=== PATIENT | female | born 1950 | race Caucasian/White ===

== ENCOUNTER 2022-01-02 13:44 | Outpatient (CLI) | payer MEDICARE, MEDICAID, SELFPAY ==
--- NOTE | 2022-01-02 14:30 | XR_ITS ---
WS: [id number] DEXA (DUAL ENERGY X-RAY ABSORPTIOMETRY) Bone mineral density was performed using a [employer] machine. HISTORY: screening COMPARISON: None available. Lumbar spine BMD (L1-L4): 1.206 g/cm2 T score: 0.2 Z score: 1.2 Total hip BMD: Left: 0.898 g/cm2. T score: -0.9 Z score: 0.2 Right: 0.841 g/cm2. T score: -1.3 Z score: -0.3 10 year probability of a major osteoporotic fracture is 20.9%. XR/XR DEXA axial skeleton* 48516 IMPRESSION: OSTEOPENIA based upon the WHO classification for females.
== END 2022-01-02 13:45 | disposition home or self-care (01) ==
PROVIDERS: PCP Internal Medicine; Visit Provider Nurse Practitioner Family
DX: Z78.0 Asymptomatic menopausal state (principal); M85.80 Other specified disorders of bone density and structure, unspecified site
CPT/HCPCS: 77080

== ENCOUNTER 2023-10-03 13:26 | Emergency (ER) | payer MEDICARE, MEDICAID, SELFPAY ==
[2023-10-03 13:30] VITALS: BP 113/79; PULSE 72; RESP 18; TEMP 36.7; O2SAT 95; BMI 23.4
--- NOTE | 2023-10-03 13:40 | XRR_ITS ---
PROCEDURE INFORMATION: Exam: XR Chest Exam date and time: 10/03/2023 1:56 PM Age: 73 years old Clinical indication: Patient HX: Weakness and hypotension. AMS. TECHNIQUE: Imaging protocol: Radiologic exam of the chest. Views: 1 view. COMPARISON: No relevant prior studies available. FINDINGS: Tubes, catheters and devices: Median sternotomy suture wires. Lungs: Bibasilar atelectasis with a left pleural effusion probably present as well. Pleural spaces: See Lungs finding. Heart/Mediastinum: See Vasculature finding. Vasculature: Moderate cardiomegaly and uncoiling of the thoracic aorta. Bones/joints: Unremarkable. Other findings: Mild cephalization of blood flow appear no XR/XR chest 1V portable [id number] IMPRESSION: 1. Cardiomegaly mild cardiac decompensation peer 2. Opacity at the right lung base.
--- NOTE | 2023-10-03 13:40 | CT_ITS ---
WS: [id number] CT HEAD TECHNIQUE: Noncontrast CT of the head obtained from the skullbase to the vertex. CLINICAL INFORMATION: Encephalopathy, altered mental status COMPARISON: None. DLP: 1075.[address] scans at [facility] use at least one of these dose optimization techniques: automated e xposure control; mA and/or kV adjustment per patient size (includes targeted exams where dose is matc hed to clinical indication); or iterative reconstruction. FINDINGS: No evidence of intracranial hemorrhage or mass effect. Ventricular system and basal cisterns are pal nt. Moderate small vessel changes with moderate parenchymal volume loss. No extra-axial fluid collect ions. No evidence of mass or mass effect. Chronic lacunar infarcts in the cerebellum. Chronic appeari ng LEFT parietal infarct near the vertex. Chronic LEFT parietal and occipital infarct with encephalom alacia. Chronic lacunar infarct in the RIGHT [place] radiata. Vascular calcification. Paranasal sinuses and mastoid air cells are well aerated. .Normal visualized soft tissues. CT/CT head wo con* [id number] IMPRESSION: 1. No evidence of intracranial hemorrhage or mass effect. 2. Moderate small vessel changes. Moderate parenchymal volume loss. 3. Small chronic lacunar infarcts in the cerebellum. 4. Intracranial vascular calcification. 5. Tiny lacunar infarct in the RIGHT cop[place] radiata. 6. Chronic appearing infarcts LEFT parietal lobe near the vertex. Chronic infa rcts LEFT parietal and parasagittal occipital lobes with encephalomalacia. 7. No acute intracranial findings.
--- NOTE | 2023-10-03 13:41 | ECG_ITS ---
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 Measurements Intervals [place] Rate: 72 P: 2 IL: 204 QRS: -34 QRSD: 177 T: 86 QT: 482 QTc: 529 Interpretive Statements SINUS RHYTHM WITH OCCASIONAL SUPRAVENTRICULAR PREMATURE COMPLEXES LEFT AXIS DEVIATION [QRS AXIS < -30] INTRAVENTRICULAR CONDUCTION DELAY [130+ ms QRS DURATION] No previous ECG available for comparison Electronically Signed On 10-03-2023 17:04:02 CDT by Dawson Garcia M.D. [email or web address]/[id number] f
--- NOTE | 2023-10-03 14:20 | W.ED.AMS ---
HPI - Altered Mental Status General: Chief Complaint: Altered Mental Status Stated Complaint: Ams, Hypoten Time Seen by Provider: 10/03/23 13:30 History of Present Illness: 73-year-old female with history of coronary artery disease status post CABG, hyperlipidemia, peripheral vascular disease, CVA, depression, type 2 diabetes, COPD and dementia who presents to the emergency room by ambulance with concerns for some altered mental status this morning. Also she has had some cough. She is requiring some oxygen that she does not normally require. She is insulin-dependent. She takes Bumex for congestive heart failure. I do not see any anticoagulants in her records. I did review her long term records. On presentation here she does not remember any altered mental status. She has no complaints. She is awake and alert. No focal motor deficits. She has no chest pain. No shortness of breath. No abdominal pain. Review of Systems Narrative: Constitutional symptoms: Negative except as documented in HPI. Skin symptoms: Negative except as documented in HPI. Eye symptoms: Negative except as documented in HPI. ENMT symptoms: Negative except as documented in HPI. Respiratory symptoms: Negative except as documented in HPI. Cardiovascular symptoms: Negative except as documented in HPI. Gastrointestinal symptoms: Negative except as documented in HPI. Genitourinary symptoms: Negative except as documented in HPI. Musculoskeletal symptoms: Negative except as documented in HPI. Neurologic symptoms: Negative except as documented in HPI. Psychiatric symptoms: Negative except as documented in HPI. Endocrine symptoms: Negative except as documented in HPI. [facility] ED Female Reproductive History: Spontaneous abortions: No Physical Exam Narrative: General: Alert, no acute distress. Skin: Warm, dry. Head: Normocephalic, atraumatic. Neck: Supple, trachea midline. Eye: Extraocular movements are intact. Ears, nose, mouth and throat: mucosa moist. Cardiovascular: Regular, Normal peripheral perfusion. Respiratory: Lungs are clear to auscultation, respirations are non-labored, breath sounds are equal, Symmetrical chest wall expansion. Gastrointestinal: Soft, Nontender, Non distended, Normal bowel sounds. Musculoskeletal: Normal ROM, no deformity. Neurological: Alert and oriented, No focal neurological deficit observed. Psychiatric: Cooperative, appropriate mood & affect. Course Vital Signs: Vital signs: Vital Signs Temperature 98.1 F 10/03/23 13:30 Pulse Rate 86 10/03/23 17:18 Respiratory Rate 18 10/03/23 13:30 Blood Pressure 119/74 10/03/23 15:09 Pulse Oximetry 96 10/03/23 17:18 Oxygen Delivery Me thod Room Air 10/03/23 17:18 Oxygen Flow Rate 2 10/03/23 13:30 MDM - Altered Mental Status Medical Decision Making Medical decision making: Differential diagnosis including but not limited to and based on the above HPI, review of systems and physical exam: In this patient with altered mental status: Stroke. Hypoglycemia. Metabolic encephalopathy. Infections such as pneumonia, urinary tract infection, Covid-19, Influenza. Electrolyte abnormalities such as hypernatremia. Renal failure / uremia. Hepatic encephalopathy. Hypoxemia. Hypercapnic respiratory failure. Psychosis. Drug or alcohol intoxication. Medication overdose. Orders placed to evaluate differential diagnosis based on the above differential, HPI and physical exam EKG: Time 1333. Rate 72. Wide-complex. Normal sinus rhythm, No ST-T changes, no ectopy, normal AL & QRS intervals, This was reviewed and interpreted by myself the ER physician at 1337 CT head: Volume loss. White matter changes. No acute intracranial process. no intracranial hemorrhage, no evidence of infarct. no evidence of acute fracture.This was reviewed and interpreted by myself the ER physician. Chest x-ray: Sternotomy wires are present. Right lower lobe infiltrate. No pneumothorax. No cardiomegaly. This was reviewed and interpreted by myself the ER physician. Repeat EKG: Time 1551. Rate 74. Wide-complex. Normal sinus rhythm, No ST-T changes, no ectopy, normal AL & QRS intervals, This was reviewed and interpreted by myself the ER physician at 1558 Lab Review: Laboratory results were reviewed and interpreted by myself the emergency room physician. Mild leukocytosis with a white count of 11. Hemoglobin stable at 10.7. BUN and creatinine are 22 and 1.3. Initial troponin is 31. Urinalysis basically negative. Repeat troponin has no significant delta. Prolonged emergency room stay: Stay is prolonged secondary to waiting for a second set of cardiac markers. Second set of markers was not reported back until 4 hours. I reviewed the patient's medical record. Reexamination: Patient remains alert and oriented. She has had no altered mental status while she is been here. She is stable on 2 L nasal cannula which has been provided for her by the long term. I have given her IV doxycycline. She has no focal motor deficits. No increased work of breathing at this time. She says she is ready to go back. Assessment and plan: Pneumonia Hypoxemia ?IV doxycycline and IV Solu-Medrol in the emergency room - Discharged home - Discussed findings and plan with patient. Answered any questions. - All laboratory values were reviewed and interpreted personally by myself, the ER physician - All imaging was reviewed and interpreted personally by myself, the ER physician. - Evaluation and treatment of this problem were appropriate in the emergency setting Lab Data 10/03/23 14:11 10/03/23 14:11 Radiology Impressions Chest X-Ray 10/03/23 13:40 IMPRESSION: 1. Cardiomegaly mild cardiac decompensation peer 2. Opacity at the right lung base. Head CT 10/03/23 13:40 IMPRESSION: 1. No evidence of intracranial hemorrhage or mass effect. 2. Moderate small vessel changes. Moderate parenchymal volume loss. 3. Small chronic lacunar infarcts in the cerebellum. 4. Intracranial vascular calcification. 5. Tiny lacunar infarct in the RIGHT [place] radiata. 6. Chronic appearing infarcts LEFT parietal lobe near the vertex. Chronic infarcts LEFT parietal and parasagittal occipital lobes with encephalomalacia. 7. No acute intracranial findings. Laboratory Results WBC 11.09 10^3/uL (3.29-11.43) 10/03/23 14:11 RBC 3.51 10^6/uL (3.85-5.65) L 10/03/23 14:11 Hgb 10.70 g/dL (11.27-16.99) L 10/03/23 14:11 Hct 33.1 % (36-47) L 10/03/23 14:11 MCV 94.3 fl (85-98) 10/03/23 14:11 MCH 30.5 pg (27-33) 10/03/23 14:11 MCHC 32.3 g/dL (30-55) 10/03/23 14:11 RDW 13.8 % (12.1-15.1) 10/03/23 14:11 Plt Count 129 10^3/cmm (157-399) L 10/03/23 14:11 MPV 11.6 fL (7.4-10.4) H 10/03/23 14:11 Neut % (Auto) 76.8 % 10/03/23 14:11 Lymph % (Auto) 13.6 % 10/03/23 14:11 Crisp % (Auto) 8.1 % 10/03/23 14:11 Eos % (Auto) 1.0 % 10/03/23 14:11 Baso % (Auto) 0.2 % 10/03/23 14:11 Neut # (Auto) 8.52 10^3/uL (1.8-7.7) H 10/03/23 14:11 Lymph # (Auto) 1.5 10^3/uL (0.8-4.8) 10/03/23 14:11 Crisp # (Auto) 0.9 10^3/uL (0.2-0.9) 10/03/23 14:11 Eos # (Auto) 0.1 10^3/uL (0.0-0.8) 10/03/23 14:11 Baso # (Auto) 0.0 10^3/uL (0.0-0.1) 10/03/23 14:11 Nucleated RBC % (auto) 0 % 10/03/23 14:11 Nucleated RBCs # 0.0 /100WBC 10/03/23 14:11 Sodium 133 mmol/L (136-145) L 10/03/23 14:11 Potassium 3.3 mmol/L (3.5-5.1) L 10/03/23 14:11 Chloride 93 mmol/L (98-107) L 10/03/23 14:11 Carbon Dioxide 28 mmol/L (22-29) 10/03/23 14:11 Anion Gap 15.3 (5-19) 10/03/23 14:11 BUN 22 mg/dL (8-23) 10/03/23 14:11 Creatinine 1.3 mg/dL (0.5-0.9) H 10/03/23 14:11 GFR Calculation Not Reportable 10/03/23 14:11 Glucose 120 mg/dL (65-115) H 10/03/23 14:11 Calculated Osmolality 281 mOsm/kg (285-295) L 10/03/23 14:11 Lactic Acid 1.2 mmol/L (0.5-2.2) 10/03/23 14:11 Calcium 9.3 mg/dL (8.5-10.5) 10/03/23 14:11 Total Bilirubin 0.9 mg/dL (0.15-1.2) 10/03/23 14:11 AST 15 U/L (0-32) 10/03/23 14:11 ALT 7 U/L (0-33) 10/03/23 14:11 Alkaline Phosphatase 86 U/L (35-105) 10/03/23 14:11 Troponin T Baseline 31 ng/L (0-10) H 10/03/23 14:11 Troponin T 120 Minute 26.61 ng/L (0-10) H 10/03/23 16:41 Delta Troponin T -4.39 ABS# (0-10) L 10/03/23 16:41 C-Reactive Protein 101.1 mg/L (0.0-4.9) H 10/03/23 14:11 Total Protein 8.0 g/dL (6.6-8.7) 10/03/23 14:11 Albumin 4.0 g/dL (3.5-5.2) 10/03/23 14:11 Globulin 4.0 g/dL (1.3-4.6) 10/03/23 14:11 Urine Color Yellow (Yellow) 10/03/23 15:06 Urine Appearance Clear (CLEAR) 10/03/23 15:06 Urine pH 5 (5-7) 10/03/23 15:06 Ur Specific [place] 1.005 (1.005-1.030) 10/03/23 15:06 Urine Protein Neg (Negative) 10/03/23 15:06 Urine Glucose (UA) Norm (Normal) 10/03/23 15:06 Urine Ketones Negative (Negative) 10/03/23 15:06 Urine Blood 2+ (Negative) H 10/03/23 15:06 Urine Nitrate Negative (Negative) 10/03/23 15:06 Urine Bilirubin Neg (Negative) 10/03/23 15:06 Urine Urobilinogen Norm mg/dL (Negative) 10/03/23 15:06 Ur Leukocyte Esterase Trace (Negative) H 10/03/23 15:06 Urine RBC 0-4 /hpf (0-2) H 10/03/23 15:06 Urine WBC 0-4 /hpf (0-5) H 10/03/23 15:06 Ur Squamous Epith Cells 0-4 /hpf (0-5) H 10/03/23 15:06 Amorphous Sediment Not Reportable 10/03/23 15:06 Urine Bacteria 1+ /hpf (NONE) H 10/03/23 15:06 All radiology interpretation(s) finalized by discharge Discharge Plan Discharge Patient Disposition: Home Clinical Impression: Pneumonia Qualifiers: Pneumonia type: due to unspecified organism Laterality: right Lung location: lower lobe of lung Qualified Code(s): J18.9 - Pneumonia, unspecified organism Condition: Stable Prescriptions: New doxycycline hyclate 100 mg capsule 100 mg PO BID 7 Days Qty: 14 0RF dexamethasone 6 mg tablet 6 mg PO DAILY 5 Days Qty: 5 0RF No Action potassium chloride 10 mEq capsule, extended release 10 meq PO DAILY polyethylene glycol 3350 [Miralax] 17 gram/dose powder 17 gm PO DAILY aspirin [Adult Aspirin Regimen] 81 mg tablet,delayed release (DR/EC) 81 mg PO DAILY carvedilol 6.25 mg tablet 6.25 mg PO Q12H famotidine 20 mg tablet 20 mg PO BID quetiapine [Seroquel] 100 mg tablet 100 mg PO BID Combivent Respimat 20-100 mcg/actuation mist 1 puff INHALATION QID tamsulosin 0.4 mg capsule 0.4 mg PO DAILY mirtazapine 15 mg tablet 15 mg PO DAILY trazodone 50 mg tablet 25 mg PO .AT HS Lumigan 0.01 % drops 1 drop ophthalmic (eye) DAILY atorvastatin [Lipitor] 20 mg tablet 20 mg PO DAILY acetaminophen [Tylenol] 325 mg tablet 325 mg PO QID PRN bisacodyl 10 mg suppository 10 mg AL DAILY PRN glimepiride [Amaryl] 2 mg tablet 2 mg PO BID Qty: 60 0RF losartan 50 mg tablet 100 mg PO DAILY fluticasone propion-salmeterol [Advair Diskus] 250-50 mcg/dose blister with device 1 inh inhalation BID Qty: 60 0RF Discharge Orders: Discharge ED (Routine); Ordered 10/03/23 Ordered By: Bessy Howard Referrals: Rigoberto Gibson MD [Primary Care Provider] - Discharge Diet: Usual diet Discharge Activity: Increase activity as tolerated Patient Instructions: Pneumonia (ED) Activity Restrictions/Additional Instructions: Thank you for choosing [facility] for your healthcare needs today. Please realize this is an emergency room and that we are providing you with a medical screening exam and this may not be complete and all inclusive of all the testing and or work up that you may need to determine your ailment or severity of your illness. You have been screened and evaluated and felt safe for discharge. Health conditions do change or evolve sometimes and as such it is important that you follow up with your Primary Doctor to be re checked, 3-5 days is a general good time frame for follow up. You are always welcome to return to the ED for re assessment if your symptoms are worsening or you have new concerns Coding Level of Care Code ED Fusing Machine Operator for Giorgi Lopez
[2023-10-03 14:24] LABS: Basophils % 0.2 %; Eosinophils # 0.1 10^3/uL (0.0-0.8); Hematocrit 33.1 % (36-47); Lymphocytes # 1.5 10^3/uL (0.8-4.8); Lymphocytes % 13.6 %; Mean Corpuscular HGB Conc 32.3 g/dL (30-55); Mean Corpuscular Hemoglobin 30.5 pg (27-33); Mean Corpuscular Volume 94.3 fl (85-98); Mean Platelet Volume 11.6 fL (7.4-10.4); Monocytes # 0.9 10^3/uL (0.2-0.9); Monocytes % 8.1 %; Neutrophils # 8.52 10^3/uL (1.8-7.7); Neutrophils % 76.8 %; Nucleated Red Blood Cells % 0 %; Platelet Count 129 10^3/cmm (157-399); Red Blood Count 3.51 10^6/uL (3.85-5.65); Red Cell Distribution Width 13.8 % (12.1-15.1); White Blood Count 11.09 10^3/uL (3.29-11.43)
[2023-10-03 14:41] LABS: Lactic Sepsis W/Reflex 1.2 mmol/L (0.5-2.2)
[2023-10-03 14:42] LABS: Alanine Aminotransferase 7 U/L (0-33); Alkaline Phosphatase 86 U/L (35-105); Anion Gap 15.3 (5-19); Aspartate Amino Transferase 15 U/L (0-32); Blood Urea Nitrogen 22 mg/dL (8-23); C Reactive Protein 101.1 mg/L (0.0-4.9); Calcium 9.3 mg/dL (8.5-10.5); Carbon Dioxide 28 mmol/L (22-29); Chloride 93 mmol/L (98-107); Creatinine Clr Calc Pharmacy 40.3281; Glucose 120 mg/dL (65-115); Osmolality Calculated 281 mOsm/kg (285-295); Potassium 3.3 mmol/L (3.5-5.1); Sodium 133 mmol/L (136-145); Total Bilirubin 0.9 mg/dL (0.15-1.2)
[2023-10-03 14:54] LABS: Troponin(5th) Baseline 31 ng/L (0-10)
[2023-10-03] MEDS: methylPREDNISolone sod succ 125 mg/2 mL INJ IVP (15:01)
[2023-10-03] MEDS: doxycycline 100 MG in sodium chloride 0.9% (plus) 100 ML IV (15:02)
[2023-10-03 15:09] VITALS: BP 119/74; PULSE 67; O2SAT 97
[2023-10-03 15:28] LABS: Bacteria Urine 1+ /hpf; Bilirubin Urine Neg (Negative); Blood Urine 2+ (Negative); Glucose Urine UA Norm (Normal); Ketones Urine Negative (Negative); Leukocyte Esterase Urine Trace (Negative); Nitrate Urine Negative (Negative); Protein Urine Neg (Negative); RBC Urine 0-4 /hpf (0-2); Specific Gravity, Urine 1.005 (1.005-1.030); Squamous Epithelial Cell Urine 0-4 /hpf (0-5); Urine Appearance Clear (CLEAR); Urine Color Yellow (Yellow); Urobilinogen Urine Norm (Negative); WBC Urine 0-4 /hpf (0-5); pH Urine 5 (5-7)
--- NOTE | 2023-10-03 15:51 | ECG_ITS ---
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 Measurements Intervals [place] Rate: 74 P: 3 MA: 203 QRS: -41 QRSD: 181 T: 87 QT: 470 QTc: 522 Interpretive Statements SINUS RHYTHM WITH SINUS ARRHYTHMIA LEFT AXIS DEVIATION [QRS AXIS < -30] INTRAVENTRICULAR CONDUCTION DELAY [130+ ms QRS DURATION] Compared to ECG 10/03/2023 13:33:05 No significant changes Electronically Signed On 10-03-2023 17:07:36 CDT by Dawson Garcia M.D. [email or web address] [email or web address] regional medical centerMass [facility]mer[facility].[employer]/store/OM/[id number]
[2023-10-03 17:18] VITALS: PULSE 86; O2SAT 96
[2023-10-03 17:34] LABS: Troponin 5 2HR 26.61 ng/L (0-10)
[2023-10-03 17:35] LABS: Troponin 5 2HR Delta -4.39 ABS# (0-10)
[2023-10-04 00:23] VITALS: BP 153/89; PULSE 98; RESP 17; O2SAT 95
== END 2023-10-04 00:27 | disposition home or self-care (01) ==
PROVIDERS: Emergency Provider Emergency Medicine; PCP Internal Medicine
DX: J44.0 Chronic obstructive pulmonary disease with (acute) lower respiratory infection (principal); J18.9 Pneumonia, unspecified organism; Z79.82 Long term (current) use of aspirin; Z79.84 Long term (current) use of oral hypoglycemic drugs; I25.10 Atherosclerotic heart disease of native coronary artery without angina pectoris; Z95.1 Presence of aortocoronary bypass graft; E78.5 Hyperlipidemia, unspecified; Z86.73 Personal history of transient ischemic attack (TIA), and cerebral infarction without residual deficits; E11.9 Type 2 diabetes mellitus without complications; F03.90 Unspecified dementia, unspecified severity, without behavioral disturbance, psychotic disturbance, mood disturbance, and anxiety; Z79.4 Long term (current) use of insulin; I50.9 Heart failure, unspecified
CPT/HCPCS: 36415; 70450; 71045; 80053; 81001; 83605; 84484; 85025; 86140; 87040; 93005; 96365; 96366; 99285; J2919; J3490

== ENCOUNTER 2024-07-25 09:23 | Inpatient (IN) | payer MEDICARE, MEDICAID, SELFPAY ==
[2024-07-25] VITALS (8 sets, daily range): BP systolic 118–147; BP diastolic 65–95; PULSE 69–76; RESP 17–19; TEMP 36.4–36.8; O2SAT 90–95; BMI 26.9
--- NOTE | 2024-07-25 09:28 | PC.PHAR ---
PATIENT IS FROM [facility]
--- NOTE | 2024-07-25 09:31 | CT_ITS ---
WS: [id number] CT HEAD NONCONTRAST HISTORY: RT SIDED WEAKNESS TECHNIQUE: Contiguous axial imaging performed through the brain. Bone and soft tissue windows. Sagittal and coronal reformats reviewed. All CT scans at [facility] use at least one of these dose optimization techniques: automated exposure control; mA and/or kV adjustment per patient size (includes targeted exams where dose is matched to clinical indication); or iterative reconstruction. DLP: 1107.20 mGy COMPARISON: 10/03/2023 No acute intracranial hemorrhage, midline shift or mass effect. Moderate cerebral atrophy and volume loss and small vessel disease. Similar to the prior study from 10/03/2023. Chronic lacunar infarcts in the cerebellum. Chronic LEFT parietal infarct and LEFT occipital lobe infarct. No acute infarcts or sulcal effacement. Ventricles: Mildly dilated ventricles and extra-axial spaces on the basis of atrophy. No inferior displacement of the cerebellar tonsils. Paranasal sinuses: As visualized are clear. Mastoid air cells: Well pneumatized. Calvarium and scalp: Hyperostosis frontalis interna. CT/CT head thrombolytic [id number] IMPRESSION: 1. No acute intracranial hemorrhage or edema. 2. Moderate volume loss and small vessel disease. 3. Numerous prior infarcts. Infarcts within the LEFT parietal and occipital lo bes and cerebellum. Notified Jim Boone DO at 07/25/2024 9:40 AM.
--- NOTE | 2024-07-25 09:37 | W.ED.NEUROSD ---
HPI - Neuro Symptoms/Deficit General: Chief Complaint: Neuro Symptoms/Deficit Stated Complaint: stroke like symptoms Time Seen by Provider: 07/25/24 09:28 History of Present Illness: 74-year-old female presents emergency room via EMS from a local care home. She is complaining of right-sided pain typically she ambulates she is unable to move her right lower extremity and has significant weakness in her right upper extremity. Her last known well was before bedtime last night which they estimate to be around 9 or 10:00. She is well outside the window of treatment for any thrombolytics when she arrives this morning at 923. Patient is awake can answer questions initial NIH score on my exam was 4, possibly 5 patient states she was not having any difficulty speaking she did have a little slurring of words and unsure if that she is actually at her baseline or not did not have any family members available to clarify. Associated symptoms: Deny chest pain Related Data Home Medications ?Medication ?Instructions ?Recorded ?Confirmed acetaminophen 325 mg tablet 325 mg PO QID PRN Pain 08/19/19 07/25/24 (Tylenol) aspirin 81 mg tablet,delayed 81 mg PO DAILY 08/19/19 07/25/24 release (Adult Aspirin Regimen) atorvastatin 20 mg tablet (Lipitor) 20 mg PO BEDTIME 08/19/19 07/25/24 bimatoprost 0.01 % eye drops 1 drop ophthalmic (eye) BEDTIME 08/19/19 07/25/24 (Lumigan) bisacodyl 10 mg rectal suppository [address] DAILY PRN Constipation 08/19/19 07/25/24 carvedilol 6.25 mg tablet 6.25 mg PO Q12H 08/19/19 07/25/24 mirtazapine 15 mg tablet 15 mg PO BEDTIME 08/19/19 07/25/24 potassium chloride 10 mEq 10 meq PO DAILY 08/19/19 07/25/24 capsule,extended release tamsulosin 0.4 mg capsule 0.4 mg PO BEDTIME 08/19/19 07/25/24 B1 0.5 mg-B2 0.6 mg-B3 7 mg-B6 0.7 See Rx Instructions .Route .COMPLEX 04/14/24 07/25/24 [id number] oral elixir bumetanide 2 mg tablet 2 mg PO DAILY 04/14/24 07/25/24 menthol 4 % topical gel (Biofreeze 1 applic topical TID PRN Pain 04/14/24 07/25/24 (menthol)) polyethylene glycol 3350 17 17 g PO DAILY PRN Constipation 04/14/24 07/25/24 gram/dose oral powder (Miralax) quetiapine 200 mg tablet (Seroquel) 200 mg PO BEDTIME 04/14/24 07/25/24 albuterol sulfate 90 mcg/actuation 1 - 2 puff inhalation Q4H PRN 07/25/24 07/25/24 aerosol inhaler Shortness Of Breath escitalopram oxalate 10 mg tablet 10 mg PO DAILY 07/25/24 07/25/24 fluticasone furoate 200 1 inh inhalation DAILY 07/25/24 07/25/24 mcg-vilanterol 25 mcg/dose inhalation powder (Breo Ellipta) guaifenesin 100 mg/5 mL oral liquid 300 mg PO Q4H PRN Cough 07/25/24 07/25/24 guaifenesin 600 mg tablet, 600 mg PO Q12H PRN Congestion 07/25/24 07/25/24 extended release 12 hr (Mucinex) ipratropium 0.5 mg-albuterol 3 mg 3 ml inhalation Q4H PRN Shortness 07/25/24 07/25/24 (2.5 mg base)/3 mL nebulization Of Breath Or Wheezing soln losartan 100 mg tablet 100 mg PO DAILY 07/25/24 07/25/24 omeprazole 20 mg capsule,delayed 20 mg PO DAILY 07/25/24 07/25/24 release Allergies Allergy/AdvReac Type Severity Reaction Status Date / Time No Known Allergies Allergy Verified 07/25/24 09:38 Review of Systems Const: Denies: fever(s) or chills Card: Denies: chest pain Resp: Denies: dyspnea GI: Denies: abdominal pain : Denies: dysuria, urinary frequency or urinary urgency Musc: Denies: neck pain or back pain Skin/Breast: Denies: rash PFSH ED PFSH: Medical History Unspecified open wound of right upper arm, subsequent encounter Unspecified dementia, unspecified severity, without behavioral disturbance, psychotic disturbance, mood disturbance, and anxiety Chronic obstructive pulmonary disease, unspecified Type 2 diabetes mellitus without complications Chronic kidney disease, stage 4 (severe) Major depressive disorder, recurrent, unspecified Atherosclerotic heart disease of [place] coronary artery without angina pectoris Hyperlipidemia, unspecified Essential (primary) hypertension Peripheral vascular disease, unspecified Retention of urine, unspecified Surgical History Presence of aortocoronary bypass graft Social History Smoking and tobacco/nicotine status: current every day tobacco/nicotine user Female Reproductive History: Spontaneous abortions: No NIH stroke score NIHSS: Level Of Consciousness - 1a: 0 Level Of Consciousness Questions - 1b: Both Correct Level Of Consciousness Commands - 1c: Both Correct Best Gaze - 2: Normal Visual [place] - 3: No Visual Loss Facial Palsy - 4: Normal Motor Arm Right - 5: Drift Motor Arm Left - 5: No Drift Motor Leg Right - 6: Drift Motor Leg Left - 6: No Drift Limb Ataxia - 7: Present In Two Limbs Sensory - 8: Normal Best Language - 9: No Aphasia Dysarthia - 10: Normal Extinction And Inattention - 11: 0 Score: Total Score: 4 Physical Exam Const: GENERAL APPEARANCE: cooperative ORIENTATION/CONSCIOUSNESS: Yes awake, Yes oriented to person, Yes oriented to place and Yes oriented to time HENMT: COMMON NORMALS: normocephalic, atraumatic and hearing grossly normal bilaterally HEAD & SCALP: normocephalic and atraumatic Resp: COMMON NORMALS: normal respiratory effort, No retractions, No use of accessory muscles and clear to auscultation bilaterally AUSCULTATION: clear to auscultation bilaterally Cardio: COMMON NORMALS: regular rate, regular rhythm and No murmurs present (Cardio) RATE: regular rate RHYTHM: regular rhythm GI: COMMON NORMALS: Soft to palpation and No hepatosplenomegaly present AUSCULTATION: Yes normoactive bowel sounds PALPATION: Yes Soft to palpation, No Tenderness to palpation present (GI), No Guarding due to palpation present (GI) and Yes No hepatosplenomegaly present Extremity: COMMON NORMALS: normal to inspection, capillary refill normal, no clubbing, cyanosis or edema, no calf tenderness and no pedal edema Neuro: SENSORIUM/ORIENTATION: Yes oriented to person, Yes oriented to place and Yes oriented to time Skin: COMMON NORMALS: no rashes or lesions noted GENERAL SKIN EXAM: no rashes or lesions noted Course Vital Signs: Vital signs: Vital Signs Temperature 98.3 F 07/25/24 09:25 Pulse Rate 73 07/25/24 11:15 Respiratory Rate 19 H 07/25/24 11:00 Blood Pressure 118/92 07/25/24 11:15 Pulse Oximetry 95 07/25/24 11:15 Oxygen Delivery Me thod Room Air 07/25/24 09:25 MDM - Neuro Symptoms/Deficit Medical Decision Making Stroke score of 4-[address] Rhodes had her at 6 he felt there is a little bit of right-sided facial droop. He did not feel the patient had a large vessel occlusion. He recommends admission. Discussed with hospitalist orders written admit for acute CVA. He agrees he is outside the window for thrombolytics. Medical Records I reviewed the patient's medical records. Lab Data I reviewed the patient's lab results. 07/25/24 09:30 07/25/24 09:[address] 07/25/24 09:31 IMPRESSION: 1. No acute intracranial hemorrhage or edema. 2. Moderate volume loss and small vessel disease. 3. Numerous prior infarcts. Infarcts within the LEFT parietal and occipital lobes and cerebellum. Notified Jim Boone DO at 07/25/2024 9:40 AM. Laboratory Results WBC 7.10 10^3/uL (3.29-11.43) 07/25/24 09:30 RBC 3.95 10^6/uL (3.85-5.65) 07/25/24 09:30 Hgb 11.70 g/dL (11.27-16.99) 07/25/24 09:30 Hct 36.5 % (36-47) 07/25/24 09:30 MCV 92.4 fl (85-98) 07/25/24 09:30 MCH 29.6 pg (27-33) 07/25/24 09:30 MCHC 32.1 g/dL (30-55) 07/25/24 09:30 RDW 13.8 % (12.1-15.1) 07/25/24 09:30 Plt Count 102 10^3/cmm (157-399) L 07/25/24 09:30 MPV 11.7 fL (7.4-10.4) H 07/25/24 09:30 Neut % (Auto) 65.0 % 07/25/24 09:30 Lymph % (Auto) 19.4 % 07/25/24 09:30 [place] % (Auto) 6.2 % 07/25/24 09:30 Eos % (Auto) 8.7 % 07/25/24 09:30 Baso % (Auto) 0.3 % 07/25/24 09:30 Neut # (Auto) 4.61 10^3/uL (1.8-7.7) 07/25/24 09:30 Lymph # (Auto) 1.4 10^3/uL (0.8-4.8) 07/25/24 09:30 [place] # (Auto) 0.4 10^3/uL (0.2-0.9) 07/25/24 09:30 Eos # (Auto) 0.6 10^3/uL (0.0-0.8) 07/25/24 09:30 Baso # (Auto) 0.0 10^3/uL (0.0-0.1) 07/25/24 09:30 Nucleated RBC % (auto) 0 % 07/25/24 09:30 Nucleated RBCs # 0.0 /100WBC 07/25/24 09:30 PT 13.50 SECONDS (12.1-14.9) 07/25/24 09:30 INR 0.96 (0.8-1.2) 07/25/24 09:30 APTT 26.0 SECONDS (23.9-36.7) 07/25/24 09:30 Sodium 141 mmol/L (136-145) 07/25/24 09:30 Potassium 3.6 mmol/L (3.5-5.1) 07/25/24 09:30 Chloride 101 mmol/L (98-107) 07/25/24 09:30 Carbon Dioxide 29 mmol/L (22-29) 07/25/24 09:30 Anion Gap 14.6 (5-19) 07/25/24 09:30 BUN 20 mg/dL (8-23) 07/25/24 09:30 Creatinine 1.3 mg/dL (0.5-0.9) H 07/25/24 09:30 GFR Calculation Not Reportable 07/25/24 09:30 Glucose 155 mg/dL (65-115) H 07/25/24 09:30 Calculated Osmolality 298 mOsm/kg (285-295) H 07/25/24 09:30 Calcium 9.0 mg/dL (8.5-10.5) 07/25/24 09:30 Total Bilirubin 0.5 mg/dL (0.15-1.2) 07/25/24 09:30 AST 22 U/L (0-32) 07/25/24 09:30 ALT 15 U/L (0-33) 07/25/24 09:30 Alkaline Phosphatase 96 U/L (35-105) 07/25/24 09:30 Troponin T Baseline 20 ng/L (0-10) H 07/25/24 09:30 Total Protein 6.8 g/dL (6.6-8.7) 07/25/24 09:30 Albumin 4.1 g/dL (3.5-5.2) 07/25/24 09:30 Globulin 2.7 g/dL (1.3-4.6) 07/25/24 09:30 Urine Color Yellow (Yellow) 07/25/24 09:43 Urine Appearance Clear (CLEAR) 07/25/24 09:43 Urine pH 6 (5-7) 07/25/24 09:43 Ur Specific [place] 1.015 (1.005-1.030) 07/25/24 09:43 Urine Protein Neg (Negative) 07/25/24 09:43 Urine Glucose (UA) Norm (Normal) 07/25/24 09:43 Urine Ketones Negative (Negative) 07/25/24 09:43 Urine Blood Neg (Negative) 07/25/24 09:43 Urine Nitrate Negative (Negative) 07/25/24 09:43 Urine Bilirubin Neg (Negative) 07/25/24 09:43 Urine Urobilinogen Neg mg/dL (Negative) 07/25/24 09:43 Ur Leukocyte Esterase Negative (Negative) 07/25/24 09:43 Urine RBC 0-2 /hpf (0-2) 07/25/24 09:43 Urine WBC 0-5 /hpf (0-5) 07/25/24 09:43 Ur Squamous Epith Cells 0-5 /hpf (0-5) 07/25/24 09:43 Amorphous Sediment Not Reportable 07/25/24 09:43 Urine Bacteria None seen /hpf (NONE) 07/25/24 09:43 Hyaline Casts 0.81 /lpf 07/25/24 09:43 Urine Opiates Screen Negative ng/mL (Negative) 07/25/24 09:43 Ur Barbiturates Screen Negative ng/mL (Negative) 07/25/24 09:43 Ur Phencyclidine Scrn Negative ng/mL (Negative) 07/25/24 09:43 Ur Amphetamines Screen Negative ng/mL (Negative) 07/25/24 09:43 U Benzodiazepines Scrn Negative ng/mL (Negative) 07/25/24 09:43 Urine Cocaine Screen Negative ng/mL (Negative) 07/25/24 09:43 U Marijuana (THC) Screen Negative ng/mL (Negative) 07/25/24 09:43 All radiology interpretation(s) finalized by discharge Discharge Plan Discharge Patient Disposition: Admitted As Inpatient Admit Provider: Young Knowles Clinical Impression: Acute left ICA ischemic stroke, Type 2 diabetes mellitus, Dementia with behavioral disturbance Condition: Stable Coding Level of Care Code ED [employer] for [employer] Lopez
--- NOTE | 2024-07-25 09:40 | ECG_ITS ---
[facility] Test Date: 2024-07-25 Pat Name: Samantha Nunez Department: Room: Gender: Female Administrative Coordinator: : 1950 Requested By: Jim Trevino Order Number: [id number] [place] MD: Dawson Garcia M.D. Measurements Intervals [place] Rate: 74 P: -18 MO: 194 QRS: -28 QRSD: 174 T: 79 QT: 444 QTc: 496 Interpretive Statements SINUS RHYTHM LEFT BUNDLE BRANCH BLOCK [120+ ms QRS DURATION, 80+ ms Q/S IN V1/V2, 85+ ms R IN I/aVL/V5/V6] Compared to ECG 10/03/2023 15:51:06 Left bundle-branch block now present Sinus arrhythmia no longer present Left-axis deviation no longer present Intraventricular conduction delay no longer present Electronically Signed On 07-26-2024 18:16:40 CDT by Dawson Garcia M.D. [email or web address] [id number]
[2024-07-25 09:46] LABS: Basophils % 0.3 %; Eosinophils # 0.6 10^3/uL (0.0-0.8); Eosinophils % 8.7 %; Hematocrit 36.5 % (36-47); Lymphocytes # 1.4 10^3/uL (0.8-4.8); Lymphocytes % 19.4 %; Mean Corpuscular HGB Conc 32.1 g/dL (30-55); Mean Corpuscular Hemoglobin 29.6 pg (27-33); Mean Corpuscular Volume 92.4 fl (85-98); Mean Platelet Volume 11.7 fL (7.4-10.4); Monocytes # 0.4 10^3/uL (0.2-0.9); Monocytes % 6.2 %; Neutrophils # 4.61 10^3/uL (1.8-7.7); Nucleated Red Blood Cells % 0 %; Platelet Count 102 10^3/cmm (157-399); Red Blood Count 3.95 10^6/uL (3.85-5.65); Red Cell Distribution Width 13.8 % (12.1-15.1)
[2024-07-25 09:51] LABS: Add Urine Microscopic? NO
--- NOTE | 2024-07-25 09:57 | PM.CONSULT ---
Providers/Reason For Consult Consulting Physician/Specialty*: Ari Rhodes MD neurology and epilepsy Reason for Consult*: Acute care/code stroke emergency department room #10 Primary Care Provider: Rigoberto Gibson MD History of Present Illness History of Present Illness Samantha Nunez is a 74 year old female with a history of heart disease. The patient resides in a care facility. According to the patient she went to sleep on 07/24/2024 around 9 or 10 PM and woke up this morning around 6 AM on 07/25/2024 with right arm and right leg weakness. Code stroke was initiated at 8:55 AM reporting ETA 20 minutes. Stat noncontrast head CT 07/25/2024 IMPRESSION: 1. No acute intracranial hemorrhage or edema. 2. Moderate volume loss and small vessel disease. 3. Numerous prior infarcts. Infarcts within the LEFT parietal and occipital lobes and cerebellum. EKG 07/25/2024 Interpretive Statements SINUS RHYTHM WITH SINUS ARRHYTHMIA LEFT AXIS DEVIATION [QRS AXIS < -30] INTRAVENTRICULAR CONDUCTION DELAY [130+ ms QRS DURATION] Compared to ECG 10/03/2023 13:33:05 No significant changes Serum glucose: Pending at the time of this dictation NIH stroke score = 6 (secondary to mild right lower facial weakness =1, right upper extremity weakness =2, right lower extremity weakness =3, dysarthria =1) Note: Since the patient's last known well was 9 or 10 PM on 07/24/2024 and patient reports awakening on 07/25/2024 at 6 AM with right-sided weakness, patient was not a candidate for intravenous thrombolytics and no intravenous thrombolytics were administered. Drug allergies: None Current medications: Aspirin 81 mg p.o. daily Lipitor 20 mg p.o. daily Tylenol 3 on 25 mg p.o. every 4 hours as needed Bimatoprost 0.01% eyedrops 1 drop in eyes at bedtime Bumetanide 2 mg p.o. daily Carvedilol 6.25 mg p.o. every 12 hours Lexapro 10 mg p.o. daily Pepcid 20 mg p.o. twice daily Breo Ellipta inhaler once a day Glimepiride 2 mg p.o. twice daily Regular insulin to use as directed Losartan 100 mg p.o. daily Potassium chloride 10 mill equivalents p.o. daily Seroquel 100 mg p.o. twice daily Flomax 0.4 mg p.o. daily Trazodone 25 mg p.o. nightly Past medical history: History of remote strokes Hypertension Heart disease Type 2 diabetes mellitus Pneumonia secondary to COVID-19 virus Dementia with behavioral disturbance Habits: The patient reports smoking 6 cigarettes/day. The patient denied other drug use. The patient was educated on potential health risks associated with smoking. Patient reports she is aware of the potential health risk associated with smoking Review of Systems General: Reports: 10 or more systems reviewed and unremarkable except in HPI and below Medications/Allergies Home Medications ?Medication ?Instructions ?Recorded ?Confirmed ?Last Taken ?Type acetaminophen 325 mg tablet 325 mg PO QID PRN Pain 08/19/19 07/25/24 07/25/24 History (Tylenol) aspirin 81 mg tablet,delayed 81 mg PO DAILY 08/19/19 07/25/24 07/25/24 History release (Adult Aspirin Regimen) atorvastatin 20 mg tablet (Lipitor) 20 mg PO BEDTIME 08/19/19 07/25/24 07/24/24 History bimatoprost 0.01 % eye drops 1 drop ophthalmic (eye) BEDTIME 08/19/19 07/25/24 07/24/24 History (Lumigan) bisacodyl 10 mg rectal suppository 10 mg SC DAILY PRN Constipation 08/19/19 07/25/24 Unknown History carvedilol 6.25 mg tablet 6.25 mg PO Q12H 08/19/19 07/25/24 07/25/24 History mirtazapine 15 mg tablet 15 mg PO BEDTIME 08/19/19 07/25/24 07/24/24 History potassium chloride 10 mEq 10 meq PO DAILY 08/19/19 07/25/24 07/25/24 History capsule,extended release tamsulosin 0.4 mg capsule 0.4 mg PO BEDTIME 08/19/19 07/25/24 07/24/24 History B1 0.5 mg-B2 0.6 mg-B3 7 mg-B6 0.7 See Rx Instructions .Route .COMPLEX 04/14/24 07/25/24 07/25/24 History [id number] oral elixir bumetanide 2 mg tablet 2 mg PO DAILY 04/14/24 07/25/24 07/25/24 History menthol 4 % topical gel (Biofreeze 1 applic topical TID PRN Pain 04/14/24 07/25/24 Unknown History (menthol)) polyethylene glycol 3350 17 17 g PO DAILY PRN Constipation 04/14/24 07/25/24 Unknown History gram/dose oral powder (Miralax) quetiapine 200 mg tablet (Seroquel) 200 mg PO BEDTIME 04/14/24 07/25/24 07/24/24 History albuterol sulfate 90 mcg/actuation 1 - 2 puff inhalation Q4H PRN 07/25/24 07/25/24 Unknown History aerosol inhaler Shortness Of Breath escitalopram oxalate 10 mg tablet 10 mg PO DAILY 07/25/24 07/25/24 07/25/24 History fluticasone furoate 200 1 inh inhalation DAILY 07/25/24 07/25/24 07/25/24 History mcg-vilanterol 25 mcg/dose inhalation powder (Breo Ellipta) guaifenesin 100 mg/5 mL oral liquid 300 mg PO Q4H PRN Cough 07/25/24 07/25/24 Unknown History guaifenesin 600 mg tablet, 600 mg PO Q12H PRN Congestion 07/25/24 07/25/24 Unknown History extended release 12 hr (Mucinex) ipratropium 0.5 mg-albuterol 3 mg 3 ml inhalation Q4H PRN Shortness 07/25/24 07/25/24 Unknown History (2.5 mg base)/3 mL nebulization Of Breath Or Wheezing soln losartan 100 mg tablet 100 mg PO DAILY 07/25/24 07/25/24 07/25/24 History omeprazole 20 mg capsule,delayed 20 mg PO DAILY 07/25/24 07/25/24 07/25/24 History release Allergies Allergy/AdvReac Type Severity Reaction Status Date / Time No Known Allergies Allergy Verified 07/25/24 09:38 PFSH Acute PFSH: Medical History Unspecified open wound of right upper arm, subsequent encounter Unspecified dementia, unspecified severity, without behavioral disturbance, psychotic disturbance, mood disturbance, and anxiety Chronic obstructive pulmonary disease, unspecified Type 2 diabetes mellitus without complications Chronic kidney disease, stage 4 (severe) Major depressive disorder, recurrent, unspecified Atherosclerotic heart disease of [place] coronary artery without angina pectoris Hyperlipidemia, unspecified Essential (primary) hypertension Peripheral vascular disease, unspecified Retention of urine, unspecified Surgical History Presence of aortocoronary bypass graft Social History Smoking and tobacco/nicotine status: current every day tobacco/nicotine user Female Reproductive History: Spontaneous abortions: No Vitals/I&O/Wt Last Vital Signs Temp 98.3 F 07/25/24 09:25 Pulse 76 07/25/24 09:25 Resp 19 H 07/25/24 09:25 BP 136/84 07/25/24 09:25 Pulse Ox 94 07/25/24 09:25 O2 Del Method Room Air 07/25/24 09:25 Weight last 48 hrs Weight 177 lb Physical Exam Narrative: NIH stroke score = 6 (secondary to mild right lower facial weakness =1, right upper extremity weakness =2, right lower extremity weakness =3, dysarthria =1) The patient is alert and oriented to person place and situation. Head atraumatic. Neck supple. Cranial nerves II through XII revealed mild right lower facial weakness. There was mild dysarthria. Other cranial nerves were intact. Pupils 3 mm round reactive to light and accommodation. Extraocular movements intact. Visual pérez appear to be full via confrontation. Motor testing 3/5 strength in the right arm and 2+ to 3/5 strength in the right leg. Motor testing the left arm and left leg 5/5. Deep tendon reflexes revealed extensor plantar response on the right and flexor on the left. There was no clonus. Sensory examination was intact to touch. There was no extinction on double sensory stimulation. Throat clear. Lungs clear. Heart regular rhythm and rate. Extremities were negative for cyanosis. Gait was not tested secondary to right sided weakness. Data 07/25/24 09:30 07/25/24 09:30 A&P Assessment and plan (1) Acute left ICA ischemic stroke: Impression: 1. Clinical examination suggestive of left cerebral infarction with right sided weakness (face arm and leg). NIH stroke score = 6 (secondary to mild right lower facial weakness =1, right upper extremity weakness =2, right lower extremity weakness =3, dysarthria =1). No: Since the patient last known well was 9 or 10 PM on 07/24/2024 and patient awakening on 07/25/2024 at 6 AM with right sided weakness, patient was not a candidate for intravenous thrombolytics and no intravenous thrombolytics were administered. 2. History of multiple remote strokes 3. History of heart disease Plan: 1. Agree with hospital admission for acute stroke 2. Continue aspirin and Lipitor per NIH stroke protocol 3. Neurochecks and vital signs per NIH stroke protocol 4. Fall precautions 5. Stroke education/stroke pamphlet for patient and care facility where patient resides 6. Recommend obtaining speech therapy, physical therapy and Occupational Therapy consults 7. Recommend cardiac telemetry monitoring to assess for cardiac causes for stroke 8. Recommend obtaining carotid duplex study to assess for carotid or vertebral artery stenosis PDMP PDMP Reviewed: Not Reviewed Consult Attestations Medical Necessity Statement: The patient was evaluated for acute care/code stroke emergency department room #10 Coding Level of Care Code 26305 Diagnoses Acute left ICA ischemic stroke I63.232
[2024-07-25 10:01] LABS: Urine Color Yellow (Yellow)
[2024-07-25 10:02] LABS: Bilirubin Urine Neg (Negative); Blood Urine Neg (Negative); Glucose Urine UA Norm (Normal); Ketones Urine Negative (Negative); Leukocyte Esterase Urine Negative (Negative); Nitrate Urine Negative (Negative); Protein Urine Neg (Negative); Specific Gravity, Urine 1.015 (1.005-1.030); Urine Appearance Clear (CLEAR); Urobilinogen Urine Neg (Negative); pH Urine 6 (5-7)
[2024-07-25 10:03] LABS: INR 0.96 (0.8-1.2)
[2024-07-25 10:03] LABS: Charge for UA Resulting for Rev
[2024-07-25 10:06] LABS: Bacteria Urine None Seen /hpf; Hyaline Casts Urine 0.81 /lpf; RBC Urine 0-2 /hpf (0-2); Squamous Epithelial Cell Urine 0-5 /hpf (0-5); WBC Urine 0-5 /hpf (0-5)
[2024-07-25 10:08] LABS: Alanine Aminotransferase 15 U/L (0-33); Albumin Level 4.1 g/dL (3.5-5.2); Alkaline Phosphatase 96 U/L (35-105); Anion Gap 14.6 (5-19); Aspartate Amino Transferase 22 U/L (0-32); Blood Urea Nitrogen 20 mg/dL (8-23); Carbon Dioxide 29 mmol/L (22-29); Chloride 101 mmol/L (98-107); Creatinine Clr Calc Pharmacy 42.2275; Globulin 2.7 g/dL (1.3-4.6); Glucose 155 mg/dL (65-115); Osmolality Calculated 298 mOsm/kg (285-295); Potassium 3.6 mmol/L (3.5-5.1); Sodium 141 mmol/L (136-145); Total Bilirubin 0.5 mg/dL (0.15-1.2); Total Protein 6.8 g/dL (6.6-8.7)
[2024-07-25 10:09] LABS: Troponin(5th) Baseline 20 ng/L (0-10)
[2024-07-25 10:10] LABS: Cocaine Screen Urine Negative (Negative); Opiate Screen Urine Negative (Negative); PCP Screen Urine Negative (Negative); THC Screen Urine Negative (Negative)
--- NOTE | 2024-07-25 10:14 | PC.PHAR ---
brandie Choi at [facility]-pt is no longer taking insulin. 06/24/24
[2024-07-25 10:23] LABS: Amphetamines Screen Urine Negative (Negative); Barbiturates Screen Urine Negative (Negative); Benzodiazepines Screen Urine Negative (Negative)
--- NOTE | 2024-07-25 11:40 | ECG_ITS ---
[facility] Test Date: 2024-07-25 Pat Name: Samantha Nunez Department: Room: 279 Gender: Female Manager Search: : 1950 Requested By: Jim Trevino Order Number: [id number] Reading MD: TATYANA UPTON Measurements Intervals [place] Rate: 72 P: 81 HI: 212 QRS: -50 QRSD: 177 T: 92 QT: 470 QTc: 518 Interpretive Statements SINUS RHYTHM WITH FIRST DEGREE AV BLOCK LEFT AXIS DEVIATION [QRS AXIS < -30] LEFT BUNDLE BRANCH BLOCK [120+ ms QRS DURATION, 80+ ms Q/S IN V1/V2, 85+ ms R IN I/aVL/V5/V6] Compared to ECG 07/25/2024 09:35:23 First degree AV block now present Left-axis deviation now present Electronically Signed On 07-27-2024 22:04:18 CDT by TATYANA UPTON [email or web address] [id number]
[2024-07-25 13:02] LABS: Troponin 5 2HR 16.98 ng/L (0-10)
[2024-07-25 13:05] LABS: Troponin 5 2HR Delta -3.02 ABS# (0-10)
--- NOTE | 2024-07-25 13:16 | USCV_ITS ---
Samantha Nunez Age: 74 Gender: F : 1950 Exam Date: 07/25/2024 16:07 Ordering Phys: Young Knowles MD Technologist: LOUIE Exam Location: [facility] – [place] Indication: Stroke BP: 130 / 80 HR: 72 Rhythm: Sinus Technical Quality: Adequate MEASUREMENTS (Male / Female) Normal Values 2D ECHO LV Diastolic Diameter PLAX 6.1 cm 4.2 - 5.9 / 3.9 - 5.3 cm IVS Diastolic Thickness 1.2 cm 0.6 - 1.0 / 0.6 - 0.9 cm IVS Systolic Thickness 2.0 cm LVPW Diastolic Thickness 1.2 cm 0.6 - 1.0 / 0.6 - 0.9 cm LVPW Systolic Thickness 1.5 cm LVOT Diameter 1.9 cm LV Ejection Fraction 2D Teich 38.4 % LV Ejection Fraction MOD 4C 33.8 % LV Ejection Fraction MOD 2C 33.3 % LV Ejection Fraction 2C AL 30.5 % LA Diameter 4.4 cm RA Systolic Volume 4C AL 22.3 ml RA Systolic Volume 4C MOD 23.2 ml LA Sys Volume AL 58.3 cm cubed LA Sys Volume Index AL 25.8 cm cubed/m squared Aorta at Sinotubular Diameter 2.7 cm M-MODE LA Ao Ratio MM 2.0 AV Cusp Separation MM 0.9 cm DOPPLER AV Peak Velocity 140.0 cm/s LVOT Peak Velocity 74.0 cm/s AV Area Cont Eq vti 2.0 cm squared AV Area Cont Eq pk 1.5 cm squared MV Peak Velocity 116.0 cm/s MV Area PHT 5.2 cm squared Mitral E to A Ratio 1.2 TR Peak Velocity 130.0 cm/s TR Peak Gradient 6.8 mmHg TV Peak E Velocity 85.0 cm/s PV Peak Velocity 82.0 cm/s FINDINGS Left Ventricle Severely increased left ventricular cavity size. Severely decreased left ventricular systolic function. Left ventricular ejection fraction is estimated at 33 %. Global left ventricular hypokinesis with regional wall motion abnormality anterior and apical akinesis.Grade II/IV diastolic dysfunction, moderately elevated filling pressures. Right Ventricle The right ventricle is normal in size and function. Right Atrium The right atrium is normal in size. Left Atrium Severely increased left atrial size. Mitral Valve Mildly thickened mitral valve. No mitral valve stenosis. Severe mitral valve regurgitation. Aortic Valve Structurally normal aortic valve without significant sclerosis or stenosis. There is no aortic regurgitation. Tricuspid Valve Structurally normal tricuspid valve without significant stenosis or regurgitation. Pulmonary artery systolic pressure is normal. Pulmonic Valve Pulmonic valve not well visualized. Pericardium Normal pericardium without effusion. Aorta Normal ascending aorta dimension. IVC The inferior vena cava appears normal. CONCLUSIONS Severely increased left ventricular cavity size. Severely decreased left ventricular systolic function. Left ventricular ejection fraction is estimated at 33 %. Global left ventricular hypokinesis with regional wall motion abnormality anterior and apical akinesis.Grade II/IV diastolic dysfunction, moderately elevated filling pressures. Severely increased left atrial size. Mildly thickened mitral valve. No mitral valve stenosis. Severe mitral valve regurgitation. There is no pericardial effusion. Right atrial pressure is around 5 mm of mercury. Marysol Lyn MD (Electronically Signed) Final Date: 25 July 2024 21:39 S
[2024-07-25 13:39] LABS: Estmated Average Glucose 137; Hemoglobin A1C 6.4 % (4.0-6.0)
[2024-07-25 13:57] LABS: Procalcitonin 0.05 ng/mL (0-0.5); Thyroid Stimulating Hormone 1.65 uIU/mL (0.27-4.20); Vitamin B12 687 pg/mL (232-1245)
--- NOTE | 2024-07-25 13:59 | PM.HP ---
Providers/Chief Complaint Admitting Physician: Young Knowles MD Primary Care Provider: Rigoberto Gibson MD Chief Complaint: stroke like symptoms History of Present Illness Samantha Nunez is a 74 year old female with past medical history of type 2 diabetes mellitus, intermediate resident, COPD, CKD with baseline creatinine of around 1.3, hypertension presents to the ER today because of right-sided weakness which she noticed when she woke up early in the morning. Patient was at baseline health last night when she went to bed. Patient was seen by neurologist on admission and she was deemed not a candidate for thrombolytics. When seen on [facility] floor patient was awake and alert, able to have complete conversation, states her biggest concern is that she is not able to lift her right leg though she is able to move her right now slightly more than before. Review of Systems General: Reports: 10 or more systems reviewed and unremarkable except in HPI and below Const: Denies: fever(s), chills, body aches, change in appetite, change in weight, malaise, night sweats, diaphoresis, change in sleep pattern, daytime sleepiness or snoring Eyes: Denies: change in vision, blurry vision, photophobia, eye discomfort or eye discharge ENMT: Denies: throat pain, enlarged tonsils, hoarseness, mouth pain, oral sores, dry mouth, tinnitus, nasal congestion or post nasal drip Card: Denies: chest pain, palpitations, irregular heart rhythm, edema, swelling of feet/ankles, lightheadedness, syncope, pre-syncope, dyspnea on exertion, orthopnea, leg pain with exertion or acrocyanosis Resp: Denies: dyspnea, productive cough, non-productive cough, wheezing, stridor, pain on inspiration, change in phlegm color, hemoptysis or chest congestion GI: Denies: abdominal pain, nausea, vomiting, hematemesis, coffee ground emesis, dysphagia, heartburn, diarrhea, constipation, bloating, GI cramping, change in bowel habits, pain on defecation, hematochezia or melena : Denies: flank pain, dysuria, urinary frequency, urinary urgency, urinary hesitancy, nocturia or hematuria Musc: Denies: neck pain, back pain, extremity pain, joint pain, joint swelling, joint redness, joint stiffness or limited range of motion Neuro: Denies: headache(s), numbness in extremities, weakness in extremities, sensory changes, lack of coordination, difficulty walking, frequent falls, dizziness, vertigo, confusion, Slurred speech present, difficulty communicating thoughts or seizure-like activity Psych: Denies: anxiety, depression, mood swings, panic attacks, hopelessness or irritability Endo: Denies: polyuria, polydipsia, tired all the time, cold intolerance, excessive sweating, flushing or heat intolerance Jaswant/Lymph: Denies: easy bruising or easy bleeding All/Imm: Denies: tongue swelling, facial swelling or acute wheezing Medications/Allergies Home Medications ?Medication ?Instructions ?Recorded ?Confirmed ?Last Taken ?Type acetaminophen 325 mg tablet 325 mg PO QID PRN Pain 08/19/19 07/25/24 07/25/24 History (Tylenol) aspirin 81 mg tablet,delayed 81 mg PO DAILY 08/19/19 07/25/24 07/25/24 History release (Adult Aspirin Regimen) atorvastatin 20 mg tablet (Lipitor) 20 mg PO BEDTIME 08/19/19 07/25/24 07/24/24 History bimatoprost 0.01 % eye drops 1 drop ophthalmic (eye) BEDTIME 08/19/19 07/25/24 07/24/24 History (Lumigan) bisacodyl 10 mg rectal suppository 10 mg [place] DAILY PRN Constipation 08/19/19 07/25/24 Unknown History carvedilol 6.25 mg tablet 6.25 mg PO Q12H 08/19/19 07/25/24 07/25/24 History mirtazapine 15 mg tablet 15 mg PO BEDTIME 08/19/19 07/25/24 07/24/24 History potassium chloride 10 mEq 10 meq PO DAILY 08/19/19 07/25/24 07/25/24 History capsule,extended release tamsulosin 0.4 mg capsule 0.4 mg PO BEDTIME 08/19/19 07/25/24 07/24/24 History B1 0.5 mg-B2 0.6 mg-B3 7 mg-B6 0.7 See Rx Instructions .Route .COMPLEX 04/14/24 07/25/24 07/25/24 History [id number] oral elixir bumetanide 2 mg tablet 2 mg PO DAILY 04/14/24 07/25/24 07/25/24 History menthol 4 % topical gel (Biofreeze 1 applic topical TID PRN Pain 04/14/24 07/25/24 Unknown History (menthol)) polyethylene glycol 3350 17 17 g PO DAILY PRN Constipation 04/14/24 07/25/24 Unknown History gram/dose oral powder (Miralax) quetiapine 200 mg tablet (Seroquel) 200 mg PO BEDTIME 04/14/24 07/25/24 07/24/24 History albuterol sulfate 90 mcg/actuation 1 - 2 puff inhalation Q4H PRN 07/25/24 07/25/24 Unknown History aerosol inhaler Shortness Of Breath escitalopram oxalate 10 mg tablet 10 mg PO DAILY 07/25/24 07/25/24 07/25/24 History fluticasone furoate 200 1 inh inhalation DAILY 07/25/24 07/25/24 07/25/24 History mcg-vilanterol 25 mcg/dose inhalation powder (Breo Ellipta) guaifenesin 100 mg/5 mL oral liquid 300 mg PO Q4H PRN Cough 07/25/24 07/25/24 Unknown History guaifenesin 600 mg tablet, 600 mg PO Q12H PRN Congestion 07/25/24 07/25/24 Unknown History extended release 12 hr (Mucinex) ipratropium 0.5 mg-albuterol 3 mg 3 ml inhalation Q4H PRN Shortness 07/25/24 07/25/24 Unknown History (2.5 mg base)/3 mL nebulization Of Breath Or Wheezing soln losartan 100 mg tablet 100 mg PO DAILY 07/25/24 07/25/24 07/25/24 History omeprazole 20 mg capsule,delayed 20 mg PO DAILY 07/25/24 07/25/24 07/25/24 History release Allergies Allergy/AdvReac Type Severity Reaction Status Date / Time No Known Allergies Allergy Verified 07/25/24 09:38 PFSH Acute PFSH: Medical History (Updated 07/25/24 @ 14:02 by Young Knowles MD) Unspecified open wound of right upper arm, subsequent encounter Unspecified dementia, unspecified severity, without behavioral disturbance, psychotic disturbance, mood disturbance, and anxiety Chronic obstructive pulmonary disease, unspecified Type 2 diabetes mellitus without complications Chronic kidney disease, stage 4 (severe) Major depressive disorder, recurrent, unspecified Atherosclerotic heart disease of [place] coronary artery without angina pectoris Hyperlipidemia, unspecified Essential (primary) hypertension Peripheral vascular disease, unspecified Retention of urine, unspecified Surgical History Presence of aortocoronary bypass graft Social History Smoking and tobacco/nicotine status: current every day tobacco/nicotine user Female Reproductive History: Spontaneous abortions: No Vitals/I&O/Wt Last Vital Signs Temp 98.2 F 07/25/24 11:30 Pulse 73 07/25/24 13:39 Resp 18 07/25/24 13:39 BP 147/78 07/25/24 11:30 Pulse Ox 95 07/25/24 13:39 O2 Del Method Room Air 07/25/24 13:39 Weight last 48 hrs Weight 80.286 kg Physical Exam Narrative: General: No acute distress, AO x3 HEENT: PERRLA, pupils bilaterally equal and reactive Chest: Normal vesicular breath sounds, no added sounds, equal good air entry bilaterally CVS: S1-S2 regular, no murmurs, no tachycardia, no gallops, no rubs Abdomen: Soft, nontender, no organomegaly, bowel sounds present Neuro: Right lower limb power 2/5, right upper limb power 3/5, AO x 3, no facial deformity, mild dysarthria NIH stroke score = 6 (secondary to mild right lower facial weakness =1, right upper extremity weakness =2, right lower extremity weakness =3, dysarthria =1) The patient is alert and oriented to person place and situation. Head atraumatic. Neck supple. Cranial nerves II through XII revealed mild right lower facial weakness. There was mild dysarthria. Other cranial nerves were intact. Pupils 3 mm round reactive to light and accommodation. Extraocular movements intact. Visual pérez appear to be full via confrontation. Motor testing 3/5 strength in the right arm and 2+ to 3/5 strength in the right leg. Motor testing the left arm and left leg 5/5. Deep tendon reflexes revealed extensor plantar response on the right and flexor on the left. There was no clonus. Sensory examination was intact to touch. There was no extinction on double sensory stimulation. Throat clear. Lungs clear. Heart regular rhythm and rate. Extremities were negative for cyanosis. Gait was not tested secondary to right sided weakness. Data 07/25/24 09:30 07/25/24 09:30 A&P Assessment and plan (1) Acute left ICA ischemic stroke: Seen by neurology in ER. Deemed not a candidate for IV thrombolytics. Appreciate CT head. Check CTA head and neck. Check echocardiogram, A1c and lipid panel. Continue with aspirin, statin. Permissible hypertension. Hold off on antihypertensive. Treat for a systolic of more than 210 mmHg. PT/OT/speech evaluation. Start diet as per dysphagia screen. (2) Type 2 diabetes mellitus without complications: Check A1c. She is on medication list. Depending on A1c will plan for insulin sliding scale. (3) Essential (primary) hypertension: Take multiple antihypertensives at home including Coreg 6.25 mg every 12 hourly, losartan 100 mg oral daily. Hold off for now given permissible hypertension. (4) Chronic kidney disease, stage 4 (severe): Monitor BMP daily. Plan Continue other chronic medical history including DuoNeb as needed, mirtazapine nightly, Seroquel nightly, Flomax daily. CODE STATUS: State appointed guardian will be the DPOA. Patient for now would like to remain full code but wants to think further before making her final decision. NPO. Advance diet as per dysphagia screening. Protonix for daily prophylaxis Heparin 5000 Sq 12 hourly for DVT prophylaxis. PDMP PDMP Reviewed: Not Reviewed Attestations Medical Necessity Statement*: Requires admission under observation for less than 2 midnights for acute left ICA stroke. Diagnoses Acute left ICA ischemic stroke I63.232 Type 2 diabetes mellitus without complications E11.9 Essential (primary) hypertension I10 Chronic kidney disease, stage 4 (severe) N18.4
[2024-07-25 14:09] LABS: Iron 77 ug/dL (37-145); Percent Saturation 23.6 % (20-50); Total Iron Binding Capacity 326 mcg/dl; Unsaturated Iron Binding 249 ug/dL (112-347)
[2024-07-25] MEDS: heparin 5,000 unit/mL INJ 1 mL 5000 UNIT SUBCUT (15:32)
[2024-07-25] MEDS: pantoprazole 40 mg SDV IVP (15:32)
[2024-07-25] MEDS: sodium chloride 0.9% 1,000 ML 75 ML IV (15:33)
[2024-07-25 15:49] LABS: Troponin 5 6HR 18.87 ng/L (0-10)
--- NOTE | 2024-07-25 15:49 | ECG_ITS ---
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
[2024-07-25 15:51] LABS: Troponin 5 6HR Delta -1.13 ng/L (0-12)
[2024-07-25 17:09] LABS: Glucose Point of Care 144 mg/dL (70-110)
[2024-07-25] MEDS: docusate sodium 100 mg Capsule PO (18:24)
[2024-07-25] MEDS: ATORVASTATIN 10 MG TABLET 20 MG PO (20:39)
[2024-07-25] MEDS: tamsulosin 0.4 mg Capsule PO (20:39)
[2024-07-25] MEDS: mirtazapine 15 mg Tablet PO (20:39)
[2024-07-25] MEDS: quetiapine XR (24HR) 50 mg Tablet 200 MG PO (20:39)
[2024-07-26] VITALS (15 sets, daily range): BP systolic 122–148; BP diastolic 59–95; PULSE 59–100; RESP 16–18; TEMP 36.3–36.9; O2SAT 90–95
[2024-07-26] MEDS: heparin 5,000 unit/mL INJ 1 mL 5000 UNIT SUBCUT ×2 (00:50→13:59)
--- NOTE | 2024-07-26 02:16 | PC.NURSE ---
Addendum entered by Maryam Worthy RN 07/26/24 02:38: 775 ml returned with straight cath. Original Note: This RN noticed that patient had not voided in long period of time. Patient stated that she did NOT feel like she needed to go. Bladder scan shows 720 ml. Patient placed on bedpan and educated to try to go. Patient unable to go. Dr. Burciaga notified of this and also notified that patient takes Flomax daily 0.[address] Burciaga ordered to give another one time dose of this now and straight cath patient x1.
[2024-07-26] MEDS: tamsulosin 0.4 mg Capsule PO ×2 (02:43→20:29)
[2024-07-26] MEDS: ipratropium-albuterol 3 mL Neb INHALATION (04:04)
--- NOTE | 2024-07-26 04:28 | PC.NURSE ---
Patient having audible wheezing, which she did NOT have at beginning of my shift. RT notified and came up to give breathing treatment. Dr. Burciaga notified that patient has IV fluids running and has an ejection fraction of 33 percent. Ordered to pause IV fluids.
[2024-07-26 05:03] LABS: Basophils % 0.2 %; Eosinophils # 0.5 10^3/uL (0.0-0.8); Eosinophils % 10.1 %; Lymphocytes % 39.8 %; Mean Corpuscular HGB Conc 32.4 g/dL (30-55); Mean Corpuscular Hemoglobin 30.2 pg (27-33); Mean Corpuscular Volume 93.4 fl (85-98); Mean Platelet Volume 11.4 fL (7.4-10.4); Monocytes # 0.3 10^3/uL (0.2-0.9); Monocytes % 5.7 %; Neutrophils # 2.22 10^3/uL (1.8-7.7); Nucleated Red Blood Cells % 0 %; Platelet Count 92 10^3/cmm (157-399); Red Blood Count 3.64 10^6/uL (3.85-5.65); Red Cell Distribution Width 14.1 % (12.1-15.1); White Blood Count 5.05 10^3/uL (3.29-11.43)
[2024-07-26 05:12] LABS: Estmated Average Glucose 131; Hemoglobin A1C 6.2 % (4.0-6.0)
[2024-07-26 05:22] LABS: Alanine Aminotransferase 11 U/L (0-33); Albumin Level 3.5 g/dL (3.5-5.2); Alkaline Phosphatase 91 U/L (35-105); Anion Gap 10.1 (5-19); Aspartate Amino Transferase 18 U/L (0-32); Blood Urea Nitrogen 16 mg/dL (8-23); Calcium 8.7 mg/dL (8.5-10.5); Carbon Dioxide 28 mmol/L (22-29); Chloride 105 mmol/L (98-107); Creatinine Clr Calc Pharmacy 44.6862; Glucose 101 mg/dL (65-115); Magnesium 1.9 mg/dL (1.7-2.3); Osmolality Calculated 291 mOsm/kg (285-295); Phosphorus 3.3 mg/dL (2.5-4.5); Potassium 3.1 mmol/L (3.5-5.1); Sodium 140 mmol/L (136-145); Total Bilirubin 0.4 mg/dL (0.15-1.2); Total Protein 6.5 g/dL (6.6-8.7)
[2024-07-26 05:26] LABS: Chol HDL Ratio 5.03 mg/dL (0.0-4.40); Cholesterol 151 mg/dL (0-200); HDL Cholesterol 30 mg/dL (60-100); LDL Cholesterol Calculated 60 mg/dL (50-129); Triglycerides 305 mg/dL (0-150)
[2024-07-26 05:41] LABS: Folate Level 9.3 ng/mL (4.8-37.3)
--- NOTE | 2024-07-26 06:00 | CTR_ITS ---
PROCEDURE INFORMATION: Exam: CTA Head With Contrast, Arteriography Exam date and time: 07/26/2024 7:58 AM Age: 74 years old Clinical indication: Weakness; Additional info: Stroke, CT angiogram cervical and intracranial vessels TECHNIQUE: Imaging protocol: Computed tomographic angiography of the head with contrast. Exam focused on the arteries. 3D rendering (Not supervised by radiologist): MIP and/or 3D reconstructed images were created by the technologist. Total images: 4 Radiation optimization: All CT scans at this facility use at least one of these dose optimization techniques: automated exposure control; mA and/or kV adjustment per patient size (includes targeted exams where dose is matched to clinical indication); or iterative reconstruction. Contrast material: OMNI 350; Contrast volume: 100 ml; Contrast route: INTRAVENOUS (IV); COMPARISON: CT head thrombolytic [id number] 07/25/2024 9:22 AM RADIATION DOSE METRICS: Total DLP (mGy-cm): 1262.64 FINDINGS: ANTERIOR CIRCULATION: Right internal carotid artery: Intracranial segment is patent with no significant stenosis. No aneurysm. Right middle cerebral artery: No occlusion or significant stenosis. No aneurysm. Right anterior cerebral artery: No occlusion or significant stenosis. No aneurysm. Left internal carotid artery: Intracranial segment is patent with no significant stenosis. No aneurysm. Left middle cerebral artery: No occlusion or significant stenosis. No aneurysm. Left anterior cerebral artery: No occlusion or significant stenosis. No aneurysm. POSTERIOR CIRCULATION: Right vertebral artery: No occlusion or significant stenosis. No aneurysm. Left vertebral artery: No occlusion or significant stenosis. No aneurysm. Basilar artery: No occlusion or significant stenosis. No aneurysm. Right posterior cerebral artery: No occlusion or significant stenosis. No aneurysm. Left posterior cerebral artery: No occlusion or significant stenosis. No aneurysm. Brain: Global brain atrophy and chronic white matter ischemic changes are present. Small areas of encephalomalacia in the left occipital and parietal lobes. Small area of encephalomalacia in the left cerebellar hemisphere. Cerebral ventricles: Ventricles are appropriate in size for degree of atrophy. Bones/joints: Unremarkable. No acute fracture. Soft tissues: Right frontal scalp mass containing fat unchanged from prior exam. PROCEDURE INFORMATION: Exam: CTA Neck With Contrast Exam date and time: 07/26/2024 7:58 AM Age: 74 years old Clinical indication: Weakness; Additional info: Stroke, CT angiogram cervical and intracranial vessels TECHNIQUE: Imaging protocol: Computed tomographic angiography of the neck with contrast. Exam focused on the cervical segments of the vasculature. 3D rendering (Not supervised by radiologist): MIP and/or 3D reconstructed images were created by the technologist. Radiation optimization: All CT scans at this facility use at least one of these dose optimization techniques: automated exposure control; mA and/or kV adjustment per patient size (includes targeted exams where dose is matched to clinical indication); or iterative reconstruction. Contrast material: OMNI 350; Contrast volume: 100 ml; Contrast route: INTRAVENOUS (IV); COMPARISON: CT head thrombolytic [id number] 07/25/2024 9:22 AM RADIATION DOSE METRICS: Total DLP (mGy-cm): 1262.64 FINDINGS: Atherosclerotic burden: Severe atherosclerotic disease burden is evident. Right common carotid artery: No stenosis. No dissection or occlusion. Right internal carotid artery: No stenosis of the extracranial segment. No dissection or occlusion. Right external carotid artery: No occlusion or stenosis of the origin. Left common carotid artery: Occluded left common carotid artery extending from origin to bifurcation. Reconstitution at bifurcation. Left internal carotid artery: No stenosis of the extracranial segment. No dissection or occlusion. Left external carotid artery: No occlusion or stenosis of the origin. Right vertebral artery: No stenosis. No dissection or occlusion. Left vertebral artery: Mild stenosis at origin of left vertebral artery secondary to calcified atherosclerotic plaque. Soft tissues: Normal. No significant soft tissue swelling. Bones/joints: C5-7 degenerative disc disease with disc space narrowing and osteophyte formation. Uncovertebral joint degeneration is present. Coronary arteries: Prior coronary artery bypass grafting. Other findings: Examination is motion limited. Calcified atherosclerotic plaque is noted at the carotid bifurcations bilaterally. CT/CT angio headneck* [id number] IMPRESSION: 1. No acute intracranial pathology detected. 2. No hemodynamically significant stenosis nor vascular occlusion. 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 Reconstitution at bifurcation. REFERENCES: NASCET CRITERIA. The degree of stenosis in the cervical segment of the internal carotid artery is based on NASCET criteria. Normal is no stenosis. Mild is less than 50% stenosis. Moderate is 50-69% stenosis. Severe is 70% to 99% stenosis. Total occlusion is no detectable patent lumen.
[2024-07-26] MEDS: iohexol 350 mg/mL 500 mL Btl (per mL) IV (08:07)
[2024-07-26] MEDS: aspirin 81 mg EC Tablet PO (09:14)
[2024-07-26] MEDS: acetaminophen 325 mg Tablet 650 MG PO (09:14)
[2024-07-26] MEDS: docusate sodium 100 mg Capsule PO ×2 (09:16→17:54)
[2024-07-26] MEDS: pantoprazole 40 mg SDV IVP (13:58)
--- NOTE | 2024-07-26 14:32 | P.PN_ITS ---
Vitals/I&O/Wt Last Vital Signs Temp 97.4 F L 07/26/24 12:11 Pulse 100 07/26/24 12:11 Resp 18 07/26/24 12:11 BP 135/59 07/26/24 12:11 Pulse Ox 94 07/26/24 12:11 O2 Del Method Room Air 07/26/24 12:11 07/25/24 07/26/24 07/26/24 22:59 06:59 14:59 Intake Total 1000 / 1000 840 / 840 Output Total 775 / 775 Balance 225 / 225 840 / 840 Weight last 48 hrs Weight 76.204 kg Weight 80.286 kg Weight 80.286 kg Physical Exam 2 Narrative: General: No acute distress, AO x3 HEENT: PERRLA, pupils bilaterally equal and reactive Chest: Normal vesicular breath sounds, no added sounds, equal good air entry bilaterally CVS: S1-S2 regular, no murmurs, no tachycardia, no gallops, no rubs Abdomen: Soft, nontender, no organomegaly, bowel sounds present Neuro: Right lower limb power 2/5, right upper limb power 3/5, AO x 3, no facial deformity, mild dysarthria NIH stroke score = 6 (secondary to mild right lower facial weakness =1, right upper extremity weakness =2, right lower extremity weakness =3, dysarthria =1) The patient is alert and oriented to person place and situation. Head atraumatic. Neck supple. Cranial nerves II through XII revealed mild right lower facial weakness. There was mild dysarthria. Other cranial nerves were intact. Pupils 3 mm round reactive to light and accommodation. Extraocular movements intact. Visual pérez appear to be full via confrontation. Motor testing 3/5 strength in the right arm and 2+ to 3/5 strength in the right leg. Motor testing the left arm and left leg 5/5. Deep tendon reflexes revealed extensor plantar response on the right and flexor on the left. There was no clonus. Sensory examination was intact to touch. There was no extinction on double sensory stimulation. Throat clear. Lungs clear. Heart regular rhythm and rate. Extremities were negative for cyanosis. Gait was not tested secondary to right sided weakness. Data 07/26/24 04:49 07/26/24 04:49 A&P Assessment and plan (1) Acute left ICA ischemic stroke: Seen by neurology in ER. Deemed not a candidate for IV thrombolytics. Appreciate CT head. CT concerning for occluded left common carotid artery extending from origin to bifurcation. Reconstitution after bifurcation. Appreciate echocardiogram. Appreciate A1c, lipid panel. Goal blood pressure less than 140/90 mmHg.. PT/OT/speech evaluation. Start diet as per dysphagia screen. (2) Ischemic cardiomyopathy: Gives history of CAD in the past. Denies any active chest pain. Continue with aspirin, statin as above. Beta-joseluis as above. Echocardiogram done shows an EF of 43% with global LV hypokinesia with regional wall motion abnormality of anterior and apical akinesia, grade 2 diastolic dysfunction. Severe MR. Given changes in EF, no known EF from the past, history of CAD for now we will rule out ischemic nature with Lexiscan stress test. Patient is agreeable. Watch for fluid overload. Holding off on home dose of Bumex. (3) Type 2 diabetes mellitus without complications: A1c of 6.2. Start on insulin sliding scale low-dose protocol. Patient will benefit from discharge on SGLT2 inhibitors. (4) Essential (primary) hypertension: Goal blood pressure less than 1/90 mmHg today. Restart home dose of Coreg. Depending on blood pressures will plan to start lower dose on SANDRITA/ARB/Entresto in next 20 hours. (5) Chronic kidney disease, stage 4 (severe): Renal function stable. Monitor BMP daily. (6) CAD (coronary artery disease): (7) Congestive heart failure due to cardiomyopathy: (8) Common carotid artery stenosis: Plan Urinary retention: Did have straight catheter requirement with 800 cc of urine evacuated overnight. Straight cath and bladder scan every shift. If again retains urine will plan for Graff catheterization. Continue with home dose of Flomax. Continue other chronic medical history including DuoNeb as needed, mirtazapine nightly, Seroquel nightly, Flomax daily. CODE STATUS: State appointed guardian will be the DPOA. Patient for now would like to remain full code but wants to think further before making her final decision. NPO. Advance diet as per dysphagia screening. Protonix for daily prophylaxis Heparin 5000 Sq 12 hourly for DVT prophylaxis. PDMP PDMP Reviewed: Not Reviewed Attestations 2 Medical Necessity Statement*: Requires further hospitalization for management of stroke while diet is advanced, PT is evaluated, ischemic cardiomyopathy with EF of 33% as patient requires further workup to rule out ACS Diagnoses Acute left ICA ischemic stroke I63.232 Ischemic cardiomyopathy I25.5 Type 2 diabetes mellitus without complications E11.9 Essential (primary) hypertension I10 Chronic kidney disease, stage 4 (severe) N18.4 CAD (coronary artery disease) I25.10 Congestive heart failure due to cardiomyopathy I50.9; I42.9 Common carotid artery stenosis I65.29
--- NOTE | 2024-07-26 14:34 | ECG_ITS ---
[facility] Date: 2024-07-28 Pat Name: Samantha Nunez Department: Room: 279 Gender: Female Rail Bender: : 1950 Requested By: Young Knowles Order Number: [id number] Zenobia MD: Danish Snider M.D. Interpretive Statements Lung unchanged pre/post procedure; Intraprocedure shortess of breath; Symptoms resoled by discharge PROCEDURE: At the baseline, the EKG revealed normal sinus rhythm with features of left bundle branch block.. The baseline heart was 82 bpm with a blood pressue of 133/80 mm of Hg Lexiscan was infused over a period of 20 seconds. A total of 0.4 milligrams of Lexiscan was infused. The stress phase was continued for a total of 5 minutes. Heart rate at the end of the stress phase was 95 bpm with a blood pressure 121/69 mm of Hg. The EKG at the peak infusion revealed no significant changes. Sestamibi was injected 20 seconds after the Lexiscan infusion. Heart rate at the end of the recovery phase was 89 bpm with a blood pressure of 133/74 mm of Hg. CONCLUSION: 1. No significant EKG changes with the LexiScan infusion 2. No LexiScan induced chest pain or cardiac arrhythmia 3. Normal blood pressure and heart rate response 4. Sestamibi/sestamibi perfusion scan pending; see separate report. Electronically Signed On 07-28-2024 08:38:37 CDT by Danish Snider M.D. [email or web address]
[2024-07-26] MEDS: potassium chloride ER 20 mEq Tablet 40 MEQ PO (15:42)
--- NOTE | 2024-07-26 17:51 | PC.NURSE ---
Notified Dr. Knowles patient was bladder scanned with only 340 and has not voided today. Orders were given to do again at shift change
[2024-07-26] MEDS: carvedilol 6.25 mg Tablet PO (17:54)
[2024-07-26] MEDS: insulin lispro 100 unit/1 mL SUBCUT (19:02)
[2024-07-26] MEDS: ATORVASTATIN 10 MG TABLET 20 MG PO (20:29)
[2024-07-26] MEDS: mirtazapine 15 mg Tablet PO (20:29)
[2024-07-26] MEDS: quetiapine XR (24HR) 50 mg Tablet 200 MG PO (20:29)
[2024-07-26 20:47] LABS: Glucose Point of Care 111 mg/dL (70-110)
[2024-07-26] MEDS: trazodone 50 mg Tablet PO (21:32)
[2024-07-27] VITALS (9 sets, daily range): BP systolic 104–159; BP diastolic 63–80; PULSE 60–90; RESP 15–22; TEMP 36.4–36.9; O2SAT 93–100
--- NOTE | 2024-07-27 04:02 | XRR_ITS ---
PROCEDURE INFORMATION: Exam: XR Chest Exam date and time: 07/27/2024 4:13 AM Age: 74 years old Clinical indication: Cough and shortness of breath; Prior surgery; Surgery date: 6+ months; Surgery type: Cabg; Cough with new onset of hypoxia. History of chf and copd. ; Additional info: New oxygen requirement TECHNIQUE: Imaging protocol: Radiologic exam of the chest. Views: 1 view. COMPARISON: CR XR chest 1V portable [id number] 10/03/2023 1:56 PM FINDINGS: Lungs: Unremarkable. No consolidation. Pleural spaces: Mild thickening of the minor fissure. No pleural effusion. No pneumothorax. Heart/Mediastinum: Mediastinal clips. Mild cardiomegaly. Bones/joints: Sternotomy wires. XR/XR chest 1V portable [id number] IMPRESSION: No acute findings.
--- NOTE | 2024-07-27 04:27 | PC.NURSE ---
Addendum entered by Maryam Worthy RN 07/27/24 04:32: Patient also coughing and stating that she feels congested. Original Note: Patient's oxygen saturation found to be 86 percent. Patient very wheezy via auscultation. Patient placed on [address] Burciaga notified and came to see patient. CXR and IV Bumex x1 ordered. RT currently giving patient breathing treatment.
[2024-07-27] MEDS: ipratropium-albuterol 3 mL Neb INHALATION (04:31)
[2024-07-27] MEDS: potassium chloride oral liq 20 mEq/15 mL UDC 40 MEQ PO (04:45)
[2024-07-27] MEDS: bumetanide 0.25 mg/mL SDV 10 mL 2 MG IVP (04:45)
[2024-07-27 05:16] LABS: Basophils % 0.3 %; Eosinophils # 0.6 10^3/uL (0.0-0.8); Eosinophils % 9.7 %; Hematocrit 34.9 % (36-47); Lymphocytes # 1.6 10^3/uL (0.8-4.8); Lymphocytes % 25.9 %; Mean Corpuscular HGB Conc 32.1 g/dL (30-55); Mean Corpuscular Hemoglobin 30.2 pg (27-33); Mean Corpuscular Volume 94.1 fl (85-98); Mean Platelet Volume 12.1 fL (7.4-10.4); Monocytes # 0.4 10^3/uL (0.2-0.9); Monocytes % 5.8 %; Neutrophils # 3.52 10^3/uL (1.8-7.7); Nucleated Red Blood Cells % 0 %; Platelet Count 89 10^3/cmm (157-399); Red Blood Count 3.71 10^6/uL (3.85-5.65); Red Cell Distribution Width 14.1 % (12.1-15.1); White Blood Count 6.07 10^3/uL (3.29-11.43)
[2024-07-27 05:31] LABS: Alanine Aminotransferase 12 U/L (0-33); Albumin Level 3.7 g/dL (3.5-5.2); Alkaline Phosphatase 89 U/L (35-105); Anion Gap 13.7 (5-19); Aspartate Amino Transferase 21 U/L (0-32); Blood Urea Nitrogen 17 mg/dL (8-23); Calcium 9.1 mg/dL (8.5-10.5); Carbon Dioxide 28 mmol/L (22-29); Chloride 104 mmol/L (98-107); Creatinine Clr Calc Pharmacy 42.3253; Globulin 3.3 g/dL (1.3-4.6); Glucose 113 mg/dL (65-115); Magnesium 2.1 mg/dL (1.7-2.3); Osmolality Calculated 294 mOsm/kg (285-295); Phosphorus 3.4 mg/dL (2.5-4.5); Potassium 4.7 mmol/L (3.5-5.1); Sodium 141 mmol/L (136-145); Total Bilirubin 0.5 mg/dL (0.15-1.2)
[2024-07-27 05:50] LABS: NT Pro B Type Natriuretic Pept 5660 pg/mL (0-125)
[2024-07-27 06:33] LABS: Glucose Point of Care 127 mg/dL (70-110)
[2024-07-27] MEDS: aspirin 81 mg EC Tablet PO (08:15)
[2024-07-27] MEDS: docusate sodium 100 mg Capsule PO ×2 (08:15→17:12)
[2024-07-27] MEDS: carvedilol 6.25 mg Tablet PO ×2 (08:15→17:12)
[2024-07-27] MEDS: heparin 5,000 unit/mL INJ 1 mL 5000 UNIT SUBCUT ×2 (08:15→20:04)
[2024-07-27] MEDS: pantoprazole 40 mg SDV IVP (08:16)
[2024-07-27 11:44] LABS: Glucose Point of Care 144 mg/dL (70-110)
[2024-07-27] MEDS: insulin lispro 100 unit/1 mL SUBCUT (12:17)
--- NOTE | 2024-07-27 13:57 | P.PN_ITS ---
Subjective 2 Subjective: Overnight patient had mild difficulty in breathing with hypoxia down to 86%. She was given 2 of IV Bumex and chest x-ray was obtained which was found to be normal. Currently she states she is feeling a lot better. States she is not feeling hungry and feeling nauseous. Nausea has been ongoing on and off since coming to the hospital. Vitals/I&O/Wt Last Vital Signs Temp 98.3 F 07/27/24 12:18 Pulse 66 07/27/24 12:18 Resp 18 07/27/24 12:18 BP 113/70 07/27/24 12:18 Pulse Ox 96 07/27/24 12:18 O2 Del Method Nasal Cannula 07/27/24 12:18 O2 Flow Rate 2 07/27/24 08:45 07/26/24 07/27/24 07/27/24 22:59 06:59 14:59 Intake Total 360 / 1200 120 / 120 Output Total 500 / 500 300 / 800 Balance -140 / 700 -300 / 400 120 / 120 Weight last 48 hrs Weight 80.694 kg Weight 76.204 kg Physical Exam 2 Narrative: General: No acute distress, AO x3 HEENT: PERRLA, pupils bilaterally equal and reactive Chest: Normal vesicular breath sounds, no added sounds, equal good air entry bilaterally CVS: S1-S2 regular, no murmurs, no tachycardia, no gallops, no rubs Abdomen: Soft, nontender, no organomegaly, bowel sounds present Neuro: Right lower limb power 2/5, right upper limb power 3/5, AO x 3, no facial deformity, mild dysarthria NIH stroke score = 6 (secondary to mild right lower facial weakness =1, right upper extremity weakness =2, right lower extremity weakness =3, dysarthria =1) The patient is alert and oriented to person place and situation. Head atraumatic. Neck supple. Cranial nerves II through XII revealed mild right lower facial weakness. There was mild dysarthria. Other cranial nerves were intact. Pupils 3 mm round reactive to light and accommodation. Extraocular movements intact. Visual pérez appear to be full via confrontation. Motor testing 3/5 strength in the right arm and 2+ to 3/5 strength in the right leg. Motor testing the left arm and left leg 5/5. Deep tendon reflexes revealed extensor plantar response on the right and flexor on the left. There was no clonus. Sensory examination was intact to touch. There was no extinction on double sensory stimulation. Throat clear. Lungs clear. Heart regular rhythm and rate. Extremities were negative for cyanosis. Gait was not tested secondary to right sided weakness. Urinary Catheter Management: Graff: Cath Placed During This Visit: yes Reason for Continuing Indwelling Catheter: Acute Urinary Retention or Obstruction Urinary Catheter Date of Insertion: 07/26/24 Urinary Catheter Time of Insertion: 19:54 Data 07/27/24 05:06 07/27/24 05:06 A&P Assessment and plan (1) Acute left ICA ischemic stroke: Seen by neurology in ER. Deemed not a candidate for IV thrombolytics. Appreciate CT head. CT concerning for occluded left common carotid artery extending from origin to bifurcation. Reconstitution after bifurcation. Appreciate echocardiogram. Appreciate A1c, lipid panel. Goal blood pressure less than 140/90 mmHg.. PT/OT/speech evaluation. Start diet as per dysphagia screen. (2) Ischemic cardiomyopathy: Gives history of CAD in the past. Denies any active chest pain. Continue with aspirin, statin as above. Beta-joseluis as above. Echocardiogram done shows an EF of 43% with global LV hypokinesia with regional wall motion abnormality of anterior and apical akinesia, grade 2 diastolic dysfunction. Severe MR. Given changes in EF, no known EF from the past, history of CAD for now we will rule out ischemic nature with Lexiscan stress test. Patient is agreeable. Watch for fluid overload. Holding off on home dose of Bumex. (3) Type 2 diabetes mellitus without complications: A1c of 6.2. Start on insulin sliding scale low-dose protocol. Patient will benefit from discharge on SGLT2 inhibitors. (4) Essential (primary) hypertension: Goal blood pressure less than 1/90 mmHg today. Restart home dose of Coreg. Depending on blood pressures will plan to start lower dose on SANDRITA/ARB/Entresto in next 20 hours. (5) Chronic kidney disease, stage 4 (severe): Renal function stable. Monitor BMP daily. (6) CAD (coronary artery disease): (7) Congestive heart failure due to cardiomyopathy: (8) Common carotid artery stenosis: Plan Urinary retention: Repeat bladder scan showed a urine of more than 500 cc. Graff catheter placed. Continue other chronic medical history including DuoNeb as needed, mirtazapine nightly, Seroquel nightly, Flomax daily. CODE STATUS: State appointed guardian will be the DPOA. Patient for now would like to remain full code but wants to think further before making her final decision. NPO. Advance diet as per dysphagia screening. Protonix for daily prophylaxis Heparin 5000 Sq 12 hourly for DVT prophylaxis. Plan for the day: Hypoxia most likely in setting of mild aspiration. Modified barium swallow. Continue with current diet. Advance as per speech evaluation. Discussed in detail with the patient regarding need for aspiration precautions. Patient currently euvolemic. Hold off on any further IV fluids or diuretics. Fluid restriction to less than 1500 cc. Monitor BMP daily. Blood pressure is at goal of 140/90 mmHg. Continue with Coreg of 6.25 mg twice daily. Plan for Lexiscan stress test in AM. Patient denies any chest pain we will continue with aspirin, statin. Patient found to retain urine again. Graff catheter placed. Continue with Flomax 0.4 mg daily. Concern for mild acid reflux. Maalox one-time. Continue with Protonix daily. Zofran as needed. Abdominal x-ray. PDMP PDMP Reviewed: Not Reviewed Attestations 2 Medical Necessity Statement*: Requires further hospitalization for management of stroke with right-sided flaccid paralysis, aspiration while diet is advanced gradually, CAD with ischemic cardiomyopathy and EF of 30% while further workup is done to rule out ischemia Diagnoses Acute left ICA ischemic stroke I63.232 Ischemic cardiomyopathy I25.5 Type 2 diabetes mellitus without complications E11.9 Essential (primary) hypertension I10 Chronic kidney disease, stage 4 (severe) N18.4 CAD (coronary artery disease) I25.10 Congestive heart failure due to cardiomyopathy I50.9; I42.9 Common carotid artery stenosis I65.29
--- NOTE | 2024-07-27 14:02 | XRR_ITS ---
PROCEDURE INFORMATION: Exam: XR Abdomen Exam date and time: 07/27/2024 2:24 PM Age: 74 years old Clinical indication: Abdominal pain; Prior surgery; Surgery date: 6+ months; Surgery type: Cabg; Epigastric pain; Abdomen pain/distention; Constipation TECHNIQUE: Imaging protocol: Radiologic exam of the abdomen. Views: 3 or more views. COMPARISON: CR (CHEST, ) 07/27/2024 4:13 AM FINDINGS: Lungs: Lungs are clear. Gastrointestinal tract: Bowel-gas pattern within normal limits. Curvilinear calcification in the left paraspinal region from L2-L4 may represent a calcified abdominal aorta which may be tortuous or ectatic. Intraperitoneal space: Normal. No free air. Bones/joints: Status post median sternotomy. XR/XR abdomen 3V [id number] IMPRESSION: 1. No acute findings. 2. Suspected calcified abdominal aorta which may be tortuous and/or ectatic.
[2024-07-27] MEDS: alum-mag-hydroxide-sime 30 mL UDC PO (14:56)
[2024-07-27 16:52] LABS: Glucose Point of Care 107 mg/dL (70-110)
[2024-07-27] MEDS: acetaminophen 325 mg Tablet 650 MG PO (17:12)
[2024-07-27] MEDS: quetiapine XR (24HR) 50 mg Tablet 200 MG PO (20:04)
[2024-07-27] MEDS: ATORVASTATIN 10 MG TABLET 20 MG PO (20:04)
[2024-07-27] MEDS: mirtazapine 15 mg Tablet PO (20:04)
[2024-07-27] MEDS: tamsulosin 0.4 mg Capsule PO (20:04)
[2024-07-27 20:43] LABS: Glucose Point of Care 111 mg/dL (70-110)
--- OUTSIDE RECORDS SUMMARY | 2024-07-27 22:42 | XMS_ITS ---
Author Organization [facility] Address [address] [place] [address] Care Team Providers Care Lisw Name Role Phone Sarabjit Gibson Primary Care Provider Allergies No Known Allergies REASON FOR VISIT long term visit at [place], [place] Medications Medication SIG (Take, Route, Frequency, Duration) Notes Start Date End Date Status Advair Diskus 250-50 MCG/ACT inhale 1 puffs TWICE DAILY for 30 Active Lipitor 20 MG 1 tablet Orally Once a day at for 30 day(s) 03/22/2022 Active SEROquel 50 MG 1 tab along with a 2 5mg Orally Once a day for 30 days 03/22/2022 Active PriLOSEC OTC 20 MG 1 tablet 30 minutes before morning meal Orally Once a day for 30 day(s) 03/22/2022 Active Aspirin 81 MG 1 tablet Orally Once a day for 30 day(s) 03/22/2022 Active Bumetanide 1 mg TAKE ONE TABLET BY M OUTH DAILY for 30 Active Potassium Chloride ER 10 mEq TAKE ONE TABLET BY MOUTH EVERY DAY for 30 Active Mucinex 600 MG 1 tablet as needed O rally every 12 hrs Active HumuLIN R 100 UNIT/ML low dose sliding s agueda Injection ac and hs Active MiraLax 17 GM/SCOOP 1 scoop mixed with 8 ounces of fluid Orally Once a day Active Tylenol 80 MG/0.8ML as directed Orally Active Ipratropium-Albuterol 0.5-2.5 (3) MG/3ML 3 mL as needed Inhalation every 6 hrs Active Albuterol Sulfate HFA 108 (90 Base) MCG/ACT 1 puff as needed Inhalation every 4 hrs Active Tamsulosin HCl 0.4 mg TAKE ONE CAPSULE B Y MOUTH AT BEDTIME for 30 Active QUEtiapine Fumarate 100 mg TAKE ONE TABL ET BY MOUTH TWICE DAILY for 30 Active Escitalopram Oxalate 5 mg TAKE ONE TABLE T BY MOUTH DAILY for 30 Active traZODone HCl 50 mg TAKE ONE TABLET BY M OUTH EVERY NIGHT AT BEDTIME for 30 Active Carvedilol 6.25 mg TAKE ONE TABLET BY M OUTH TWICE DAILY for 30 Active Breo Ellipta 200-25 MCG/ACT INHALE CONCHITA NTS OF 1 CAPSULE (USING 2 PUFFS) BY MOUTH ONCE DAILY for 30 Active Losartan Potassium 100 mg TAKE ONE TABLE T BY MOUTH EVERY DAY for 30 Active Atorvastatin Calcium 20 mg TAKE ONE TABL ET BY MOUTH AT BEDTIME for 30 Active Encounters Encounter Location Date Provider Diagnosis [facility] [address] [place] [address] 05/23/2024 Sarabjit Gibson Cerebral infarction, unspecified I63.9 and Benign essential HTN I10 Assessments Encounter Date Diagnosis (ICD Code) Assessment Notes Treatment Notes Treatment Clinical Notes Section Notes 05/23/2024 Cerebral infarction, unspecified (ICD-10 - I63.9) 05/23/2024 Benign essential HTN (ICD-10 - I10) 05/23/2024 Other Medications reviewed, orders signed and documented with nursing staff. Vitals taken and recorded at [facility]. Plan Of Treatment Treatment Notes Assessment Notes Other Medications reviewed , orders signed and documented with nursing staff. Vitals taken and recorded at [facility]. Next Appt Details Follow Up: 4 Weeks, Reason: Progress Notes * Samantha WALLACE SDOB:1950 (74 yo F)Acc No.[id number]:05/23/2024 Patient:?Samantha WALLACE Ruben Provider:?Sarabjit Gibson MD :1950???Age:74 Y???Sex:Female D ate:05/23/2024 Address:[address] [place], [place] [id number] Subjective: * Chief Complaints: * ???long term visit at [place], [place] * HPI: ???::? The patient is seen in the long-term today for follow-up. Staff reports no new complaints. The review of systems and exam are unchanged from previous. Patient denies pain and is comfortable. * Medical History:? * Surgical History:? * Hospitalization/Major Diagno stic Procedure:? * Medications:?TakingAtorvasta tin Calcium 20 mg Tablet TAKE ONE TABLET BY MOUTH AT BEDTIME Breo Ellipta 200-25 MCG/ACT Aerosol Powder Breath Activated INHALE CONTENTS OF 1 CAPSULE (USING 2 PUFFS) BY MOUTH ONCE DAILY Losartan Potassium 100 mg Tablet TAKE ONE TABLET BY MOUTH EVERY DAY traZODone HCl 50 mg Tablet TAKE ONE TABLET BY MOUTH EVERY NIGHT AT BEDTIME Carvedilol 6.25 mg Tablet TAKE ONE TABLET BY MOUTH TWICE DAILY Escitalopram Oxalate 5 mg Tablet TAKE ONE TABLET BY MOUTH DAILY Tamsulosin HCl 0.4 mg Capsule TAKE ONE CAPSULE BY MOUTH AT BEDTIME QUEtiapine Fumarate 100 mg Tablet TAKE ONE TABLET BY MOUTH TWICE DAILY Ipratropium-Albuterol 0.5-2.5 (3) MG/3ML Solution 3 mL as needed Inhalation every 6 hrs Albuterol Sulfate HFA 108 (90 Base) MCG/ACT Aerosol Solution 1 puff as needed Inhalation every 4 hrs Tylenol 80 MG/0.8ML Suspension as directed Orally MiraLax 17 GM/SCOOP Powder 1 scoop mixed with 8 ounces of fluid Orally Once a day Mucinex 600 MG Tablet Extended Release 12 Hour 1 tablet as needed Orally every 12 hrs HumuLIN R 100 UNIT/ML Solution low dose sliding scale Injection ac and hs Potassium Chloride ER 10 mEq Tablet Extended Release TAKE ONE TABLET BY MOUTH EVERY DAY Bumetanide 1 mg Tablet TAKE ONE TABLET BY MOUTH DAILY Advair Diskus 250-50 MCG/ACT Aerosol Powder Breath Activated inhale 1 puffs TWICE DAILY PriLOSEC OTC 20 MG Tablet Delayed Release 1 tablet 30 minutes before morning meal Orally Once a day Aspirin 81 MG Tablet Delayed Release 1 tablet Orally Once a day Lipitor 20 MG Tablet 1 tablet Orally Once a day at HS SEROquel 50 MG Tablet 1 tab along with a 25mg Orally Once a day Medication List reviewed and reconciled with the patientTaking Atorvastatin Calcium 20 mg Tablet TAKE ONE TABLET BY MOUTH AT BEDTIME Taking Breo Ellipta 200-25 MCG/ACT Aerosol Powder Breath Activated INHALE CONTENTS OF 1 CAPSULE (USING 2 PUFFS) BY MOUTH ONCE DAILY Taking Losartan Potassium 100 mg Tablet TAKE ONE TABLET BY MOUTH EVERY DAY Taking traZODone HCl 50 mg Tablet TAKE ONE TABLET BY MOUTH EVERY NIGHT AT BEDTIME Taking Carvedilol 6.25 mg Tablet TAKE ONE TABLET BY MOUTH TWICE DAILY Taking Escitalopram Oxalate 5 mg Tablet TAKE ONE TABLET BY MOUTH DAILY Taking Tamsulosin HCl 0.4 mg Capsule TAKE ONE CAPSULE BY MOUTH AT BEDTIME Taking QUEtiapine Fumarate 100 mg Tablet TAKE ONE TABLET BY MOUTH TWICE DAILY Taking Ipratropium-Albuterol 0.5-2.5 (3) MG/3ML Solution 3 mL as needed Inhalation every 6 hrs Taking Albuterol Sulfate HFA 108 (90 Base) MCG/ACT Aerosol Solution 1 puff as needed Inhalation every 4 hrs Taking Tylenol 80 MG/0.8ML Suspension as directed Orally Taking MiraLax 17 GM/SCOOP Powder 1 scoop mixed with 8 ounces of fluid Orally Once a day Taking Mucinex 600 MG Tablet Extended Release 12 Hour 1 tablet as needed Orally every 12 hrs Taking HumuLIN R 100 UNIT/ML Solution low dose sliding scale Injection ac and hs Taking Potassium Chloride ER 10 mEq Tablet Extended Release TAKE ONE TABLET BY MOUTH EVERY DAY Taking Bumetanide 1 mg Tablet TAKE ONE TABLET BY MOUTH DAILY Taking Advair Diskus 250-50 MCG/ACT Aerosol Powder Breath Activated inhale 1 puffs TWICE DAILY Taking PriLOSEC OTC 20 MG Tablet Delayed Release 1 tablet 30 minutes before morning meal Orally Once a day Taking Aspirin 81 MG Tablet Delayed Release 1 tablet Orally Once a day Taking Lipitor 20 MG Tablet 1 tablet Orally Once a day at HS Taking SEROquel 50 MG Tablet 1 tab along with a 25mg Orally Once a day Medication List reviewed and reconciled with the patient * Allergies:?N.K.D.A.no[Allerg ies Verified] Objective: * Vitals:? * Examination: ???General Examination: ?GENERAL APPEARANCE:?in no acute distress. Vital signs as documented..?NECK/THYROID:?no JVD.?SKIN:?warm and dry, without overt rashes..?HEART:?notable for regular rhythym, normal sounds and absence of murmurs, rubs or gallops..?LUNGS:?Lungs clear.?ABDOMEN:?unremarkable, no organomegaly , no masses, or abdominal aortic enlargement..? Assessment: * Assessment: 1.?Cerebral infarction, unsp ecified - I63.9 (Primary)???2.?Benign essential HTN - I10??? Plan: * Treatment: * Procedure Codes:? * Follow Up:?4 Weeks * Billing Information: * Visit Code:? 29699 Nursing Fac Subseq. * Procedure Codes:? * IAL NEEDS BUS DRIVER Sign off status: Completed true * Provider:?Sarabjit Gibson MD Harman e:?05/23/2024 Generated for Printi ng/Laurent/eTransmitting on:?07/27/2024 10:42 PM CDT History and Physical Notes * HPI (History of Present Illness) Category Sub-Category Detail Notes Category Not es : The patient is seen in the long-term today for follow-up. Staff reports no new complaints. The review of systems and exam are unchanged from previous. Patient denies pain and is comfortable. Examination Category Sub-Category Detail Notes Category Not es General Examination GENERAL APPEARANCE: in no ac [place] distress. Vital signs as documented. NECK/THYROID: no JVD HEART: notable for regular rhythym, normal sounds and absence of murmurs, rubs or gallops. LUNGS: Lungs clear ABDOMEN: unremarkable, no org anomegaly , no masses, or abdominal aortic enlargement. SKIN: warm and dry, withou t overt rashes.
--- OUTSIDE RECORDS SUMMARY | 2024-07-27 22:42 | XMS_ITS ---
Author Organization [facility] Address [address] [facility] [place] [address] Care Team Providers Care Reconciliation Clerk Name Role Phone Sarabjit Gibson Primary Care Provider Allergies No Known Allergies REASON FOR VISIT penitentiary visit at [place], [place] Medications Medication SIG (Take, Route, Frequency, Duration) Notes Start Date End Date Status MiraLax 17 GM/SCOOP 1 scoop mixed with 8 ounces of fluid Orally Once a day Active Tylenol 80 MG/0.8ML as directed Orally Active Albuterol Sulfate HFA 108 (90 Base) MCG/ACT 1 puff as needed Inhalation every 4 hrs Active Ipratropium-Albuterol 0.5-2.5 (3) MG/3ML 3 mL as needed Inhalation every 6 hrs Active Mucinex 600 MG 1 tablet as needed O rally every 12 hrs Active Escitalopram Oxalate 5 mg TAKE ONE TABLE T BY MOUTH DAILY for 30 Active QUEtiapine Fumarate 100 mg TAKE ONE TABL ET BY MOUTH TWICE DAILY for 30 Active Tamsulosin HCl 0.4 mg TAKE ONE CAPSULE B Y MOUTH AT BEDTIME for 30 Active Carvedilol 6.25 mg TAKE ONE TABLET BY M OUTH TWICE DAILY for 30 Active traZODone HCl 50 mg TAKE ONE TABLET BY M OUTH EVERY NIGHT AT BEDTIME for 30 Active Breo Ellipta 200-25 MCG/ACT INHALE CONCHITA NTS OF 1 CAPSULE (USING 2 PUFFS) BY MOUTH ONCE DAILY for 30 Active Atorvastatin Calcium 20 mg TAKE ONE TABL ET BY MOUTH AT BEDTIME for 30 Active SEROquel 50 MG 1 tab along with a 2 5mg Orally Once a day for 30 days 03/22/2022 Active Lipitor 20 MG 1 tablet Orally Once a day at HS for 30 day(s) 03/22/2022 Active Losartan Potassium 100 mg TAKE ONE TABLE T BY MOUTH EVERY DAY for 30 Active Aspirin 81 MG 1 tablet Orally Once a day for 30 day(s) 03/22/2022 Active PriLOSEC OTC 20 MG 1 tablet 30 minutes before morning meal Orally Once a day for 30 day(s) 03/22/2022 Active Advair Diskus 250-50 MCG/ACT inhale 1 puffs TWICE DAILY for 30 Active Bumetanide 1 mg TAKE ONE TABLET BY M OUTH DAILY for 30 Active Potassium Chloride ER 10 mEq TAKE ONE TABLET BY MOUTH EVERY DAY for 30 Active HumuLIN R 100 UNIT/ML low dose sliding s agueda Injection ac and hs Active Encounters Encounter Location Date Provider Diagnosis [facility] [address] [place] [address] 06/13/2024 Sarabjit Gibson Cerebral infarction, unspecified I63.9 ; Benign essential HTN I10 and Advancing dementia F03.90 Assessments Encounter Date Diagnosis (ICD Code) Assessment Notes Treatment Notes Treatment Clinical Notes Section Notes 06/13/2024 Cerebral infarction, unspecified (ICD-10 - I63.9) 06/13/2024 Benign essential HTN (ICD-10 - I10) 06/13/2024 Advancing dementia (ICD-10 - F03.90) 06/13/2024 Other Medications reviewed, orders signed and documented with nursing staff. Vitals taken and recorded at [facility]. Plan Of Treatment Treatment Notes Assessment Notes Other Medications reviewed , orders signed and documented with nursing staff. Vitals taken and recorded at [facility]. Next Appt Details Follow Up: 4 Weeks, Reason: Progress Notes * Samantha WALLACE SDOB:1950 (74 yo F)Acc No.[id number]:06/13/2024 Patient:?Samantha WALLACE Provider:?Sarabjit Gibson MD :1950???Age:74 Y???Sex:Female D ate:06/13/2024 Address:[address] [place] [address] [address], [id number] Subjective: * Chief Complaints: * ???penitentiary visit at [place], [place] * HPI: ???::? The patient is seen in the alf today for follow-up. Staff reports no new [...] ecified - I63.9 (Primary)???2.?Benign essential HTN - I10???3.?Advancing dementia - F03.90??? Plan: * Treatment: * Procedure Codes:?07622 SNF C ARE SUBSEQ * Follow Up:?4 Weeks * Billing Information: * Visit Code:? * Procedure Codes:? 88780 SNF CARE SUBSEQ. * Sign off status: Completed true * Provider:?Sarabjit Gibson MD Harman e:?06/13/2024 Generated for Devendra ashley/Laurent/Ashishransmitting on:?07/27/2024 10:42 PM CDT History and Physical Notes * HPI (History of Present Illness) Category Sub-Category Detail Notes Category Not es : The patient is seen in the alf today for follow-up. Staff reports no new complaints. The review of systems and exam are unchanged from previous. Patient denies pain and is comfortable. Examination Category Sub-Category Detail Notes Category Not es General Examination GENERAL APPEARANCE: in no ac terri distress. Vital signs as documented. NECK/THYROID: no JVD HEART: notable for regular rhythym, normal sounds and absence of murmurs, rubs or gallops. LUNGS: Lungs clear ABDOMEN: unremarkable, no org anomegaly , no masses, or abdominal aortic enlargement. SKIN: warm and dry, withou t overt rashes.
--- OUTSIDE RECORDS SUMMARY | 2024-07-27 22:42 | XMS_ITS ---
Author Organization [facility] Address [address] [facility] [address] Care Team Providers Care Focuser Name Role Phone Sarabjit Gibson Primary Care Provider Allergies No Known Allergies REASON FOR VISIT jail visit at [place], [place] Medications Medication SIG (Take, Route, Frequency, Duration) Notes Start Date End Date Status Lipitor 20 MG 1 tablet Orally Once a day at for 30 day(s) 03/22/2022 Active SEROquel 50 MG 1 tab along with a 2 5mg Orally Once a day for 30 days 03/22/2022 Active Advair Diskus 250-50 MCG/ACT inhale 1 puffs TWICE DAILY for 30 Active PriLOSEC OTC 20 MG 1 tablet 30 minutes before morning meal Orally Once a day for 30 day(s) 03/22/2022 Active Aspirin 81 MG 1 tablet Orally Once a day for 30 day(s) 03/22/2022 Active MiraLax 17 GM/SCOOP 1 scoop mixed with 8 ounces of fluid Orally Once a day Active Mucinex 600 MG 1 tablet as needed O rally every 12 hrs Active HumuLIN R 100 UNIT/ML low dose sliding s agueda Injection ac and hs Active Potassium Chloride ER 10 mEq TAKE ONE TABLET BY MOUTH EVERY DAY for 30 Active Bumetanide 1 mg TAKE ONE TABLET BY M OUTH DAILY for 30 Active Albuterol Sulfate HFA 108 (90 Base) MCG/ACT 1 puff as needed Inhalation every 4 hrs Active Tylenol 80 MG/0.8ML as directed Orally Active Tamsulosin HCl 0.4 mg TAKE ONE CAPSULE B Y MOUTH AT BEDTIME for 30 Active QUEtiapine Fumarate 100 mg TAKE ONE TABL ET BY MOUTH TWICE DAILY for 30 Active Ipratropium-Albuterol 0.5-2.5 (3) MG/3ML 3 mL as needed Inhalation every 6 hrs Active Breo Ellipta 200-25 MCG/ACT INHALE CONCHITA NTS OF 1 CAPSULE (USING 2 PUFFS) BY MOUTH ONCE DAILY for 30 Active Losartan Potassium 100 mg TAKE ONE TABLE T BY MOUTH EVERY DAY for 30 Active traZODone HCl 50 mg TAKE ONE TABLET BY M OUTH EVERY NIGHT AT BEDTIME for 30 Active Carvedilol 6.25 mg TAKE ONE TABLET BY M OUTH TWICE DAILY for 30 Active Escitalopram Oxalate 5 mg TAKE ONE TABLE T BY MOUTH DAILY for 30 Active Atorvastatin Calcium 20 mg TAKE ONE TABL ET BY MOUTH AT BEDTIME for 30 Active Encounters Encounter Location Date Provider Diagnosis [facility] [address] [place] [address] 07/11/2024 Sarabjit Gibson Assessments Encounter Date Diagnosis (ICD Code) Assessment Notes Treatment Notes Treatment Clinical Notes Section Notes 07/11/2024 Other Medications reviewed, orders signed and documented with nursing staff. Vitals taken and recorded at [facility]. Plan Of Treatment Treatment Notes Assessment Notes Other Medications reviewed , orders signed and documented with nursing staff. Vitals taken and recorded at [facility]. Next Appt Details Follow Up: 4 Weeks, Reason: Progress Notes * Samantha WALLACE SDOB:1950 (74 yo F)Acc No.[id number]:07/11/2024 Patient:?Samantha WALLACE Provider:?Sarabjit Gibson MD :1950???Age:74 Y???Sex:Female D ate:07/11/2024 Address:[address] [place] [id number] Subjective: * Chief Complaints: * ???1. jail visit at [place], [place]. * HPI: ???::? The patient is seen in the senior care today for follow-up. Staff reports no new complaints. The review of systems and exam are unchanged from previous. Patient denies pain and is comfortable. * Medical History:?Unap mariana ia, unspecified severity, with behavioral disturbances, Presence of aortocoronary bypass graft, Constipation, unspecified, Covid 19, Cerebral infarction, unspecified, Benign essential HTN, Diabetes mellitus. * Medications:?Taking Atorvast atin Calcium 20 mg Tablet TAKE ONE TABLET BY MOUTH AT BEDTIME , Taking Breo Ellipta 200-25 MCG/ACT Aerosol Powder Breath Activated INHALE CONTENTS OF 1 CAPSULE (USING 2 PUFFS) BY MOUTH ONCE DAILY , Taking Losartan Potassium 100 mg Tablet TAKE ONE TABLET BY MOUTH EVERY DAY , Taking traZODone HCl 50 mg Tablet TAKE ONE TABLET BY MOUTH EVERY NIGHT AT BEDTIME , Taking Carvedilol 6.25 mg Tablet TAKE ONE TABLET BY MOUTH TWICE DAILY , Taking Escitalopram Oxalate 5 mg Tablet TAKE ONE TABLET BY MOUTH DAILY , Taking Tamsulosin HCl 0.4 mg Capsule TAKE ONE CAPSULE BY MOUTH AT BEDTIME , Taking QUEtiapine Fumarate 100 mg Tablet TAKE ONE TABLET BY MOUTH TWICE DAILY , Taking Ipratropium-Albuterol 0.5-2.5 (3) MG/3ML Solution 3 mL as needed Inhalation every 6 hrs , Taking Albuterol Sulfate HFA 108 (90 Base) MCG/ACT Aerosol Solution 1 puff as needed Inhalation every 4 hrs , Taking Tylenol 80 MG/0.8ML Suspension as directed Orally , Taking MiraLax 17 GM/SCOOP Powder 1 scoop mixed with 8 ounces of fluid Orally Once a day , Taking Mucinex 600 MG Tablet Extended Release 12 Hour 1 tablet as needed Orally every 12 hrs , Taking HumuLIN R 100 UNIT/ML Solution low dose sliding scale Injection ac and hs , Taking Potassium Chloride ER 10 mEq Tablet Extended Release TAKE ONE TABLET BY MOUTH EVERY DAY , Taking Bumetanide 1 mg Tablet TAKE ONE TABLET BY MOUTH DAILY , Taking Advair Diskus 250-50 MCG/ACT Aerosol Powder Breath Activated inhale 1 puffs TWICE DAILY , Taking PriLOSEC OTC 20 MG Tablet Delayed Release 1 tablet 30 minutes before morning meal Orally Once a day , Taking Aspirin 81 MG Tablet Delayed Release 1 tablet Orally Once a day , Taking Lipitor 20 MG Tablet 1 tablet Orally Once a day at HS , Taking SEROquel 50 MG Tablet 1 tab along with a 25mg Orally Once a day , Medication List reviewed and reconciled with the patient * Allergies:?N.K.D.A. Objective: * Vitals:? * Examination: ???General Examination: ?GENERAL APPEARANCE:?in no acute distress. Vital signs as documented..?NECK/THYROID:?no JVD.?SKIN:?warm and dry, without overt rashes..?HEART:?notable for regular rhythym, normal sounds and absence of murmurs, rubs or gallops..?LUNGS:?Lungs clear.?ABDOMEN:?unremarkable, no organomegaly , no masses, or abdominal aortic enlargement..? Assessment: Plan: * Treatment: * Procedure Codes:?71128 SNF C ARE SUBSEQ * Follow Up:?4 Weeks * Billing Information: * Visit Code:? * Procedure Codes:? 83769 SNF CARE SUBSEQ. * Electronic signature of Tj Gibson MD on 07/27/2024 at 10:41 PM CDT Sign off status: Pending * Provider:?Sarabjit Gibson MD Harman e:?07/11/2024 Generated for Devendra ashley/Laurent/Neymaritting on:?07/27/2024 10:41 PM CDT History and Physical Notes * HPI (History of Present Illness) Category Sub-Category Detail Notes Category Not es : The patient is seen in the senior care today for follow-up. Staff reports no new complaints. The review of systems and exam are unchanged from previous. Patient denies pain and is comfortable. Examination Category Sub-Category Detail Notes Category Not es General Examination GENERAL APPEARANCE: in no ac [place] distress. Vital signs as documented. NECK/THYROID: no JVD HEART: notable for regular rhythym, normal sounds and absence of murmurs, rubs or gallops. LUNGS: Lungs clear ABDOMEN: unremarkable, no org anomegaly , no masses, or abdominal aortic enlargement. SKIN: warm and dry, withou t overt rashes.
--- OUTSIDE RECORDS SUMMARY | 2024-07-27 22:42 | XMS_ITS | Patient Health Record ---
Author Organization [facility] Address [address] [place] [address] Care Team Providers Care Personal Health Coach Name Role Phone Gibson, Sarabjit Primary Care Provider Allergies No Known Allergies Reason For Referral No Information Medications Medication SIG (Take, Route, Frequency, Duration) Notes Start Date End Date Status Tamsulosin HCl 0.4 mg TAKE ONE CAPSULE B Y MOUTH EVERY NIGHT AT BEDTIME for 30 Active Lipitor 20 MG 1 tablet Orally Once a day at HS for 30 day(s) 03/22/2022 Active Albuterol Sulfate HFA 108 (90 Base) MCG/ACT 1 puff as needed Inhalation every 4 hrs Active SEROquel 50 MG 1 tab along with a 2 5mg Orally Once a day for 30 days 03/22/2022 Active Tylenol 80 MG/0.8ML as directed Orally Active Atorvastatin Calcium 20 mg TAKE ONE TABL ET BY MOUTH AT BEDTIME for 30 Active MiraLax 17 GM/SCOOP 1 scoop mixed with 8 ounces of fluid Orally Once a day Active Breo Ellipta 200-25 MCG/ACT INHALE CONCHITA NTS OF 1 CAPSULE (USING 2 PUFFS) BY MOUTH ONCE DAILY for 30 Active Mucinex 600 MG 1 tablet as needed O rally every 12 hrs Active Losartan Potassium 100 mg TAKE ONE TABLE T BY MOUTH EVERY DAY for 30 Active HumuLIN R 100 UNIT/ML low dose sliding s agueda Injection ac and hs Active traZODone HCl 50 mg TAKE ONE TABLET BY M OUTH EVERY NIGHT AT BEDTIME for 30 Active Potassium Chloride ER 10 mEq TAKE ONE TABLET BY MOUTH EVERY DAY for 30 Active Carvedilol 6.25 mg TAKE ONE TABLET BY M OUTH TWICE DAILY for 30 Active Bumetanide 1 mg TAKE ONE TABLET BY M OUTH DAILY for 30 Active Escitalopram Oxalate 5 mg TAKE ONE TABLE T BY MOUTH DAILY for 30 Active Advair Diskus 250-50 MCG/ACT inhale 1 puffs TWICE DAILY for 30 Active PriLOSEC OTC 20 MG 1 tablet 30 minutes before morning meal Orally Once a day for 30 day(s) 03/22/2022 Active QUEtiapine Fumarate 100 mg TAKE ONE TABL ET BY MOUTH TWICE DAILY for 30 Active Aspirin 81 MG 1 tablet Orally Once a day for 30 day(s) 03/22/2022 Active Ipratropium-Albuterol 0.5-2.5 (3) MG/3ML 3 mL as needed Inhalation every 6 hrs Active Social History Household Question Answer Notes Marital status: Problems Problem Type SNOMED Code ICD Code Onset Dates Problem Status W/U Status Risk Notes Problem 34489413 Type 2 diabetes mellitus without complications (E11.9) Active confirmed Problem Cerebral infarction (609149765) Cerebral infarction, unspecified (I63.9) Active confirmed Problem Essential hypertension (39146998) Benign essential HTN (I10) Active confirmed Problem 56192824 Advancing dementia (F03.90) Active confirmed Encounters Encounter Location Date Provider Diagnosis [facility] [address] [place] [address] [place] [phone] 10/23/2023 [facility] [address] [place] [phone] 11/14/2023 [facility] [address] [place] [phone] 04/30/2024 [facility] [address] [place] [address] 08/10/2023 Sarabjit Gibson Cerebral infarction, unspecified I63.9 ; Benign essential HTN I10 and Advancing dementia F03.90 [facility] [address] [place] [address] 09/07/2023 Sarabjit Gibson Cerebral infarction, unspecified I63.9 ; Benign essential HTN I10 ; Advancing dementia F03.90 and Type 2 diabetes mellitus without complications E11.9 [facility] [address] [place] [address] 10/12/2023 Christopher Gibson Cerebral infarction, unspecified I63.9 ; Benign essential HTN I10 ; Advancing dementia F03.90 and Type 2 diabetes mellitus without complications E11.9 [facility] [address] [place] [address] 11/09/2023 Christopher Gibson Cerebral infarction, unspecified I63.9 ; Benign essential HTN I10 ; Advancing dementia F03.90 and Type 2 diabetes mellitus without complications E11.9 [facility] [address] [place] [address] 12/07/2023 Christopher Gibson Cerebral infarction, unspecified I63.9 ; Benign essential HTN I10 ; Advancing dementia F03.90 and Type 2 diabetes mellitus without complications E11.9 [facility] [address] [place] [address] 01/11/2024 Christopher Gibson Cerebral infarction, unspecified I63.9 and Benign essential HTN I10 [facility] [address] [place] [address] 02/01/2024 Christopher Gibson Cerebral infarction, unspecified I63.9 and Benign essential HTN I10 [facility] [address] [place] [address] 03/07/2024 Christopher Gibson Cerebral infarction, unspecified I63.9 ; Benign essential HTN I10 and Advancing dementia F03.90 [facility] [address] [place] [address] 04/11/2024 Christopher Gibson Cerebral infarction, unspecified I63.9 ; Benign essential HTN I10 ; Advancing dementia F03.90 and Type 2 diabetes mellitus without complications E11.9 [facility] [address] [place] [address] 05/23/2024 Christopher Gibson Cerebral infarction, unspecified I63.9 and Benign essential HTN I10 [facility] [address] [place] [address] 06/13/2024 Christopher Gibson Cerebral infarction, unspecified I63.9 ; Benign essential HTN I10 and Advancing dementia F03.90 [facility] [address] [place] [address] 07/11/2024 Sarabjit Gbison Assessments Encounter Date Diagnosis (ICD Code) Assessment Notes Treatment Notes Treatment Clinical Notes Section Notes 08/10/2023 Cerebral infarction, unspecified (ICD-10 - I63.9) 09/07/2023 Cerebral infarction, unspecified (ICD-10 - I63.9) 03/07/2024 Cerebral infarction, unspecified (ICD-10 - I63.9) 04/11/2024 Cerebral infarction, unspecified (ICD-10 - I63.9) 06/13/2024 Cerebral infarction, unspecified (ICD-10 - I63.9) 02/01/2024 Cerebral infarction, unspecified (ICD-10 - I63.9) 01/11/2024 Cerebral infarction, unspecified (ICD-10 - I63.9) 12/07/2023 Cerebral infarction, unspecified (ICD-10 - I63.9) 10/12/2023 Cerebral infarction, unspecified (ICD-10 - I63.9) 05/23/2024 Cerebral infarction, unspecified (ICD-10 - I63.9) 11/09/2023 Cerebral infarction, unspecified (ICD-10 - I63.9) 11/09/2023 Benign essential HTN (ICD-10 - I10) 05/23/2024 Benign essential HTN (ICD-10 - I10) 10/12/2023 Benign essential HTN (ICD-10 - I10) 12/07/2023 Benign essential HTN (ICD-10 - I10) 01/11/2024 Benign essential HTN (ICD-10 - I10) 02/01/2024 Benign essential HTN (ICD-10 - I10) 06/13/2024 Benign essential HTN (ICD-10 - I10) 04/11/2024 Benign essential HTN (ICD-10 - I10) 03/07/2024 Benign essential HTN (ICD-10 - I10) 09/07/2023 Benign essential HTN (ICD-10 - I10) 08/10/2023 Benign essential HTN (ICD-10 - I10) 08/10/2023 Advancing dementia (ICD-10 - F03.90) 09/07/2023 Advancing dementia (ICD-10 - F03.90) 03/07/2024 Advancing dementia (ICD-10 - F03.90) 04/11/2024 Advancing dementia (ICD-10 - F03.90) 06/13/2024 Advancing dementia (ICD-10 - F03.90) 12/07/2023 Advancing dementia (ICD-10 - F03.90) 10/12/2023 Advancing dementia (ICD-10 - F03.90) 11/09/2023 Advancing dementia (ICD-10 - F03.90) 11/09/2023 Type 2 diabetes mellitus without complications (ICD-10 - E11.9) 10/12/2023 Type 2 diabetes mellitus without complications (ICD-10 - E11.9) 12/07/2023 Type 2 diabetes mellitus without complications (ICD-10 - E11.9) 04/11/2024 Type 2 diabetes mellitus without complications (ICD-10 - E11.9) 09/07/2023 Type 2 diabetes mellitus without complications (ICD-10 - E11.9) 07/11/2024 Other Medications reviewed, orders signed and documented with nursing staff. Vitals taken and recorded at [facility]. 08/10/2023 Other Medications reviewed, orders signed and documented with nursing staff. Vitals taken and recorded at [facility]. 09/07/2023 Other Medications reviewed, orders signed and documented with nursing staff. Vitals taken and recorded at [facility]. 10/12/2023 Other Medications reviewed, orders signed and documented with nursing staff. Vitals taken and recorded at [facility]. 11/09/2023 Other Medications reviewed, orders signed and documented with nursing staff. Vitals taken and recorded at [facility]. 12/07/2023 Other Medications reviewed, orders signed and documented with nursing staff. Vitals taken and recorded at [facility]. 01/11/2024 Other Medications reviewed, orders signed and documented with nursing staff. Vitals taken and recorded at [facility]. 02/01/2024 Other Medications reviewed, orders signed and documented with nursing staff. Vitals taken and recorded at [facility]. 03/07/2024 Other Medications reviewed, orders signed and documented with nursing staff. Vitals taken and recorded at [facility]. 04/11/2024 Other Medications reviewed, orders signed and documented with nursing staff. Vitals taken and recorded at [facility]. 05/23/2024 Other Medications reviewed, orders signed and documented with nursing staff. Vitals taken and recorded at [facility]. 06/13/2024 Other Medications reviewed, orders signed and documented with nursing staff. Vitals taken and recorded at [facility]. Plan Of Treatment No Information Insurance Providers Payer Name Payer Address Payer Phone Subscriber Number Group Number Insured Name Patient Relationship to Insured Coverage Start Date Coverage End Date [place] [address] [address] [place] [address] [id number] Samantha Nunez Self - patient is the insured [place] [employer] [address] [place] [address] [id number] Samantha Nunez Self - patient is the insured Medical (General) History Medical History History ICD Code unap dementia, unspecified severity, wit h behavioral disturbances presence of aortocoronary bypass graft constipation, unspecified covid 19 Cerebral infarction, unspecified I63.9 Benign essential HTN I10 Diabetes mellitus E11.9
[2024-07-28] VITALS (8 sets, daily range): BP systolic 110–137; BP diastolic 72–80; PULSE 73–89; RESP 17–19; TEMP 36.3–37; O2SAT 92–96
--- NOTE | 2024-07-28 04:30 | PC.NURSE ---
Assumed patient care from Meagan Moser RN at this time
[2024-07-28 06:06] LABS: Basophils % 0.2 %; Eosinophils # 0.7 10^3/uL (0.0-0.8); Eosinophils % 10.3 %; Hematocrit 36.2 % (36-47); Lymphocytes # 1.5 10^3/uL (0.8-4.8); Lymphocytes % 23.7 %; Mean Corpuscular Hemoglobin 29.8 pg (27-33); Mean Corpuscular Volume 93.1 fl (85-98); Monocytes # 0.4 10^3/uL (0.2-0.9); Monocytes % 6.6 %; Neutrophils # 3.73 10^3/uL (1.8-7.7); Nucleated Red Blood Cells % 0 %; Platelet Count 89 10^3/cmm (157-399); Red Blood Count 3.89 10^6/uL (3.85-5.65); Red Cell Distribution Width 14.2 % (12.1-15.1); White Blood Count 6.32 10^3/uL (3.29-11.43)
[2024-07-28 06:13] LABS: Alanine Aminotransferase 11 U/L (0-33); Albumin Level 3.7 g/dL (3.5-5.2); Alkaline Phosphatase 90 U/L (35-105); Anion Gap 13.9 (5-19); Aspartate Amino Transferase 20 U/L (0-32); Blood Urea Nitrogen 15 mg/dL (8-23); Carbon Dioxide 28 mmol/L (22-29); Chloride 101 mmol/L (98-107); Creatinine Clr Calc Pharmacy 45.3223; Globulin 3.4 g/dL (1.3-4.6); Glucose 115 mg/dL (65-115); Magnesium 2.2 mg/dL (1.7-2.3); Osmolality Calculated 290 mOsm/kg (285-295); Phosphorus 3.3 mg/dL (2.5-4.5); Potassium 3.9 mmol/L (3.5-5.1); Sodium 139 mmol/L (136-145); Total Bilirubin 0.6 mg/dL (0.15-1.2); Total Protein 7.1 g/dL (6.6-8.7)
[2024-07-28 06:26] LABS: Glucose Point of Care 133 mg/dL (70-110)
[2024-07-28] MEDS: regadenoson 0.4 Mg/5 ml Syringe IVP (07:09)
[2024-07-28] MEDS: aminophylline 25 mg/mL SDV 20 mL IVP ×2 (07:20→07:22)
[2024-07-28] MEDS: carvedilol 6.25 mg Tablet PO ×2 (08:32→17:14)
[2024-07-28] MEDS: aspirin 81 mg EC Tablet PO (08:32)
[2024-07-28] MEDS: docusate sodium 100 mg Capsule PO ×2 (08:32→17:14)
[2024-07-28] MEDS: pantoprazole 40 mg SDV IVP (08:32)
[2024-07-28] MEDS: heparin 5,000 unit/mL INJ 1 mL 5000 UNIT SUBCUT ×2 (08:33→20:37)
--- NOTE | 2024-07-28 09:00 | PC.CHAP ---
Pastoral Care Encounter/Spiritual Assessment Type of Contact [] Declined wood heel flap inserter visit [] Patient/Family/Request visit [] Outpatient visit [] Follow-up visit [] Physician referral [] Code/Alert [x] Routine visit [] Staff referral [] Actively dying [] Patient sleeping [] Family support [] [] Out of room [] Palliative care [] [] Receiving care in room [] Pre-surgical visit [] Trauma [] Long length of stay [] ICU visit [] Other: Relational/Emotional Strength [] Patient feels connected with others/family/visitors/staff [] Distress [] Loneliness/isolation [] Abandonment Spirituality of Patient [x] Person of Ale [] Attends Gnosticist of their Ale [x] Believes in Prayer [] Reads Bible or Church materials [] There are Spiritual issues to be addressed Tire Inspector Interventions [x] Prayer [x] Active listening [] Non-anxious presence [] Spiritual/emotional support [] Crisis/trauma care [] Spiritual counseling [] Bereavement support [] Provided bereavement packet [x] Provided Bible/devotional materials [] Provided toy/stuffed animal, coloring book to patient or family member [] Provided Communion [] Anointing/[place] [] Salvation [x] Completed spiritual assessment [] Other: Impact on Illness or Injury [] Angry [] Fearful [] Anxious [] Often cries [] Exhaustion [] Unable to work [] Unable to attend quaker [] Unable to walk/stand [] Unable to read [] Unable to drive [] Unable to eat/drink [] Unable to sleep [] Unable to be with family [] Patient intubated [] Other: Summary Time spent with patient 10 min
[2024-07-28 11:59] LABS: Glucose Point of Care 131 mg/dL (70-110)
--- NOTE | 2024-07-28 13:20 | PC.OT ---
OT TREATMENT ATTEMPTED. PATIENT STATES THAT SHE DID NOT EAT LUNCH SHE WAS NOT HUNGRY. DECLINES TO PARTICIPATE IN ANY SKILLED OT AT THIS TIME; THERAPIST OFFERED GROOMING, EXERCISE, ETC.
[2024-07-28] MEDS: ipratropium-albuterol 3 mL Neb INHALATION (14:27)
--- NOTE | 2024-07-28 14:34 | NMCV_ITS ---
NM gabriele perf SPECT r/s* [id number] Samantha Nunez Age: 74 Gender: F : 1950 Exam Date: 07/28/2024 06:40 Ordering Phys: Young Knowles MD Technologist: MEÑO Galarza Exam Location: [facility] Indications: CP STRESS TEST [facility] IMAGE PROTOCOL Rest/Stress 1 Lexiscan Day Radiopharmaceutical Dose (mCi) Administration Site Administered by Rest: Tc-99m 11 IV Christy Crain, TECHNICAL SUPPORT MANAGER Sestamibi Stress:Tc-99m 32.8 IV Christy Breann, TECHNICAL SUPPORT MANAGER Sestamibi Rest: 28-Jul-2024 60 Discovery 630 Stress: 28-Jul-2024 30 Discovery 630 0.4mg Lexiscan. Supine position only as patient was unable to lay prone. SPECT RESULTS Technical Quality: Good Raw Data Analysis: Normal Image Corrections: No attenuation or motion correction applied Summed Stress Score: 17 Summed Rest Score: 12 Summed Difference Score: 5 PERFUSION FINDINGS Moderate area of moderately decreased tracer uptake involving the mid and apical inferior, mid and apical anterior, basal and mid infero lateral, mid anterolateral and apical lateral regions. Some reversibility was noted around the apex and in the mid inferolateral regions. FUNCTIONAL RESULTS (calculated via Gated SPECT) Stress Image LV EF (%): 20 Stress EDV (mL):261 TID: 0.95 Stress ESV (mL):209 FUNCTIONAL FINDINGS: Segmental wall motion analysis reveals severe diffuse hypokinesis of the mostly involving the mid and apical segments. The transient ischemic dilatation ratio was 0.95 with an end-systolic volume of 209 IMPRESSIONS 1. Myocardial perfusion imaging revealing moderate to large area of moderately decreased tracer uptake involving the inferior, inferolateral, anterolateral and anterior regions. Some reversibility was noted in the inferolateral and apical regions. Patient has has a history of myocardial scarring in the distribution of all 3 coronary arteries with small areas of possible ischemia around the apex and the inferolateral regions. 2. Markedly diminished ejection fraction of 20%. 3. LV wall motion analysis revealed severe diffuse hypokinesia left- ventricular most of the mid and apical segments. 4. Markedly dilated left ventricle with an end-systolic volume of [address] Danish Snider MD FACC (Electronically Signed) Final Date: 28 July 2024 13:42 S
[2024-07-28 16:51] LABS: Glucose Point of Care 162 mg/dL (70-110)
[2024-07-28] MEDS: nicotine 21 mg Patch 1 PATCH TRANSDERMA (17:14)
[2024-07-28] MEDS: insulin lispro 100 unit/1 mL SUBCUT (17:14)
--- NOTE | 2024-07-28 20:32 | P.PN_ITS ---
Subjective 2 Subjective: She is asking whether she may go home tomorrow. Currently without pain or discomfort. Vitals/I&O/Wt Last Vital Signs Temp 97.4 F L 07/28/24 16:00 Pulse 87 07/28/24 16:00 Resp 18 07/28/24 16:00 BP 136/76 07/28/24 16:00 Pulse Ox 96 07/28/24 16:00 O2 Del Method Nasal Cannula 07/28/24 16:00 O2 Flow Rate 2 07/28/24 14:31 07/28/24 07/28/24 07/28/24 06:59 14:59 22:59 Intake Total 480 / 480 Output Total 175 / 1475 300 / 300 Balance -175 / -1115 180 / 180 Weight last 48 hrs Weight 78.653 kg Weight 80.694 kg Physical Exam 2 Const: COMMON NORMALS: alert GENERAL APPEARANCE: cooperative O RIENTATION/CONSCIOUSNESS: Yes awake HENMT: COMMON NORMALS: oropharynx normal Neck/C-Spine: COMMON NORMALS: no JVD Resp: COMMON NORMALS: normal respiratory effort and clear to auscultation bilaterally AUSCULTATION: clear to auscultation bilaterally Cardio: COMMON NORMALS: no JVD, regular rhythm, S1 normal heart sound present, S2 normal heart sound present and No murmurs present (Cardio) RHYTHM: regular rhythm HEART SOUNDS: S1 normal heart sound present and S2 normal heart sound present GI: COMMON NORMALS: Normal to inspection, nondistended, normoactive bowel sounds present, Soft to palpation and non-tender PALPATION: Yes Soft to palpation Extremity: COMMON NORMALS: no joint enlargement and no pedal edema Neuro: COMMON NORMALS: moves all extremities SENSORIUM/ORIENTATION: Yes alert Skin: COMMON NORMALS: no rashes or lesions noted GENERAL SKIN EXAM: no rashes or lesions noted Urinary Catheter Management: Graff: Cath Placed During This Visit: yes Reason for Continuing Indwelling Catheter: Acute Urinary Retention or Obstruction Urinary Catheter Date of Insertion: 07/26/24 Urinary Catheter Time of Insertion: 19:54 Data 07/28/24 05:35 07/28/24 05:35 A&P Assessment and plan (1) Acute left ICA ischemic stroke: Follow-up modified barium swallow. Reviewed vitals, wean down oxygen as tolerating. Reviewed CBC, WBC normal. Discussed with nursing, case loader operator. Seen by neurology in ER. Deemed not a candidate for IV thrombolytics. Appreciate CT head. CT concerning for occluded left common carotid artery extending from origin to bifurcation. Reconstitution after bifurcation. Appreciate echocardiogram. Appreciate A1c, lipid panel. Goal blood pressure less than 140/90 mmHg.. PT/OT/speech evaluation. Start diet as per dysphagia screen. (2) Ischemic cardiomyopathy: Reviewed stress test. Noted large area of diminished tracer uptake with some ischemia and noted low EF. Reviewed troponin, EKG. Requesing cardiology consult, discussed with butcher all round. Gives history of CAD in the past. Denies any active chest pain. Continue with aspirin, statin as above. Beta-joseluis as above. Echocardiogram done shows an EF of 43% with global LV hypokinesia with regional wall motion abnormality of anterior and apical akinesia, grade 2 diastolic dysfunction. Severe MR. Given changes in EF, no known EF from the past, history of CAD for now we will rule out ischemic nature with Lexiscan stress test. Patient is agreeable. Watch for fluid overload. Holding off on home dose of Bumex. (3) Type 2 diabetes mellitus without complications: A1c of 6.2. Start on insulin sliding scale low-dose protocol. Patient will benefit from discharge on SGLT2 inhibitors. (4) Essential (primary) hypertension: Goal blood pressure less than 140/90 mmHg today. Restart home dose of Coreg. Depending on blood pressures will plan to start lower dose on SANDRITA/ARB/Entresto in next 20 hours. (5) Chronic kidney disease, stage 4 (severe): Reviewed BUN, creatinine. Renal function stable. Monitor BMP daily. (6) CAD (coronary artery disease): (7) Congestive heart failure due to cardiomyopathy: (8) Common carotid artery stenosis: Plan Urinary retention: Repeat bladder scan showed a urine of more than 500 cc. Graff catheter placed. Smoking addiction: Add nicotine replacement. Encourage cessation. Continue other chronic medical history including DuoNeb as needed, mirtazapine nightly, Seroquel nightly, Flomax daily. CODE STATUS: State appointed guardian will be the DPOA. Patient for now would like to remain full code but wants to think further before making her final decision. Protonix for daily prophylaxis Heparin 5000 Sq 12 hourly for DVT prophylaxis. PDMP PDMP Reviewed: Not Reviewed Attestations 2 Medical Necessity Statement*: Continue admission for assessment and management after CVA, ischemic cardiomyopathy with possible worsened ejection fraction, with abnormal stress test. and High MDM includes amount and/or complexity of data reviewed/ordered [ resulted lab(s)/test(s) and other healthcare professional discussion] as documented Diagnoses Acute left ICA ischemic stroke I63.232 Ischemic cardiomyopathy I25.5 Type 2 diabetes mellitus without complications E11.9 Essential (primary) hypertension I10 Chronic kidney disease, stage 4 (severe) N18.4 CAD (coronary artery disease) I25.10 Congestive heart failure due to cardiomyopathy I50.9; I42.9 Common carotid artery stenosis I65.29
[2024-07-28] MEDS: ATORVASTATIN 10 MG TABLET 20 MG PO (20:37)
[2024-07-28] MEDS: mirtazapine 15 mg Tablet PO (20:38)
[2024-07-28] MEDS: quetiapine XR (24HR) 50 mg Tablet 200 MG PO (20:38)
[2024-07-28] MEDS: tamsulosin 0.4 mg Capsule PO (20:38)
[2024-07-28 20:40] LABS: Glucose Point of Care 138 mg/dL (70-110)
[2024-07-29] VITALS (24 sets, daily range): BP systolic 106–149; BP diastolic 63–107; PULSE 71–100; RESP 17–30; TEMP 36.7–37.4; O2SAT 86–94
[2024-07-29] MEDS: ipratropium-albuterol 3 mL Neb INHALATION ×3 (03:05→20:27)
[2024-07-29 04:54] LABS: Basophils % 0.2 %; Eosinophils # 0.4 10^3/uL (0.0-0.8); Eosinophils % 4.6 %; Hematocrit 35.7 % (36-47); Lymphocytes # 1.8 10^3/uL (0.8-4.8); Lymphocytes % 19.8 %; Mean Corpuscular HGB Conc 32.5 g/dL (30-55); Mean Corpuscular Hemoglobin 30.5 pg (27-33); Mean Corpuscular Volume 93.9 fl (85-98); Mean Platelet Volume 11.7 fL (7.4-10.4); Monocytes # 0.6 10^3/uL (0.2-0.9); Monocytes % 6.2 %; Neutrophils # 6.12 10^3/uL (1.8-7.7); Nucleated Red Blood Cells % 0 %; Platelet Count 92 10^3/cmm (157-399); Red Cell Distribution Width 14.1 % (12.1-15.1); White Blood Count 8.88 10^3/uL (3.29-11.43)
[2024-07-29 05:16] LABS: Anion Gap 14.7 (5-19); Blood Urea Nitrogen 16 mg/dL (8-23); Calcium 8.9 mg/dL (8.5-10.5); Carbon Dioxide 27 mmol/L (22-29); Chloride 101 mmol/L (98-107); Creatinine Clr Calc Pharmacy 45.3223; Glucose 112 mg/dL (65-115); Osmolality Calculated 290 mOsm/kg (285-295); Potassium 3.7 mmol/L (3.5-5.1); Sodium 139 mmol/L (136-145)
[2024-07-29 06:29] LABS: Glucose Point of Care 146 mg/dL (70-110)
--- NOTE | 2024-07-29 08:17 | P.CONIM_ITS ---
Providers/Reason For Consult 2 Consulting Physician/Specialty*: HERLINDA Snider MD/cardiology Reason for Consult*: Patient with a CVA, abnormal Myocardial perfusion imaging Requesting Physician: Dr. Wall Attending Physician: Isaac Martinez MD Primary Care Provider: Rigoberto Gibson MD History of Present Illness History of Present Illness Samantha Nunez is a 74 year old female thro the ER where she presented with right sided weakness. She has a history of ischaemic cardiomyopathy, ASHD,HTN, DM, CKD Dyslipidemia. She had a MPI yesterday and was found to be abnormal. Cardiology consult is requested for further cardiac evaluation recommendations. This patient is a very poor historian. Most of the information is on the medical records and from the medical staff. She is in a skilled nursing. Apparently she woke up with right-sided weakness and was brought to the hospital for the reason. She was found to be not a candidate for any thrombolytic agents. She continued to have the right sided weakness. Currently getting the physical therapy. She has no chest pain or chest tightness. Does not have any details of her coronary artery disease or previous cardiac function. She was found to have ejection fraction of 32% by echocardiogram here in the hospital. She has no documented history for atrial fibrillation. Her CT of the neck did not reveal any significant carotid artery disease to explain the stroke. Patient denies any chest pain or chest tightness. She has this shortness of breath at the baseline which seems to be getting worse. She has been using oxygen on a as needed basis in the skilled nursing. Currently she is on 3 L of oxygen by nasal cannula. Her oxygen saturation is around 88%. Patient has a history of COPD. She used to smoke 1 to 2 pack a day for 40+ years. Currently she smokes a pack a day. No alcohol abuse or any substance abuse. No significant family history for atherosclerotic heart disease. Review of Systems 2 Narrative: CONSTITUTIONAL: No fever or chills. EYES: No blurring of vision or other visual disturbances lately. ENT: No hoarseness of voice, auditory disturbances or sore throat. CARDIOVASCULAR: As mentioned above. RESPIRATORY: As mentioned above GASTROINTESTINAL: No hematemesis or melena. GENITOURINARY: No dysuria or hematuria. INTEGUMENTARY: No skin rashes or history of skin cancer. NEURO: As mentioned above PSYCHIATRIC: No history of psychosis or major depression. HEMATOLOGIC: No bleeding disorders or significant anemia. ENDOCRINE: No history of polyuria or polydipsia. MUSCULOSKELETAL: No recent joint pain or swelling. ALLERGY/IMMUNOLOGY: As mentioned above. Medications/Allergies Home Medications ?Medication ?Instructions ?Recorded ?Confirmed ?Last Taken ?Type acetaminophen 325 mg tablet 325 mg PO QID PRN Pain 07/25/24 07/25/24 History (Tylenol) aspirin 81 mg tablet,delayed 81 mg PO DAILY 08/19/19 0 07/25/24 07/25/24 History release (Adult Aspirin Regimen) atorvastatin 20 mg tablet (Lipitor) 20 mg PO BEDTIME 0 08/19/19 07/25/24 07/24/24 History bimatoprost 0.01 % eye drops 1 drop ophthalmic (eye) B EDTIME 08/19/19 07/25/24 07/24/24 History ([place]) bisacodyl 10 mg rectal suppository 10 mg TN DAILY PRN Constipation 08/19/19 07/25/24 Unknown History carvedilol 6.25 mg tablet 6.25 mg PO Q12H 08/19/1908/1507/25/24 History mirtazapine 15 mg tablet 15 mg PO BEDTIME 08/19/1907/24/24 History potassium chloride 10 mEq 10 meq PO DAILY 08/19/1908/1507/25/24 History capsule,extended release tamsulosin 0.4 mg capsule 0.4 mg PO BEDTIME 08/19/19 0 07/25/24 07/24/24 History B1 0.5 mg-B2 0.6 mg-B3 7 mg-B6 0.7 See Rx Instructions .Route .COMPLEX 04/14/24 07/25/24 07/25/24 History [id number] oral elixir bumetanide 2 mg tablet 2 mg PO DAILY 04/14/2407/2507/25/24 History menthol 4 % topical gel (Biofreeze 1 applic topical TI D PRN Pain 04/14/24 07/25/24 Unknown History (menthol)) polyethylene glycol 3350 17 17 g PO DAILY PRN Constipa tion 04/14/24 07/25/24 Unknown History gram/dose oral powder (Miralax) quetiapine 200 mg tablet (Seroquel) 200 mg PO BEDTIME 04/14/24 07/25/24 07/24/24 History albuterol sulfate 90 mcg/actuation 1 - 2 puff inhalati on Q4H PRN 07/25/24 07/25/24 Unknown History aerosol inhaler Shortness Of Breath escitalopram oxalate 10 mg tablet 10 mg PO DAILY 07/2507/25/24 07/25/24 History fluticasone furoate 200 1 inh inhalation DAILY 07/2507/25/24 07/25/24 History mcg-vilanterol 25 mcg/dose inhalation powder (Breo Ellipta) guaifenesin 100 mg/5 mL oral liquid 300 mg PO Q4H PRN Cough 07/25/24 07/25/24 Unknown History guaifenesin 600 mg tablet, 600 mg PO Q12H PRN [place] on 07/25/24 07/25/24 Unknown History extended release 12 hr (Mucinex) ipratropium 0.5 mg-albuterol 3 mg 3 ml inhalation Q4H PRN Shortness 07/25/24 07/25/24 Unknown History (2.5 mg base)/3 mL nebulization Of Breath Or Wheezing soln losartan 100 mg tablet 100 mg PO DAILY 07/25/2408/1507/25/24 History omeprazole 20 mg capsule,delayed 20 mg PO DAILY 07/25/24 07/25/24 History release Allergies Allergy/AdvReac Type Severity Reaction Status Date / Time No Known Allergies Allergy Verified 07/25/24 09:38 Current Medications Generic Name Dose Route Start Last Admin Trade Name Freq PRN Reason Stop Dose Admin Acetaminophen 650 mg 07/25/24 13:14 07/27/24 17:12 Acetaminophen 325 Mg Tablet PO 650 mg Q6H PRN Administration Mild/Mod Pain Or Temp >/= 101 Albuterol/Ipratropium 3 ml 07/25/24 13:14 07/29/24 03:05 Ipratropium-Albuterol 3 Ml Neb INHALATION 3 ml Q4H PRN Administration Shortness Of Breath Or Wheezing Aspirin 81 mg 07/26/24 09:00 07/28/24 08:32 Aspirin 81 Mg Ec Tablet PO 81 mg DAILY JUSTIN Administration Atorvastatin Calcium 20 mg 07/25/24 21:00 07/28/24 20:37 Atorvastatin 10 Mg Tablet PO 20 mg BEDTIME JUSTIN Administration Carvedilol 6.25 mg 07/26/24 18:00 07/28/24 17:14 Carvedilol 6.25 Mg Tablet PO 6.25 mg BID JUSTIN Administration Docusate Sodium 100 mg 07/25/24 18:00 07/28/24 17:14 Docusate Sodium 100 Mg Capsule PO 100 mg BID JUSTIN Administration Heparin Sodium (Porcine) 5,000 unit 07/27/24 09:00 07/28/24 20:37 Heparin 5,000 Unit/Ml Inj 1 Ml SUBCUT 5,000 unit Q12H JUSTIN Administration Insulin Human Lispro 0 unit 07/26/24 18:00 07/28/24 21:08 Insulin Lispro 100 Unit/1 Ml SUBCUT Not Given WM&BEDTIME JUSTIN Protocol Mirtazapine 15 mg 07/25/24 21:00 07/28/24 20:38 Mirtazapine 15 Mg Tablet PO 15 mg BEDTIME JUSTIN Administration Nicotine 1 patch 07/28/24 16:45 07/28/24 17:14 Nicotine 21 Mg Patch TRANSDERMA 1 patch DAILY JUSTIN Administration Pantoprazole Sodium 40 mg 07/27/24 09:00 07/28/24 08:32 Pantoprazole 40 Mg Sdv IVP 40 mg Q24H JUSTIN Administration Quetiapine Fumarate 200 mg 07/25/24 21:00 07/28/24 20:38 Quetiapine Xr (24hr) 50 Mg Tablet PO 200 mg BEDTIME JUSTIN Administration Tamsulosin HCl 0.4 mg 07/25/24 21:00 07/28/24 20:38 Tamsulosin 0.4 Mg Capsule PO 0.4 mg BEDTIME JUSTIN Administration Tamsulosin HCl 0.4 mg 07/26/24 02:15 07/26/24 02:43 Tamsulosin 0.4 Mg Capsule PO 0.4 mg ONCE JUSTIN Administration Trazodone HCl 50 mg 07/26/24 21:00 07/26/24 21:32 Trazodone 50 Mg Tablet PO 50 mg BEDTIME PRN Administration INSOMNIA PFSH Acute 2 PFSH: Medical History Congestive heart failure due to cardiomyopathy CAD (coronary artery disease) Unspecified open wound of right upper arm, subsequent encounter Unspecified dementia, unspecified severity, without behavioral disturbance, psychotic disturbance, mood disturbance, and anxiety Chronic obstructive pulmonary disease, unspecified Type 2 diabetes mellitus without complications Chronic kidney disease, stage 4 (severe) Major depressive disorder, recurrent, unspecified Atherosclerotic heart disease of [place] coronary artery without angina pectoris Hyperlipidemia, unspecified Essential (primary) hypertension Peripheral vascular disease, unspecified Retention of urine, unspecified Surgical History Presence of aortocoronary bypass graft Social History Smoking and tobacco/nicotine status: current every day tobacco/nicotine user Female Reproductive History: Spontaneous abortions: No Vitals/I&O/Wt Last Vital Signs Temp 99.0 F 07/29/24 07:53 Pulse 87 07/29/24 07:53 Resp 17 07/29/24 07:53 BP 116/71 07/29/24 07:53 Pulse Ox 89 L 07/29/24 07:53 O2 Del Method Nasal Cannula 07/29/24 07:53 O2 Flow Rate 3 07/29/24 07:46 07/28/24 07/29/24 07/29/24 22:59 06:59 14:59 Intake Total 480 / 480 0 / 480 60 / 60 Output Total 300 / 300 600 / 900 Balance 180 / 180 -600 / -420 60 / 60 Weight last 48 hrs Weight 174 lb 6 oz Weight 173 lb 6.4 oz Physical Exam 2 Narrative: GENERAL: The patient is alert and oriented times three. Not in any acute distress. HEENT: No significant pallor, icterus or lymphadenopathy.Oral cavity: There are no mucous membrane lesions. NECK: Trachea appears to be central. No masses noted. No JVD or thyromegaly appreciated. RESPIRATORY: Chest is symmetrical. No intercostals muscle retraction or any accessory muscle activation. There is no chest wall tenderness. Breath sounds are heard bilaterally. The breath sounds are diminished in the left base. Scattered coarse crackles on both sides. BREASTS: Deferred. HEART: The heart sounds are normal. No S3 or S4. Short systolic murmur in the lower sternal border. No diastolic murmurs.. No pericardial rub ABDOMEN: No vessel pulsations or distention. No tenderness. No organomegaly appreciated. Bowel sounds are normally heard. : Deferred. RECTAL: Deferred. LYMPHATIC: No lymphadenopathy noted in the neck or groin. EXTREMITIES: No edema or cyanosis. No clubbing. Peripheral pulses are palpated in fairly good volume and amplitude MUSCULOSKELETAL: No acute joint deformities or swelling SKIN: There are no significant scars or skin rash noted. NEUROPSYCHIATRIC: The patient is alert and oriented x3. Flaccid weakness of RUE and Grade III weakness of the RLE. Urinary Catheter Management: Graff: Cath Placed During This Visit: yes Reason for Continuing Indwelling Catheter: Not indwelling catheter Urinary Catheter Date of Insertion: 07/26/24 Urinary Catheter Time of Insertion: 19:54 Data 07/30/24 03:07 07/30/24 03:07 Other Labs: Laboratory Last Values WBC 8.88 10^3/uL (3.29-11.43) 07/29/24 04:25 RBC 3.80 10^6/uL (3.85-5.65) L 07/29/24 04:25 Hgb 11.60 g/dL (11.27-16.99) 07/29/24 04:25 Hct 35.7 % (36-47) L 07/29/24 04:25 MCV 93.9 fl (85-98) 07/29/24 04:25 MCH 30.5 pg (27-33) 07/29/24 04:25 MCHC 32.5 g/dL (30-55) 07/29/24 04:25 RDW 14.1 % (12.1-15.1) 07/29/24 04:25 Plt Count 92 10^3/cmm (157-399) L 07/29/24 04:25 MPV 11.7 fL (7.4-10.4) H 07/29/24 04:25 Neut % (Auto) 69.0 % 07/29/24 04:25 Lymph % (Auto) 19.8 % 07/29/24 04:25 [place] % (Auto) 6.2 % 07/29/24 04:25 Eos % (Auto) 4.6 % 07/29/24 04:25 Baso % (Auto) 0.2 % 07/29/24 04:25 Neut # (Auto) 6.12 10^3/uL (1.8-7.7) 07/29/24 04:25 Lymph # (Auto) 1.8 10^3/uL (0.8-4.8) 07/29/24 04:25 [place] # (Auto) 0.6 10^3/uL (0.2-0.9) 07/29/24 04:25 Eos # (Auto) 0.4 10^3/uL (0.0-0.8) 07/29/24 04:25 Baso # (Auto) 0.0 10^3/uL (0.0-0.1) 07/29/24 04:25 Nucleated RBC % (auto) 0 % 07/29/24 04: Nucleated RBCs # 0.0 /100WBC 07/29/24 04: PT 13.50 SECONDS (12.1-14.9) 07/25/24 09:30 INR 0.96 (0.8-1.2) 07/25/24 09:30 APTT 26.0 SECONDS (23.9-36.7) 07/25/24 09:30 Specimen Type Arterial 07/29/24 11:59 Sample Site Brachial, left 07/29/24 11:59 ABG pH 7.47 (7.35-7.45) H 07/29/24 11:59 ABG pCO2 40.3 mmHg (35-45) 07/29/24 11:59 ABG pO2 59.3 mmHg (80.0-100.0) L 07/29/24 11:59 ABG HCO3 29.0 mmol/L (22-26) H 07/29/24 11:59 ABG O2 Saturation 91.9 07/29/24 11:59 ABG Base Excess 4.8 mmol/L (-2.0-2.0) H 07/29/24 11:59 Joshua Test N/a 07/29/24 11:59 A-a O2 Gradient 5.4 mmHg (5-10) 07/29/24 11:59 Hematocrit 38.4 % (37-47) 07/29/24 11:59 Hgb O2 Saturation 90.2 % (95-100) L 07/29/24 11:59 Carboxyhemoglobin 1.4 %THgb (0.4-20.1) 07/29/24 11:59 Methemoglobin 0.4 % (0.4-1.5) 07/29/24 11:59 Total Hemoglobin 12.5 g/dL (12-16) 07/29/24 11:59 Sodium 138.0 mmol/L (131-143) 07/29/24 11:59 Potassium 4.0 mmol/L (3.5-5.0) 07/29/24 11:59 Glucose 145.0 mg/dL (70-115) H 07/29/24 11:59 Ionized Calcium 1.2 mmol/L (1.1-1.4) 07/29/24 11:59 O2 Delivery Device Oxy mask 07/29/24 11:59 O2 Liters/Min 15.0 % 07/29/24 11:59 Nephrologist ID [facility] 07/29/24 11:59 Sodium 139 mmol/L (136-145) 07/29/24 04:25 Potassium 3.7 mmol/L (3.5-5.1) 07/29/24 04:25 Chloride 101 mmol/L (98-107) 07/29/24 04:25 Carbon Dioxide 27 mmol/L (22-29) 07/29/24 04:25 Anion Gap 14.7 (5-19) 07/29/24 04:25 BUN 16 mg/dL (8-23) 07/29/24 04:25 Creatinine 1.2 mg/dL (0.5-0.9) H 07/29/24 04:25 GFR Calculation Not Reportable 07/29/24 04:25 Glucose 112 mg/dL (65-115) 07/29/24 04:25 POC Glucose 136 mg/dL (70-110) H 07/29/24 11:14 Estimat Average Glucose 131 07/26/24 04:49 Hemoglobin A1c 6.2 % (4.0-6.0) H 07/26/24 04:49 Calculated Osmolality 290 mOsm/kg (285-295) 07/29/24 04:25 Calcium 8.9 mg/dL (8.5-10.5) 07/29/24 04:25 Phosphorus 3.3 mg/dL (2.5-4.5) 07/28/24 05:35 Magnesium 2.2 mg/dL (1.7-2.3) 07/28/24 05:35 Iron 77 ug/dL (37-145) 07/25/24 09:30 TIBC 326 mcg/dl 07/25/24 09:30 % Saturation 23.6 % (20-50) 07/25/24 09:30 Unsat Iron Binding 249 ug/dL (112-347) 07/25/24 09:30 Total Bilirubin 0.6 mg/dL (0.15-1.2) 07/28/24 05:35 AST 20 U/L (0-32) 07/28/24 05:35 ALT 11 U/L (0-33) 07/28/24 05:35 Alkaline Phosphatase 90 U/L (35-105) 07/28/24 05:35 Troponin T Baseline 20 ng/L (0-10) H 07/25/24 09:30 Troponin T 120 Minute 16.98 ng/L (0-10) H 07/25/24 12:31 Delta Troponin T -3.02 ABS# (0-10) L 07/25/24 12:31 Troponin T Hi Sens 6Hr 18.87 ng/L (0-10) H 07/25/24 15:21 Troponin T Hi Sens 6Hr Delta -1.13 ng/L (0-12) L 07/25/24 15:21 NT-Pro-B Natriuret Pep 5660 pg/mL (0-125) H 07/27/24 05:06 Total Protein 7.1 g/dL (6.6-8.7) 07/28/24 05:35 Albumin 3.7 g/dL (3.5-5.2) 07/28/24 05:35 Globulin 3.4 g/dL (1.3-4.6) 07/28/24 05:35 Triglycerides 305 mg/dL (0-150) H 07/26/24 04:49 Cholesterol 151 mg/dL (0-200) 07/26/24 04:49 LDL Cholesterol, Calc 60 mg/dL (50-129) 07/26/24 04:49 HDL Cholesterol 30 mg/dL (60-100) L 07/26/24 04:49 LDL/HDL Ratio 2.00 RATIO (0.00-3.22) 07/26/24 04:49 Cholesterol/HDL Ratio 5.03 mg/dL (0.0-4.40) H 07/26/24 04:49 Vitamin B12 687 pg/mL (232-1245) 07/25/24 09:30 Folate 9.3 ng/mL (4.8-37.3) 07/26/24 04:49 Procalcitonin 0.05 ng/mL (0-0.5) 07/25/24 09:30 TSH 1.65 uIU/mL (0.27-4.20) 07/25/24 09:30 Urine Color Yellow (Yellow) 07/25/24 09:43 Urine Appearance Clear (CLEAR) 07/25/24 09:43 Urine pH 6 (5-7) 07/25/24 09:43 Ur Specific [place] 1.015 (1.005-1.030) 07/25/24 09:43 Urine Protein Neg (Negative) 07/25/24 09:43 Urine Glucose (UA) Norm (Normal) 07/25/24 09:43 Urine Ketones Negative (Negative) 07/25/24 09:43 Urine Blood Neg (Negative) 07/25/24 09:43 Urine Nitrate Negative (Negative) 07/25/24 09:43 Urine Bilirubin Neg (Negative) 07/25/24 09:43 Urine Urobilinogen Neg mg/dL (Negative) 07/25/24 09:43 Ur Leukocyte Esterase Negative (Negative) 07/25/24 09:43 Urine RBC 0-2 /hpf (0-2) 07/25/24 09:43 Urine WBC 0-5 /hpf (0-5) 07/25/24 09:43 Ur Squamous Epith Cells 0-5 /hpf (0-5) 07/25/24 09:43 Amorphous Sediment Not Reportable 07/25/24 09:43 Urine Bacteria None seen /hpf (NONE) 07/25/24 09:43 Hyaline Casts 0.81 /lpf 07/25/24 09:43 Urine Opiates Screen Negative ng/mL (Negative) 07/25/24 09:43 Ur Barbiturates Screen Negative ng/mL (Negative) 07/25/24 09:43 Ur Phencyclidine Scrn Negative ng/mL (Negative) 07/25/24 09:43 Ur Amphetamines Screen Negative ng/mL (Negative) 07/25/24 09:43 U Benzodiazepines Scrn Negative ng/mL (Negative) 07/25/24 09:43 Urine Cocaine Screen Negative ng/mL (Negative) 07/25/24 09:43 U Marijuana (THC) Screen Negative ng/mL (Negative) 07/25/24 09:43 Other data: Echocardiogram from 07/25/2024 severely increased left ventricular cavity size. Severely decreased left ventricular systolic function. Left ventricular ejection fraction is estimated at 33 %. Global left ventricular hypokinesis with regional wall motion abnormality anterior and apical akinesis.Grade II/IV diastolic dysfunction, moderately elevated filling pressures. Severely increased left atrial size. Mildly thickened mitral valve. No mitral valve stenosis. Severe mitral valve regurgitation. There is no pericardial effusion. Right atrial pressure is around 5 mm of mercury. Myocardial perfusion imaging on 07/28/2024 1. Myocardial perfusion imaging revealing moderate to large area of moderately decreased tracer uptake involving the inferior, inferolateral, anterolateral and anterior regions. Some reversibility was noted in the inferolateral and apical regions. Patient has has a history of myocardial scarring in the distribution of all 3 coronary arteries with small areas of possible ischemia around the apex and the inferolateral regions. 2. Markedly diminished ejection fraction of 20%. 3. LV wall motion analysis revealed severe diffuse hypokinesia left- ventricular most of the mid and apical segments. 4. Markedly dilated left ventricle with an end-systolic volume of 209 mL A&P Assessment and plan (1) Abnormal cardiovascular stress test: Patient seems to have moderate to large areas of fixed defect with a small area of reversible defect suggesting extensive myocardial scarring with small area of ischemia. The implication of the test finding was discussed with the patient in detail. In order to better evaluate the coronary status, she requires a cardiac catheterization. The patient is not wanting to undergo any invasive or interventional procedures. She seems to understand the implications. I also talked to the patient's the power of senior attorney-Katt San, who also concurred with the patient's decision. (2) Atherosclerosis of coronary artery of [place] heart without angina pectoris: The details of her coronary status is not available at this time. The Myocardial perfusion imaging findings as mentioned above. Qualifiers: Coronary Disease-Associated Artery/Lesion type: [place] artery Qualified Code(s): I25.10 - Atherosclerotic heart disease of [place] coronary artery without angina pectoris (3) Pneumonia: Patient need to be closely monitored. Her oxygen saturation seems to be dropping. Discussed with Dr. Martinez, the primary attending. Antibiotic management as per Dr. Martinez Qualifiers: Aspiration pneumonia type: unspecified Laterality: unspecified laterality Lung location: lower lobe of lung Pneumonia type: aspiration pneumonia Qualified Code(s): J69.0 - Pneumonitis due to inhalation of food and vomit (4) Ischemic cardiomyopathy: LV ejection fraction was found to be around 32% by echocardiogram. Patient is not wanting to undergo LifeVest. We do not have the information regarding her previous LV ejection fraction at this point. Will try to optimize her medical treatment. Need to consider GDMT I may start her on a low-dose of Entresto and watch the kidney function closely (5) Type 2 diabetes mellitus: Management as per the primary. 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 (7) Acute left ICA ischemic stroke: Management as per the neurology service. Plan Since the patient is not wanting to undergo any invasive cadence procedures for her heart which the POA agrees with, we may continue the medical treatment. She also is against having an external defibrillator. Will try the GDMT for the cardiomyopathy. An event monitor to evaluate for any spontaneous atrial fibrillation might be helpful. This needs to be discussed further. Based on the patient's daily progress, further recommendations will be made. PDMP PDMP Reviewed: Not Reviewed Consult Attestations 2 Medical Necessity Statement: Deferred to the primary Coding Level of Care Code 67148 Diagnoses Abnormal cardiovascular stress test R94.39 Atherosclerosis of [place] coronary artery of [place] heart without angina pectoris I25.10 Coronary Disease-Associated Artery/Lesion type: [place] artery Aspiration pneumonia of lower lobe, unspecified aspiration pneumonia type, unspecified laterality J69.0 Aspiration pneumonia type: unspecified Laterality: unspecified laterality Lung location: lower lobe of lung Pneumonia type: aspiration pneumonia Ischemic cardiomyopathy I25.5 Type 2 diabetes mellitus E11.9 Diabetes mellitus complication status: with circulatory complication Diabetes 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
--- NOTE | 2024-07-29 08:55 | XR_ITS ---
WS: [id number] Exam: XR chest 1V portable [id number] Date/Time of Exam: 07/29/2024 8:55 AM Reason For Exam: increased shortness of breath Comparison 07/27/2024. There is increased density in the LEFT retrocardiac region suspicious for LEFT lower lobe consolidation. This is a new finding since the last exam. The RIGHT lung remains clear. Mild cardiac enlargement unchanged. Signs of previous CABG surgery. No pneumothorax. Bony structures are intact. XR/XR chest 1V portable [id number] IMPRESSION: 1. Increased density in the LEFT retrocardiac region suspicious for LEFT lower lobe pneumonia. This is a new finding since the last exam.
[2024-07-29] MEDS: nicotine 21 mg Patch 1 PATCH TRANSDERMA (09:07)
[2024-07-29] MEDS: pantoprazole 40 mg SDV IVP (09:08)
[2024-07-29] MEDS: aspirin 81 mg EC Tablet PO (09:08)
[2024-07-29] MEDS: insulin lispro 100 unit/1 mL SUBCUT ×2 (09:08→20:54)
[2024-07-29] MEDS: carvedilol 6.25 mg Tablet PO ×2 (09:08→17:10)
[2024-07-29] MEDS: heparin 5,000 unit/mL INJ 1 mL 5000 UNIT SUBCUT ×2 (09:08→20:54)
[2024-07-29] MEDS: docusate sodium 100 mg Capsule PO ×2 (09:09→17:10)
--- NOTE | 2024-07-29 09:19 | PC.NURSE ---
Pt requiring increased oxygen this am-3L. Sats only up to 89%. Dr Snider at bedside and advised of this. He assesses pt and orders a CXR.
[2024-07-29] MEDS: cefTRIAXone 1,000 mg SDV 1000 MG IVP (10:27)
--- NOTE | 2024-07-29 11:14 | ECG_ITS ---
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 Measurements Intervals Midnight Rate: 80 P: 47 OR: 179 QRS: -53 QRSD: 169 T: 69 QT: 412 QTc: 475 Interpretive Statements SINUS RHYTHM LEFT AXIS DEVIATION [QRS AXIS < -30] LEFT BUNDLE BRANCH BLOCK [120+ ms QRS DURATION, 80+ ms Q/S IN V1/V2, 85+ ms R IN I/aVL/V5/V6] Compared to ECG 07/25/2024 15:49:00 No significant changes Electronically Signed On 07-29-2024 18:49:01 CDT by Danish Snider M.D. [email or web address]
[2024-07-29 11:17] LABS: Glucose Point of Care 136 mg/dL (70-110)
--- NOTE | 2024-07-29 11:27 | PC.NURSE ---
Pt sats noted to be 82% on 3LNC. Pt also complaining of chest pain at this time. VS: 82% 3LNC, P-83, 117/86, RR-26, 99.2AX. Dr. Martinez advised. EKG obtained. Pt placed on oxymask at 3L. Sats quickly come up to 89%. Continuous pulse ox placed on pt at this time. Awaiting orders from Dr. Martinez.
--- NOTE | 2024-07-29 11:48 | P.PN_ITS ---
Subjective 2 Subjective: Patient reports cough. She perseverates on being discharged. She states she does not like hospitals. She is noted to have a wet cough. She reports on her right side extremities she can only move her thumb. Over the course of this morning, she is found to have worsening hypoxia. Chest x-ray entered by cardiology revealed pneumonia, suspicious for aspiration. Medications: Reviewed: Yes Vitals/I&O/Wt Last Vital Signs Temp 99.2 F 07/29/24 11:26 Pulse 86 07/29/24 11:26 Resp 26 H 07/29/24 11:26 BP 117/86 07/29/24 11:26 Pulse Ox 89 L 07/29/24 11:26 O2 Del Method Oxymask 07/29/24 11:26 O2 Flow Rate 3 07/29/24 07:46 07/28/24 07/29/24 07/29/24 22:59 06:59 14:59 Intake Total 480 / 480 0 / 480 60 / 60 Output Total 300 / 300 600 / 900 Balance 180 / 180 -600 / -420 60 / 60 Weight last 48 hrs Weight 79.095 kg Weight 78.653 kg Physical Exam 2 Narrative: General: Patient is awake. Wet cough present. Head: Normocephalic. Atraumatic. EOM intact. Neck: No JVD. Cardiovascular: RRR. No gallops. No murmurs. Lungs: Breath sounds diminished bilateral bases, no use of accessory muscles, no crackles or wheezes. Cough present. On nasal cannula. Skin: No jaundice. No rashes. Abdomen: Normal bowel sounds, abdomen soft and nontender. Extremities: No cyanosis or clubbing. Musculoskeletal: Flaccid paralysis in right upper and lower extremity. Neurological: Moves all 4 extremities. No myoclonus. Urinary Catheter Management: Graff: Cath Placed During This Visit: yes Reason for Continuing Indwelling Catheter: Not indwelling catheter Urinary Catheter Date of Insertion: 07/26/24 Urinary Catheter Time of Insertion: 19:54 Data 07/29/24 04:07/29/24 04: A&P Assessment and plan (1) Acute left ICA ischemic stroke: Acute left ICA ischemic stroke resulting in flaccid right-sided extremities Neurology has evaluated the patient Continue physical, occupational, and speech therapies Continue statin Continue aspirin (2) Respiratory failure: Continue supplemental oxygen support, titrate as needed Will make n.p.o. until further speech therapy evaluation X-ray revealed pneumonia, suspicious for aspiration given clinical scenario Start antibiotics Pulmonary toilet Supportive care (3) Pneumonia: Start ceftriaxone (4) Ischemic cardiomyopathy: Stress test is abnormal Echocardiogram is abnormal Cardiology following Continue statin, aspirin, beta-joseluis (5) Type 2 diabetes mellitus without complications: Sliding-scale insulin correction (6) Essential (primary) hypertension: Monitor blood pressures, titrate as needed (7) Chronic kidney disease, stage 4 (severe): Renally dose medications (8) CAD (coronary artery disease): As above (9) Congestive heart failure due to cardiomyopathy: Daily assessments of volume (10) Common carotid artery stenosis: Plan Dysphagia: Speech therapy is following. Making n.p.o. due to pneumonia. Barium swallow has been ordered. Urinary retention:Graff catheter Smoking addiction: Continue nicotine replacement Thrombocytopenia: Chronic. Monitor for bleeding. Continue other chronic medical history including DuoNeb as needed, mirtazapine nightly, Seroquel nightly, Flomax daily. CODE STATUS: Full code. Reportedly has stated ported guardian. DVT prophylaxis: Heparin PDMP PDMP Reviewed: Not Reviewed Attestations 2 Medical Necessity Statement*: Patient requires ongoing hospitalization for worsening respiratory status, IV antibiotics, therapy and supportive care. Coding Level of Care Code Acute Code for [facility] Diagnoses Acute left ICA ischemic stroke I63.232 Respiratory failure J96.90 Pneumonia J18.9 Ischemic cardiomyopathy I25.5 Type 2 diabetes mellitus without complications E11.9 Essential (primary) hypertension I10 Chronic kidney disease, stage 4 (severe) N18.4 CAD (coronary artery disease) I25.10 Congestive heart failure due to cardiomyopathy I50.9; I42.9 Common carotid artery stenosis I65.29
[2024-07-29 12:20] LABS: ABG PCO2 40.3 mmHg (35-45); ABG PH Result 7.47 (7.35-7.45); Alveolar-Arterial Oxygen Gradi 5.4 mmHg (5-10); Arterial Blood Gas Hematocrit 38.4 % (37-47); Base Excess ABG 4.8 mmol/L (-2.0-2.0); Blood Gas Operator Identificat AMH; Blood Gas Sample Site Brachial, left; Blood Gas Sample Type Arterial; Carboxyhemoglobin 1.4 %THgb (0.4-20.1); HGB O2 Sat 90.2 % (95-100); Ionized Calcium Level - ABG 1.2 mmol/L (1.1-1.4); Methemoglobin 0.4 % (0.4-1.5); Oxygen Device OXY MASK; Oxygen Saturation ABG 91.9; PO2 ABG 59.3 mmHg (80.0-100.0); Total Hemoglobin 12.5 g/dL (12-16)
--- NOTE | 2024-07-29 16:27 | PC.NURSE ---
Breath sounds increasingly diminished left side. Sats 90% on [address] Martinez advised.
[2024-07-29 16:33] LABS: Glucose Point of Care 153 mg/dL (70-110)
--- NOTE | 2024-07-29 18:04 | PC.NURSE ---
Patient arrived to ICU at 1800.
--- NOTE | 2024-07-29 18:06 | PC.NURSE ---
Per Dr. Martinez pt transported to ICU for closer monitoring tonight.
--- NOTE | 2024-07-29 18:14 | USCV_ITS ---
EnriqueSamantha Age: 74 Gender: F : 1950 Exam Date: 07/29/2024 19:33 Ordering Phys: Isaac Martinez MD Technologist: SUNDAR [place]am [place] [facility] [place] Indication: weak pulses cool to touch. Risk Factors: DM2 COPD CKD HTN, History of CVA with severe residual RIGHT hemiparesis Previous Vascular Surgery: RIGHT LEFT BP: 135.0 / 71.00 BP: 137.0/ 71.00 0 0 Waveform Velocity (cm/s) Velocity (cm/s) Waveform Iliac Prox 108.0 Biphasic Iliac Mid 97.0 Biphasic Iliac Distal 69.0 Biphasic OPTHALMIC TECH 72.0 Biphasic SFA Prox 64.0 Triphasic SFA Mid 60.0 Biphasic SFA Dist 46.0 Biphasic POP 48.0 Biphasic ENGINEERING COORDINATOR 50.0 Biphasic DPA 53.0 Biphasic DEREK 0.8 FINDINGS Minimal thickening of minimal plaques in the iliac femoral and popliteal arteries on the left side. Biphasic Doppler waveforms of the infrapopliteal vessels. Resting DEREK 0.8 CONCLUSIONS 1. Abnormal resting DEREK, suggestive of mild peripheral artery disease 2. Intimal thickening and minimal plaques in the iliac, femoral and popliteal arteries on the left side Dr Danish Snider MD [facility] (Electronically Signed) Final Date: 30 July 2024 13:39 S
--- NOTE | 2024-07-29 18:15 | PC.NURSE ---
Left leg cool to touch, pulses very weak heard via doppler, notified Dr. Martinez received orders for arterial scan of left lower extremity
--- NOTE | 2024-07-29 18:38 | PC.SLP ---
AERIAL SPRAYER will plan follow-up visit with the patient, if she is able tomorrow. Decrease in respiratory status noted today. Patient was not able to participate in MBS due to decline in respiratory status.
[2024-07-29 19:46] LABS: D Dimer 2.04 ug/mLFEU (0-0.59)
[2024-07-29 20:06] LABS: Glucose Point of Care 159 mg/dL (70-110)
[2024-07-29] MEDS: quetiapine XR (24HR) 50 mg Tablet 200 MG PO (20:53)
[2024-07-29] MEDS: mirtazapine 15 mg Tablet PO (20:54)
[2024-07-29] MEDS: tamsulosin 0.4 mg Capsule PO (20:54)
[2024-07-29] MEDS: ATORVASTATIN 10 MG TABLET 20 MG PO (20:54)
[2024-07-30] VITALS (57 sets, daily range): BP systolic 93–139; BP diastolic 54–96; PULSE 66–94; RESP 17–33; TEMP 36.4–37.4; O2SAT 83–98
[2024-07-30 04:15] LABS: Basophils % 0.3 %; Eosinophils # 0.1 10^3/uL (0.0-0.8); Eosinophils % 0.7 %; Hematocrit 36.1 % (36-47); Lymphocytes # 1.5 10^3/uL (0.8-4.8); Lymphocytes % 13.4 %; Mean Corpuscular HGB Conc 31.3 g/dL (30-55); Mean Corpuscular Volume 95.8 fl (85-98); Mean Platelet Volume 12.3 fL (7.4-10.4); Monocytes # 0.7 10^3/uL (0.2-0.9); Monocytes % 6.6 %; Neutrophils # 8.64 10^3/uL (1.8-7.7); Neutrophils % 78.6 %; Nucleated Red Blood Cells % 0 %; Platelet Count 90 10^3/cmm (157-399); Red Blood Count 3.77 10^6/uL (3.85-5.65); Red Cell Distribution Width 14.4 % (12.1-15.1); White Blood Count 10.99 10^3/uL (3.29-11.43)
[2024-07-30 04:38] LABS: Albumin Level 3.5 g/dL (3.5-5.2); Anion Gap 14.9 (5-19); Blood Urea Nitrogen 18 mg/dL (8-23); Calcium 8.8 mg/dL (8.5-10.5); Carbon Dioxide 28 mmol/L (22-29); Chloride 100 mmol/L (98-107); Creatinine Clr Calc Pharmacy 45.4371; Glucose 132 mg/dL (65-115); Magnesium 2.5 mg/dL (1.7-2.3); Phosphorus 2.5 mg/dL (2.5-4.5); Potassium 3.9 mmol/L (3.5-5.1); Sodium 139 mmol/L (136-145)
[2024-07-30 07:39] LABS: Glucose Point of Care 141 mg/dL (70-110)
[2024-07-30] MEDS: ipratropium-albuterol 3 mL Neb INHALATION ×4 (07:40→23:28)
[2024-07-30] MEDS: nicotine 21 mg Patch 1 PATCH TRANSDERMA (08:51)
[2024-07-30] MEDS: piperacillin-tazobactam 3.375 GM in sodium chloride 0.9% (plus) 50 ML IV ×2 (08:51→16:16)
[2024-07-30] MEDS: heparin 5,000 unit/mL INJ 1 mL 5000 UNIT SUBCUT ×2 (08:52→20:07)
[2024-07-30] MEDS: pantoprazole 40 mg SDV IVP (08:52)
--- NOTE | 2024-07-30 09:21 | PC.NURSE ---
implementation coordinator rounds @ 0815- patient awake and alert, slightly confused, wanted me to contact her son Buddy Nunez, passed on to primary nurse though pt has a legal guardian (not her son) listed as only contact.
--- NOTE | 2024-07-30 09:33 | P.PN_ITS ---
Subjective 2 Subjective: This patient was brought down to the ICU because of the hypoxia. She is on 90% oxygen. Oxygenation is improving Medications: Medication Review Details: Current Medications Acetaminophen (Acetaminophen 325 Mg Tablet) 650 mg PO Q6H PRN PRN Reason: Mild/Mod Pain Or Temp >/= 101 Last Admin: 07/27/24 17:12 Dose: 650 mg Albuterol/Ipratropium (Ipratropium-Albuterol 3 Ml Neb) 3 ml INHALATION Q4H PRN PRN Reason: Shortness Of Breath Or Wheezing Last Admin: 07/30/24 07:40 Dose: 3 ml Aspirin (Aspirin 81 Mg Ec Tablet) 81 mg PO DAILY [facility] Last Admin: 07/30/24 08:23 Dose: Not Given Atorvastatin Calcium (Atorvastatin 10 Mg Tablet) 20 mg PO BEDTIME JUSTIN Last Admin: 07/29/24 20:54 Dose: 20 mg Carvedilol (Carvedilol 6.25 Mg Tablet) 6.25 mg PO BID JUSTIN Last Admin: 07/30/24 07:48 Dose: Not Given Docusate Sodium (Docusate Sodium 100 Mg Capsule) 100 mg PO BID JUSTIN Last Admin: 07/30/24 07:49 Dose: Not Given Glucagon (Glucagon 1 Mg/Ml Kit 1 Ml) 1 mg IM ONCE PRN; Protocol PRN Reason: Adult Acute Hypoglycemia Nursing Prot. Heparin Sodium (Porcine) (Heparin 5,000 Unit/Ml Inj 1 Ml) 5,000 unit SUBCUT Q12H [facility] Last Admin: 07/30/24 08:52 Dose: 5,000 unit Dextrose (D5w) 500 mls @ 0 mls/hr IV ONCE PRN; Protocol PRN Reason: Adult Acute Hypoglycemia Prot Dextrose (D10w) 125 mls @ 750 mls/hr IV PRN PRN; Protocol PRN Reason: Adult Acute Hypoglycemia Nursing Protocol Dextrose (D10w) 250 mls @ 1,000 mls/hr IV PRN PRN; Protocol PRN Reason: Adult Acute Hypoglycemia Nursing Protocol Piperacillin Sod/Tazobactam (Sod 3.375 gm/ Sodium Chloride) 50 mls @ 12.5 mls/hr IV Q8H [facility]; Protocol Last Admin: 07/30/24 08:51 Dose: 12.5 mls/hr Insulin Human Lispro (Insulin Lispro 100 Unit/1 Ml) 0 unit SUBCUT WM&BEDTIME JUSTIN; Protocol Last Admin: 07/30/24 08:22 Dose: Not Given Lactulose (Lactulose Oral Liq 20 Gm/30 Ml Udc) 10 gm PO DAILY PRN; Protocol PRN Reason: Constipation (see protocol) Magnesium Hydroxide (Magnesium Hydroxide 30 Ml Udc) 30 ml PO DAILY PRN; Protocol PRN Reason: Constipation (see protocol) Mirtazapine (Mirtazapine 15 Mg Tablet) 15 mg PO BEDTIME JUSTIN Last Admin: 07/29/24 20:54 Dose: 15 mg Nicotine (Nicotine 21 Mg Patch) 1 patch TRANSDERMA DAILY JUSTIN Last Admin: 07/30/24 08:51 Dose: 1 patch Ondansetron HCl (Ondansetron 2 Mg/Ml Sdv 2 Ml) 4 mg IVP Q6H PRN PRN Reason: vomiting, or N/V if npo Ondansetron HCl (Ondansetron 2 Mg/Ml Sdv 2 Ml) 4 mg IVP Q2M PRN PRN Reason: NAUSEA Pantoprazole Sodium (Pantoprazole 40 Mg Sdv) 40 mg IVP Q24H JUSTIN Last Admin: 07/30/24 08:52 Dose: 40 mg Quetiapine Fumarate (Quetiapine Xr (24hr) 50 Mg Tablet) 200 mg PO BEDTIME JUSTIN Last Admin: 07/29/24 20:53 Dose: 200 mg Tamsulosin HCl (Tamsulosin 0.4 Mg Capsule) 0.4 mg PO BEDTIME JUSTIN Last Admin: 07/29/24 20:54 Dose: 0.4 mg Tamsulosin HCl (Tamsulosin 0.4 Mg Capsule) 0.4 mg PO ONCE JUSTIN Last Admin: 07/26/24 02:43 Dose: 0.4 mg Trazodone HCl (Trazodone 50 Mg Tablet) 50 mg PO BEDTIME PRN PRN Reason: INSOMNIA Last Admin: 07/26/24 21:32 Dose: 50 mg Vitals/I&O/Wt Last Vital Signs Temp 98.1 F 07/30/24 08:00 Pulse 71 07/30/24 08:00 Resp 33 H 07/30/24 08:00 BP 95/66 07/30/24 08:00 Pulse Ox 90 07/30/24 08:00 O2 Del Method Heated High Flow 07/30/24 07:40 O2 Flow Rate 60 07/30/24 07:40 FiO2 90 07/30/24 07:40 07/29/24 07/30/24 07/30/24 22:59 06:59 14:59 Intake Total 240 / 300 Output Total 525 / 825 Balance 240 / 0 -525 / -525 Weight last 48 hrs Weight 165 lb 5.547 oz Weight 165 lb 5.547 oz Weight 174 lb 6 oz Physical Exam 2 Narrative: GENERAL: The patient is alert and oriented times three. Not in any acute distress. HEENT: No significant pallor, icterus or lymphadenopathy.Oral cavity: There are no mucous membrane lesions. NECK: Trachea appears to be central. No masses noted. No JVD or thyromegaly appreciated. RESPIRATORY: Chest is symmetrical. No intercostals muscle retraction or any accessory muscle activation. There is no chest wall tenderness. Breath sounds are heard bilaterally. The breath sounds are diminished in the left base. Scattered coarse crackles on both sides. BREASTS: Deferred. HEART: The heart sounds are normal. No S3 or S4. Short systolic murmur in the lower sternal border. No diastolic murmurs.. No pericardial rub ABDOMEN: No vessel pulsations or distention. No tenderness. No organomegaly appreciated. Bowel sounds are normally heard. : Deferred. RECTAL: Deferred. LYMPHATIC: No lymphadenopathy noted in the neck or groin. EXTREMITIES: No edema or cyanosis. No clubbing. Peripheral pulses are palpated in fairly good volume and amplitude MUSCULOSKELETAL: No acute joint deformities or swelling SKIN: There are no significant scars or skin rash noted. NEUROPSYCHIATRIC: The patient is alert and oriented x3. Flaccid weakness of RUE and Grade III weakness of the RLE. Urinary Catheter Management: Graff: Cath Placed During This Visit: yes Reason for Continuing Indwelling Catheter: Accurate Measurement of Urinary Output in Critically Ill Patients Urinary Catheter Date of Insertion: 07/26/24 Urinary Catheter Time of Insertion: 19:54 Data 07/30/24 03:07 07/30/24 03:07 Other Labs: Laboratory Last Values WBC 10.99 10^3/uL (3.29-11.43) 07/30/24 03:07 RBC 3.77 10^6/uL (3.85-5.65) L 07/30/24 03:07 Hgb 11.30 g/dL (11.27-16.99) 07/30/24 03:07 Hct 36.1 % (36-47) 07/30/24 03:07 MCV 95.8 fl (85-98) 07/30/24 03:07 MCH 30.0 pg (27-33) 07/30/24 03:07 MCHC 31.3 g/dL (30-55) 07/30/24 03:07 RDW 14.4 % (12.1-15.1) 07/30/24 03:07 Plt Count 90 10^3/cmm (157-399) L 07/30/24 03:07 MPV 12.3 fL (7.4-10.4) H 07/30/24 03:07 Neut % (Auto) 78.6 % 07/30/24 03:07 Lymph % (Auto) 13.4 % 07/30/24 03:07 Barnes % (Auto) 6.6 % 07/30/24 03:07 Eos % (Auto) 0.7 % 07/30/24 03:07 Baso % (Auto) 0.3 % 07/30/24 03:07 Neut # (Auto) 8.64 10^3/uL (1.8-7.7) H 07/30/24 03:07 Lymph # (Auto) 1.5 10^3/uL (0.8-4.8) 07/30/24 03:07 Barnes # (Auto) 0.7 10^3/uL (0.2-0.9) 07/30/24 03:07 Eos # (Auto) 0.1 10^3/uL (0.0-0.8) 07/30/24 03:07 Baso # (Auto) 0.0 10^3/uL (0.0-0.1) 07/30/24 03:07 Nucleated RBC % (auto) 0 % 07/30/24 03:07 Nucleated RBCs # 0.0 /100WBC 07/30/24 03:07 PT 13.50 SECONDS (12.1-14.9) 07/25/24 09:30 INR 0.96 (0.8-1.2) 07/25/24 09:30 APTT 26.0 SECONDS (23.9-36.7) 07/25/24 09:30 D-Dimer 2.04 ug/mLFEU (0-0.59) H 07/29/24 18:50 Specimen Type Arterial 07/29/24 11:59 Sample Site Brachial, left 07/29/24 11:59 ABG pH 7.47 (7.35-7.45) H 07/29/24 11:59 ABG pCO2 40.3 mmHg (35-45) 07/29/24 11:59 ABG pO2 59.3 mmHg (80.0-100.0) L 07/29/24 11:59 ABG HCO3 29.0 mmol/L (22-26) H 07/29/24 11:59 ABG O2 Saturation 91.9 07/29/24 11:59 ABG Base Excess 4.8 mmol/L (-2.0-2.0) H 07/29/24 11:59 Joshua Test N/a 07/29/24 11:59 A-a O2 Gradient 5.4 mmHg (5-10) 07/29/24 11:59 Hematocrit 38.4 % (37-47) 07/29/24 11:59 Hgb O2 Saturation 90.2 % (95-100) L 07/29/24 11:59 Carboxyhemoglobin 1.4 %THgb (0.4-20.1) 07/29/24 11:59 Methemoglobin 0.4 % (0.4-1.5) 07/29/24 11:59 Total Hemoglobin 12.5 g/dL (12-16) 07/29/24 11:59 Sodium 138.0 mmol/L (131-143) 07/29/24 11:59 Potassium 4.0 mmol/L (3.5-5.0) 07/29/24 11:59 Glucose 145.0 mg/dL (70-115) H 07/29/24 11:59 Ionized Calcium 1.2 mmol/L (1.1-1.4) 07/29/24 11:59 O2 Delivery Device Oxy mask 07/29/24 11:59 O2 Liters/Min 15.0 % 07/29/24 11:59 Tool Crib Supervisor ID Amh 07/29/24 11:59 Sodium 139 mmol/L (136-145) 07/30/24 03:07 Potassium 3.9 mmol/L (3.5-5.1) 07/30/24 03:07 Chloride 100 mmol/L (98-107) 07/30/24 03:07 Carbon Dioxide 28 mmol/L (22-29) 07/30/24 03:07 Anion Gap 14.9 (5-19) 07/30/24 03:07 BUN 18 mg/dL (8-23) 07/30/24 03:07 Creatinine 1.2 mg/dL (0.5-0.9) H 07/30/24 03:07 GFR Calculation Not Reportable 07/30/24 03:07 Glucose 132 mg/dL (65-115) H 07/30/24 03:07 POC Glucose 141 mg/dL (70-110) H 07/30/24 07:37 Estimat Average Glucose 131 07/26/24 04:49 Hemoglobin A1c 6.2 % (4.0-6.0) H 07/26/24 04:49 Calculated Osmolality 290 mOsm/kg (285-295) 07/29/24 04:25 Calcium 8.8 mg/dL (8.5-10.5) 07/30/24 03:07 Phosphorus 2.5 mg/dL (2.5-4.5) 07/30/24 03:07 Magnesium 2.5 mg/dL (1.7-2.3) H 07/30/24 03:07 Iron 77 ug/dL (37-145) 07/25/24 09:30 TIBC 326 mcg/dl 07/25/24 09:30 % Saturation 23.6 % (20-50) 07/25/24 09:30 Unsat Iron Binding 249 ug/dL (112-347) 07/25/24 09:30 Total Bilirubin 0.6 mg/dL (0.15-1.2) 07/28/24 05:35 AST 20 U/L (0-32) 07/28/24 05:35 ALT 11 U/L (0-33) 07/28/24 05:35 Alkaline Phosphatase 90 U/L (35-105) 07/28/24 05:35 Troponin T Baseline 20 ng/L (0-10) H 07/25/24 09:30 Troponin T 120 Minute 16.98 ng/L (0-10) H 07/25/24 12:31 Delta Troponin T -3.02 ABS# (0-10) L 07/25/24 12:31 Troponin T Hi Sens 6Hr 18.87 ng/L (0-10) H 07/25/24 15:21 Troponin T Hi Sens 6Hr Delta -1.13 ng/L (0-12) L 07/25/24 15:21 NT-Pro-B Natriuret Pep 5660 pg/mL (0-125) H 07/27/24 05:06 Total Protein 7.1 g/dL (6.6-8.7) 07/28/24 05:35 Albumin 3.5 g/dL (3.5-5.2) 07/30/24 03:07 Globulin 3.4 g/dL (1.3-4.6) 07/28/24 05:35 Triglycerides 305 mg/dL (0-150) H 07/26/24 04:49 Cholesterol 151 mg/dL (0-200) 07/26/24 04:49 LDL Cholesterol, Calc 60 mg/dL (50-129) 07/26/24 04:49 HDL Cholesterol 30 mg/dL (60-100) L 07/26/24 04:49 LDL/HDL Ratio 2.00 RATIO (0.00-3.22) 07/26/24 04:49 Cholesterol/HDL Ratio 5.03 mg/dL (0.0-4.40) H 07/26/24 04:49 Vitamin B12 687 pg/mL (232-1245) 07/25/24 09:30 Folate 9.3 ng/mL (4.8-37.3) 07/26/24 04:49 Procalcitonin 0.05 ng/mL (0-0.5) 07/25/24 09:30 TSH 1.65 uIU/mL (0.27-4.20) 07/25/24 09:30 Urine Color Yellow (Yellow) 07/25/24 09:43 Urine Appearance Clear (CLEAR) 07/25/24 09:43 Urine pH 6 (5-7) 07/25/24 09:43 Ur Specific Traphill 1.015 (1.005-1.030) 07/25/24 09:43 Urine Protein Neg (Negative) 07/25/24 09:43 Urine Glucose (UA) Norm (Normal) 07/25/24 09:43 Urine Ketones Negative (Negative) 07/25/24 09:43 Urine Blood Neg (Negative) 07/25/24 09:43 Urine Nitrate Negative (Negative) 07/25/24 09:43 Urine Bilirubin Neg (Negative) 07/25/24 09:43 Urine Urobilinogen Neg mg/dL (Negative) 07/25/24 09:43 Ur Leukocyte Esterase Negative (Negative) 07/25/24 09:43 Urine RBC 0-2 /hpf (0-2) 07/25/24 09:43 Urine WBC 0-5 /hpf (0-5) 07/25/24 09:43 Ur Squamous Epith Cells 0-5 /hpf (0-5) 07/25/24 09:43 Amorphous Sediment Not Reportable 07/25/24 09:43 Urine Bacteria None seen /hpf (NONE) 07/25/24 09:43 Hyaline Casts 0.81 /lpf 07/25/24 09:43 Urine Opiates Screen Negative ng/mL (Negative) 07/25/24 09:43 Ur Barbiturates Screen Negative ng/mL (Negative) 07/25/24 09:43 Ur Phencyclidine Scrn Negative ng/mL (Negative) 07/25/24 09:43 Ur Amphetamines Screen Negative ng/mL (Negative) 07/25/24 09:43 U Benzodiazepines Scrn Negative ng/mL (Negative) 07/25/24 09:43 Urine Cocaine Screen Negative ng/mL (Negative) 07/25/24 09:43 U Marijuana (THC) Screen Negative ng/mL (Negative) 07/25/24 09:43 A&P Assessment and plan (1) Abnormal cardiovascular stress test: Patient seems to have moderate to large areas of fixed defect with a small area of reversible defect suggesting extensive myocardial scarring with small area of ischemia. The implication of the test finding was discussed with the patient in detail. In order to better evaluate the coronary status, she requires a cardiac catheterization. The patient is not wanting to undergo any invasive or interventional procedures. She seems to understand the implications. I also talked to the patient's the power of staff attorney-Katt San, who also concurred with the patient's decision. Will continue the current measures (2) Atherosclerosis of coronary artery of [place] heart without angina pectoris: The details of her coronary status is not available at this time. The Myocardial perfusion imaging findings as mentioned above. Will continue on the medical management Qualifiers: Coronary Disease-Associated Artery/Lesion type: [place] artery Qualified Code(s): I25.10 - Atherosclerotic heart disease of [place] coronary artery without angina pectoris (3) Ischemic cardiomyopathy: LV ejection fraction was found to be around 32% by echocardiogram. Patient is not wanting to undergo LifeVest. We do not have the information regarding her previous LV ejection fraction at this point. Will try to optimize her medical treatment. Need to consider GDMT I may start her on a low-dose of Entresto and watch the kidney function closely- starting today (4) Pneumonia: She still has significant hypoxemia. Possibility of PE cannot be excluded. Qualifiers: Aspiration pneumonia type: unspecified Laterality: unspecified laterality Lung location: lower lobe of lung Pneumonia type: aspiration pneumonia Qualified Code(s): J69.0 - Pneumonitis due to inhalation of food and vomit (5) Type 2 diabetes mellitus: Management as per the primary. 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 (7) Acute left ICA ischemic stroke: Management as per the neurology service. Plan Since the patient is not wanting to undergo any invasive cadence procedures for her heart which the POA agrees with, we may continue the medical treatment. She also is against having an external defibrillator. Will try the GDMT for the cardiomyopathy/CHF An event monitor to evaluate for any spontaneous atrial fibrillation might be helpful May consider the event monitor at discharge. Discussed with Dr. Martinez about possible CTA of the chest to rule out PE Continue the other treatment measures PDMP PDMP Reviewed: Not Reviewed Attestations 2 Medical Necessity Statement*: Deferred to the primary Coding Level of Care Code 42417 Diagnoses Abnormal cardiovascular stress test R94.39 Atherosclerosis of [place] coronary artery of [place] heart without angina pectoris I25.10 Coronary Disease-Associated Artery/Lesion type: [place] artery Ischemic cardiomyopathy I25.5 Aspiration pneumonia of lower lobe, unspecified aspiration pneumonia type, unspecified laterality J69.0 Aspiration pneumonia type: unspecified Laterality: unspecified laterality Lung location: lower lobe of lung Pneumonia type: aspiration pneumonia Type 2 diabetes mellitus with other circulatory complication, with long-term current use of insulin E11.59; Z79.4 Diabetes mellitus complication status: with circulatory complication Diabetes mellitus care home insulin use: with care home use Diabetes mellitus complication detail: with other circulatory complications Chronic kidney disease, stage 4 (severe) N18.4 Acute left ICA ischemic stroke I63.232
--- NOTE | 2024-07-30 11:04 | P.PN_ITS ---
Subjective 2 Subjective: Patient reports limited function in her right sided extremities. She is unable to move her knee on exam this morning. She denies fevers or chills. We discussed plan of care for today and she is in agreement. Medications: Reviewed: Yes Vitals/I&O/Wt Last Vital Signs Temp 97.8 F 07/30/24 10:00 Pulse 73 07/30/24 10:00 Resp 26 H 07/30/24 10:00 BP 119/77 07/30/24 10:00 Pulse Ox 89 L 07/30/24 10:00 O2 Del Method Heated High Flow 07/30/24 07:40 O2 Flow Rate 60 07/30/24 07:40 FiO2 90 07/30/24 07:40 07/29/24 07/30/24 07/30/24 22:59 06:59 14:59 Intake Total 240 / 300 Output Total 525 / 825 Balance 240 / 0 -525 / -525 Weight last 48 hrs Weight 75 kg Weight 75 kg Weight 79.095 kg Physical Exam 2 Narrative: General: Patient is awake. Appears fatigued. Head: Normocephalic. Atraumatic. EOM intact. Neck: No JVD. Cardiovascular: RRR. No gallops. No murmurs. Lungs: Bibasilar rhonchi. Increased work of breathing. Conversational dyspnea. On heated high flow support. Skin: No jaundice. No rashes. Abdomen: Normal bowel sounds, abdomen soft and nontender. Extremities: No cyanosis or clubbing. 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 Neurological: Moves all 4 extremities. No myoclonus. Urinary Catheter Management: Graff: Cath Placed During This Visit: yes Reason for Continuing Indwelling Catheter: Accurate Measurement of Urinary Output in Critically Ill Patients Urinary Catheter Date of Insertion: 07/26/24 Urinary Catheter Time of Insertion: 19:54 Data 07/30/24 03:07 07/30/24 03:07 A&P Assessment and plan (1) Acute left ICA ischemic stroke: Acute left ICA ischemic stroke resulting in flaccid right-sided extremities Neurology has evaluated the patient Continue physical, occupational, and speech therapies Continue statin Continue aspirin Plan for safe enteral feeding TBD (2) Respiratory failure: Acute hypoxic respiratory failure On HHNC @ 90%; 60 Liters Continue NPO status High risk for intubation (3) Pneumonia: Presentation consistent with severe pneumonia, most likely aspiration Broaden antibiotics Patient has underlying dysphagia from stroke Ongoing speech therapy evaluation She may benefit from feeding tube placement, we will see how she does with speech therapy today Qualifiers: Pneumonia type: aspiration pneumonia Aspiration pneumonia type: u nspecified Laterality: unspecified laterality Lung location: lower lobe of lung Qualified Code(s): J69.0 - Pneumonitis due to inhalation of food and vomit (4) Ischemic cardiomyopathy: Stress test and echo normal, patient declines invasive workup Continue medical treatment with statin, aspirin, beta-joseluis (5) Type 2 diabetes mellitus without complications: Sliding-scale insulin correction (6) Essential (primary) hypertension: Monitor blood pressures, titrate as needed (7) CAD (coronary artery disease): As above (8) Congestive heart failure due to cardiomyopathy: Daily assessments of volume (9) Common carotid artery stenosis: Plan Dysphagia: Speech therapy is following. May need feeding tube pending clinical course. Urinary retention: Graff catheter Smoking addiction: Continue nicotine replacement Thrombocytopenia: Chronic. Monitor for bleeding. Continue other chronic medical history including DuoNeb as needed, mirtazapine nightly, Seroquel nightly, Flomax daily. CODE STATUS: Full code. Guarded information in chart. DVT prophylaxis: Heparin PDMP PDMP Reviewed: Not Reviewed Attestations 2 Medical Necessity Statement*: Patient requires ongoing hospitalization for respiratory support, IV antibiotics, therapy and supportive care. Coding Level of Care Code Acute Code for [facility] Fwd Diagnoses Acute left ICA ischemic stroke I63.232 Respiratory failure J96.90 Aspiration pneumonia of lower lobe, unspecified aspiration pneumonia type, unspecified laterality J69.0 Pneumonia type: aspiration pneumonia Aspiration pneumonia type: unspecified Laterality: unspecified laterality Lung location: lower lobe of lung Ischemic cardiomyopathy I25.5 Type 2 diabetes mellitus without complications E11.9 Essential (primary) hypertension I10 CAD (coronary artery disease) I25.10 Congestive heart failure due to cardiomyopathy I50.9; I42.9 Common carotid artery stenosis I65.29
[2024-07-30 11:29] LABS: Glucose Point of Care 142 mg/dL (70-110)
--- NOTE | 2024-07-30 11:34 | PC.SOCIAL ---
IMM Update pg 2 of IMM updated and reviewed w/ patients guardian. Copy left @ bedside and copy dated, initialed and placed in chart.
[2024-07-30 13:17] LABS: Glucose Point of Care 155 mg/dL (70-110)
--- NOTE | 2024-07-30 16:22 | PC.OT ---
HOLD OT TREATMENT DUE TO CHANGE IN STATUS, CURRENTLY ON HEATED HIGH FLOW
[2024-07-30 17:53] LABS: Glucose Point of Care 152 mg/dL (70-110)
[2024-07-30] MEDS: sodium chloride 0.9% 1,000 ML 50 ML IV (18:32)
[2024-07-30] MEDS: ATORVASTATIN 10 MG TABLET 20 MG PO (20:06)
[2024-07-30] MEDS: mirtazapine 15 mg Tablet PO (20:06)
[2024-07-30] MEDS: acetaminophen 325 mg Tablet 650 MG PO (20:06)
[2024-07-30] MEDS: tamsulosin 0.4 mg Capsule PO (20:06)
[2024-07-30] MEDS: quetiapine XR (24HR) 50 mg Tablet 200 MG PO (20:07)
[2024-07-30 20:11] LABS: Glucose Point of Care 154 mg/dL (70-110)
--- NOTE | 2024-07-30 21:33 | PC.NURSE ---
New order for precedex titratable gtt for bipap compliance per Dr. Cobian
[2024-07-30] MEDS: dexmedeTOMIDine 0.9 % NaCL 400 MCG/100 ML PREMIX IV (21:47)
[2024-07-30] MEDS: insulin lispro 100 unit/1 mL SUBCUT (21:47)
[2024-07-31] VITALS (63 sets, daily range): BP systolic 85–144; BP diastolic 56–103; PULSE 64–99; RESP 14–29; TEMP 36.5–37.7; O2SAT 83–100
[2024-07-31] MEDS: piperacillin-tazobactam 3.375 GM in sodium chloride 0.9% (plus) 50 ML IV ×3 (00:31→15:38)
[2024-07-31 02:39] LABS: ABG PCO2 39.7 mmHg (35-45); ABG PH Result 7.47 (7.35-7.45); Alveolar-Arterial Oxygen Gradi 80.1 mmHg (5-10); Arterial Blood Gas Hematocrit 33.7 % (37-47); Base Excess ABG 4.9 mmol/L (-2.0-2.0); Blood Gas Allen Test Pos; Blood Gas Operator Identificat ED; Blood Gas Sample Site Brachial, left; Blood Gas Sample Type Arterial; Carboxyhemoglobin 1.2 %THgb (0.4-20.1); HGB O2 Sat 82.7 % (95-100); Ionized Calcium Level - ABG 1.2 mmol/L (1.1-1.4); Methemoglobin 0.4 % (0.4-1.5); Oxygen Saturation ABG 84.1; PO2 ABG 46.8 mmHg (80.0-100.0); PO2 FiO2 Ratio Arterial Blood 46; Potassium Level - ABG 3.6 mmol/L (3.5-5.0)
[2024-07-31] MEDS: propofol 1,000 MG/100 ML INJ 2.25 MG IV (03:00)
[2024-07-31] MEDS: fentaNYL 1,000 MCG/100 ML BAG 2.5 MCG IV (03:00)
--- NOTE | 2024-07-31 03:06 | XRR_ITS ---
PROCEDURE INFORMATION: Exam: XR Chest Exam date and time: 07/31/2024 3:08 AM Age: 74 years old Clinical indication: Device placement; Ett placement (vent status); Additional info: Et tube and og placement TECHNIQUE: Imaging protocol: Radiologic exam of the chest. Views: 1 view. COMPARISON: CR XR chest 1V portable [id number] 07/29/2024 9:31 AM FINDINGS: Tubes, catheters and devices: Endotracheal tube is in satisfactory position. Feeding tube is in satisfactory position. Lungs: Low lung volumes. There are increased lung markings and haziness of the lungs in association with small bilateral pleural effusions, which in the setting of cardiomegaly is consistent with pulmonary edema. Pneumonia should be excluded clinically. No pneumothorax. Pleural spaces: See Lungs finding. Heart/Mediastinum: Stable cardiomediastinal silhouette. The patient is status post CABG. Bones/joints: Median sternotomy changes seen. XR/XR chest 1V portable [id number] IMPRESSION: Imaging findings of pulmonary edema with small bilateral pleural effusions. Pneumonia should be considered in the adequate clinical setting.
--- NOTE | 2024-07-31 03:16 | PM.CCN ---
Critical Care Event Note The high probability of a clinically significant, sudden or life threatening deterioration of the patient's [] system(s) required my full and direct attention, intervention and personal management. The critical care time is as shown. This time is in addition to time spent performing any reported procedures but includes the following: [x] Data and vital sign review and interpretation [x] Patient assessment, examination and intervention [x] Documentation [x] Medication orders and management Patient was on heated high flow oxygen and could not keep her oxygen saturation adequate. ABG was obtained which showed patient was still hypoxic. Hospitalist asked for intubation. Intubation was performed with etomidate and jose with no complications. Chest x-ray was performed which showed adequate placement of tube. Critical Care Time Code activated: No Critical Care Time (min): 0 Procedures Intubation Time out performed: Yes Sedative: etomidate Mg given: 15 Paralytic: rocuronium Mg given: 90 Laryngoscope: fiber optic video scope ET tube size: 8 Tube secured depth (cm): 23 Tube secured location: lips Tube placement confirmation: visualized tube passing through cords, equal breath sounds bilaterally, no breath sounds over epigastrium and color change noted Patient tolerated procedure: well and no complications Coding Level of Care Code Acute Code for [facility] Fwd
[2024-07-31] MEDS: etomidate 2 mg/mL INJ SDV 10 mL 15 MG IVP (03:21)
[2024-07-31] MEDS: rocuronium 10 mg/mL INJ 5mL 90 MG IVP (03:22)
[2024-07-31 03:54] LABS: Oxygen Device HHF
[2024-07-31 04:28] LABS: Basophils % 0.2 %; Eosinophils # 0.1 10^3/uL (0.0-0.8); Eosinophils % 1.4 %; Hematocrit 33.1 % (36-47); Lymphocytes # 1.2 10^3/uL (0.8-4.8); Lymphocytes % 12.7 %; Mean Corpuscular HGB Conc 31.7 g/dL (30-55); Mean Corpuscular Hemoglobin 29.9 pg (27-33); Mean Corpuscular Volume 94.3 fl (85-98); Mean Platelet Volume 12.1 fL (7.4-10.4); Monocytes # 0.6 10^3/uL (0.2-0.9); Monocytes % 6.6 %; Neutrophils # 7.23 10^3/uL (1.8-7.7); Neutrophils % 78.7 %; Nucleated Red Blood Cells % 0 %; Platelet Count 91 10^3/cmm (157-399); Red Blood Count 3.51 10^6/uL (3.85-5.65); Red Cell Distribution Width 14.4 % (12.1-15.1)
[2024-07-31 04:47] LABS: Alanine Aminotransferase 7 U/L (0-33); Albumin Level 3.3 g/dL (3.5-5.2); Alkaline Phosphatase 77 U/L (35-105); Anion Gap 14.7 (5-19); Aspartate Amino Transferase 18 U/L (0-32); Blood Urea Nitrogen 19 mg/dL (8-23); Calcium 8.5 mg/dL (8.5-10.5); Carbon Dioxide 25 mmol/L (22-29); Chloride 105 mmol/L (98-107); Creatinine Clr Calc Pharmacy 44.3735; Globulin 3.6 g/dL (1.3-4.6); Glucose 149 mg/dL (65-115); Magnesium 2.5 mg/dL (1.7-2.3); Osmolality Calculated 297 mOsm/kg (285-295); Phosphorus 2.6 mg/dL (2.5-4.5); Potassium 3.7 mmol/L (3.5-5.1); Sodium 141 mmol/L (136-145); Total Bilirubin 1.1 mg/dL (0.15-1.2); Total Protein 6.9 g/dL (6.6-8.7)
[2024-07-31 04:49] LABS: ABG PCO2 44.2 mmHg (35-45); ABG PH Result 7.42 (7.35-7.45); Alveolar-Arterial Oxygen Gradi 78.3 mmHg (5-10); Arterial Blood Gas Hematocrit 34.1 % (37-47); Base Excess ABG 3.7 mmol/L (-2.0-2.0); Blood Gas Allen Test Pos; Blood Gas Sample Site Radial, right; Blood Gas Sample Type Arterial; HCO3 ABG 28.7 mmol/L (22-26); HGB O2 Sat 86.7 % (95-100); Ionized Calcium Level - ABG 1.2 mmol/L (1.1-1.4); Methemoglobin 1.1 % (0.4-1.5); Oxygen Device VENT; Oxygen Saturation ABG 88.5; PO2 ABG 55.5 mmHg (80.0-100.0); PO2 FiO2 Ratio Arterial Blood 55; Potassium Level - ABG 3.4 mmol/L (3.5-5.0); Total Hemoglobin 11.1 g/dL (12-16)
--- NOTE | 2024-07-31 06:26 | PC.NURSE ---
Intubation: Received verbal oders per Dr. Cobian for 15 mg IVP Etomidate ONCE and 90 mg IVP Rocuronium ONCE. Propofol and Fentanyl drips for sedation. 0259 pushed rocuronium. 0300 pushed etomidate.
[2024-07-31] MEDS: norepinephrine 4 MG/250 ML BAG 15 MG IV (06:55)
--- NOTE | 2024-07-31 07:01 | W.PM.EVENTAC ---
Event Note Event Note: Patient was getting hypoxic on 100% FiO2 60 L heated high flow, she was refusing and fighting the BiPAP, guarding was tried to reach out, it went to voicemail, around 3 AM patient was getting hypoxic O2 saturation 85% on 100% FiO2 ABG was done which showed significant hypoxia PO2 40% Decision was made to intubate the patient
[2024-07-31 07:08] LABS: Glucose Point of Care 119 mg/dL (70-110)
[2024-07-31] MEDS: ipratropium-albuterol 3 mL Neb INHALATION ×3 (07:54→20:33)
--- NOTE | 2024-07-31 08:46 | PC.OT ---
OT TREATMENT HELD DUE TO PATENT INTUBATION
[2024-07-31] MEDS: nicotine 21 mg Patch 1 PATCH TRANSDERMA (08:48)
[2024-07-31] MEDS: pantoprazole 40 mg SDV IVP (08:49)
[2024-07-31] MEDS: aspirin 81 mg EC Tablet PO (08:49)
[2024-07-31] MEDS: heparin 5,000 unit/mL INJ 1 mL 5000 UNIT SUBCUT ×2 (08:49→20:40)
[2024-07-31] MEDS: docusate sodium 100 mg Capsule PO (08:49)
--- NOTE | 2024-07-31 09:03 | PM.PN ---
Subjective Subjective: The patient became more hypoxic last night. She got intubated. She also was hypotensive and had to be started on Levophed. Medications: Medication Review Details: Current Medications Acetaminophen (Acetaminophen 325 Mg Tablet) 650 mg PO Q6H PRN PRN Reason: Mild/Mod Pain Or Temp >/= 101 Last Admin: 07/30/24 20:06 Dose: 650 mg Albuterol/Ipratropium (Ipratropium-Albuterol 3 Ml Neb) 3 ml INHALATION Q4H PRN PRN Reason: Shortness Of Breath Or Wheezing Last Admin: 07/31/24 07:54 Dose: 3 ml Aspirin (Aspirin 81 Mg Ec Tablet) 81 mg PO DAILY [facility] Last Admin: 07/31/24 08:49 Dose: 81 mg Atorvastatin Calcium (Atorvastatin 10 Mg Tablet) 20 mg PO BEDTIME JUSTIN Last Admin: 07/30/24 20:06 Dose: 20 mg Carvedilol (Carvedilol 6.25 Mg Tablet) 6.25 mg PO BID [facility] Last Admin: 07/30/24 18:30 Dose: Not Given Docusate Sodium (Docusate Sodium 100 Mg Capsule) 100 mg PO BID [facility] Last Admin: 07/31/24 08:49 Dose: 100 mg Glucagon (Glucagon 1 Mg/Ml Kit 1 Ml) 1 mg IM ONCE PRN; Protocol PRN Reason: Adult Acute Hypoglycemia Nursing Prot. Heparin Sodium (Porcine) (Heparin 5,000 Unit/Ml Inj 1 Ml) 5,000 unit SUBCUT Q12H [facility] Last Admin: 07/31/24 08:49 Dose: 5,000 unit Dextrose (D5w) 500 mls @ 0 mls/hr IV ONCE PRN; Protocol PRN Reason: Adult Acute Hypoglycemia Prot Dextrose (D10w) 125 mls @ 750 mls/hr IV PRN PRN; Protocol PRN Reason: Adult Acute Hypoglycemia Nursing Protocol Dextrose (D10w) 250 mls @ 1,000 mls/hr IV PRN PRN; Protocol PRN Reason: Adult Acute Hypoglycemia Nursing Protocol Piperacillin Sod/Tazobactam (Sod 3.375 gm/ Sodium Chloride) 50 mls @ 12.5 mls/hr IV Q8H JUSTIN; Protocol Last Admin: 07/31/24 07:39 Dose: 12.5 mls/hr Dexmedetomidine/Sodium Chloride (Precedex) 400 mcg in 100 mls @ 0 mls/hr IV .Q0M JUSTIN; Protocol Last Titration: 07/31/24 02:50 Dose: 0 mcg/kg/hr, 0 mls/hr Propofol (Diprivan) 1,000 mg in 100 mls @ 0 mls/hr IV .Q0M JUSTIN; Protocol Last Titration: 07/31/24 03:45 Dose: 20 mcg/kg/min, 9 mls/hr Fentanyl (Sublimaze) 1,000 mcg in 100 mls @ 0 mls/hr IV .Q0M JUSTIN; Protocol Last Titration: 07/31/24 03:47 Dose: 75 mcg/hr, 7.5 mls/hr Norepinephrine Bitartrate (Levophed) 4 mg in 250 mls @ 0 mls/hr IV .Q0M JUSTIN; Protocol Last Admin: 07/31/24 06:55 Dose: 4 mcg/min, 15 mls/hr Insulin Human Lispro (Insulin Lispro 100 Unit/1 Ml) 0 unit SUBCUT WM&BEDTIME JUSTIN; Protocol Last Admin: 07/31/24 07:07 Dose: Not Given Lactulose (Lactulose Oral Liq 20 Gm/30 Ml Udc) 10 gm PO DAILY PRN; Protocol PRN Reason: Constipation (see protocol) Magnesium Hydroxide (Magnesium Hydroxide 30 Ml Udc) 30 ml PO DAILY PRN; Protocol PRN Reason: Constipation (see protocol) Mirtazapine (Mirtazapine 15 Mg Tablet) 15 mg PO BEDTIME JUSTIN Last Admin: 07/30/24 20:06 Dose: 15 mg Nicotine (Nicotine 21 Mg Patch) 1 patch TRANSDERMA DAILY JUSTIN Last Admin: 07/31/24 08:48 Dose: 1 patch Ondansetron HCl (Ondansetron 2 Mg/Ml Sdv 2 Ml) 4 mg IVP Q6H PRN PRN Reason: vomiting, or N/V if npo Pantoprazole Sodium (Pantoprazole 40 Mg Sdv) 40 mg IVP Q24H JUSTIN Last Admin: 07/31/24 08:49 Dose: 40 mg Quetiapine Fumarate (Quetiapine Xr (24hr) 50 Mg Tablet) 200 mg PO BEDTIME JUSTIN Last Admin: 07/30/24 20:07 Dose: 200 mg Tamsulosin HCl (Tamsulosin 0.4 Mg Capsule) 0.4 mg PO BEDTIME JUSTIN Last Admin: 07/30/24 20:06 Dose: 0.4 mg Vitals/I&O/Wt Last Vital Signs Temp 98 F 07/31/24 08:00 Pulse 71 07/31/24 08:30 Resp 14 07/31/24 07:55 BP 103/64 07/31/24 08:30 Pulse Ox 97 07/31/24 08:30 O2 Del Method Mechanical Ventilation 07/31/24 07:55 O2 Flow Rate 60 07/31/24 02:30 FiO2 100 07/31/24 08:00 07/30/24 07/31/24 07/31/24 22:59 06:59 14:59 Intake Total 173.345 / 223.345 96.891 / 320.236 Output Total 350 / 350 300 / 650 Balance -176.655 / -126.655 -203.109 / -329.764 Weight last 48 hrs Weight 163 lb 2.273 oz Weight 163 lb 2.273 oz Weight 165 lb 5.547 oz Weight 165 lb 5.547 oz Physical Exam Narrative: GENERAL: Patient is intubated and is sedated. HEENT: No significant pallor, icterus or lymphadenopathy.Oral cavity: There are no mucous membrane lesions. NECK: Trachea appears to be central. No masses noted. No JVD or thyromegaly appreciated. RESPIRATORY: Chest is symmetrical. No intercostals muscle retraction or any accessory muscle activation. There is no chest wall tenderness. Breath sounds are heard bilaterally. The breath sounds are diminished in the left base. Scattered coarse crackles on both sides. BREASTS: Deferred. HEART: The heart sounds are normal. No S3 or S4. Short systolic murmur in the lower sternal border. No diastolic murmurs.. No pericardial rub ABDOMEN: No vessel pulsations or distention. No tenderness. No organomegaly appreciated. Bowel sounds are normally heard. : Deferred. RECTAL: Deferred. LYMPHATIC: No lymphadenopathy noted in the neck or groin. EXTREMITIES: No edema or cyanosis. No clubbing. Peripheral pulses are palpated in fairly good volume and amplitude MUSCULOSKELETAL: No acute joint deformities or swelling SKIN: There are no significant scars or skin rash noted. NEUROPSYCHIATRIC: Intubated and sedated Urinary Catheter Management: Graff: Cath Placed During This Visit: yes Reason for Continuing Indwelling Catheter: Accurate Measurement of Urinary Output in Critically Ill Patients Urinary Catheter Date of Insertion: 07/26/24 Urinary Catheter Time of Insertion: 19:54 Data 07/31/24 04:02 07/31/24 04:02 Other Labs: Laboratory Last Values WBC 9.20 10^3/uL (3.29-11.43) 07/31/24 04:02 RBC 3.51 10^6/uL (3.85-5.65) L 07/31/24 04:02 Hgb 10.50 g/dL (11.27-16.99) L 07/31/24 04:02 Hct 33.1 % (36-47) L 07/31/24 04:02 MCV 94.3 fl (85-98) 07/31/24 04:02 MCH 29.9 pg (27-33) 07/31/24 04:02 MCHC 31.7 g/dL (30-55) 07/31/24 04:02 RDW 14.4 % (12.1-15.1) 07/31/24 04:02 Plt Count 91 10^3/cmm (157-399) L 07/31/24 04:02 MPV 12.1 fL (7.4-10.4) H 07/31/24 04:02 Neut % (Auto) 78.7 % 07/31/24 04:02 Lymph % (Auto) 12.7 % 07/31/24 04:02 [place] % (Auto) 6.6 % 07/31/24 04:02 Eos % (Auto) 1.4 % 07/31/24 04:02 Baso % (Auto) 0.2 % 07/31/24 04:02 Neut # (Auto) 7.23 10^3/uL (1.8-7.7) 07/31/24 04:02 Lymph # (Auto) 1.2 10^3/uL (0.8-4.8) 07/31/24 04:02 [place] # (Auto) 0.6 10^3/uL (0.2-0.9) 07/31/24 04:02 Eos # (Auto) 0.1 10^3/uL (0.0-0.8) 07/31/24 04:02 Baso # (Auto) 0.0 10^3/uL (0.0-0.1) 07/31/24 04:02 Nucleated RBC % (auto) 0 % 07/31/24 04:02 Nucleated RBCs # 0.0 /100WBC 07/31/24 04:02 PT 13.50 SECONDS (12.1-14.9) 07/25/24 09:30 INR 0.96 (0.8-1.2) 07/25/24 09:30 APTT 26.0 SECONDS (23.9-36.7) 07/25/24 09:30 D-Dimer 2.04 ug/mLFEU (0-0.59) H 07/29/24 18:50 Specimen Type Arterial 07/31/24 04:37 Sample Site Radial, right 07/31/24 04:37 ABG pH 7.42 (7.35-7.45) 07/31/24 04:37 ABG pCO2 44.2 mmHg (35-45) 07/31/24 04:37 ABG pO2 55.5 mmHg (80.0-100.0) L 07/31/24 04:37 ABG PO2/FiO2 Ratio 55 07/31/24 04:37 ABG HCO3 28.7 mmol/L (22-26) H 07/31/24 04:37 ABG O2 Saturation 88.5 07/31/24 04:37 ABG Base Excess 3.7 mmol/L (-2.0-2.0) H 07/31/24 04:37 Joshua Test Pos 07/31/24 04:37 A-a O2 Gradient 78.3 mmHg (5-10) H 07/31/24 04:37 Hematocrit 34.1 % (37-47) L 07/31/24 04:37 Hgb O2 Saturation 86.7 % (95-100) L 07/31/24 04:37 Carboxyhemoglobin 1.0 %THgb (0.4-20.1) 07/31/24 04:37 Methemoglobin 1.1 % (0.4-1.5) 07/31/24 04:37 Total Hemoglobin 11.1 g/dL (12-16) L 07/31/24 04:37 Sodium 141.0 mmol/L (131-143) 07/31/24 04:37 Potassium 3.4 mmol/L (3.5-5.0) L 07/31/24 04:37 Glucose 150.0 mg/dL (70-115) H 07/31/24 04:37 Ionized Calcium 1.2 mmol/L (1.1-1.4) 07/31/24 04:37 O2 Delivery Device Vent 07/31/24 04:37 O2 Liters/Min 60.0 % 07/31/24 02:29 FiO2 100.0 % 07/31/24 04:37 Tidal Volume 0.40 07/31/24 04:37 PEEP 8.0 cmH20 07/31/24 04:37 Shower Room Attendant ID [email or web address] 07/31/24 04:37 Sodium 141 mmol/L (136-145) 07/31/24 04:02 Potassium 3.7 mmol/L (3.5-5.1) 07/31/24 04:02 Chloride 105 mmol/L (98-107) 07/31/24 04:02 Carbon Dioxide 25 mmol/L (22-29) 07/31/24 04:02 Anion Gap 14.7 (5-19) 07/31/24 04:02 BUN 19 mg/dL (8-23) 07/31/24 04:02 Creatinine 1.2 mg/dL (0.5-0.9) H 07/31/24 04:02 GFR Calculation Not Reportable 07/31/24 04:02 Glucose 149 mg/dL (65-115) H 07/31/24 04:02 POC Glucose 119 mg/dL (70-110) H 07/31/24 07:06 Estimat Average Glucose 131 07/26/24 04:49 Hemoglobin A1c 6.2 % (4.0-6.0) H 07/26/24 04:49 Calculated Osmolality 297 mOsm/kg (285-295) H 07/31/24 04:02 Calcium 8.5 mg/dL (8.5-10.5) 07/31/24 04:02 Phosphorus 2.6 mg/dL (2.5-4.5) 07/31/24 04:02 Magnesium 2.5 mg/dL (1.7-2.3) H 07/31/24 04:02 Iron 77 ug/dL (37-145) 07/25/24 09:30 TIBC 326 mcg/dl 07/25/24 09:30 % Saturation 23.6 % (20-50) 07/25/24 09:30 Unsat Iron Binding 249 ug/dL (112-347) 07/25/24 09:30 Total Bilirubin 1.1 mg/dL (0.15-1.2) 07/31/24 04:02 AST 18 U/L (0-32) 07/31/24 04:02 ALT 7 U/L (0-33) 07/31/24 04:02 Alkaline Phosphatase 77 U/L (35-105) 07/31/24 04:02 Troponin T Baseline 20 ng/L (0-10) H 07/25/24 09:30 Troponin T 120 Minute 16.98 ng/L (0-10) H 07/25/24 12:31 Delta Troponin T -3.02 ABS# (0-10) L 07/25/24 12:31 Troponin T Hi Sens 6Hr 18.87 ng/L (0-10) H 07/25/24 15:21 Troponin T Hi Sens 6Hr Delta -1.13 ng/L (0-12) L 07/25/24 15:21 NT-Pro-B Natriuret Pep 5660 pg/mL (0-125) H 07/27/24 05:06 Total Protein 6.9 g/dL (6.6-8.7) 07/31/24 04:02 Albumin 3.3 g/dL (3.5-5.2) L 07/31/24 04:02 Globulin 3.6 g/dL (1.3-4.6) 07/31/24 04:02 Triglycerides 305 mg/dL (0-150) H 07/26/24 04:49 Cholesterol 151 mg/dL (0-200) 07/26/24 04:49 LDL Cholesterol, Calc 60 mg/dL (50-129) 07/26/24 04:49 HDL Cholesterol 30 mg/dL (60-100) L 07/26/24 04:49 LDL/HDL Ratio 2.00 RATIO (0.00-3.22) 07/26/24 04:49 Cholesterol/HDL Ratio 5.03 mg/dL (0.0-4.40) H 07/26/24 04:49 Vitamin B12 687 pg/mL (232-1245) 07/25/24 09:30 Folate 9.3 ng/mL (4.8-37.3) 07/26/24 04:49 Procalcitonin 0.05 ng/mL (0-0.5) 07/25/24 09:30 TSH 1.65 uIU/mL (0.27-4.20) 07/25/24 09:30 Urine Color Yellow (Yellow) 07/25/24 09:43 Urine Appearance Clear (CLEAR) 07/25/24 09:43 Urine pH 6 (5-7) 07/25/24 09:43 Ur Specific [place] 1.015 (1.005-1.030) 07/25/24 09:43 Urine Protein Neg (Negative) 07/25/24 09:43 Urine Glucose (UA) Norm (Normal) 07/25/24 09:43 Urine Ketones Negative (Negative) 07/25/24 09:43 Urine Blood Neg (Negative) 07/25/24 09:43 Urine Nitrate Negative (Negative) 07/25/24 09:43 Urine Bilirubin Neg (Negative) 07/25/24 09:43 Urine Urobilinogen Neg mg/dL (Negative) 07/25/24 09:43 Ur Leukocyte Esterase Negative (Negative) 07/25/24 09:43 Urine RBC 0-2 /hpf (0-2) 07/25/24 09:43 Urine WBC 0-5 /hpf (0-5) 07/25/24 09:43 Ur Squamous Epith Cells 0-5 /hpf (0-5) 07/25/24 09:43 Amorphous Sediment Not Reportable 07/25/24 09:43 Urine Bacteria None seen /hpf (NONE) 07/25/24 09:43 Hyaline Casts 0.81 /lpf 07/25/24 09:43 Urine Opiates Screen Negative ng/mL (Negative) 07/25/24 09:43 Ur Barbiturates Screen Negative ng/mL (Negative) 07/25/24 09:43 Ur Phencyclidine Scrn Negative ng/mL (Negative) 07/25/24 09:43 Ur Amphetamines Screen Negative ng/mL (Negative) 07/25/24 09:43 U Benzodiazepines Scrn Negative ng/mL (Negative) 07/25/24 09:43 Urine Cocaine Screen Negative ng/mL (Negative) 07/25/24 09:43 U Marijuana (THC) Screen Negative ng/mL (Negative) 07/25/24 09:43 Other data: Chest x-ray from today shows evidence of pneumonia A&P Assessment and plan (1) Abnormal cardiovascular stress test: Patient seems to have moderate to large areas of fixed defect with a small area of reversible defect suggesting extensive myocardial scarring with small area of ischemia. The implication of the test finding was discussed with the patient in detail. In order to better evaluate the coronary status, she requires a cardiac catheterization. The patient is not wanting to undergo any invasive or interventional procedures. She seems to understand the implications. I also talked to the patient's the power of civil litigation attorney-Katt San, who also concurred with the patient's decision. Will continue the current measures (2) Atherosclerosis of coronary artery of false pass heart without angina pectoris: The details of her coronary status is not available at this time. The Myocardial perfusion imaging findings as mentioned above. Will continue on the medical management Qualifiers: Coronary Disease-Associated Artery/Lesion type: false pass artery Qualified Code(s): I25.10 - Atherosclerotic heart disease of false pass coronary artery without angina pectoris (3) Ischemic cardiomyopathy: Because of the hypotension, the Entresto is on hold at this point. (4) Pneumonia: Because of the worsening hypoxemia, she had a CT of the chest. The CT revealed no PE. So she is being treated for pneumonia. Qualifiers: Pneumonia type: aspiration pneumonia Aspiration pneumonia type: unspecified Laterality: unspecified laterality Lung location: lower lobe of lung Qualified Code(s): J69.0 - Pneumonitis due to inhalation of food and vomit (5) Type 2 diabetes mellitus: Management as per the primary. Qualifiers: Diabetes mellitus complication detail: with other circulatory complications Diabetes mellitus complication status: with circulatory complication Diabetes mellitus mcfp insulin use: with computer terminal operator use Qualified Code(s): E11.59 - Type 2 diabetes mellitus with other circulatory complications; Z79.4 - vermin exterminator (current) use of insulin (6) Chronic kidney disease, stage 4 (severe): The kidney function seems to be stable. (7) Acute left ICA ischemic stroke: Management as per the neurology service. Plan Continue on the current management. Will hold off on the Entresto for the time being. We may restart it when the blood pressure is stable, off the pressors PDMP PDMP Reviewed: Not Reviewed Attestations Medical Necessity Statement*: Deferred to the primary Coding Level of Care Code 73195 Diagnoses Abnormal cardiovascular stress test R94.39 Atherosclerosis of false pass coronary artery of false pass heart without angina pectoris I25.10 Coronary Disease-Associated Artery/Lesion type: false pass artery Ischemic cardiomyopathy I25.5 Aspiration pneumonia of lower lobe, unspecified aspiration pneumonia type, unspecified laterality J69.0 Pneumonia type: aspiration pneumonia Aspiration pneumonia type: unspecified Laterality: unspecified laterality Lung location: lower lobe of lung Type 2 diabetes mellitus with other circulatory complication, with long-term current use of insulin E11.59; Z79.4 Diabetes mellitus complication detail: with other circulatory complications Diabetes mellitus complication status: with circulatory complication Diabetes mellitus mcfp insulin use: with computer terminal operator use Chronic kidney disease, stage 4 (severe) N18.4 Acute left ICA ischemic stroke I63.232
--- NOTE | 2024-07-31 09:16 | PC.NURSE ---
oral care done repositioned at this time, large amt of creamy sputum suctioned at this time levophed gtt infusing at this time .
--- NOTE | 2024-07-31 09:45 | CT_ITS ---
WS: [id number] CTA OF THE CHEST WITH PULMONARY EMBOLISM PROTOCOL TECHNIQUE: High-resolution contrast enhanced CTA of the chest with coronal and sagittal reformatted images with pulmonary embolism protocol. MIP images are also reviewed. CLINICAL INFORMATION: Hypoxia COMPARISON: None. DLP: 371.[address] scans at [facility] use at least one of these dose optimization techniques: automated exposure control; mA and/or kV adjustment per patient size (includes targeted exams where dose is matched to clinical indication); or iterative reconstruction. FINDINGS: Endotracheal tube with tip above the [place]. Volume loss LEFT lung. Proximal pulmonary arteries are normal. No evidence of pulmonary embolus. Cardiomegaly. Sternotomy. Normal caliber thoracic aorta. Aortic calcification. Consolidation in the lung bases bilaterally. Volume loss LEFT lung with a small amount of residual aeration in the LEFT upper lobe and LEFT lower lobe. Consolidation LEFT lower lobe with patchy round glass infiltrate throughout the LEFT lung. CT/CT angio chest PE protcl [id number] IMPRESSION: 1. No evidence of pulmonary embolus. 2. Consolidation in the lung bases. 3. Volume loss LEFT lung with consolidation LEFT lower lobe. Groundglass infil trates throughout the remainder of the poorly aerated LEFT lung.
[2024-07-31] MEDS: iohexol 350 mg/mL 500 mL Btl (per mL) IV (09:53)
[2024-07-31 11:10] LABS: Glucose Point of Care 126 mg/dL (70-110)
[2024-07-31] MEDS: propofol 1,000 MG/100 ML INJ 9 MG IV (11:35)
--- NOTE | 2024-07-31 12:02 | P.PN_ITS ---
Subjective 2 Subjective: Patient's respiratory status worsened overnight. She required intubation. She is intubated and sedated this morning. I was briefly able to talk to her guardian today. She does plan to visit today or tomorrow. Update given. Questions answered. Medications: Reviewed: Yes Vitals/I&O/Wt Last Vital Signs Temp 99.8 F H 07/31/24 10:00 Pulse 99 07/31/24 10:00 Resp 19 H 07/31/24 10:10 BP 139/76 07/31/24 10:00 Pulse Ox 95 07/31/24 10:10 O2 Del Method Mechanical Ventilation 07/31/24 07:55 O2 Flow Rate 60 07/31/24 02:30 FiO2 100 07/31/24 10:10 07/30/24 07/31/24 07/31/24 22:59 06:59 14:59 Intake Total 173.345 / 223.345 96.891 / 320.236 120.5 / 120.5 Output Total 350 / 350 300 / 650 Balance -176.655 / -126.655 -203.109 / -329.764 120.5 / 120.5 Weight last 48 hrs Weight 74 kg Weight 74 kg Weight 75 kg Weight 75 kg Physical Exam 2 Narrative: General: Patient is intubated and sedated. Head: Normocephalic. Neck: No JVD. Cardiovascular: RRR. No gallops. No murmurs. Lungs: Breath sounds are very coarse. Bibasilar rhonchi. Intubated on ventilator. Skin: No jaundice. No rashes. Abdomen: Normal bowel sounds, abdomen soft and nontender. Extremities: No cyanosis or clubbing. Neurological: No myoclonus. Limited neurological exam due to sedated status. Urinary Catheter Management: Graff: Cath Placed During This Visit: yes Reason for Continuing Indwelling Catheter: Accurate Measurement of Urinary Output in Critically Ill Patients Urinary Catheter Date of Insertion: 07/26/24 Urinary Catheter Time of Insertion: 19:54 Data 07/31/24 04:02 07/31/24 04:02 A&P Assessment and plan (1) Respiratory failure: Acute hypoxic respiratory failure Intubated overnight Fentanyl for analgesia Levophed for hemodynamic support Overall for analgesia PPI and DVT prophylaxis CT PE pending Continue treating underlying pneumonia (2) Pneumonia: Continue Zosyn Respiratory support as above Qualifiers: Pneumonia type: aspiration pneumonia Aspiration pneumonia type: u nspecified Laterality: unspecified laterality Lung location: lower lobe of lung Qualified Code(s): J69.0 - Pneumonitis due to inhalation of food and vomit (3) Acute left ICA ischemic stroke: Acute left ICA ischemic stroke resulting in flaccid right-sided extremities Therapy is on hold due to intubation status Suspect her pneumonia is from aspiration from the stroke Continue statin Continue aspirin (4) Ischemic cardiomyopathy: Stress test and echo normal, patient declines invasive workup Continue medical treatment with statin, aspirin, beta-joseluis Patient discussed with cardiology, Dr. Snider Hold Entresto and beta-joseluis due to hemodynamics (5) Type 2 diabetes mellitus without complications: Sliding-scale insulin correction (6) Essential (primary) hypertension: Hold antihypertensives (7) CAD (coronary artery disease): As above (8) Congestive heart failure due to cardiomyopathy: Daily assessments of volume (9) Common carotid artery stenosis: Plan Dysphagia: Speech therapy put on hold due to intubation status there is a moderately high risk that she will have continued dysphagia due to this large stroke. She may ultimately need a feeding tube. Her speech will be reevaluated when clinically appropriate. Urinary retention: Graff catheter Smoking addiction: Continue nicotine replacement Thrombocytopenia: Chronic. Monitor for bleeding. Continue other chronic medical history including DuoNeb as needed, mirtazapine nightly, Seroquel nightly, Flomax daily. CODE STATUS: Full code. Guarded information in chart. DVT prophylaxis: Heparin PDMP PDMP Reviewed: Not Reviewed Attestations 2 Medical Necessity Statement*: Patient requires ongoing hospitalization for vent support, vasopressors, IV antibiotics and supportive care. Critical Care Time: The high probability of a clinically significant, sudden or life threatening deterioration of the patient's pulmonary, neuro system(s) required my full and direct attention, intervention and personal management. The critical care time is as shown. This time is in addition to time spent performing any reported procedures but includes the following: [x] Data and vital sign review and interpretation [x] Patient assessment, examination and intervention [x] Documentation [x] Medication orders and management Critical Care Time (min): 35 Coding Level of Care Code Acute Code for [facility] Diagnoses Respiratory failure J96.90 Aspiration pneumonia of lower lobe, unspecified aspiration pneumonia type, unspecified laterality J69.0 Pneumonia type: aspiration pneumonia Aspiration pneumonia type: unspecified Laterality: unspecified laterality Lung location: lower lobe of lung Acute left ICA ischemic stroke I63.232 Ischemic cardiomyopathy I25.5 Type 2 diabetes mellitus without complications E11.9 Essential (primary) hypertension I10 CAD (coronary artery disease) I25.10 Congestive heart failure due to cardiomyopathy I50.9; I42.9 Common carotid artery stenosis I65.29
--- NOTE | 2024-07-31 12:36 | PC.OT ---
OT TREATMENT HELD DUE TO PATIENT INTUBATED
[2024-07-31] MEDS: fentaNYL 1,000 MCG/100 ML BAG 7.5 MCG IV (13:43)
[2024-07-31 16:56] LABS: Glucose Point of Care 137 mg/dL (70-110)
[2024-07-31] MEDS: guaiFENesin 100 mg/5 mL UDC 10 mL 400 MG PO ×2 (17:12→20:40)
[2024-07-31] MEDS: ATORVASTATIN 10 MG TABLET 20 MG PO (20:40)
[2024-07-31] MEDS: mirtazapine 15 mg Tablet PO (20:40)
[2024-07-31] MEDS: norepinephrine 4 MG/250 ML BAG 7.5 MG IV (21:35)
[2024-07-31 22:10] LABS: Glucose Point of Care 127 mg/dL (70-110)
[2024-08-01] VITALS (75 sets, daily range): BP systolic 79–142; BP diastolic 48–95; PULSE 64–110; RESP 14–15; TEMP 36.8–37.7; O2SAT 92–100
[2024-08-01] MEDS: ipratropium-albuterol 3 mL Neb INHALATION ×4 (00:02→20:30)
[2024-08-01] MEDS: acetylcysteine 200 mg/mL MDV 10 mL INHALATION ×5 (00:02→15:44)
[2024-08-01] MEDS: guaiFENesin 100 mg/5 mL UDC 10 mL 400 MG PO ×6 (00:46→21:29)
[2024-08-01] MEDS: piperacillin-tazobactam 3.375 GM in sodium chloride 0.9% (plus) 50 ML IV ×3 (00:47→17:23)
[2024-08-01] MEDS: propofol 1,000 MG/100 ML INJ 9 MG IV ×3 (00:47→17:29)
[2024-08-01] MEDS: fentaNYL 1,000 MCG/100 ML BAG 7.5 MCG IV ×2 (03:00→15:24)
[2024-08-01] MEDS: chlorhexidine gluconate 4% Btl 118 mL 1 APPLIC TOPICAL (03:26)
[2024-08-01 03:54] LABS: Basophils % 0.1 %; Eosinophils # 0.4 10^3/uL (0.0-0.8); Eosinophils % 5.1 %; Hematocrit 32.5 % (36-47); Lymphocytes # 0.9 10^3/uL (0.8-4.8); Lymphocytes % 9.9 %; Mean Corpuscular HGB Conc 31.1 g/dL (30-55); Mean Corpuscular Hemoglobin 30.5 pg (27-33); Mean Corpuscular Volume 98.2 fl (85-98); Monocytes # 0.7 10^3/uL (0.2-0.9); Monocytes % 8.1 %; Neutrophils # 6.56 10^3/uL (1.8-7.7); Neutrophils % 76.3 %; Nucleated Red Blood Cells % 0 %; Platelet Count 100 10^3/cmm (157-399); Red Blood Count 3.31 10^6/uL (3.85-5.65); Red Cell Distribution Width 14.6 % (12.1-15.1)
--- NOTE | 2024-08-01 04:00 | XRR_ITS ---
PROCEDURE INFORMATION: Exam: XR Chest Exam date and time: 08/01/2024 3:44 AM Age: 74 years old Clinical indication: Shortness of breath; Additional info: Resp failure TECHNIQUE: Imaging protocol: Radiologic exam of the chest. Views: 1 view. COMPARISON: CT angio chest PE protcl [id number] 07/31/2024 9:43 AM FINDINGS: Tubes, catheters and devices: Feeding tube is placed with its tip at least in the proximal stomach. An endotracheal tube is placed with its tip approximately 4.1 cm from the [place]. Lungs: There is mild prominence and indistinctness of the pulmonary vasculature and hazy opacities are seen in the lower barbara thoraces bilaterally, left more prominent than right. These findings suggest pulmonary edema. Superimposed infiltrates and pneumonia can not be entirely excluded. Pleural spaces: May be a left pleural effusion layering posteriorly. Heart/Mediastinum: Unremarkable. No cardiomegaly. Bones/joints: Unremarkable. XR/XR chest 1V portable [id number] IMPRESSION: 1. Stable life support tubing. 2. Mild prominence and indistinctness of the pulmonary vasculature and some hazy opacity seen in the hemithoraces bilaterally could represent pulmonary edema. Superimposed infiltrates and pneumonia can not entirely excluded. 3. There may be a layering posterior left pleural effusion.
[2024-08-01 04:13] LABS: Alanine Aminotransferase 8 U/L (0-33); Albumin Level 2.9 g/dL (3.5-5.2); Alkaline Phosphatase 77 U/L (35-105); Aspartate Amino Transferase 22 U/L (0-32); Blood Urea Nitrogen 18 mg/dL (8-23); Calcium 8.4 mg/dL (8.5-10.5); Carbon Dioxide 23 mmol/L (22-29); Chloride 106 mmol/L (98-107); Creatinine Clr Calc Pharmacy 44.1138; Globulin 3.3 g/dL (1.3-4.6); Glucose 103 mg/dL (65-115); Magnesium 2.5 mg/dL (1.7-2.3); Osmolality Calculated 292 mOsm/kg (285-295); Phosphorus 2.8 mg/dL (2.5-4.5); Sodium 140 mmol/L (136-145); Total Bilirubin 1.1 mg/dL (0.15-1.2); Total Protein 6.2 g/dL (6.6-8.7)
[2024-08-01 04:22] LABS: Anion Gap 14.4 (5-19); Potassium 3.4 mmol/L (3.5-5.1)
[2024-08-01 06:15] LABS: ABG PCO2 48.4 mmHg (35-45); ABG PH Result 7.37 (7.35-7.45); Alveolar-Arterial Oxygen Gradi 36.9 mmHg (5-10); Arterial Blood Gas Hematocrit 40.9 % (37-47); Base Excess ABG 1.7 mmol/L (-2.0-2.0); Blood Gas Allen Test Pos; Blood Gas Operator Identificat SAM; Blood Gas Sample Site Radial, right; Blood Gas Sample Type Arterial; HCO3 ABG 27.8 mmol/L (22-26); HGB O2 Sat 94.8 % (95-100); Ionized Calcium Level - ABG 1.2 mmol/L (1.1-1.4); Methemoglobin 1.1 % (0.4-1.5); Oxygen Device VENT; Oxygen Saturation ABG 96.8; PO2 ABG 85.5 mmHg (80.0-100.0); PO2 FiO2 Ratio Arterial Blood 142; Potassium Level - ABG 3.3 mmol/L (3.5-5.0); Total Hemoglobin 13.4 g/dL (12-16)
[2024-08-01 07:30] LABS: Glucose Point of Care 116 mg/dL (70-110)
--- NOTE | 2024-08-01 08:24 | P.PN_ITS ---
Subjective 2 Subjective: Patient still remains intubated. Oxygenation slowly improving. Being treated for pneumonia. Medications: Medication Review Details: Current Medications Acetaminophen (Acetaminophen 325 Mg Tablet) 650 mg PO Q6H PRN PRN Reason: Mild/Mod Pain Or Temp >/= 101 Last Admin: 07/30/24 20:06 Dose: 650 mg Acetylcysteine (Acetylcysteine 200 Mg/Ml Mdv 10 Ml) 200 mg INHALATION Q4H.RESPIRATORY JUSTIN Last Admin: 08/01/24 04:08 Dose: 200 mg Albuterol Sulfate (Albuterol 2.5 Mg/3 Ml Neb) 2.5 mg INHALATION Q6H.RESP JUSTIN Last Admin: 08/01/24 03:56 Dose: Not Given Albuterol/Ipratropium (Ipratropium-Albuterol 3 Ml Neb) 3 ml INHALATION Q4H PRN PRN Reason: Shortness Of Breath Or Wheezing Last Admin: 08/01/24 04:08 Dose: 3 ml Aspirin (Aspirin 81 Mg Ec Tablet) 81 mg PO DAILY JUSTIN Last Admin: 07/31/24 08:49 Dose: 81 mg Atorvastatin Calcium (Atorvastatin 10 Mg Tablet) 20 mg PO BEDTIME JUSTIN Last Admin: 07/31/24 20:40 Dose: 20 mg Carvedilol (Carvedilol 6.25 Mg Tablet) 6.25 mg PO BID [facility] Last Admin: 07/30/24 18:30 Dose: Not Given Chlorhexidine Gluconate (Chlorhexidine Gluconate 4% Btl 118 Ml) 1 applic TOPICAL DAILY PRN PRN Reason: Daily bed bath/intubated pt. Last Admin: 08/01/24 03:26 Dose: 1 applic Glucagon (Glucagon 1 Mg/Ml Kit 1 Ml) 1 mg IM ONCE PRN; Protocol PRN Reason: Adult Acute Hypoglycemia Nursing Prot. Guaifenesin (Guaifenesin 100 Mg/5 Ml Udc 10 Ml) 400 mg PO Q4H [facility] Last Admin: 08/01/24 05:41 Dose: 400 mg Heparin Sodium (Porcine) (Heparin 5,000 Unit/Ml Inj 1 Ml) 5,000 unit SUBCUT Q12H JSUTIN Last Admin: 07/31/24 20:40 Dose: 5,000 unit Dextrose (D5w) 500 mls @ 0 mls/hr IV ONCE PRN; Protocol PRN Reason: Adult Acute Hypoglycemia Prot Dextrose (D10w) 125 mls @ 750 mls/hr IV PRN PRN; Protocol PRN Reason: Adult Acute Hypoglycemia Nursing Protocol Dextrose (D10w) 250 mls @ 1,000 mls/hr IV PRN PRN; Protocol PRN Reason: Adult Acute Hypoglycemia Nursing Protocol Piperacillin Sod/Tazobactam (Sod 3.375 gm/ Sodium Chloride) 50 mls @ 12.5 mls/hr IV Q8H JUSTIN; Protocol Last Infusion: 08/01/24 04:49 Dose: Infused Dexmedetomidine/Sodium Chloride (Precedex) 400 mcg in 100 mls @ 0 mls/hr IV .Q0M JUSTIN; Protocol Last Titration: 07/31/24 02:50 Dose: 0 mcg/kg/hr, 0 mls/hr Propofol (Diprivan) 1,000 mg in 100 mls @ 0 mls/hr IV .Q0M JUSTIN; Protocol Last Titration: 08/01/24 05:36 Dose: 20 mcg/kg/min, 9 mls/hr Fentanyl (Sublimaze) 1,000 mcg in 100 mls @ 0 mls/hr IV .Q0M JUSTIN; Protocol Last Titration: 08/01/24 05:36 Dose: 75 mcg/hr, 7.5 mls/hr Norepinephrine Bitartrate (Levophed) 4 mg in 250 mls @ 0 mls/hr IV .Q0M JUSTIN; Protocol Last Titration: 08/01/24 01:05 Dose: 0 mcg/min, 0 mls/hr Insulin Human Lispro (Insulin Lispro 100 Unit/1 Ml) 0 unit SUBCUT Q6H JUSTIN; Protocol Last Admin: 08/01/24 05:37 Dose: Not Given Lactulose (Lactulose Oral Liq 20 Gm/30 Ml Udc) 10 gm PO DAILY PRN; Protocol PRN Reason: Constipation (see protocol) Magnesium Hydroxide (Magnesium Hydroxide 30 Ml Udc) 30 ml PO DAILY PRN; Protocol PRN Reason: Constipation (see protocol) Mirtazapine (Mirtazapine 15 Mg Tablet) 15 mg PO BEDTIME JUSTIN Last Admin: 07/31/24 20:40 Dose: 15 mg Ondansetron HCl (Ondansetron 2 Mg/Ml Sdv 2 Ml) 4 mg IVP Q6H PRN PRN Reason: vomiting, or N/V if npo Pantoprazole Sodium (Pantoprazole 40 Mg Sdv) 40 mg IVP Q24H [facility] Last Admin: 07/31/24 08:49 Dose: 40 mg Quetiapine Fumarate (Quetiapine Xr (24hr) 50 Mg Tablet) 200 mg PO BEDTIME [facility] Last Admin: 07/31/24 21:02 Dose: Not Given Tamsulosin HCl (Tamsulosin 0.4 Mg Capsule) 0.4 mg PO BEDTIME [facility] Last Admin: 07/30/24 20:06 Dose: 0.4 mg Vitals/I&O/Wt Last Vital Signs Temp 99.2 F 08/01/24 04:00 Pulse 77 08/01/24 06:15 Resp 14 08/01/24 08:00 BP 101/58 08/01/24 06:15 Pulse Ox 97 08/01/24 08:00 O2 Del Method Mechanical Ventilation 08/01/24 06:15 O2 Flow Rate 60 07/31/24 02:30 FiO2 60 08/01/24 08:00 07/31/24 08/01/24 08/01/24 22:59 06:59 14:59 Intake Total 1405 / 1600.0 279.155 / 1879.155 Output Total 300 / 300 500 / 800 Balance 1105 / 1300.0 -220.845 / 1079.155 Weight last 48 hrs Weight 170 lb 13.732 oz Weight 163 lb 2.273 oz Weight 163 lb 2.273 oz Physical Exam 2 Narrative: GENERAL: Patient is intubated and is sedated. Just barely opens her eyes with verbal commands HEENT: No significant pallor, icterus or lymphadenopathy.Oral cavity: There are no mucous membrane lesions. NECK: Trachea appears to be central. No masses noted. No JVD or thyromegaly appreciated. RESPIRATORY: Chest is symmetrical. No intercostals muscle retraction or any accessory muscle activation. There is no chest wall tenderness. Breath sounds are heard bilaterally. The breath sounds are diminished in the left base. Scattered coarse crackles on both sides. BREASTS: Deferred. HEART: The heart sounds are normal. No S3 or S4. Short systolic murmur in the lower sternal border. No diastolic murmurs.. No pericardial rub ABDOMEN: No vessel pulsations or distention. No tenderness. No organomegaly appreciated. Bowel sounds are normally heard. : Deferred. RECTAL: Deferred. LYMPHATIC: No lymphadenopathy noted in the neck or groin. EXTREMITIES: No edema or cyanosis. No clubbing. Peripheral pulses are palpated in fairly good volume and amplitude MUSCULOSKELETAL: No acute joint deformities or swelling SKIN: There are no significant scars or skin rash noted. NEUROPSYCHIATRIC: Intubated and sedated Urinary Catheter Management: Graff: Cath Placed During This Visit: yes Reason for Continuing Indwelling Catheter: Accurate Measurement of Urinary Output in Critically Ill Patients Urinary Catheter Date of Insertion: 07/26/24 Urinary Catheter Time of Insertion: 19:54 Data 08/02/24 04:42 08/02/24 04:42 Other Labs: Laboratory Last Values WBC 7.49 10^3/uL (3.29-11.43) 08/02/24 04:42 RBC 3.16 10^6/uL (3.85-5.65) L 08/02/24 04:42 Hgb 9.60 g/dL (11.27-16.99) L 08/02/24 04:42 Hct 31.0 % (36-47) L 08/02/24 04:42 MCV 98.1 fl (85-98) H 08/02/24 04:42 MCH 30.4 pg (27-33) 08/02/24 04:42 MCHC 31.0 g/dL (30-55) 08/02/24 04:42 RDW 14.7 % (12.1-15.1) 08/02/24 04:42 Plt Count 116 10^3/cmm (157-399) L 08/02/24 04:42 MPV 11.1 fL (7.4-10.4) H 08/02/24 04:42 Neut % (Auto) 64.8 % 08/02/24 04:42 Lymph % (Auto) 16.8 % 08/02/24 04:42 [place] % (Auto) 9.7 % 08/02/24 04:42 Eos % (Auto) 7.9 % 08/02/24 04:42 Baso % (Auto) 0.3 % 08/02/24 04:42 Neut # (Auto) 4.85 10^3/uL (1.8-7.7) 08/02/24 04:42 Lymph # (Auto) 1.3 10^3/uL (0.8-4.8) 08/02/24 04:42 [place] # (Auto) 0.7 10^3/uL (0.2-0.9) 08/02/24 04:42 Eos # (Auto) 0.6 10^3/uL (0.0-0.8) 08/02/24 04:42 Baso # (Auto) 0.0 10^3/uL (0.0-0.1) 08/02/24 04:42 Nucleated RBC % (auto) 0 % 08/02/24 04:42 Nucleated RBCs # 0.0 /100WBC 08/02/24 04:42 PT 13.50 SECONDS (12.1-14.9) 07/25/24 09:30 INR 0.96 (0.8-1.2) 07/25/24 09:30 APTT 26.0 SECONDS (23.9-36.7) 07/25/24 09:30 D-Dimer 2.04 ug/mLFEU (0-0.59) H 07/29/24 18:50 Specimen Type Arterial 08/02/24 03:24 Sample Site Radial, right 08/02/24 03:24 ABG pH 7.36 (7.35-7.45) 08/02/24 03:24 ABG pCO2 48.6 mmHg (35-45) H 08/02/24 03:24 ABG pO2 103.0 mmHg (80.0-100.0) H 08/02/24 03:24 ABG PO2/FiO2 Ratio 206 08/02/24 03:24 ABG HCO3 27.4 mmol/L (22-26) H 08/02/24 03:24 ABG O2 Saturation 97.3 08/02/24 03:24 ABG Base Excess 1.3 mmol/L (-2.0-2.0) 08/02/24 03:24 Joshua Test Pos 08/02/24 03:24 A-a O2 Gradient 25.4 mmHg (5-10) H 08/02/24 03:24 Hematocrit 40.4 % (37-47) 08/02/24 03:24 Hgb O2 Saturation 96.3 % (95-100) 08/02/24 03:24 Carboxyhemoglobin 0.2 %THgb (0.4-20.1) L 08/02/24 03:24 Methemoglobin 0.9 % (0.4-1.5) 08/02/24 03:24 Total Hemoglobin 13.2 g/dL (12-16) 08/02/24 03:24 Sodium 141.0 mmol/L (131-143) 08/02/24 03:24 Potassium 3.7 mmol/L (3.5-5.0) 08/02/24 03:24 Glucose 124.0 mg/dL (70-115) H 08/02/24 03:24 Ionized Calcium 1.2 mmol/L (1.1-1.4) 08/02/24 03:24 O2 Delivery Device Vent 08/02/24 03:24 O2 Liters/Min 60.0 % 07/31/24 02:29 FiO2 50.0 % 08/02/24 03:24 Tidal Volume 0.40 08/01/24 06:04 PEEP 8.0 cmH20 08/02/24 03:24 Associate Drafter ID Lewis 08/02/24 03:24 Sodium 141 mmol/L (136-145) 08/02/24 04:42 Potassium 4.2 mmol/L (3.5-5.1) 08/02/24 04:42 Chloride 106 mmol/L (98-107) 08/02/24 04:42 Carbon Dioxide 24 mmol/L (22-29) 08/02/24 04:42 Anion Gap 15.2 (5-19) 08/02/24 04:42 BUN 18 mg/dL (8-23) 08/02/24 04:42 Creatinine 1.4 mg/dL (0.5-0.9) H 08/02/24 04:42 GFR Calculation Not Reportable 08/02/24 04:42 Glucose 131 mg/dL (65-115) H 08/02/24 04:42 POC Glucose 162 mg/dL (70-110) H 08/02/24 05:13 Estimat Average Glucose 131 07/26/24 04:49 Hemoglobin A1c 6.2 % (4.0-6.0) H 07/26/24 04:49 Calculated Osmolality 296 mOsm/kg (285-295) H 08/02/24 04:42 Calcium 8.2 mg/dL (8.5-10.5) L 08/02/24 04:42 Phosphorus 3.1 mg/dL (2.5-4.5) 08/02/24 04:42 Magnesium 2.7 mg/dL (1.7-2.3) H 08/02/24 04:42 Iron 77 ug/dL (37-145) 07/25/24 09:30 TIBC 326 mcg/dl 07/25/24 09:30 % Saturation 23.6 % (20-50) 07/25/24 09:30 Unsat Iron Binding 249 ug/dL (112-347) 07/25/24 09:30 Total Bilirubin 0.7 mg/dL (0.15-1.2) 08/02/24 04:42 AST 38 U/L (0-32) H 08/02/24 04:42 ALT 14 U/L (0-33) 08/02/24 04:42 Alkaline Phosphatase 123 U/L (35-105) H 08/02/24 04:42 Troponin T Baseline 20 ng/L (0-10) H 07/25/24 09:30 Troponin T 120 Minute 16.98 ng/L (0-10) H 07/25/24 12:31 Delta Troponin T -3.02 ABS# (0-10) L 07/25/24 12:31 Troponin T Hi Sens 6Hr 18.87 ng/L (0-10) H 07/25/24 15:21 Troponin T Hi Sens 6Hr Delta -1.13 ng/L (0-12) L 07/25/24 15:21 NT-Pro-B Natriuret Pep 5660 pg/mL (0-125) H 07/27/24 05:06 Total Protein 6.5 g/dL (6.6-8.7) L 08/02/24 04:42 Albumin 3.0 g/dL (3.5-5.2) L 08/02/24 04:42 Globulin 3.5 g/dL (1.3-4.6) 08/02/24 04:42 Triglycerides 305 mg/dL (0-150) H 07/26/24 04:49 Cholesterol 151 mg/dL (0-200) 07/26/24 04:49 LDL Cholesterol, Calc 60 mg/dL (50-129) 07/26/24 04:49 HDL Cholesterol 30 mg/dL (60-100) L 07/26/24 04:49 LDL/HDL Ratio 2.00 RATIO (0.00-3.22) 07/26/24 04:49 Cholesterol/HDL Ratio 5.03 mg/dL (0.0-4.40) H 07/26/24 04:49 Vitamin B12 687 pg/mL (232-1245) 07/25/24 09:30 Folate 9.3 ng/mL (4.8-37.3) 07/26/24 04:49 Procalcitonin 0.05 ng/mL (0-0.5) 07/25/24 09:30 TSH 1.65 uIU/mL (0.27-4.20) 07/25/24 09:30 Urine Color Yellow (Yellow) 07/25/24 09:43 Urine Appearance Clear (CLEAR) 07/25/24 09:43 Urine pH 6 (5-7) 07/25/24 09:43 Ur Specific [place] 1.015 (1.005-1.030) 07/25/24 09:43 Urine Protein Neg (Negative) 07/25/24 09:43 Urine Glucose (UA) Norm (Normal) 07/25/24 09:43 Urine Ketones Negative (Negative) 07/25/24 09:43 Urine Blood Neg (Negative) 07/25/24 09:43 Urine Nitrate Negative (Negative) 07/25/24 09:43 Urine Bilirubin Neg (Negative) 07/25/24 09:43 Urine Urobilinogen Neg mg/dL (Negative) 07/25/24 09:43 Ur Leukocyte Esterase Negative (Negative) 07/25/24 09:43 Urine RBC 0-2 /hpf (0-2) 07/25/24 09:43 Urine WBC 0-5 /hpf (0-5) 07/25/24 09:43 Ur Squamous Epith Cells 0-5 /hpf (0-5) 07/25/24 09:43 Amorphous Sediment Not Reportable 07/25/24 09:43 Urine Bacteria None seen /hpf (NONE) 07/25/24 09:43 Hyaline Casts 0.81 /lpf 07/25/24 09:43 Urine Opiates Screen Negative ng/mL (Negative) 07/25/24 09:43 Ur Barbiturates Screen Negative ng/mL (Negative) 07/25/24 09:43 Ur Phencyclidine Scrn Negative ng/mL (Negative) 07/25/24 09:43 Ur Amphetamines Screen Negative ng/mL (Negative) 07/25/24 09:43 U Benzodiazepines Scrn Negative ng/mL (Negative) 07/25/24 09:43 Urine Cocaine Screen Negative ng/mL (Negative) 07/25/24 09:43 U Marijuana (THC) Screen Negative ng/mL (Negative) 07/25/24 09:43 A&P Assessment and plan (1) Abnormal cardiovascular stress test: Patient seems to have moderate to large areas of fixed defect with a small area of reversible defect suggesting extensive myocardial scarring with small area of ischemia. The implication of the test finding was discussed with the patient in detail. In order to better evaluate the coronary status, she requires a cardiac catheterization. The patient is not wanting to undergo any invasive or interventional procedures. She seems to understand the implications. I also talked to the patient's the power of plasma specialist-Katt San, who also concurred with the patient's decision. Will continue the current measures (2) Hypotension: Patient he was on Levophed. Currently it is discontinued. Qualifiers: Hypotension type: other hypotension type Qualified Code(s): I95.89 - Other hypotension (3) Atherosclerosis of coronary artery of [place] heart without angina pectoris: The details of her coronary status is not available at this time. The Myocardial perfusion imaging findings as mentioned above. Will continue on the medical management Qualifiers: Coronary Disease-Associated Artery/Lesion type: [place] artery Qualified Code(s): I25.10 - Atherosclerotic heart disease of [place] coronary artery without angina pectoris (4) Ischemic cardiomyopathy: Because of the hypotension, the Entresto is on hold at this point. (5) Pneumonia: Because of the worsening hypoxemia, she had a CT of the chest. The CT revealed no PE. So she is being treated for pneumonia. Qualifiers: Aspiration pneumonia type: unspecified Laterality: unspecified laterality Lung location: lower lobe of lung Pneumonia type: aspiration pneumonia Qualified Code(s): J69.0 - Pneumonitis due to inhalation of food and vomit (6) Type 2 diabetes mellitus: Management as per the primary. 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 (8) Acute left ICA ischemic stroke: Management as per the neurology service. Plan Continue on the current management. Continues to hold the Entresto. I would like to see her more stable before we start this medication PDMP PDMP Reviewed: Not Reviewed Attestations 2 Medical Necessity Statement*: Deferred to the primary Coding Level of Care Code 34967 Diagnoses Abnormal cardiovascular stress test R94.39 Other specified hypotension I95.89 Hypotension type: other hypotension type Atherosclerosis of [place] coronary artery of [place] heart without angina pectoris I25.10 Coronary Disease-Associated Artery/Lesion type: [place] artery Ischemic cardiomyopathy I25.5 Aspiration pneumonia of lower lobe, unspecified aspiration pneumonia type, unspecified laterality J69.0 Aspiration pneumonia type: unspecified Laterality: unspecified laterality Lung location: lower lobe of lung Pneumonia type: aspiration pneumonia Type 2 diabetes mellitus with other circulatory complication, with long-term current use of insulin E11.59; Z79.4 Diabetes mellitus complication detail: with other circulatory complications Diabetes mellitus complication status: with circulatory complication Diabetes mellitus tank terminal gauger insulin use: with tank terminal gauger use Chronic kidney disease, stage 4 (severe) N18.4 Acute left ICA ischemic stroke I63.232
[2024-08-01] MEDS: albuterol 2.5 mg/3 mL Neb INHALATION ×2 (08:27→15:44)
--- NOTE | 2024-08-01 08:36 | PM.PN ---
Subjective Subjective: Patient intubated and sedation which limits history. Levophed currently off. Medications: Reviewed: Yes Medication Review Details: Current Medications Acetaminophen (Acetaminophen 325 Mg Tablet) 650 mg PO Q6H PRN PRN Reason: Mild/Mod Pain Or Temp >/= 101 Last Admin: 07/30/24 20:06 Dose: 650 mg Acetylcysteine (Acetylcysteine 200 Mg/Ml Mdv 10 Ml) 200 mg INHALATION Q4H.RESPIRATORY JUSTIN Last Admin: 08/01/24 04:08 Dose: 200 mg Albuterol Sulfate (Albuterol 2.5 Mg/3 Ml Neb) 2.5 mg INHALATION Q6H.RESP JUSTIN Last Admin: 08/01/24 03:56 Dose: Not Given Albuterol/Ipratropium (Ipratropium-Albuterol 3 Ml Neb) 3 ml INHALATION Q4H PRN PRN Reason: Shortness Of Breath Or Wheezing Last Admin: 08/01/24 04:08 Dose: 3 ml Aspirin (Aspirin 81 Mg Ec Tablet) 81 mg PO DAILY [facility] Last Admin: 07/31/24 08:49 Dose: 81 mg Atorvastatin Calcium (Atorvastatin 10 Mg Tablet) 20 mg PO BEDTIME JUSTIN Last Admin: 07/31/24 20:40 Dose: 20 mg Carvedilol (Carvedilol 6.25 Mg Tablet) 6.25 mg PO BID [facility] Last Admin: 07/30/24 18:30 Dose: Not Given Chlorhexidine Gluconate (Chlorhexidine Gluconate 4% Btl 118 Ml) 1 applic TOPICAL DAILY PRN PRN Reason: Daily bed bath/intubated pt. Last Admin: 08/01/24 03:26 Dose: 1 applic Glucagon (Glucagon 1 Mg/Ml Kit 1 Ml) 1 mg IM ONCE PRN; Protocol PRN Reason: Adult Acute Hypoglycemia Nursing Prot. Guaifenesin (Guaifenesin 100 Mg/5 Ml Udc 10 Ml) 400 mg PO Q4H [facility] Last Admin: 08/01/24 05:41 Dose: 400 mg Heparin Sodium (Porcine) (Heparin 5,000 Unit/Ml Inj 1 Ml) 5,000 unit SUBCUT Q12H JUSTIN Last Admin: 07/31/24 20:40 Dose: 5,000 unit Dextrose (D5w) 500 mls @ 0 mls/hr IV ONCE PRN; Protocol PRN Reason: Adult Acute Hypoglycemia Prot Dextrose (D10w) 125 mls @ 750 mls/hr IV PRN PRN; Protocol PRN Reason: Adult Acute Hypoglycemia Nursing Protocol Dextrose (D10w) 250 mls @ 1,000 mls/hr IV PRN PRN; Protocol PRN Reason: Adult Acute Hypoglycemia Nursing Protocol Piperacillin Sod/Tazobactam (Sod 3.375 gm/ Sodium Chloride) 50 mls @ 12.5 mls/hr IV Q8H JUSTIN; Protocol Last Infusion: 08/01/24 04:49 Dose: Infused Dexmedetomidine/Sodium Chloride (Precedex) 400 mcg in 100 mls @ 0 mls/hr IV .Q0M JUSTIN; Protocol Last Titration: 07/31/24 02:50 Dose: 0 mcg/kg/hr, 0 mls/hr Propofol (Diprivan) 1,000 mg in 100 mls @ 0 mls/hr IV .Q0M JUSTIN; Protocol Last Titration: 08/01/24 05:36 Dose: 20 mcg/kg/min, 9 mls/hr Fentanyl (Sublimaze) 1,000 mcg in 100 mls @ 0 mls/hr IV .Q0M JUSTIN; Protocol Last Titration: 08/01/24 05:36 Dose: 75 mcg/hr, 7.5 mls/hr Norepinephrine Bitartrate (Levophed) 4 mg in 250 mls @ 0 mls/hr IV .Q0M JUSTIN; Protocol Last Titration: 08/01/24 01:05 Dose: 0 mcg/min, 0 mls/hr Insulin Human Lispro (Insulin Lispro 100 Unit/1 Ml) 0 unit SUBCUT Q6H JUSTIN; Protocol Last Admin: 08/01/24 05:37 Dose: Not Given Lactulose (Lactulose Oral Liq 20 Gm/30 Ml Udc) 10 gm PO DAILY PRN; Protocol PRN Reason: Constipation (see protocol) Magnesium Hydroxide (Magnesium Hydroxide 30 Ml Udc) 30 ml PO DAILY PRN; Protocol PRN Reason: Constipation (see protocol) Mirtazapine (Mirtazapine 15 Mg Tablet) 15 mg PO BEDTIME JUSTIN Last Admin: 07/31/24 20:40 Dose: 15 mg Ondansetron HCl (Ondansetron 2 Mg/Ml Sdv 2 Ml) 4 mg IVP Q6H PRN PRN Reason: vomiting, or N/V if npo Pantoprazole Sodium (Pantoprazole 40 Mg Sdv) 40 mg IVP Q24H [facility] Last Admin: 07/31/24 08:49 Dose: 40 mg Quetiapine Fumarate (Quetiapine Xr (24hr) 50 Mg Tablet) 200 mg PO BEDTIME [facility] Last Admin: 07/31/24 21:02 Dose: Not Given Tamsulosin HCl (Tamsulosin 0.4 Mg Capsule) 0.4 mg PO BEDTIME [facility] Last Admin: 07/30/24 20:06 Dose: 0.4 mg Vitals/I&O/Wt Last Vital Signs Temp 99.2 F 08/01/24 04:00 Pulse 73 08/01/24 08:31 Resp 14 08/01/24 08:31 BP 101/58 08/01/24 06:15 Pulse Ox 98 08/01/24 08:31 O2 Del Method Mechanical Ventilation 08/01/24 08:31 O2 Flow Rate 60 07/31/24 02:30 FiO2 60 08/01/24 08:31 07/31/24 08/01/24 08/01/24 22:59 06:59 14:59 Intake Total 1405 / 1600.0 279.155 / 1879.155 Output Total 300 / 300 500 / 800 Balance 1105 / 1300.0 -220.845 / 1079.155 Weight last 48 hrs Weight 77.5 kg Weight 74 kg Weight 74 kg Physical Exam Narrative: General: Patient is intubated and sedated. Head: Normocephalic. Neck: No JVD. Cardiovascular: RRR. No gallops. No murmurs. Lungs: Breath sounds remain coarse and diminished in bases. Bibasilar rhonchi. Intubated on ventilator. Skin: No jaundice. No rashes. Abdomen: Hypoactive bowel sounds, abdomen soft. Extremities: No cyanosis or clubbing. Neurological: No myoclonus. Limited neurological exam due to sedated status. Urinary Catheter Management: Graff: Cath Placed During This Visit: yes Reason for Continuing Indwelling Catheter: Accurate Measurement of Urinary Output in Critically Ill Patients Urinary Catheter Date of Insertion: 07/26/24 Urinary Catheter Time of Insertion: 19:54 Data 08/01/24 03:27 08/01/24 03:27 A&P Assessment and plan (1) Respiratory failure: Acute hypoxic respiratory failure Intubated overnight, 07/31 Fentanyl for analgesia Levophed for MAP of >65 mmHg PPI and DVT prophylaxis; bowel regiment Start trickle feeds CT reviewed (2) Pneumonia: Continue Zosyn Respiratory support as above Qualifiers: Pneumonia type: aspiration pneumonia Aspiration pneumonia type: unspecified Laterality: unspecified laterality Lung location: lower lobe of lung Qualified Code(s): J69.0 - Pneumonitis due to inhalation of food and vomit (3) Acute left ICA ischemic stroke: Acute left ICA ischemic stroke resulting in flaccid right-sided extremities Suspect pneumonia is aspiration from the stroke Continue statin Continue aspirin (4) Ischemic cardiomyopathy: Continue medical treatment with statin, aspirin, beta-joseluis Hold Entresto and beta-joseluis due to hemodynamics (5) Type 2 diabetes mellitus without complications: Sliding-scale insulin correction (6) Essential (primary) hypertension: Hold antihypertensives (7) CAD (coronary artery disease): As above (8) Congestive heart failure due to cardiomyopathy: Daily assessments of volume (9) Common carotid artery stenosis: Plan Dysphagia: She will need repeat speech therapy evaluation after extubation Urinary retention: Graff catheter Smoking addiction: Would benefit from cessation Thrombocytopenia: Chronic. Monitor for bleeding. Continue other chronic medical history including DuoNeb as needed, mirtazapine nightly, Seroquel nightly, Flomax daily. CODE STATUS: Full code. Guarded information in chart. DVT prophylaxis: Heparin PDMP PDMP Reviewed: Not Reviewed Attestations Medical Necessity Statement*: Patient requires ongoing hospitalization for vent support, IV antibiotics and supportive care. Critical Care Time: The high probability of a clinically significant, sudden or life threatening deterioration of the patient's respiratory, circulatory system(s) required my full and direct attention, intervention and personal management. The critical care time is as shown. This time is in addition to time spent performing any reported procedures but includes the following: [x] Data and vital sign review and interpretation [x] Patient assessment, examination and intervention [x] Documentation [x] Medication orders and management Critical Care Time (min): 33 Coding Level of Care Code Acute Code for [facility] Fwd Diagnoses Respiratory failure J96.90 Aspiration pneumonia of lower lobe, unspecified aspiration pneumonia type, unspecified laterality J69.0 Pneumonia type: aspiration pneumonia Aspiration pneumonia type: unspecified Laterality: unspecified laterality Lung location: lower lobe of lung Acute left ICA ischemic stroke I63.232 Ischemic cardiomyopathy I25.5 Type 2 diabetes mellitus without complications E11.9 Essential (primary) hypertension I10 CAD (coronary artery disease) I25.10 Congestive heart failure due to cardiomyopathy I50.9; I42.9 Common carotid artery stenosis I65.29
--- NOTE | 2024-08-01 08:46 | PC.SOCIAL ---
IMM Update pg 2 of IMM not updated w/ patient as she is intubated and not anticipated to DC in the next 48 hours. Copy left @ bedside and copy in chart dated and initialed.
[2024-08-01] MEDS: potassium chloride oral liq 20 mEq/15 mL UDC 40 MEQ NG-TUBE (09:00)
[2024-08-01] MEDS: heparin 5,000 unit/mL INJ 1 mL 5000 UNIT SUBCUT ×2 (09:00→21:29)
[2024-08-01] MEDS: aspirin 81 mg EC Tablet PO (09:00)
[2024-08-01] MEDS: pantoprazole 40 mg SDV IVP (09:01)
--- NOTE | 2024-08-01 09:11 | PC.NUTR ---
Received consult for TF recommendations. When medically appropriate recommend Glucerna 1.5 starting @15mls/hr, increasing 10mls Q4-8H as tolerated until goal rate of 35mls/hr with FWF 100mls Q4H or per MD discretion.
[2024-08-01 11:17] LABS: Glucose Point of Care 124 mg/dL (70-110)
[2024-08-01 17:20] LABS: Glucose Point of Care 116 mg/dL (70-110)
[2024-08-01 17:21] LABS: Glucose Point of Care 117 mg/dL (70-110)
--- NOTE | 2024-08-01 18:52 | PC.NURSE ---
Shift summary: Pt rested in bed throughout the shift. She remains sedated and intubated. FIO 2 decreased to 50%. No changes to Fentanyl and Propofol gtt rates. Jevity 1.5 tube feeding started today with q 4 hr H2O flushes. Skin remains intact. Sinus with BBB noted on monitor. Urine out put of 200 noted. No Bm noted.
[2024-08-01] MEDS: ATORVASTATIN 10 MG TABLET 20 MG PO (21:29)
[2024-08-01] MEDS: mirtazapine 15 mg Tablet PO (21:29)
[2024-08-02] VITALS (70 sets, daily range): BP systolic 88–133; BP diastolic 46–72; PULSE 56–105; RESP 14; TEMP 36.6–37.4; O2SAT 90–100
[2024-08-02 00:01] LABS: Glucose Point of Care 152 mg/dL (70-110)
[2024-08-02] MEDS: insulin lispro 100 unit/1 mL SUBCUT ×4 (00:03→17:25)
[2024-08-02] MEDS: guaiFENesin 100 mg/5 mL UDC 10 mL 400 MG PO ×6 (00:39→20:03)
[2024-08-02] MEDS: fentaNYL 1,000 MCG/100 ML BAG 10 MCG IV ×2 (00:39→21:33)
[2024-08-02] MEDS: piperacillin-tazobactam 3.375 GM in sodium chloride 0.9% (plus) 50 ML IV ×3 (00:39→17:15)
[2024-08-02] MEDS: ipratropium-albuterol 3 mL Neb INHALATION (00:47)
[2024-08-02 03:36] LABS: ABG PCO2 48.6 mmHg (35-45); ABG PH Result 7.36 (7.35-7.45); Alveolar-Arterial Oxygen Gradi 25.4 mmHg (5-10); Arterial Blood Gas Hematocrit 40.4 % (37-47); Base Excess ABG 1.3 mmol/L (-2.0-2.0); Blood Gas Allen Test Pos; Blood Gas Operator Identificat SAM; Blood Gas Sample Site Radial, right; Blood Gas Sample Type Arterial; Carboxyhemoglobin 0.2 %THgb (0.4-20.1); HCO3 ABG 27.4 mmol/L (22-26); HGB O2 Sat 96.3 % (95-100); Ionized Calcium Level - ABG 1.2 mmol/L (1.1-1.4); Methemoglobin 0.9 % (0.4-1.5); Oxygen Device VENT; Oxygen Saturation ABG 97.3; PO2 FiO2 Ratio Arterial Blood 206; Potassium Level - ABG 3.7 mmol/L (3.5-5.0); Total Hemoglobin 13.2 g/dL (12-16)
--- NOTE | 2024-08-02 04:00 | XRR_ITS ---
PROCEDURE INFORMATION: Exam: XR Chest Exam date and time: 08/02/2024 4:46 AM Age: 74 years old Clinical indication: Prior surgery; Surgery date: 6+ months; Surgery type: Cabg; F/u resp failure. Intubated. ; Additional info: Respiratory failure TECHNIQUE: Imaging protocol: Radiologic exam of the chest. Views: 1 view. COMPARISON: CR (CHEST, ) 08/01/2024 3:44 AM FINDINGS: Tubes, catheters and devices: Stable life support device positions. Lungs: Diffuse hazy pulmonary opacities are increased. Pleural spaces: Unremarkable. No pleural effusion. No pneumothorax. Heart/Mediastinum: CABG. Cardiomegaly. Bones/joints: Unremarkable. XR/XR chest 1V portable [id number] IMPRESSION: Increased pulmonary edema.
--- NOTE | 2024-08-02 04:47 | PC.NURSE ---
MTS contacted per protocol for vented pt. Spoke [facility]. This nurse informed pt is not a candidate. This nurse was advised to call back for neurological changes.
[2024-08-02 04:52] LABS: Basophils % 0.3 %; Eosinophils # 0.6 10^3/uL (0.0-0.8); Eosinophils % 7.9 %; Lymphocytes # 1.3 10^3/uL (0.8-4.8); Lymphocytes % 16.8 %; Mean Corpuscular Hemoglobin 30.4 pg (27-33); Mean Corpuscular Volume 98.1 fl (85-98); Mean Platelet Volume 11.1 fL (7.4-10.4); Monocytes # 0.7 10^3/uL (0.2-0.9); Monocytes % 9.7 %; Neutrophils # 4.85 10^3/uL (1.8-7.7); Neutrophils % 64.8 %; Nucleated Red Blood Cells % 0 %; Platelet Count 116 10^3/cmm (157-399); Red Blood Count 3.16 10^6/uL (3.85-5.65); Red Cell Distribution Width 14.7 % (12.1-15.1); White Blood Count 7.49 10^3/uL (3.29-11.43)
[2024-08-02 05:08] LABS: Alanine Aminotransferase 14 U/L (0-33); Alkaline Phosphatase 123 U/L (35-105); Anion Gap 15.2 (5-19); Aspartate Amino Transferase 38 U/L (0-32); Blood Urea Nitrogen 18 mg/dL (8-23); Calcium 8.2 mg/dL (8.5-10.5); Carbon Dioxide 24 mmol/L (22-29); Chloride 106 mmol/L (98-107); Globulin 3.5 g/dL (1.3-4.6); Glucose 131 mg/dL (65-115); Magnesium 2.7 mg/dL (1.7-2.3); Osmolality Calculated 296 mOsm/kg (285-295); Phosphorus 3.1 mg/dL (2.5-4.5); Potassium 4.2 mmol/L (3.5-5.1); Sodium 141 mmol/L (136-145); Total Bilirubin 0.7 mg/dL (0.15-1.2); Total Protein 6.5 g/dL (6.6-8.7)
[2024-08-02] MEDS: propofol 1,000 MG/100 ML INJ 9 MG IV ×2 (05:08→22:50)
[2024-08-02 05:16] LABS: Glucose Point of Care 162 mg/dL (70-110)
[2024-08-02] MEDS: fentaNYL 1,000 MCG/100 ML BAG 15 MCG IV (06:23)
[2024-08-02] MEDS: albuterol 2.5 mg/3 mL Neb INHALATION ×3 (07:52→20:20)
--- NOTE | 2024-08-02 08:54 | P.PN_ITS ---
Subjective 2 Subjective: The patient remains intubated and sedated . The urine output is slow. No fever or chills. Medications: Medication Review Details: Current Medications Acetaminophen (Acetaminophen 325 Mg Tablet) 650 mg PO Q6H PRN PRN Reason: Mild/Mod Pain Or Temp >/= 101 Last Admin: 07/30/24 20:06 Dose: 650 mg Albuterol Sulfate (Albuterol 2.5 Mg/3 Ml Neb) 2.5 mg INHALATION Q6H.RESP JUSTIN Last Admin: 08/02/24 07:52 Dose: 2.5 mg Albuterol/Ipratropium (Ipratropium-Albuterol 3 Ml Neb) 3 ml INHALATION Q4H PRN PRN Reason: Shortness Of Breath Or Wheezing Last Admin: 08/02/24 00:47 Dose: 3 ml Aspirin (Aspirin 81 Mg Ec Tablet) 81 mg PO DAILY [facility] Last Admin: 08/01/24 09:00 Dose: 81 mg Atorvastatin Calcium (Atorvastatin 10 Mg Tablet) 20 mg PO BEDTIME [facility] Last Admin: 08/01/24 21:29 Dose: 20 mg Carvedilol (Carvedilol 6.25 Mg Tablet) 6.25 mg PO BID [facility] Last Admin: 07/30/24 18:30 Dose: Not Given Chlorhexidine Gluconate (Chlorhexidine Gluconate 4% Btl 118 Ml) 1 applic TOPICAL DAILY PRN PRN Reason: Daily bed bath/intubated pt. Last Admin: 08/01/24 03:26 Dose: 1 applic Glucagon (Glucagon 1 Mg/Ml Kit 1 Ml) 1 mg IM ONCE PRN; Protocol PRN Reason: Adult Acute Hypoglycemia Nursing Prot. Guaifenesin (Guaifenesin 100 Mg/5 Ml Udc 10 Ml) 400 mg PO Q4H [facility] Last Admin: 08/02/24 05:15 Dose: 400 mg Heparin Sodium (Porcine) (Heparin 5,000 Unit/Ml Inj 1 Ml) 5,000 unit SUBCUT Q12H [facility] Last Admin: 08/01/24 21:29 Dose: 5,000 unit Dextrose (D5w) 500 mls @ 0 mls/hr IV ONCE PRN; Protocol PRN Reason: Adult Acute Hypoglycemia Prot Dextrose (D10w) 125 mls @ 750 mls/hr IV PRN PRN; Protocol PRN Reason: Adult Acute Hypoglycemia Nursing Protocol Dextrose (D10w) 250 mls @ 1,000 mls/hr IV PRN PRN; Protocol PRN Reason: Adult Acute Hypoglycemia Nursing Protocol Piperacillin Sod/Tazobactam (Sod 3.375 gm/ Sodium Chloride) 50 mls @ 12.5 mls/hr IV Q8H JUSTIN; Protocol Last Infusion: 08/02/24 04:39 Dose: Infused Dexmedetomidine/Sodium Chloride (Precedex) 400 mcg in 100 mls @ 0 mls/hr IV .Q0M JUSTIN; Protocol Last Titration: 07/31/24 02:50 Dose: 0 mcg/kg/hr, 0 mls/hr Propofol (Diprivan) 1,000 mg in 100 mls @ 0 mls/hr IV .Q0M JUSTIN; Protocol Last Titration: 08/02/24 05:35 Dose: 25 mcg/kg/min, 11.25 mls/hr Fentanyl (Sublimaze) 1,000 mcg in 100 mls @ 0 mls/hr IV .Q0M JUSTIN; Protocol Last Admin: 08/02/24 06:23 Dose: 150 mcg/hr, 15 mls/hr Norepinephrine Bitartrate (Levophed) 4 mg in 250 mls @ 0 mls/hr IV .Q0M JUSTIN; Protocol Last Titration: 08/02/24 07:24 Dose: Infused Insulin Human Lispro (Insulin Lispro 100 Unit/1 Ml) 0 unit SUBCUT Q6H JUSTIN; Protocol Last Admin: 08/02/24 05:13 Dose: 2 unit Lactulose (Lactulose Oral Liq 20 Gm/30 Ml Udc) 10 gm PO DAILY PRN; Protocol PRN Reason: Constipation (see protocol) Magnesium Hydroxide (Magnesium Hydroxide 30 Ml Udc) 30 ml PO DAILY PRN; Protocol PRN Reason: Constipation (see protocol) Mirtazapine (Mirtazapine 15 Mg Tablet) 15 mg PO BEDTIME [facility] Last Admin: 08/01/24 21:29 Dose: 15 mg Ondansetron HCl (Ondansetron 2 Mg/Ml Sdv 2 Ml) 4 mg IVP Q6H PRN PRN Reason: vomiting, or N/V if npo Pantoprazole Sodium (Pantoprazole 40 Mg Sdv) 40 mg IVP Q24H [facility] Last Admin: 08/01/24 09:01 Dose: 40 mg Quetiapine Fumarate (Quetiapine Xr (24hr) 50 Mg Tablet) 200 mg PO BEDTIME [facility] Last Admin: 07/31/24 21:02 Dose: Not Given Tamsulosin HCl (Tamsulosin 0.4 Mg Capsule) 0.4 mg PO BEDTIME [facility] Last Admin: 07/30/24 20:06 Dose: 0.4 mg Vitals/I&O/Wt Last Vital Signs Temp 97.9 F 08/02/24 08:00 Pulse 76 08/02/24 08:00 Resp 14 08/02/24 08:00 BP 88/69 08/02/24 08:00 Pulse Ox 94 08/02/24 08:00 O2 Del Method Mechanical Ventilation 08/02/24 07:53 O2 Flow Rate 60 07/31/24 02:30 FiO2 40 08/02/24 08:00 08/01/24 08/02/24 08/02/24 22:59 06:59 14:59 Intake Total 1512.708 / 1614.595 870.550 / 2485.145 30 / 30 Output Total 200 / 200 300 / 500 Balance 1312.708 / 1414.595 570.550 / 1985.145 30 / 30 Weight last 48 hrs Weight 181 lb 14.102 oz Weight 170 lb 13.732 oz Physical Exam 2 Narrative: GENERAL: Patient is intubated and is sedated. Just barely opens her eyes with verbal commands HEENT: No significant pallor, icterus or lymphadenopathy.Oral cavity: There are no mucous membrane lesions. NECK: Trachea appears to be central. No masses noted. No JVD or thyromegaly appreciated. RESPIRATORY: Chest is symmetrical. No intercostals muscle retraction or any accessory muscle activation. There is no chest wall tenderness. Breath sounds are heard bilaterally. The breath sounds are diminished in the left base. Scattered coarse crackles on both sides. BREASTS: Deferred. HEART: The heart sounds are normal. No S3 or S4. Short systolic murmur in the lower sternal border. No diastolic murmurs.. No pericardial rub ABDOMEN: No vessel pulsations or distention. No tenderness. No organomegaly appreciated. Bowel sounds are normally heard. : Deferred. RECTAL: Deferred. LYMPHATIC: No lymphadenopathy noted in the neck or groin. EXTREMITIES: No edema or cyanosis. No clubbing. Peripheral pulses are palpated in fairly good volume and amplitude MUSCULOSKELETAL: No acute joint deformities or swelling SKIN: There are no significant scars or skin rash noted. NEUROPSYCHIATRIC: Intubated and sedated Urinary Catheter Management: Graff: Cath Placed During This Visit: yes Reason for Continuing Indwelling Catheter: Accurate Measurement of Urinary Output in Critically Ill Patients Urinary Catheter Date of Insertion: 07/26/24 Urinary Catheter Time of Insertion: 19:54 Data 08/02/24 04:42 08/02/24 04:42 Other Labs: Laboratory Last Values WBC 7.49 10^3/uL (3.29-11.43) 08/02/24 04:42 RBC 3.16 10^6/uL (3.85-5.65) L 08/02/24 04:42 Hgb 9.60 g/dL (11.27-16.99) L 08/02/24 04:42 Hct 31.0 % (36-47) L 08/02/24 04:42 MCV 98.1 fl (85-98) H 08/02/24 04:42 MCH 30.4 pg (27-33) 08/02/24 04:42 MCHC 31.0 g/dL (30-55) 08/02/24 04:42 RDW 14.7 % (12.1-15.1) 08/02/24 04:42 Plt Count 116 10^3/cmm (157-399) L 08/02/24 04:42 MPV 11.1 fL (7.4-10.4) H 08/02/24 04:42 Neut % (Auto) 64.8 % 08/02/24 04:42 Lymph % (Auto) 16.8 % 08/02/24 04:42 [place] % (Auto) 9.7 % 08/02/24 04:42 Eos % (Auto) 7.9 % 08/02/24 04:42 Baso % (Auto) 0.3 % 08/02/24 04:42 Neut # (Auto) 4.85 10^3/uL (1.8-7.7) 08/02/24 04:42 Lymph # (Auto) 1.3 10^3/uL (0.8-4.8) 08/02/24 04:42 [place] # (Auto) 0.7 10^3/uL (0.2-0.9) 08/02/24 04:42 Eos # (Auto) 0.6 10^3/uL (0.0-0.8) 08/02/24 04:42 Baso # (Auto) 0.0 10^3/uL (0.0-0.1) 08/02/24 04:42 Nucleated RBC % (auto) 0 % 08/02/24 04:42 Nucleated RBCs # 0.0 /100WBC 08/02/24 04:42 PT 13.50 SECONDS (12.1-14.9) 07/25/24 09:30 INR 0.96 (0.8-1.2) 07/25/24 09:30 APTT 26.0 SECONDS (23.9-36.7) 07/25/24 09:30 D-Dimer 2.04 ug/mLFEU (0-0.59) H 07/29/24 18:50 Specimen Type Arterial 08/02/24 03:24 Sample Site Radial, right 08/02/24 03:24 ABG pH 7.36 (7.35-7.45) 08/02/24 03:24 ABG pCO2 48.6 mmHg (35-45) H 08/02/24 03:24 ABG pO2 103.0 mmHg (80.0-100.0) H 08/02/24 03:24 ABG PO2/FiO2 Ratio 206 08/02/24 03:24 ABG HCO3 27.4 mmol/L (22-26) H 08/02/24 03:24 ABG O2 Saturation 97.3 08/02/24 03:24 ABG Base Excess 1.3 mmol/L (-2.0-2.0) 08/02/24 03:24 Joshua Test Pos 08/02/24 03:24 A-a O2 Gradient 25.4 mmHg (5-10) H 08/02/24 03:24 Hematocrit 40.4 % (37-47) 08/02/24 03:24 Hgb O2 Saturation 96.3 % (95-100) 08/02/24 03:24 Carboxyhemoglobin 0.2 %THgb (0.4-20.1) L 08/02/24 03:24 Methemoglobin 0.9 % (0.4-1.5) 08/02/24 03:24 Total Hemoglobin 13.2 g/dL (12-16) 08/02/24 03:24 Sodium 141.0 mmol/L (131-143) 08/02/24 03:24 Potassium 3.7 mmol/L (3.5-5.0) 08/02/24 03:24 Glucose 124.0 mg/dL (70-115) H 08/02/24 03:24 Ionized Calcium 1.2 mmol/L (1.1-1.4) 08/02/24 03:24 O2 Delivery Device Vent 08/02/24 03:24 O2 Liters/Min 60.0 % 07/31/24 02:29 FiO2 50.0 % 08/02/24 03:24 Tidal Volume 0.40 08/01/24 06:04 PEEP 8.0 cmH20 08/02/24 03:24 Community Pharmacist ID Lewis 08/02/24 03:24 Sodium 141 mmol/L (136-145) 08/02/24 04:42 Potassium 4.2 mmol/L (3.5-5.1) 08/02/24 04:42 Chloride 106 mmol/L (98-107) 08/02/24 04:42 Carbon Dioxide 24 mmol/L (22-29) 08/02/24 04:42 Anion Gap 15.2 (5-19) 08/02/24 04:42 BUN 18 mg/dL (8-23) 08/02/24 04:42 Creatinine 1.4 mg/dL (0.5-0.9) H 08/02/24 04:42 GFR Calculation Not Reportable 08/02/24 04:42 Glucose 131 mg/dL (65-115) H 08/02/24 04:42 POC Glucose 162 mg/dL (70-110) H 08/02/24 05:13 Estimat Average Glucose 131 07/26/24 04:49 Hemoglobin A1c 6.2 % (4.0-6.0) H 07/26/24 04:49 Calculated Osmolality 296 mOsm/kg (285-295) H 08/02/24 04:42 Calcium 8.2 mg/dL (8.5-10.5) L 08/02/24 04:42 Phosphorus 3.1 mg/dL (2.5-4.5) 08/02/24 04:42 Magnesium 2.7 mg/dL (1.7-2.3) H 08/02/24 04:42 Iron 77 ug/dL (37-145) 07/25/24 09:30 TIBC 326 mcg/dl 07/25/24 09:30 % Saturation 23.6 % (20-50) 07/25/24 09:30 Unsat Iron Binding 249 ug/dL (112-347) 07/25/24 09:30 Total Bilirubin 0.7 mg/dL (0.15-1.2) 08/02/24 04:42 AST 38 U/L (0-32) H 08/02/24 04:42 ALT 14 U/L (0-33) 08/02/24 04:42 Alkaline Phosphatase 123 U/L (35-105) H 08/02/24 04:42 Troponin T Baseline 20 ng/L (0-10) H 07/25/24 09:30 Troponin T 120 Minute 16.98 ng/L (0-10) H 07/25/24 12:31 Delta Troponin T -3.02 ABS# (0-10) L 07/25/24 12:31 Troponin T Hi Sens 6Hr 18.87 ng/L (0-10) H 07/25/24 15:21 Troponin T Hi Sens 6Hr Delta -1.13 ng/L (0-12) L 07/25/24 15:21 NT-Pro-B Natriuret Pep 5660 pg/mL (0-125) H 07/27/24 05:06 Total Protein 6.5 g/dL (6.6-8.7) L 08/02/24 04:42 Albumin 3.0 g/dL (3.5-5.2) L 08/02/24 04:42 Globulin 3.5 g/dL (1.3-4.6) 08/02/24 04:42 Triglycerides 305 mg/dL (0-150) H 07/26/24 04:49 Cholesterol 151 mg/dL (0-200) 07/26/24 04:49 LDL Cholesterol, Calc 60 mg/dL (50-129) 07/26/24 04:49 HDL Cholesterol 30 mg/dL (60-100) L 07/26/24 04:49 LDL/HDL Ratio 2.00 RATIO (0.00-3.22) 07/26/24 04:49 Cholesterol/HDL Ratio 5.03 mg/dL (0.0-4.40) H 07/26/24 04:49 Vitamin B12 687 pg/mL (232-1245) 07/25/24 09:30 Folate 9.3 ng/mL (4.8-37.3) 07/26/24 04:49 Procalcitonin 0.05 ng/mL (0-0.5) 07/25/24 09:30 TSH 1.65 uIU/mL (0.27-4.20) 07/25/24 09:30 Urine Color Yellow (Yellow) 07/25/24 09:43 Urine Appearance Clear (CLEAR) 07/25/24 09:43 Urine pH 6 (5-7) 07/25/24 09:43 Ur Specific [place] 1.015 (1.005-1.030) 07/25/24 09:43 Urine Protein Neg (Negative) 07/25/24 09:43 Urine Glucose (UA) Norm (Normal) 07/25/24 09:43 Urine Ketones Negative (Negative) 07/25/24 09:43 Urine Blood Neg (Negative) 07/25/24 09:43 Urine Nitrate Negative (Negative) 07/25/24 09:43 Urine Bilirubin Neg (Negative) 07/25/24 09:43 Urine Urobilinogen Neg mg/dL (Negative) 07/25/24 09:43 Ur Leukocyte Esterase Negative (Negative) 07/25/24 09:43 Urine RBC 0-2 /hpf (0-2) 07/25/24 09:43 Urine WBC 0-5 /hpf (0-5) 07/25/24 09:43 Ur Squamous Epith Cells 0-5 /hpf (0-5) 07/25/24 09:43 Amorphous Sediment Not Reportable 07/25/24 09:43 Urine Bacteria None seen /hpf (NONE) 07/25/24 09:43 Hyaline Casts 0.81 /lpf 07/25/24 09:43 Urine Opiates Screen Negative ng/mL (Negative) 07/25/24 09:43 Ur Barbiturates Screen Negative ng/mL (Negative) 07/25/24 09:43 Ur Phencyclidine Scrn Negative ng/mL (Negative) 07/25/24 09:43 Ur Amphetamines Screen Negative ng/mL (Negative) 07/25/24 09:43 U Benzodiazepines Scrn Negative ng/mL (Negative) 07/25/24 09:43 Urine Cocaine Screen Negative ng/mL (Negative) 07/25/24 09:43 U Marijuana (THC) Screen Negative ng/mL (Negative) 07/25/24 09:43 Micro: Microbiology 07/31/24 03:22 Gram Stain - Final Sputum - Endotracheal Tube Aspirate Sputum Culture - Preliminary A&P Assessment and plan (1) Abnormal cardiovascular stress test: Patient seems to have moderate to large areas of fixed defect with a small area of reversible defect suggesting extensive myocardial scarring with small area of ischemia. The implication of the test finding was discussed with the patient in detail. In order to better evaluate the coronary status, she requires a cardiac catheterization. The patient is not wanting to undergo any invasive or interventional procedures. She seems to understand the implications. I also talked to the patient's the power of health care attorney-Katt San, who also concurred with the patient's decision. Will continue the current measures (2) Hypotension: Blood pressure seems to be stable, off the vasopressor. May continue holding the Entresto Qualifiers: Hypotension type: other hypotension type Qualified Code(s): I95.89 - Other hypotension (3) Atherosclerosis of coronary artery of [place]q heart without angina pectoris: The details of her coronary status is not available at this time. The Myocardial perfusion imaging findings as mentioned above. Will continue on the medical management Qualifiers: Coronary Disease-Associated Artery/Lesion type: al[place]q artery Qualified Code(s): I25.10 - Atherosclerotic heart disease of [place] coronary artery without angina pectoris (4) Ischemic cardiomyopathy: Because of the hypotension, the Entresto is on hold at this point. Minimal ischemia by perfusion scan. (5) Pneumonia: Because of the worsening hypoxemia, she had a CT of the chest. The CT revealed no PE. So she is being treated for pneumonia. Management as per the primary Qualifiers: Aspiration pneumonia type: unspecified Laterality: unspecified laterality Lung location: lower lobe of lung Pneumonia type: aspiration pneumonia Qualified Code(s): J69.0 - Pneumonitis due to inhalation of food and vomit (6) Type 2 diabetes mellitus: The blood sugar seems to be fairly under control. 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 (8) Acute left ICA ischemic stroke: Management as per the neurology service. Plan Cardiac status seems to be fairly stable at this point. Continue on the current measures PDMP PDMP Reviewed: Not Reviewed Attestations 2 Medical Necessity Statement*: Deferred to the primary Coding Level of Care Code Acute Code for Chg Fwd Diagnoses Abnormal cardiovascular stress test R94.39 Other specified hypotension I95.89 Hypotension type: other hypotension type Atherosclerosis of [place]q coronary artery of al[place]q heart without angina pectoris I25.10 Coronary Disease-Associated Artery/Lesion type: [place]q artery Ischemic cardiomyopathy I25.5 Aspiration pneumonia of lower lobe, unspecified aspiration pneumonia type, unspecified laterality J69.0 Aspiration pneumonia type: unspecified Laterality: unspecified laterality Lung location: lower lobe of lung Pneumonia type: aspiration pneumonia Type 2 diabetes mellitus with other circulatory complication, with long-term current use of insulin E11.59; Z79.4 Diabetes mellitus complication detail: with other circulatory complications Diabetes mellitus complication status: with circulatory complication Diabetes mellitus middle or intermediate school principal insulin use: with middle or intermediate school principal use Chronic kidney disease, stage 4 (severe) N18.4 Acute left ICA ischemic stroke I63.232
--- NOTE | 2024-08-02 09:50 | PM.PN ---
Subjective Subjective: Patient intubated and sedation. FiO2 requirement improving. Tube feeds at goal. Medications: Reviewed: Yes Medication Review Details: Current Medications Acetaminophen (Acetaminophen 325 Mg Tablet) 650 mg PO Q6H PRN PRN Reason: Mild/Mod Pain Or Temp >/= 101 Last Admin: 07/30/24 20:06 Dose: 650 mg Acetylcysteine (Acetylcysteine 200 Mg/Ml Mdv 10 Ml) 200 mg INHALATION Q4H.RESPIRATORY JUSTIN Last Admin: 08/01/24 04:08 Dose: 200 mg Albuterol Sulfate (Albuterol 2.5 Mg/3 Ml Neb) 2.5 mg INHALATION Q6H.RESP JUSTIN Last Admin: 08/01/24 03:56 Dose: Not Given Albuterol/Ipratropium (Ipratropium-Albuterol 3 Ml Neb) 3 ml INHALATION Q4H PRN PRN Reason: Shortness Of Breath Or Wheezing Last Admin: 08/01/24 04:08 Dose: 3 ml Aspirin (Aspirin 81 Mg Ec Tablet) 81 mg PO DAILY [facility] Last Admin: 07/31/24 08:49 Dose: 81 mg Atorvastatin Calcium (Atorvastatin 10 Mg Tablet) 20 mg PO BEDTIME [facility] Last Admin: 07/31/24 20:40 Dose: 20 mg Carvedilol (Carvedilol 6.25 Mg Tablet) 6.25 mg PO BID [facility] Last Admin: 07/30/24 18:30 Dose: Not Given Chlorhexidine Gluconate (Chlorhexidine Gluconate 4% Btl 118 Ml) 1 applic TOPICAL DAILY PRN PRN Reason: Daily bed bath/intubated pt. Last Admin: 08/01/24 03:26 Dose: 1 applic Glucagon (Glucagon 1 Mg/Ml Kit 1 Ml) 1 mg IM ONCE PRN; Protocol PRN Reason: Adult Acute Hypoglycemia Nursing Prot. Guaifenesin (Guaifenesin 100 Mg/5 Ml Udc 10 Ml) 400 mg PO Q4H [facility] Last Admin: 08/01/24 05:41 Dose: 400 mg Heparin Sodium (Porcine) (Heparin 5,000 Unit/Ml Inj 1 Ml) 5,000 unit SUBCUT Q12H [facility] Last Admin: 07/31/24 20:40 Dose: 5,000 unit Dextrose (D5w) 500 mls @ 0 mls/hr IV ONCE PRN; Protocol PRN Reason: Adult Acute Hypoglycemia Prot Dextrose (D10w) 125 mls @ 750 mls/hr IV PRN PRN; Protocol PRN Reason: Adult Acute Hypoglycemia Nursing Protocol Dextrose (D10w) 250 mls @ 1,000 mls/hr IV PRN PRN; Protocol PRN Reason: Adult Acute Hypoglycemia Nursing Protocol Piperacillin Sod/Tazobactam (Sod 3.375 gm/ Sodium Chloride) 50 mls @ 12.5 mls/hr IV Q8H JUSTIN; Protocol Last Infusion: 08/01/24 04:49 Dose: Infused Dexmedetomidine/Sodium Chloride (Precedex) 400 mcg in 100 mls @ 0 mls/hr IV .Q0M JUSTIN; Protocol Last Titration: 07/31/24 02:50 Dose: 0 mcg/kg/hr, 0 mls/hr Propofol (Diprivan) 1,000 mg in 100 mls @ 0 mls/hr IV .Q0M JUSTIN; Protocol Last Titration: 08/01/24 05:36 Dose: 20 mcg/kg/min, 9 mls/hr Fentanyl (Sublimaze) 1,000 mcg in 100 mls @ 0 mls/hr IV .Q0M JUSTIN; Protocol Last Titration: 08/01/24 05:36 Dose: 75 mcg/hr, 7.5 mls/hr Norepinephrine Bitartrate (Levophed) 4 mg in 250 mls @ 0 mls/hr IV .Q0M JUSTIN; Protocol Last Titration: 08/01/24 01:05 Dose: 0 mcg/min, 0 mls/hr Insulin Human Lispro (Insulin Lispro 100 Unit/1 Ml) 0 unit SUBCUT Q6H JUSTIN; Protocol Last Admin: 08/01/24 05:37 Dose: Not Given Lactulose (Lactulose Oral Liq 20 Gm/30 Ml Udc) 10 gm PO DAILY PRN; Protocol PRN Reason: Constipation (see protocol) Magnesium Hydroxide (Magnesium Hydroxide 30 Ml Udc) 30 ml PO DAILY PRN; Protocol PRN Reason: Constipation (see protocol) Mirtazapine (Mirtazapine 15 Mg Tablet) 15 mg PO BEDTIME [facility] Last Admin: 07/31/24 20:40 Dose: 15 mg Ondansetron HCl (Ondansetron 2 Mg/Ml Sdv 2 Ml) 4 mg IVP Q6H PRN PRN Reason: vomiting, or N/V if npo Pantoprazole Sodium (Pantoprazole 40 Mg Sdv) 40 mg IVP Q24H [facility] Last Admin: 07/31/24 08:49 Dose: 40 mg Quetiapine Fumarate (Quetiapine Xr (24hr) 50 Mg Tablet) 200 mg PO BEDTIME [facility] Last Admin: 07/31/24 21:02 Dose: Not Given Tamsulosin HCl (Tamsulosin 0.4 Mg Capsule) 0.4 mg PO BEDTIME [facility] Last Admin: 07/30/24 20:06 Dose: 0.4 mg Vitals/I&O/Wt Last Vital Signs Temp 97.9 F 08/02/24 08:00 Pulse 76 08/02/24 08:00 Resp 14 08/02/24 08:00 BP 88/69 08/02/24 08:00 Pulse Ox 94 08/02/24 08:00 O2 Del Method Mechanical Ventilation 08/02/24 07:53 O2 Flow Rate 60 07/31/24 02:30 FiO2 40 08/02/24 08:00 08/01/24 08/02/24 08/02/24 22:59 06:59 14:59 Intake Total 1512.708 / 1614.595 870.550 / 2485.145 30 / 30 Output Total 200 / 200 300 / 500 Balance 1312.708 / 1414.595 570.550 / 1985.145 30 / 30 Weight last 48 hrs Weight 82.5 kg Weight 77.5 kg Physical Exam Narrative: General: Patient is intubated and sedated. Head: Normocephalic. Disconjugate gaze. Neck: No JVD. Cardiovascular: RRR. No gallops. No murmurs. Lungs: Breath sounds remain coarse and diminished in bases. Bibasilar rhonchi. Intubated on ventilator. Skin: No jaundice. No rashes. Abdomen: Hypoactive bowel sounds, abdomen soft. Extremities: No cyanosis or clubbing. Neurological: No myoclonus. Limited neurological exam due to sedated status. Urinary Catheter Management: Graff: Cath Placed During This Visit: yes Reason for Continuing Indwelling Catheter: Accurate Measurement of Urinary Output in Critically Ill Patients Urinary Catheter Date of Insertion: 07/26/24 Urinary Catheter Time of Insertion: 19:54 Data 08/02/24 04:42 08/02/24 04:42 Micro: Microbiology 04/10/25 03:22 Gram Stain - Final Sputum - Endotracheal Tube Aspirate Sputum Culture - Preliminary A&P Assessment and plan (1) Respiratory failure: Acute hypoxic respiratory failure Intubated 07/31 Fentanyl/propofol for analgesia/sedation Levophed for MAP of >65 mmHg PPI and DVT prophylaxis; bowel regiment Continue tube feeds, goal Respiratory status improving Start low-dose IV Lasix as hemodynamics allow for volume control (2) Pneumonia: Continue Zosyn Respiratory support as above Qualifiers: Pneumonia type: aspiration pneumonia Aspiration pneumonia type: unspecified Laterality: unspecified laterality Lung location: lower lobe of lung Qualified Code(s): J69.0 - Pneumonitis due to inhalation of food and vomit (3) Acute left ICA ischemic stroke: Acute left ICA ischemic stroke resulting in flaccid right-sided extremities Suspect pneumonia is aspiration from the stroke Continue statin Continue aspirin (4) Ischemic cardiomyopathy: Continue medical treatment with statin, aspirin, beta-joseluis Hold Entresto and beta-joseluis due to hemodynamics (5) Type 2 diabetes mellitus without complications: Sliding-scale insulin correction (6) Essential (primary) hypertension: Hold antihypertensives (7) CAD (coronary artery disease): As above (8) Congestive heart failure due to cardiomyopathy: Daily assessments of volume (9) Common carotid artery stenosis: Plan Dysphagia: Will need repeat speech therapy evaluation after extubation Urinary retention: Graff catheter Smoking addiction: Would benefit from cessation Thrombocytopenia: Chronic. Monitor for bleeding. Continue other chronic medical history including DuoNeb as needed, mirtazapine nightly. Seroquel and Flomax held. CODE STATUS: Full code. Guarded information in chart. DVT prophylaxis: Heparin PDMP PDMP Reviewed: Not Reviewed Attestations Medical Necessity Statement*: Patient requires ongoing hospitalization for vent support, IV antibiotics and supportive care. Critical Care Time: The high probability of a clinically significant, sudden or life threatening deterioration of the patient's respiratory, circulatory system(s) required my full and direct attention, intervention and personal management. The critical care time is as shown. This time is in addition to time spent performing any reported procedures but includes the following: [x] Data and vital sign review and interpretation [x] Patient assessment, examination and intervention [x] Documentation [x] Medication orders and management Critical Care Time (min): 32 Coding Level of Care Code Acute Code for [facility] Diagnoses Respiratory failure J96.90 Aspiration pneumonia of lower lobe, unspecified aspiration pneumonia type, unspecified laterality J69.0 Pneumonia type: aspiration pneumonia Aspiration pneumonia type: unspecified Laterality: unspecified laterality Lung location: lower lobe of lung Acute left ICA ischemic stroke I63.232 Ischemic cardiomyopathy I25.5 Type 2 diabetes mellitus without complications E11.9 Essential (primary) hypertension I10 CAD (coronary artery disease) I25.10 Congestive heart failure due to cardiomyopathy I50.9; I42.9 Common carotid artery stenosis I65.29
[2024-08-02] MEDS: aspirin 81 mg EC Tablet PO (10:15)
[2024-08-02] MEDS: pantoprazole 40 mg SDV IVP (10:15)
[2024-08-02] MEDS: FUROsemide 10 mg/mL SDV 2mL 20 MG IVP ×2 (10:16→20:03)
[2024-08-02] MEDS: heparin 5,000 unit/mL INJ 1 mL 5000 UNIT SUBCUT ×2 (10:19→20:03)
[2024-08-02 11:35] LABS: Glucose Point of Care 178 mg/dL (70-110)
[2024-08-02] MEDS: fentaNYL 1,000 MCG/100 ML BAG 12 MCG IV (13:14)
[2024-08-02] MEDS: propofol 1,000 MG/100 ML INJ 11.25 MG IV (13:14)
[2024-08-02 17:20] LABS: Glucose Point of Care 218 mg/dL (70-110)
--- NOTE | 2024-08-02 18:41 | PC.NURSE ---
Shift summary: Pt rested in bed throughout shift. She remains intubated and sedated. FIO2 decreased to 40%. Perham and castro secretions suctioned pe ETT today. Oral care difficult as pt clamps her mouth closed during attempts. Bottom lip is protruding more appears slightly swollen. Propofol remains infusing at 20 mcg/kg/min and Fentanyl decreased from 150 to 100mcg/hr. Jevity tube feeding now at goal rate of 50ml/hr with scheduled H2O flushes. Pt tolerating well with minimal residual amounts noted. Pt required insulin at noon and evening for blood sugars. No pain noted. Urine output of 700ml this shift. She did received Lasix today. No BM noted.
[2024-08-02] MEDS: ATORVASTATIN 10 MG TABLET 20 MG PT (20:02)
[2024-08-02] MEDS: mirtazapine 15 mg Tablet PEG-TUBE (20:03)
[2024-08-02] MEDS: chlorhexidine gluconate 4% Btl 118 mL 1 APPLIC TOPICAL (22:50)
[2024-08-02 23:28] LABS: Glucose Point of Care 138 mg/dL (70-110)
[2024-08-03] VITALS (82 sets, daily range): BP systolic 98–134; BP diastolic 45–77; PULSE 57–75; RESP 14–22; TEMP 36.7–38.2; O2SAT 92–100
[2024-08-03] MEDS: piperacillin-tazobactam 3.375 GM in sodium chloride 0.9% (plus) 50 ML IV ×3 (00:26→16:52)
[2024-08-03] MEDS: guaiFENesin 100 mg/5 mL UDC 10 mL 400 MG PO ×6 (00:26→21:29)
[2024-08-03] MEDS: ipratropium-albuterol 3 mL Neb INHALATION (02:30)
--- NOTE | 2024-08-03 04:00 | XRR_ITS ---
PROCEDURE INFORMATION: Exam: XR Chest Exam date and time: 08/03/2024 5:26 AM Age: 74 years old Clinical indication: Prior surgery; Surgery date: 6+ months; Surgery type: Cabg; F/u resp failure. Intubated. ; Additional info: Respiratory failure TECHNIQUE: Imaging protocol: Radiologic exam of the chest. Views: 1 view. COMPARISON: CR (CHEST, ) 08/02/2024 4:46 AM FINDINGS: Lungs: Stable opacity at the left lung base. Slightly improved aeration at the right lung base. Pleural spaces: Unremarkable. No pleural effusion. No pneumothorax. Heart/Mediastinum: Unremarkable. No cardiomegaly. Bones/joints: Status post median sternotomy. Other findings: Stable support lines. XR/XR chest 1V portable [id number] IMPRESSION: No significant change.
[2024-08-03 04:10] LABS: Glucose Point of Care 154 mg/dL (70-110)
[2024-08-03] MEDS: insulin lispro 100 unit/1 mL SUBCUT ×3 (04:23→23:16)
[2024-08-03] MEDS: albuterol 2.5 mg/3 mL Neb INHALATION ×4 (04:35→19:44)
[2024-08-03 04:51] LABS: Basophils % 0.5 %; Eosinophils # 0.5 10^3/uL (0.0-0.8); Hematocrit 29.9 % (36-47); Lymphocytes % 16.3 %; Mean Corpuscular HGB Conc 30.4 g/dL (30-55); Mean Corpuscular Hemoglobin 29.9 pg (27-33); Mean Corpuscular Volume 98.4 fl (85-98); Mean Platelet Volume 11.6 fL (7.4-10.4); Monocytes # 0.7 10^3/uL (0.2-0.9); Monocytes % 10.8 %; Neutrophils # 3.96 10^3/uL (1.8-7.7); Neutrophils % 63.1 %; Nucleated Red Blood Cells % 0 %; Platelet Count 102 10^3/cmm (157-399); Red Blood Count 3.04 10^6/uL (3.85-5.65); Red Cell Distribution Width 14.7 % (12.1-15.1); White Blood Count 6.27 10^3/uL (3.29-11.43)
[2024-08-03 04:52] LABS: ABG PCO2 49.9 mmHg (35-45); ABG PH Result 7.38 (7.35-7.45); Arterial Blood Gas Hematocrit 32.2 % (37-47); Base Excess ABG 3.4 mmol/L (-2.0-2.0); Blood Gas Allen Test Pos; Blood Gas Operator Identificat JDB; Blood Gas Sample Site Radial, right; Blood Gas Sample Type Arterial; Carboxyhemoglobin 1.1 %THgb (0.4-20.1); HCO3 ABG 29.3 mmol/L (22-26); HGB O2 Sat 96.1 % (95-100); Ionized Calcium Level - ABG 1.1 mmol/L (1.1-1.4); Methemoglobin 1.1 % (0.4-1.5); Oxygen Device VENT; Oxygen Saturation ABG 98.3; PO2 ABG 98.6 mmHg (80.0-100.0); Potassium Level - ABG 3.4 mmol/L (3.5-5.0); Total Hemoglobin 10.5 g/dL (12-16)
[2024-08-03 04:53] LABS: Alveolar-Arterial Oxygen Gradi 16.1 mmHg (5-10); PO2 FiO2 Ratio Arterial Blood 246
[2024-08-03 05:11] LABS: Alanine Aminotransferase 39 U/L (0-33); Albumin Level 2.8 g/dL (3.5-5.2); Alkaline Phosphatase 169 U/L (35-105); Aspartate Amino Transferase 97 U/L (0-32); Blood Urea Nitrogen 20 mg/dL (8-23); Calcium 8.1 mg/dL (8.5-10.5); Carbon Dioxide 22 mmol/L (22-29); Chloride 107 mmol/L (98-107); Creatinine Clr Calc Pharmacy 42.7583; Globulin 3.7 g/dL (1.3-4.6); Glucose 139 mg/dL (65-115); Magnesium 2.5 mg/dL (1.7-2.3); Osmolality Calculated 297 mOsm/kg (285-295); Sodium 141 mmol/L (136-145); Total Bilirubin 0.7 mg/dL (0.15-1.2); Total Protein 6.5 g/dL (6.6-8.7)
[2024-08-03 05:13] LABS: Anion Gap 15.7 (5-19); Potassium 3.7 mmol/L (3.5-5.1)
[2024-08-03 06:42] LABS: Glucose Point of Care 149 mg/dL (70-110)
[2024-08-03] MEDS: aspirin 81 mg EC Tablet PO (08:41)
[2024-08-03] MEDS: pantoprazole 40 mg SDV IVP (08:42)
[2024-08-03] MEDS: propofol 1,000 MG/100 ML INJ 9 MG IV ×2 (08:44→17:32)
[2024-08-03] MEDS: FUROsemide 10 mg/mL SDV 2mL 20 MG IVP ×2 (08:45→21:30)
[2024-08-03] MEDS: heparin 5,000 unit/mL INJ 1 mL 5000 UNIT SUBCUT ×2 (08:45→21:29)
--- NOTE | 2024-08-03 09:26 | P.PN_ITS ---
Subjective 2 Subjective: The patient's oxygenation is improving. Still remains intubated. No arrhythmias on the monitor. Vital signs seems to be stable. Medications: Medication Review Details: Current Medications Acetaminophen (Acetaminophen 325 Mg Tablet) 650 mg PO Q6H PRN PRN Reason: Mild/Mod Pain Or Temp >/= 101 Last Admin: 07/30/24 20:06 Dose: 650 mg Albuterol Sulfate (Albuterol 2.5 Mg/3 Ml Neb) 2.5 mg INHALATION Q6H.RESP JUSTIN Last Admin: 08/03/24 08:27 Dose: 2.5 mg Albuterol/Ipratropium (Ipratropium-Albuterol 3 Ml Neb) 3 ml INHALATION Q4H PRN PRN Reason: Shortness Of Breath Or Wheezing Last Admin: 08/03/24 02:30 Dose: 3 ml Aspirin (Aspirin 81 Mg Ec Tablet) 81 mg PO DAILY [facility] Last Admin: 08/02/24 10:15 Dose: 81 mg Atorvastatin Calcium (Atorvastatin 10 Mg Tablet) 20 mg PT BEDTIME [facility] Last Admin: 08/02/24 20:02 Dose: 20 mg Carvedilol (Carvedilol 6.25 Mg Tablet) 6.25 mg PO BID [facility] Last Admin: 07/30/24 18:30 Dose: Not Given Chlorhexidine Gluconate (Chlorhexidine Gluconate 4% Btl 118 Ml) 1 applic TOPICAL DAILY PRN PRN Reason: Daily bed bath/intubated pt. Last Admin: 08/02/24 22:50 Dose: 1 applic Furosemide (Furosemide 10 Mg/Ml Sdv 2ml) 20 mg IVP Q12H [facility] Last Admin: 08/02/24 20:03 Dose: 20 mg Glucagon (Glucagon 1 Mg/Ml Kit 1 Ml) 1 mg IM ONCE PRN; Protocol PRN Reason: Adult Acute Hypoglycemia Nursing Prot. Guaifenesin (Guaifenesin 100 Mg/5 Ml Udc 10 Ml) 400 mg PO Q4H [facility] Last Admin: 08/03/24 04:23 Dose: 400 mg Heparin Sodium (Porcine) (Heparin 5,000 Unit/Ml Inj 1 Ml) 5,000 unit SUBCUT Q12H [facility] Last Admin: 08/02/24 20:03 Dose: 5,000 unit Dextrose (D5w) 500 mls @ 0 mls/hr IV ONCE PRN; Protocol PRN Reason: Adult Acute Hypoglycemia Prot Dextrose (D10w) 125 mls @ 750 mls/hr IV PRN PRN; Protocol PRN Reason: Adult Acute Hypoglycemia Nursing Protocol Dextrose (D10w) 250 mls @ 1,000 mls/hr IV PRN PRN; Protocol PRN Reason: Adult Acute Hypoglycemia Nursing Protocol Piperacillin Sod/Tazobactam (Sod 3.375 gm/ Sodium Chloride) 50 mls @ 12.5 mls/hr IV Q8H JUSTIN; Protocol Last Infusion: 08/03/24 06:29 Dose: Infused Dexmedetomidine/Sodium Chloride (Precedex) 400 mcg in 100 mls @ 0 mls/hr IV .Q0M JUSTIN; Protocol Last Titration: 07/31/24 02:50 Dose: 0 mcg/kg/hr, 0 mls/hr Propofol (Diprivan) 1,000 mg in 100 mls @ 0 mls/hr IV .Q0M JUSTIN; Protocol Last Admin: 08/02/24 22:50 Dose: 20 mcg/kg/min, 9 mls/hr Fentanyl (Sublimaze) 1,000 mcg in 100 mls @ 0 mls/hr IV .Q0M JUSTIN; Protocol Last Titration: 08/03/24 02:30 Dose: 50 mcg/hr, 5 mls/hr Norepinephrine Bitartrate (Levophed) 4 mg in 250 mls @ 0 mls/hr IV .Q0M JUSTIN; Protocol Last Titration: 08/02/24 07:24 Dose: Infused Insulin Human Lispro (Insulin Lispro 100 Unit/1 Ml) 0 unit SUBCUT Q6H JUSTIN; Protocol Last Admin: 08/03/24 04:23 Dose: 2 unit Lactulose (Lactulose Oral Liq 20 Gm/30 Ml Udc) 10 gm PO DAILY PRN; Protocol PRN Reason: Constipation (see protocol) Magnesium Hydroxide (Magnesium Hydroxide 30 Ml Udc) 30 ml PO DAILY PRN; Protocol PRN Reason: Constipation (see protocol) Mirtazapine (Mirtazapine 15 Mg Tablet) 15 mg PEG-TUBE BEDTIME JUSTIN Last Admin: 08/02/24 20:03 Dose: 15 mg Ondansetron HCl (Ondansetron 2 Mg/Ml Sdv 2 Ml) 4 mg IVP Q6H PRN PRN Reason: vomiting, or N/V if npo Pantoprazole Sodium (Pantoprazole 40 Mg Sdv) 40 mg IVP Q24H [facility] Last Admin: 08/02/24 10:15 Dose: 40 mg Quetiapine Fumarate (Quetiapine Xr (24hr) 50 Mg Tablet) 200 mg PO BEDTIME [facility] Last Admin: 07/31/24 21:02 Dose: Not Given Tamsulosin HCl (Tamsulosin 0.4 Mg Capsule) 0.4 mg PO BEDTIME [facility] Last Admin: 07/30/24 20:06 Dose: 0.4 mg Vitals/I&O/Wt Last Vital Signs Temp 99.5 F 08/03/24 04:30 Pulse 75 08/03/24 08:33 Resp 16 08/03/24 08:31 BP 130/72 08/03/24 06:15 Pulse Ox 100 08/03/24 08:31 O2 Del Method Mechanical Ventilation 08/03/24 08:20 O2 Flow Rate 40 08/02/24 20:00 FiO2 40 08/03/24 08:31 08/02/24 08/03/24 08/03/24 22:59 06:59 14:59 Intake Total 972.433 / 1308.783 603.75 / 1912.533 Output Total 700 / 700 650 / 1350 Balance 272.433 / 608.783 -46.25 / 562.533 Weight last 48 hrs Weight 169 lb 12.095 oz Weight 181 lb 14.102 oz Physical Exam 2 Narrative: GENERAL: Patient is intubated and is sedated. Seems to be responding to verbal commands when the sedation is wearing off HEENT: No significant pallor, icterus or lymphadenopathy.Oral cavity: There are no mucous membrane lesions. NECK: Trachea appears to be central. No masses noted. No JVD or thyromegaly appreciated. RESPIRATORY: Chest is symmetrical. No intercostals muscle retraction or any accessory muscle activation. There is no chest wall tenderness. Breath sounds are heard bilaterally. The breath sounds are diminished in the left base. Scattered coarse crackles on both sides. BREASTS: Deferred. HEART: The heart sounds are normal. No S3 or S4. Short systolic murmur in the lower sternal border. No diastolic murmurs.. No pericardial rub ABDOMEN: No vessel pulsations or distention. No tenderness. No organomegaly appreciated. Bowel sounds are normally heard. : Deferred. RECTAL: Deferred. LYMPHATIC: No lymphadenopathy noted in the neck or groin. EXTREMITIES: No edema or cyanosis. No clubbing. Peripheral pulses are palpated in fairly good volume and amplitude MUSCULOSKELETAL: No acute joint deformities or swelling SKIN: There are no significant scars or skin rash noted. NEUROPSYCHIATRIC: Intubated and sedated Urinary Catheter Management: Graff: Cath Placed During This Visit: yes Reason for Continuing Indwelling Catheter: Accurate Measurement of Urinary Output in Critically Ill Patients Urinary Catheter Date of Insertion: 07/26/24 Urinary Catheter Time of Insertion: 19:54 Data 08/03/24 04:33 08/03/24 04:33 Other Labs: Laboratory Last Values WBC 6.27 10^3/uL (3.29-11.43) 08/03/24 04:33 RBC 3.04 10^6/uL (3.85-5.65) L 08/03/24 04:33 Hgb 9.10 g/dL (11.27-16.99) L 08/03/24 04:33 Hct 29.9 % (36-47) L 08/03/24 04:33 MCV 98.4 fl (85-98) H 08/03/24 04:33 MCH 29.9 pg (27-33) 08/03/24 04:33 MCHC 30.4 g/dL (30-55) 08/03/24 04:33 RDW 14.7 % (12.1-15.1) 08/03/24 04:33 Plt Count 102 10^3/cmm (157-399) L 08/03/24 04:33 MPV 11.6 fL (7.4-10.4) H 08/03/24 04:33 Neut % (Auto) 63.1 % 08/03/24 04:33 Lymph % (Auto) 16.3 % 08/03/24 04:33 [place] % (Auto) 10.8 % 08/03/24 04:33 Eos % (Auto) 8.0 % 08/03/24 04:33 Baso % (Auto) 0.5 % 08/03/24 04:33 Neut # (Auto) 3.96 10^3/uL (1.8-7.7) 08/03/24 04:33 Lymph # (Auto) 1.0 10^3/uL (0.8-4.8) 08/03/24 04:33 [place] # (Auto) 0.7 10^3/uL (0.2-0.9) 08/03/24 04:33 Eos # (Auto) 0.5 10^3/uL (0.0-0.8) 08/03/24 04:33 Baso # (Auto) 0.0 10^3/uL (0.0-0.1) 08/03/24 04:33 Nucleated RBC % (auto) 0 % 08/03/24 04:33 Nucleated RBCs # 0.0 /100WBC 08/03/24 04:33 PT 13.50 SECONDS (12.1-14.9) 07/25/24 09:30 INR 0.96 (0.8-1.2) 07/25/24 09:30 APTT 26.0 SECONDS (23.9-36.7) 07/25/24 09:30 D-Dimer 2.04 ug/mLFEU (0-0.59) H 07/29/24 18:50 Specimen Type Arterial 08/03/24 04:39 Sample Site Radial, right 08/03/24 04:39 ABG pH 7.38 (7.35-7.45) 08/03/24 04:39 ABG pCO2 49.9 mmHg (35-45) H 08/03/24 04:39 ABG pO2 98.6 mmHg (80.0-100.0) 08/03/24 04:39 ABG PO2/FiO2 Ratio 246 08/03/24 04:39 ABG HCO3 29.3 mmol/L (22-26) H 08/03/24 04:39 ABG O2 Saturation 98.3 08/03/24 04:39 ABG Base Excess 3.4 mmol/L (-2.0-2.0) H 08/03/24 04:39 Joshua Test Pos 08/03/24 04:39 A-a O2 Gradient 16.1 mmHg (5-10) H 08/03/24 04:39 Hematocrit 32.2 % (37-47) L 08/03/24 04:39 Hgb O2 Saturation 96.1 % (95-100) 08/03/24 04:39 Carboxyhemoglobin 1.1 %THgb (0.4-20.1) 08/03/24 04:39 Methemoglobin 1.1 % (0.4-1.5) 08/03/24 04:39 Total Hemoglobin 10.5 g/dL (12-16) L 08/03/24 04:39 Sodium 143.0 mmol/L (131-143) 08/03/24 04:39 Potassium 3.4 mmol/L (3.5-5.0) L 08/03/24 04:39 Glucose 147.0 mg/dL (70-115) H 08/03/24 04:39 Ionized Calcium 1.1 mmol/L (1.1-1.4) 08/03/24 04:39 O2 Delivery Device Vent 08/03/24 04:39 O2 Liters/Min 60.0 % 07/31/24 02:29 FiO2 40.0 % 08/03/24 04:39 Tidal Volume 0.40 08/03/24 04:39 PEEP 8.0 cmH20 08/03/24 04:39 Television Actor ID [email or web address] 08/03/24 04:39 Sodium 141 mmol/L (136-145) 08/03/24 04:33 Potassium 3.7 mmol/L (3.5-5.1) 08/03/24 04:33 Chloride 107 mmol/L (98-107) 08/03/24 04:33 Carbon Dioxide 22 mmol/L (22-29) 08/03/24 04:33 Anion Gap 15.7 (5-19) 08/03/24 04:33 BUN 20 mg/dL (8-23) 08/03/24 04:33 Creatinine 1.3 mg/dL (0.5-0.9) H 08/03/24 04:33 GFR Calculation Not Reportable 08/03/24 04:33 Glucose 139 mg/dL (65-115) H 08/03/24 04:33 POC Glucose 149 mg/dL (70-110) H 08/03/24 06:38 Estimat Average Glucose 131 07/26/24 04:49 Hemoglobin A1c 6.2 % (4.0-6.0) H 07/26/24 04:49 Calculated Osmolality 297 mOsm/kg (285-295) H 08/03/24 04:33 Calcium 8.1 mg/dL (8.5-10.5) L 08/03/24 04:33 Phosphorus 3.0 mg/dL (2.5-4.5) 08/03/24 04:33 Magnesium 2.5 mg/dL (1.7-2.3) H 08/03/24 04:33 Iron 77 ug/dL (37-145) 07/25/24 09:30 TIBC 326 mcg/dl 07/25/24 09:30 % Saturation 23.6 % (20-50) 07/25/24 09:30 Unsat Iron Binding 249 ug/dL (112-347) 07/25/24 09:30 Total Bilirubin 0.7 mg/dL (0.15-1.2) 08/03/24 04:33 AST 97 U/L (0-32) H 08/03/24 04:33 ALT 39 U/L (0-33) H 08/03/24 04:33 Alkaline Phosphatase 169 U/L (35-105) H 08/03/24 04:33 Troponin T Baseline 20 ng/L (0-10) H 07/25/24 09:30 Troponin T 120 Minute 16.98 ng/L (0-10) H 07/25/24 12:31 Delta Troponin T -3.02 ABS# (0-10) L 07/25/24 12:31 Troponin T Hi Sens 6Hr 18.87 ng/L (0-10) H 07/25/24 15:21 Troponin T Hi Sens 6Hr Delta -1.13 ng/L (0-12) L 07/25/24 15:21 NT-Pro-B Natriuret Pep 5660 pg/mL (0-125) H 07/27/24 05:06 Total Protein 6.5 g/dL (6.6-8.7) L 08/03/24 04:33 Albumin 2.8 g/dL (3.5-5.2) L 08/03/24 04:33 Globulin 3.7 g/dL (1.3-4.6) 08/03/24 04:33 Triglycerides 305 mg/dL (0-150) H 07/26/24 04:49 Cholesterol 151 mg/dL (0-200) 07/26/24 04:49 LDL Cholesterol, Calc 60 mg/dL (50-129) 07/26/24 04:49 HDL Cholesterol 30 mg/dL (60-100) L 07/26/24 04:49 LDL/HDL Ratio 2.00 RATIO (0.00-3.22) 07/26/24 04:49 Cholesterol/HDL Ratio 5.03 mg/dL (0.0-4.40) H 07/26/24 04:49 Vitamin B12 687 pg/mL (232-1245) 07/25/24 09:30 Folate 9.3 ng/mL (4.8-37.3) 07/26/24 04:49 Procalcitonin 0.05 ng/mL (0-0.5) 07/25/24 09:30 TSH 1.65 uIU/mL (0.27-4.20) 07/25/24 09:30 Urine Color Yellow (Yellow) 07/25/24 09:43 Urine Appearance Clear (CLEAR) 07/25/24 09:43 Urine pH 6 (5-7) 07/25/24 09:43 Ur Specific Way[place] 1.015 (1.005-1.030) 07/25/24 09:43 Urine Protein Neg (Negative) 07/25/24 09:43 Urine Glucose (UA) Norm (Normal) 07/25/24 09:43 Urine Ketones Negative (Negative) 07/25/24 09:43 Urine Blood Neg (Negative) 07/25/24 09:43 Urine Nitrate Negative (Negative) 07/25/24 09:43 Urine Bilirubin Neg (Negative) 07/25/24 09:43 Urine Urobilinogen Neg mg/dL (Negative) 07/25/24 09:43 Ur Leukocyte Esterase Negative (Negative) 07/25/24 09:43 Urine RBC 0-2 /hpf (0-2) 07/25/24 09:43 Urine WBC 0-5 /hpf (0-5) 07/25/24 09:43 Ur Squamous Epith Cells 0-5 /hpf (0-5) 07/25/24 09:43 Amorphous Sediment Not Reportable 07/25/24 09:43 Urine Bacteria None seen /hpf (NONE) 07/25/24 09:43 Hyaline Casts 0.81 /lpf 07/25/24 09:43 Urine Opiates Screen Negative ng/mL (Negative) 07/25/24 09:43 Ur Barbiturates Screen Negative ng/mL (Negative) 07/25/24 09:43 Ur Phencyclidine Scrn Negative ng/mL (Negative) 07/25/24 09:43 Ur Amphetamines Screen Negative ng/mL (Negative) 07/25/24 09:43 U Benzodiazepines Scrn Negative ng/mL (Negative) 07/25/24 09:43 Urine Cocaine Screen Negative ng/mL (Negative) 07/25/24 09:43 U Marijuana (THC) Screen Negative ng/mL (Negative) 07/25/24 09:43 Micro: Microbiology 07/31/24 03:22 Gram Stain - Final Sputum - Endotracheal Tube Aspirate Sputum Culture - Final A&P Assessment and plan (1) Abnormal cardiovascular stress test: Patient seems to have moderate to large areas of fixed defect with a small area of reversible defect suggesting extensive myocardial scarring with small area of ischemia. The implication of the test finding was discussed with the patient in detail. In order to better evaluate the coronary status, she requires a cardiac catheterization. The patient is not wanting to undergo any invasive or interventional procedures. She seems to understand the implications. I also talked to the patient's the power of state's attorney-Katt San, who also concurred with the patient's decision. Will continue the current measures (2) Hypotension: Blood pressure seems to be stable, off the vasopressor. May continue holding the Entresto. Patient blood pressure is still on the low normal side. Qualifiers: Hypotension type: other hypotension type Qualified Code(s): I95.89 - Other hypotension (3) Atherosclerosis of coronary artery of [place] heart without angina pectoris: The details of her coronary status is not available at this time. The Myocardial perfusion imaging findings as mentioned above. Will continue on the medical management Qualifiers: Coronary Disease-Associated Artery/Lesion type: [place] artery Qualified Code(s): I25.10 - Atherosclerotic heart disease of [place] coronary artery without angina pectoris (4) Ischemic cardiomyopathy: Consider restarting Entresto, once extubated. Would like to see her blood pressure staying in the normal range. (5) Pneumonia: Clinically improving. Continue on the current measures. Qualifiers: Pneumonia type: aspiration pneumonia Aspiration pneumonia type: u nspecified Laterality: unspecified laterality Lung location: lower lobe of lung Qualified Code(s): J69.0 - Pneumonitis due to inhalation of food and vomit (6) Type 2 diabetes mellitus: The blood sugar seems to be fairly under control. Qualifiers: Diabetes mellitus complication detail: with other circulatory complications Diabetes mellitus complication status: with circulatory complication Diabetes mellitus usp insulin use: with termite exterminator use Q ualified Code(s): E11.59 - Type 2 diabetes mellitus with other circulatory complications; Z79.4 - snf (current) use of insulin (7) Chronic kidney disease, stage 4 (severe): The kidney function seems to be stable. (8) Acute left ICA ischemic stroke: Management as per the neurology service. Persistent right-sided weakness Plan Continue on the current measures. May continue on as needed Lasix PDMP PDMP Reviewed: Not Reviewed Attestations 2 Medical Necessity Statement*: Deferred to the primary Coding Level of Care Code 58702 Diagnoses Abnormal cardiovascular stress test R94.39 Other specified hypotension I95.89 Hypotension type: other hypotension type Atherosclerosis of [place] coronary artery of [place] heart without angina pectoris I25.10 Coronary Disease-Associated Artery/Lesion type: [place] artery Ischemic cardiomyopathy I25.5 Aspiration pneumonia of lower lobe, unspecified aspiration pneumonia type, unspecified laterality J69.0 Pneumonia type: aspiration pneumonia Aspiration pneumonia type: unspecified Laterality: unspecified laterality Lung location: lower lobe of lung Type 2 diabetes mellitus with other circulatory complication, with long-term current use of insulin E11.59; Z79.4 Diabetes mellitus complication detail: with other circulatory complications Diabetes mellitus complication status: with circulatory complication Diabetes mellitus usp insulin use: with termite exterminator use Chronic kidney disease, stage 4 (severe) N18.4 Acute left ICA ischemic stroke I63.232
--- NOTE | 2024-08-03 09:28 | PM.PN ---
Subjective Subjective: Patient remains intubated and sedation. FiO2 at 40% and PEEP 8. Sedation needs have improved. TF still at goal. Medications: Reviewed: Yes Medication Review Details: Current Medications Acetaminophen (Acetaminophen 325 Mg Tablet) 650 mg PO Q6H PRN PRN Reason: Mild/Mod Pain Or Temp >/= 101 Last Admin: 07/30/24 20:06 Dose: 650 mg Acetylcysteine (Acetylcysteine 200 Mg/Ml Mdv 10 Ml) 200 mg INHALATION Q4H.RESPIRATORY JUSTIN Last Admin: 08/01/24 04:08 Dose: 200 mg Albuterol Sulfate (Albuterol 2.5 Mg/3 Ml Neb) 2.5 mg INHALATION Q6H.RESP [facility] Last Admin: 08/01/24 03:56 Dose: Not Given Albuterol/Ipratropium (Ipratropium-Albuterol 3 Ml Neb) 3 ml INHALATION Q4H PRN PRN Reason: Shortness Of Breath Or Wheezing Last Admin: 08/01/24 04:08 Dose: 3 ml Aspirin (Aspirin 81 Mg Ec Tablet) 81 mg PO DAILY [facility] Last Admin: 07/31/24 08:49 Dose: 81 mg Atorvastatin Calcium (Atorvastatin 10 Mg Tablet) 20 mg PO BEDTIME [facility] Last Admin: 07/31/24 20:40 Dose: 20 mg Carvedilol (Carvedilol 6.25 Mg Tablet) 6.25 mg PO BID [facility] Last Admin: 07/30/24 18:30 Dose: Not Given Chlorhexidine Gluconate (Chlorhexidine Gluconate 4% Btl 118 Ml) 1 applic TOPICAL DAILY PRN PRN Reason: Daily bed bath/intubated pt. Last Admin: 08/01/24 03:26 Dose: 1 applic Glucagon (Glucagon 1 Mg/Ml Kit 1 Ml) 1 mg IM ONCE PRN; Protocol PRN Reason: Adult Acute Hypoglycemia Nursing Prot. Guaifenesin (Guaifenesin 100 Mg/5 Ml Udc 10 Ml) 400 mg PO Q4H [facility] Last Admin: 08/01/24 05:41 Dose: 400 mg Heparin Sodium (Porcine) (Heparin 5,000 Unit/Ml Inj 1 Ml) 5,000 unit SUBCUT Q12H [facility] Last Admin: 07/31/24 20:40 Dose: 5,000 unit Dextrose (D5w) 500 mls @ 0 mls/hr IV ONCE PRN; Protocol PRN Reason: Adult Acute Hypoglycemia Prot Dextrose (D10w) 125 mls @ 750 mls/hr IV PRN PRN; Protocol PRN Reason: Adult Acute Hypoglycemia Nursing Protocol Dextrose (D10w) 250 mls @ 1,000 mls/hr IV PRN PRN; Protocol PRN Reason: Adult Acute Hypoglycemia Nursing Protocol Piperacillin Sod/Tazobactam (Sod 3.375 gm/ Sodium Chloride) 50 mls @ 12.5 mls/hr IV Q8H [facility]; Protocol Last Infusion: 08/01/24 04:49 Dose: Infused Dexmedetomidine/Sodium Chloride (Precedex) 400 mcg in 100 mls @ 0 mls/hr IV .Q0M [facility]; Protocol Last Titration: 07/31/24 02:50 Dose: 0 mcg/kg/hr, 0 mls/hr Propofol (Diprivan) 1,000 mg in 100 mls @ 0 mls/hr IV .Q0M [facility]; Protocol Last Titration: 08/01/24 05:36 Dose: 20 mcg/kg/min, 9 mls/hr Fentanyl (Sublimaze) 1,000 mcg in 100 mls @ 0 mls/hr IV .Q0M [facility]; Protocol Last Titration: 08/01/24 05:36 Dose: 75 mcg/hr, 7.5 mls/hr Norepinephrine Bitartrate (Levophed) 4 mg in 250 mls @ 0 mls/hr IV .Q0M [facility]; Protocol Last Titration: 08/01/24 01:05 Dose: 0 mcg/min, 0 mls/hr Insulin Human Lispro (Insulin Lispro 100 Unit/1 Ml) 0 unit SUBCUT Q6H [facility]; Protocol Last Admin: 08/01/24 05:37 Dose: Not Given Lactulose (Lactulose Oral Liq 20 Gm/30 Ml Udc) 10 gm PO DAILY PRN; Protocol PRN Reason: Constipation (see protocol) Magnesium Hydroxide (Magnesium Hydroxide 30 Ml Udc) 30 ml PO DAILY PRN; Protocol PRN Reason: Constipation (see protocol) Mirtazapine (Mirtazapine 15 Mg Tablet) 15 mg PO BEDTIME [facility] Last Admin: 07/31/24 20:40 Dose: 15 mg Ondansetron HCl (Ondansetron 2 Mg/Ml Sdv 2 Ml) 4 mg IVP Q6H PRN PRN Reason: vomiting, or N/V if npo Pantoprazole Sodium (Pantoprazole 40 Mg Sdv) 40 mg IVP Q24H [facility] Last Admin: 07/31/24 08:49 Dose: 40 mg Quetiapine Fumarate (Quetiapine Xr (24hr) 50 Mg Tablet) 200 mg PO BEDTIME [facility] Last Admin: 07/31/24 21:02 Dose: Not Given Tamsulosin HCl (Tamsulosin 0.4 Mg Capsule) 0.4 mg PO BEDTIME [facility] Last Admin: 07/30/24 20:06 Dose: 0.4 mg Vitals/I&O/Wt Last Vital Signs Temp 99.5 F 08/03/24 04:30 Pulse 75 08/03/24 08:33 Resp 16 08/03/24 08:31 BP 130/72 08/03/24 06:15 Pulse Ox 100 08/03/24 08:31 O2 Del Method Mechanical Ventilation 08/03/24 08:20 O2 Flow Rate 40 08/02/24 20:00 FiO2 40 08/03/24 08:31 08/02/24 08/03/24 08/03/24 22:59 06:59 14:59 Intake Total 972.433 / 1308.783 603.75 / 1912.533 Output Total 700 / 700 650 / 1350 Balance 272.433 / 608.783 -46.25 / 562.533 Weight last 48 hrs Weight 77 kg Weight 82.5 kg Physical Exam Narrative: General: Patient is intubated and sedated. Head: Normocephalic. Neck: No JVD. Cardiovascular: RRR. No gallops. No murmurs. Lungs: Breath sounds are still course but improved from yesterdays exam. Faint bibasilar rhonchi. Intubated on ventilator. Skin: No jaundice. No rashes. Abdomen: Hypoactive bowel sounds, abdomen soft. Extremities: No cyanosis or clubbing. Neurological: No myoclonus. Limited neurological exam due to sedated status. Urinary Catheter Management: Graff: Cath Placed During This Visit: yes Reason for Continuing Indwelling Catheter: Accurate Measurement of Urinary Output in Critically Ill Patients Urinary Catheter Date of Insertion: 07/26/24 Urinary Catheter Time of Insertion: 19:54 Data 08/03/24 04:33 08/03/24 04:33 Micro: Microbiology 07/31/24 03:22 Gram Stain - Final Sputum - Endotracheal Tube Aspirate Sputum Culture - Final A&P Assessment and plan (1) Respiratory failure: Acute hypoxic respiratory failure Intubated 07/31 Fentanyl/propofol for analgesia/sedation Levophed for MAP of >65 mmHg PPI and DVT prophylaxis; bowel regiment Continue low dose Lasix Continue tube feeds, at goal; will hold at 0400 on 08/04 for possible extubation in AM Plan to attempt to wean PEEP to 5 today Plan for SBT in AM Hopeful to extubate Sunday if she continues to improve (2) Pneumonia: Continue Zosyn Respiratory support as above Qualifiers: Pneumonia type: aspiration pneumonia Aspiration pneumonia type: unspecified Laterality: unspecified laterality Lung location: lower lobe of lung Qualified Code(s): J69.0 - Pneumonitis due to inhalation of food and vomit (3) Acute left ICA ischemic stroke: Acute left ICA ischemic stroke resulting in flaccid right-sided extremities Suspect pneumonia is aspiration from the stroke Continue statin Continue aspirin (4) Ischemic cardiomyopathy: Continue medical treatment with statin, aspirin, beta-joseluis Holding Entresto and beta-joseluis due to hemodynamics (5) Type 2 diabetes mellitus without complications: Sliding-scale insulin correction (6) Essential (primary) hypertension: Hold antihypertensives (7) CAD (coronary artery disease): As above (8) Congestive heart failure due to cardiomyopathy: Daily assessments of volume (9) Common carotid artery stenosis: Plan Dysphagia: Will need repeat speech therapy evaluation after extubation. There is at least moderate concern that she may end up needing a feeding tube. Urinary retention: Graff catheter Smoking addiction: Would benefit from cessation Thrombocytopenia: Chronic. Monitor for bleeding. Continue other chronic medical history including DuoNeb as needed, mirtazapine nightly. Seroquel and Flomax held. CODE STATUS: Full code. Guarded information in chart. DVT prophylaxis: Heparin PDMP PDMP Reviewed: Not Reviewed Attestations Medical Necessity Statement*: Patient requires ongoing hospitalization for vent support, IV antibiotics, ST re-eval, therapy, and supportive care. Critical Care Time: The high probability of a clinically significant, sudden or life threatening deterioration of the patient's respiratory, circulatory, neuro system(s) required my full and direct attention, intervention and personal management. The critical care time is as shown. This time is in addition to time spent performing any reported procedures but includes the following: [x] Data and vital sign review and interpretation [x] Patient assessment, examination and intervention [x] Documentation [x] Medication orders and management Critical Care Time (min): 35 Coding Level of Care Code Acute Code for [facility] Fwd Diagnoses Respiratory failure J96.90 Aspiration pneumonia of lower lobe, unspecified aspiration pneumonia type, unspecified laterality J69.0 Pneumonia type: aspiration pneumonia Aspiration pneumonia type: unspecified Laterality: unspecified laterality Lung location: lower lobe of lung Acute left ICA ischemic stroke I63.232 Ischemic cardiomyopathy I25.5 Type 2 diabetes mellitus without complications E11.9 Essential (primary) hypertension I10 CAD (coronary artery disease) I25.10 Congestive heart failure due to cardiomyopathy I50.9; I42.9 Common carotid artery stenosis I65.29
[2024-08-03 11:42] LABS: Glucose Point of Care 168 mg/dL (70-110)
[2024-08-03] MEDS: fentaNYL 1,000 MCG/100 ML BAG 5 MCG IV (12:06)
[2024-08-03 17:07] LABS: Glucose Point of Care 135 mg/dL (70-110)
--- NOTE | 2024-08-03 19:47 | PC.NURSE ---
Shift summary: Pt remains sedated and intubated. No changes in Fentanyl and Propofol gtt rates today. FIO2 now at 30%, peep decreased to 5. She still has pinkish secretions suctioned in ETT. Sinus arrhythmia and BBB noted on monitor. She was afebrile throughout shift. Skin remains intact. Lasix admin this am IVP. 760 ml of urinary output noted. NO Bm noted, but she did have flatulence this evening.
[2024-08-03] MEDS: ATORVASTATIN 10 MG TABLET 20 MG PT (21:30)
[2024-08-03] MEDS: mirtazapine 15 mg Tablet PEG-TUBE (21:30)
[2024-08-03] MEDS: sennosides 8.6 mg Tablet 17.2 MG PO (21:30)
[2024-08-03] MEDS: acetaminophen 325 mg Tablet 650 MG PO (23:01)
[2024-08-03 23:13] LABS: Glucose Point of Care 159 mg/dL (70-110)
[2024-08-04] VITALS (62 sets, daily range): BP systolic 105–156; BP diastolic 51–91; PULSE 63–91; RESP 14–30; TEMP 36.4–37.1; O2SAT 91–100
[2024-08-04] MEDS: piperacillin-tazobactam 3.375 GM in sodium chloride 0.9% (plus) 50 ML IV ×4 (00:49→23:36)
[2024-08-04] MEDS: guaiFENesin 100 mg/5 mL UDC 10 mL 400 MG PO ×6 (00:50→20:12)
[2024-08-04] MEDS: albuterol 2.5 mg/3 mL Neb INHALATION ×4 (02:17→19:35)
--- NOTE | 2024-08-04 04:00 | XRR_ITS ---
PROCEDURE INFORMATION: Exam: XR Chest Exam date and time: 08/04/2024 5:05 AM Age: 74 years old Clinical indication: Condition or disease; Lung condition and disease; Respiratory failure; Status not specified; Prior surgery; Surgery date: 6+ months; Surgery type: Cabg; Day 3 resp failure. Intubated TECHNIQUE: Imaging protocol: Radiologic exam of the chest. Views: 1 view. COMPARISON: CR (CHEST, ) 08/03/2024 5:26 AM FINDINGS: Tubes, catheters and devices: The endotracheal tube terminates 4 cm above the valentina. Gastric tube terminates in the stomach. Lungs: Vascular engorgement with interstitial and alveolar edema. Mild CHF is present. It appears slightly worse than was seen yesterday. Stable opacity of the left lower lobe. Pleural spaces: Unremarkable. No pleural effusion. No pneumothorax. Heart/Mediastinum: Unremarkable. No cardiomegaly. Bones/joints: Unremarkable. XR/XR chest 1V portable [id number] IMPRESSION: Slightly increasing CHF. No other change.
[2024-08-04] MEDS: propofol 1,000 MG/100 ML INJ 11.25 MG IV (04:23)
[2024-08-04 04:30] LABS: Glucose Point of Care 151 mg/dL (70-110)
[2024-08-04] MEDS: insulin lispro 100 unit/1 mL SUBCUT (05:04)
[2024-08-04 05:24] LABS: Basophils % 0.3 %; Eosinophils # 0.5 10^3/uL (0.0-0.8); Eosinophils % 8.3 %; Lymphocytes # 1.1 10^3/uL (0.8-4.8); Lymphocytes % 18.6 %; Mean Corpuscular HGB Conc 30.7 g/dL (30-55); Mean Corpuscular Hemoglobin 29.8 pg (27-33); Mean Corpuscular Volume 96.9 fl (85-98); Monocytes # 0.5 10^3/uL (0.2-0.9); Monocytes % 8.9 %; Neutrophils # 3.44 10^3/uL (1.8-7.7); Neutrophils % 59.7 %; Nucleated Red Blood Cells % 0 %; Platelet Count 125 10^3/cmm (157-399); Red Blood Count 2.89 10^6/uL (3.85-5.65); Red Cell Distribution Width 14.7 % (12.1-15.1); White Blood Count 5.76 10^3/uL (3.29-11.43)
[2024-08-04 05:42] LABS: Alanine Aminotransferase 47 U/L (0-33); Albumin Level 2.9 g/dL (3.5-5.2); Alkaline Phosphatase 199 U/L (35-105); Anion Gap 14.4 (5-19); Aspartate Amino Transferase 102 U/L (0-32); Blood Urea Nitrogen 21 mg/dL (8-23); Calcium 8.3 mg/dL (8.5-10.5); Carbon Dioxide 27 mmol/L (22-29); Chloride 102 mmol/L (98-107); Creatinine Clr Calc Pharmacy 44.5034; Globulin 3.7 g/dL (1.3-4.6); Glucose 139 mg/dL (65-115); Magnesium 2.3 mg/dL (1.7-2.3); Osmolality Calculated 295 mOsm/kg (285-295); Phosphorus 2.8 mg/dL (2.5-4.5); Potassium 3.4 mmol/L (3.5-5.1); Sodium 140 mmol/L (136-145); Total Bilirubin 0.6 mg/dL (0.15-1.2); Total Protein 6.6 g/dL (6.6-8.7)
[2024-08-04 05:45] LABS: ABG PCO2 47.5 mmHg (35-45); ABG PH Result 7.43 (7.35-7.45); Alveolar-Arterial Oxygen Gradi 11.4 mmHg (5-10); Arterial Blood Gas Hematocrit 28.5 % (37-47); Base Excess ABG 6.3 mmol/L (-2.0-2.0); Blood Gas Allen Test Pos; Blood Gas Operator Identificat JDB; Blood Gas Sample Site Radial, right; Blood Gas Sample Type Arterial; Carboxyhemoglobin 1.5 %THgb (0.4-20.1); HCO3 ABG 31.5 mmol/L (22-26); HGB O2 Sat 92.6 % (95-100); Ionized Calcium Level - ABG 1.2 mmol/L (1.1-1.4); Methemoglobin 0.3 % (0.4-1.5); Oxygen Device VENT; Oxygen Saturation ABG 94.3; PO2 ABG 66.9 mmHg (80.0-100.0); PO2 FiO2 Ratio Arterial Blood 223; Potassium Level - ABG 3.2 mmol/L (3.5-5.0); Total Hemoglobin 9.3 g/dL (12-16)
[2024-08-04] MEDS: lidocaine 1% 5 ML in potassium chloride premix 100 ML 52.5 ML IV (07:47)
[2024-08-04] MEDS: aspirin 81 mg EC Tablet PO (09:37)
[2024-08-04] MEDS: FUROsemide 10 mg/mL SDV 2mL 20 MG IVP ×2 (09:38→20:48)
[2024-08-04] MEDS: heparin 5,000 unit/mL INJ 1 mL 5000 UNIT SUBCUT ×2 (09:38→20:23)
[2024-08-04] MEDS: pantoprazole 40 mg SDV IVP (09:38)
--- NOTE | 2024-08-04 10:01 | PC.NURSE ---
technical support coordinator rounds- patient intubated and sedated now, respiratory therapist and RN bedside
--- NOTE | 2024-08-04 10:38 | PM.PN ---
Subjective Subjective: Patient remains intubated. Sedation has been held. Tube feeds been held since 4 AM this morning anticipation of extubation this morning. Vent settings are minimal. She is awake. Does not track. Does not follow commands. Patient discussed with RT later this morning after spontaneous breathing trial. She she does trigger the vent but with significant change stroke breathing. She does not follow commands and confirmation of airway protection cannot be guaranteed. Extubating in the setting of be high risk for reneeding intubation. Safest option for airway protection is to proceed with tracheostomy and feeding tube. From prior conversations Samantha, I do not think this would be consistent with her wishes. Will call and speak with her guardian. Called and spoke with Katt San. Discussed her current clinical course and current clinical decision being considered. Questions whether or not proceed with a high risk extubation versus consideration of tracheostomy/feeding tube. I did note that I did not think this was consistent with the patient's prior stated wishes. She would like to think about it and review the case. I will forward this note onto her for more information. If we proceed with extubation, would recommend DNR/DNI status as reintubation would be for the purpose of tracheostomy. Overall, I am concerned her stroke is progressed; her worsening aspiration which landed her intubated as well as her worsening neurological status is consistent with progression of stroke. Medications: Reviewed: Yes Medication Review Details: Current Medications Acetaminophen (Acetaminophen 325 Mg Tablet) 650 mg PO Q6H PRN PRN Reason: Mild/Mod Pain Or Temp >/= 101 Last Admin: 07/30/24 20:06 Dose: 650 mg Acetylcysteine (Acetylcysteine 200 Mg/Ml Mdv 10 Ml) 200 mg INHALATION Q4H.RESPIRATORY JUSTIN Last Admin: 08/01/24 04:08 Dose: 200 mg Albuterol Sulfate (Albuterol 2.5 Mg/3 Ml Neb) 2.5 mg INHALATION Q6H.RESP [facility] Last Admin: 08/01/24 03:56 Dose: Not Given Albuterol/Ipratropium (Ipratropium-Albuterol 3 Ml Neb) 3 ml INHALATION Q4H PRN PRN Reason: Shortness Of Breath Or Wheezing Last Admin: 08/01/24 04:08 Dose: 3 ml Aspirin (Aspirin 81 Mg Ec Tablet) 81 mg PO DAILY [facility] Last Admin: 07/31/24 08:49 Dose: 81 mg Atorvastatin Calcium (Atorvastatin 10 Mg Tablet) 20 mg PO BEDTIME [facility] Last Admin: 07/31/24 20:40 Dose: 20 mg Carvedilol (Carvedilol 6.25 Mg Tablet) 6.25 mg PO BID [facility] Last Admin: 07/30/24 18:30 Dose: Not Given Chlorhexidine Gluconate (Chlorhexidine Gluconate 4% Btl 118 Ml) 1 applic TOPICAL DAILY PRN PRN Reason: Daily bed bath/intubated pt. Last Admin: 08/01/24 03:26 Dose: 1 applic Glucagon (Glucagon 1 Mg/Ml Kit 1 Ml) 1 mg IM ONCE PRN; Protocol PRN Reason: Adult Acute Hypoglycemia Nursing Prot. Guaifenesin (Guaifenesin 100 Mg/5 Ml Udc 10 Ml) 400 mg PO Q4H [facility] Last Admin: 08/01/24 05:41 Dose: 400 mg Heparin Sodium (Porcine) (Heparin 5,000 Unit/Ml Inj 1 Ml) 5,000 unit SUBCUT Q12H [facility] Last Admin: 07/31/24 20:40 Dose: 5,000 unit Dextrose (D5w) 500 mls @ 0 mls/hr IV ONCE PRN; Protocol PRN Reason: Adult Acute Hypoglycemia Prot Dextrose (D10w) 125 mls @ 750 mls/hr IV PRN PRN; Protocol PRN Reason: Adult Acute Hypoglycemia Nursing Protocol Dextrose (D10w) 250 mls @ 1,000 mls/hr IV PRN PRN; Protocol PRN Reason: Adult Acute Hypoglycemia Nursing Protocol Piperacillin Sod/Tazobactam (Sod 3.375 gm/ Sodium Chloride) 50 mls @ 12.5 mls/hr IV Q8H [facility]; Protocol Last Infusion: 08/01/24 04:49 Dose: Infused Dexmedetomidine/Sodium Chloride (Precedex) 400 mcg in 100 mls @ 0 mls/hr IV .Q0M [facility]; Protocol Last Titration: 07/31/24 02:50 Dose: 0 mcg/kg/hr, 0 mls/hr Propofol (Diprivan) 1,000 mg in 100 mls @ 0 mls/hr IV .Q0M [facility]; Protocol Last Titration: 08/01/24 05:36 Dose: 20 mcg/kg/min, 9 mls/hr Fentanyl (Sublimaze) 1,000 mcg in 100 mls @ 0 mls/hr IV .Q0M [facility]; Protocol Last Titration: 08/01/24 05:36 Dose: 75 mcg/hr, 7.5 mls/hr Norepinephrine Bitartrate (Levophed) 4 mg in 250 mls @ 0 mls/hr IV .Q0M [facility]; Protocol Last Titration: 08/01/24 01:05 Dose: 0 mcg/min, 0 mls/hr Insulin Human Lispro (Insulin Lispro 100 Unit/1 Ml) 0 unit SUBCUT Q6H [facility]; Protocol Last Admin: 08/01/24 05:37 Dose: Not Given Lactulose (Lactulose Oral Liq 20 Gm/30 Ml Udc) 10 gm PO DAILY PRN; Protocol PRN Reason: Constipation (see protocol) Magnesium Hydroxide (Magnesium Hydroxide 30 Ml Udc) 30 ml PO DAILY PRN; Protocol PRN Reason: Constipation (see protocol) Mirtazapine (Mirtazapine 15 Mg Tablet) 15 mg PO BEDTIME [facility] Last Admin: 07/31/24 20:40 Dose: 15 mg Ondansetron HCl (Ondansetron 2 Mg/Ml Sdv 2 Ml) 4 mg IVP Q6H PRN PRN Reason: vomiting, or N/V if npo Pantoprazole Sodium (Pantoprazole 40 Mg Sdv) 40 mg IVP Q24H [facility] Last Admin: 07/31/24 08:49 Dose: 40 mg Quetiapine Fumarate (Quetiapine Xr (24hr) 50 Mg Tablet) 200 mg PO BEDTIME [facility] Last Admin: 07/31/24 21:02 Dose: Not Given Tamsulosin HCl (Tamsulosin 0.4 Mg Capsule) 0.4 mg PO BEDTIME [facility] Last Admin: 07/30/24 20:06 Dose: 0.4 mg Vitals/I&O/Wt Last Vital Signs Temp 98.0 F 08/04/24 10:00 Pulse 85 08/04/24 10:00 Resp 14 08/04/24 09:25 BP 143/85 08/04/24 10:00 Pulse Ox 95 08/04/24 10:00 O2 Del Method CPAP, Mechanical Ventilation 08/04/24 08:00 O2 Flow Rate 40 08/02/24 20:00 FiO2 30 08/04/24 09:25 08/03/24 08/04/24 08/04/24 22:59 06:59 14:59 Intake Total 1227.5 / 1486.917 807.618 / 2294.535 2.730 / 2.730 Output Total 760 / 760 800 / 1560 Balance 467.5 / 726.917 7.618 / 734.535 2.730 / 2.730 Weight last 48 hrs Weight 75.5 kg Weight 77 kg Physical Exam Narrative: General: Patient is intubated. Off sedation. Head: Normocephalic. Eyes open. Neck: No JVD. Cardiovascular: RRR. No gallops. No murmurs. Lungs: Breath sounds are still course but improved from yesterdays exam. Improved bibasilar rhonchi. Intubated on ventilator. Skin: No jaundice. No rashes. Abdomen: Hypoactive bowel sounds, abdomen soft. Extremities: No cyanosis or clubbing. Neurological: No myoclonus. Does not follow commands. Urinary Catheter Management: Graff: Cath Placed During This Visit: yes Reason for Continuing Indwelling Catheter: Accurate Measurement of Urinary Output in Critically Ill Patients Urinary Catheter Date of Insertion: 07/26/24 Urinary Catheter Time of Insertion: 19:54 Data 08/04/24 04:33 08/04/24 04:33 A&P Assessment and plan (1) Respiratory failure: Acute hypoxic respiratory failure Intubated 07/31 Fentanyl/propofol for analgesia/sedation - held for possible extubation Tube feeds held 0400 for possible extubation Shock has resolved, off Levophed PPI and DVT prophylaxis; bowel regiment Continue low dose Lasix for volume control Patient not demonstrating airway protection; significant Kody-Suazo on ventilator despite minimal vent setting Discussing goals of care with guardian as above (2) Pneumonia: Continue Zosyn Respiratory support as above Qualifiers: Pneumonia type: aspiration pneumonia Aspiration pneumonia type: unspecified Laterality: unspecified laterality Lung location: lower lobe of lung Qualified Code(s): J69.0 - Pneumonitis due to inhalation of food and vomit (3) Acute left ICA ischemic stroke: Acute left ICA ischemic stroke resulting in flaccid right-sided extremities Aspiration pneumonia 2/2 stroke Continue statin Continue aspirin (4) Ischemic cardiomyopathy: Continue medical treatment with statin, aspirin, beta-joseluis Holding Entresto and beta-joseluis due to hemodynamics (5) Type 2 diabetes mellitus without complications: Sliding-scale insulin correction (6) Essential (primary) hypertension: Hold antihypertensives (7) CAD (coronary artery disease): As above (8) Congestive heart failure due to cardiomyopathy: Daily assessments of volume (9) Common carotid artery stenosis: Plan Dysphagia: Will need repeat speech therapy evaluation if extubated. Urinary retention: Graff catheter Smoking addiction: Would benefit from cessation Thrombocytopenia: Chronic. Monitor for bleeding. Continue other chronic medical history including DuoNeb as needed, mirtazapine nightly. Seroquel and Flomax held. CODE STATUS: Full code. Guarded information in chart. DVT prophylaxis: Heparin PDMP PDMP Reviewed: Not Reviewed Attestations Medical Necessity Statement*: Patient requires ongoing hospitalization for vent support, IV antibiotics, ST re-eval, therapy, and supportive care. Critical Care Time: The high probability of a clinically significant, sudden or life threatening deterioration of the patient's respiratory, circulatory, neuro system(s) required my full and direct attention, intervention and personal management. The critical care time is as shown. This time is in addition to time spent performing any reported procedures but includes the following: [x] Data and vital sign review and interpretation [x] Patient assessment, examination and intervention [x] Documentation [x] Medication orders and management Critical Care Time (min): 40 Coding Level of Care Code Acute Code for [facility] Fwd Diagnoses Respiratory failure J96.90 Aspiration pneumonia of lower lobe, unspecified aspiration pneumonia type, unspecified laterality J69.0 Pneumonia type: aspiration pneumonia Aspiration pneumonia type: unspecified Laterality: unspecified laterality Lung location: lower lobe of lung Acute left ICA ischemic stroke I63.232 Ischemic cardiomyopathy I25.5 Type 2 diabetes mellitus without complications E11.9 Essential (primary) hypertension I10 CAD (coronary artery disease) I25.10 Congestive heart failure due to cardiomyopathy I50.9; I42.9 Common carotid artery stenosis I65.29
[2024-08-04 11:01] LABS: Glucose Point of Care 180 mg/dL (70-110)
[2024-08-04] MEDS: fentaNYL 1,000 MCG/100 ML BAG 2.5 MCG IV (11:03)
--- NOTE | 2024-08-04 15:05 | PC.OT ---
OT TREATMENT HELD DUE TO PATIENT INTUBATION
[2024-08-04 18:04] LABS: Glucose Point of Care 119 mg/dL (70-110)
[2024-08-04] MEDS: sennosides 8.6 mg Tablet 17.2 MG PO (20:13)
[2024-08-04] MEDS: ATORVASTATIN 10 MG TABLET 20 MG PT (20:13)
[2024-08-04] MEDS: mirtazapine 15 mg Tablet PEG-TUBE (20:13)
--- NOTE | 2024-08-04 21:59 | PM.PN ---
Subjective Subjective: Patient is in the process of being extubated. The vital signs seems to be stable. No arrhythmias on the monitor. Medications: Medication Review Details: Current Medications Acetaminophen (Acetaminophen 325 Mg Tablet) 650 mg PO Q6H PRN PRN Reason: Mild/Mod Pain Or Temp >/= 101 Last Admin: 08/03/24 23:01 Dose: 650 mg Albuterol Sulfate (Albuterol 2.5 Mg/3 Ml Neb) 2.5 mg INHALATION Q6H.RESP JUSTIN Last Admin: 08/04/24 19:35 Dose: 2.5 mg Albuterol/Ipratropium (Ipratropium-Albuterol 3 Ml Neb) 3 ml INHALATION Q4H PRN PRN Reason: Shortness Of Breath Or Wheezing Last Admin: 08/03/24 02:30 Dose: 3 ml Aspirin (Aspirin 81 Mg Ec Tablet) 81 mg PO DAILY [facility] Last Admin: 08/04/24 09:37 Dose: 81 mg Atorvastatin Calcium (Atorvastatin 10 Mg Tablet) 20 mg PT BEDTIME [facility] Last Admin: 08/04/24 20:13 Dose: 20 mg Carvedilol (Carvedilol 6.25 Mg Tablet) 6.25 mg PO BID [facility] Last Admin: 07/30/24 18:30 Dose: Not Given Chlorhexidine Gluconate (Chlorhexidine Gluconate 4% Btl 118 Ml) 1 applic TOPICAL DAILY PRN PRN Reason: Daily bed bath/intubated pt. Last Admin: 08/02/24 22:50 Dose: 1 applic Furosemide (Furosemide 10 Mg/Ml Sdv 2ml) 20 mg IVP Q12H [facility] Last Admin: 08/04/24 20:48 Dose: 20 mg Glucagon (Glucagon 1 Mg/Ml Kit 1 Ml) 1 mg IM ONCE PRN; Protocol PRN Reason: Adult Acute Hypoglycemia Nursing Prot. Guaifenesin (Guaifenesin 100 Mg/5 Ml Udc 10 Ml) 400 mg PO Q4H [facility] Last Admin: 08/04/24 20:12 Dose: 400 mg Heparin Sodium (Porcine) (Heparin 5,000 Unit/Ml Inj 1 Ml) 5,000 unit SUBCUT Q12H [facility] Last Admin: 08/04/24 20:23 Dose: 5,000 unit Dextrose (D5w) 500 mls @ 0 mls/hr IV ONCE PRN; Protocol PRN Reason: Adult Acute Hypoglycemia Prot Dextrose (D10w) 125 mls @ 750 mls/hr IV PRN PRN; Protocol PRN Reason: Adult Acute Hypoglycemia Nursing Protocol Dextrose (D10w) 250 mls @ 1,000 mls/hr IV PRN PRN; Protocol PRN Reason: Adult Acute Hypoglycemia Nursing Protocol Piperacillin Sod/Tazobactam (Sod 3.375 gm/ Sodium Chloride) 50 mls @ 12.5 mls/hr IV Q8H JUSTIN; Protocol Last Infusion: 08/04/24 19:29 Dose: Infused Dexmedetomidine/Sodium Chloride (Precedex) 400 mcg in 100 mls @ 0 mls/hr IV .Q0M JUSTIN; Protocol Last Titration: 07/31/24 02:50 Dose: 0 mcg/kg/hr, 0 mls/hr Propofol (Diprivan) 1,000 mg in 100 mls @ 0 mls/hr IV .Q0M JUSTIN; Protocol Last Titration: 08/04/24 07:20 Dose: 0 mcg/kg/min, 0 mls/hr Fentanyl (Sublimaze) 1,000 mcg in 100 mls @ 0 mls/hr IV .Q0M JUSTIN; Protocol Last Admin: 08/04/24 11:03 Dose: 25 mcg/hr, 2.5 mls/hr Norepinephrine Bitartrate (Levophed) 4 mg in 250 mls @ 0 mls/hr IV .Q0M JUSTIN; Protocol Last Titration: 08/02/24 07:24 Dose: Infused Insulin Human Lispro (Insulin Lispro 100 Unit/1 Ml) 0 unit SUBCUT Q6H JUSTIN; Protocol Last Admin: 08/04/24 18:08 Dose: Not Given Lactulose (Lactulose Oral Liq 20 Gm/30 Ml Udc) 10 gm PO DAILY PRN; Protocol PRN Reason: Constipation (see protocol) Magnesium Hydroxide (Magnesium Hydroxide 30 Ml Udc) 30 ml PO DAILY PRN; Protocol PRN Reason: Constipation (see protocol) Mirtazapine (Mirtazapine 15 Mg Tablet) 15 mg PEG-TUBE BEDTIME [facility] Last Admin: 08/04/24 20:13 Dose: 15 mg Ondansetron HCl (Ondansetron 2 Mg/Ml Sdv 2 Ml) 4 mg IVP Q6H PRN PRN Reason: vomiting, or N/V if npo Pantoprazole Sodium (Pantoprazole 40 Mg Sdv) 40 mg IVP Q24H [facility] Last Admin: 08/04/24 09:38 Dose: 40 mg Quetiapine Fumarate (Quetiapine Xr (24hr) 50 Mg Tablet) 200 mg PO BEDTIME [facility] Last Admin: 07/31/24 21:02 Dose: Not Given Senna (Sennosides 8.6 Mg Tablet) 17.2 mg PO BEDTIME [facility] Last Admin: 08/04/24 20:13 Dose: 17.2 mg Tamsulosin HCl (Tamsulosin 0.4 Mg Capsule) 0.4 mg PO BEDTIME [facility] Last Admin: 07/30/24 20:06 Dose: 0.4 mg Vitals/I&O/Wt Last Vital Signs Temp 98.7 F 08/04/24 20:30 Pulse 74 08/04/24 21:00 Resp 15 08/04/24 19:38 BP 128/66 08/04/24 21:00 Pulse Ox 93 08/04/24 21:00 O2 Del Method Mechanical Ventilation 08/04/24 19:35 O2 Flow Rate 40 08/02/24 20:00 FiO2 30 08/04/24 19:38 08/04/24 08/04/24 08/04/24 06:59 14:59 22:59 Intake Total 807.618 / 2294.535 163.021 / 163.021 50 / 213.021 Output Total 800 / 1560 1000 / 1000 Balance 7.618 / 734.535 -836.979 / -836.979 50 / -786.979 Weight last 48 hrs Weight 166 lb 7.184 oz Weight 169 lb 12.095 oz Physical Exam Narrative: GENERAL: Patient is intubated. Very poor response to verbal commands HEENT: No significant pallor, icterus or lymphadenopathy.Oral cavity: There are no mucous membrane lesions. NECK: Trachea appears to be central. No masses noted. No JVD or thyromegaly appreciated. RESPIRATORY: Chest is symmetrical. No intercostals muscle retraction or any accessory muscle activation. There is no chest wall tenderness. Breath sounds are heard bilaterally. The breath sounds are diminished in the left base. Scattered coarse crackles on both sides. BREASTS: Deferred. HEART: The heart sounds are normal. No S3 or S4. Short systolic murmur in the lower sternal border. No diastolic murmurs.. No pericardial rub ABDOMEN: No vessel pulsations or distention. No tenderness. No organomegaly appreciated. Bowel sounds are normally heard. : Deferred. RECTAL: Deferred. LYMPHATIC: No lymphadenopathy noted in the neck or groin. EXTREMITIES: No edema or cyanosis. No clubbing. Peripheral pulses are palpated in fairly good volume and amplitude MUSCULOSKELETAL: No acute joint deformities or swelling SKIN: There are no significant scars or skin rash noted. NEUROPSYCHIATRIC: Intubated . Has spontaneous movements of the left upper and lower extremities. Urinary Catheter Management: Graff: Cath Placed During This Visit: yes Reason for Continuing Indwelling Catheter: Accurate Measurement of Urinary Output in Critically Ill Patients Urinary Catheter Date of Insertion: 07/26/24 Urinary Catheter Time of Insertion: 19:54 Data 08/04/24 04:33 08/04/24 04:33 Other Labs: Laboratory Last Values WBC 5.76 10^3/uL (3.29-11.43) 08/04/24 04:33 RBC 2.89 10^6/uL (3.85-5.65) L 08/04/24 04:33 Hgb 8.60 g/dL (11.27-16.99) L 08/04/24 04:33 Hct 28.0 % (36-47) L 08/04/24 04:33 MCV 96.9 fl (85-98) 08/04/24 04:33 MCH 29.8 pg (27-33) 08/04/24 04:33 MCHC 30.7 g/dL (30-55) 08/04/24 04:33 RDW 14.7 % (12.1-15.1) 08/04/24 04:33 Plt Count 125 10^3/cmm (157-399) L 08/04/24 04:33 MPV 11.0 fL (7.4-10.4) H 08/04/24 04:33 Neut % (Auto) 59.7 % 08/04/24 04:33 Lymph % (Auto) 18.6 % 08/04/24 04:33 [place] % (Auto) 8.9 % 08/04/24 04:33 Eos % (Auto) 8.3 % 08/04/24 04:33 Baso % (Auto) 0.3 % 08/04/24 04:33 Neut # (Auto) 3.44 10^3/uL (1.8-7.7) 08/04/24 04:33 Lymph # (Auto) 1.1 10^3/uL (0.8-4.8) 08/04/24 04:33 [place] # (Auto) 0.5 10^3/uL (0.2-0.9) 08/04/24 04:33 Eos # (Auto) 0.5 10^3/uL (0.0-0.8) 08/04/24 04:33 Baso # (Auto) 0.0 10^3/uL (0.0-0.1) 08/04/24 04:33 Nucleated RBC % (auto) 0 % 08/04/24 04:33 Nucleated RBCs # 0.0 /100WBC 08/04/24 04:33 PT 13.50 SECONDS (12.1-14.9) 07/25/24 09:30 INR 0.96 (0.8-1.2) 07/25/24 09:30 APTT 26.0 SECONDS (23.9-36.7) 07/25/24 09:30 D-Dimer 2.04 ug/mLFEU (0-0.59) H 07/29/24 18:50 Specimen Type Arterial 08/04/24 05:32 Sample Site Radial, right 08/04/24 05:32 ABG pH 7.43 (7.35-7.45) 08/04/24 05:32 ABG pCO2 47.5 mmHg (35-45) H 08/04/24 05:32 ABG pO2 66.9 mmHg (80.0-100.0) L 08/04/24 05:32 ABG PO2/FiO2 Ratio 223 08/04/24 05:32 ABG HCO3 31.5 mmol/L (22-26) H 08/04/24 05:32 ABG O2 Saturation 94.3 08/04/24 05:32 ABG Base Excess 6.3 mmol/L (-2.0-2.0) H 08/04/24 05:32 Joshua Test Pos 08/04/24 05:32 A-a O2 Gradient 11.4 mmHg (5-10) H 08/04/24 05:32 Hematocrit 28.5 % (37-47) L 08/04/24 05:32 Hgb O2 Saturation 92.6 % (95-100) L 08/04/24 05:32 Carboxyhemoglobin 1.5 %THgb (0.4-20.1) 08/04/24 05:32 Methemoglobin 0.3 % (0.4-1.5) L 08/04/24 05:32 Total Hemoglobin 9.3 g/dL (12-16) L 08/04/24 05:32 Sodium 141.0 mmol/L (131-143) 08/04/24 05:32 Potassium 3.2 mmol/L (3.5-5.0) L 08/04/24 05:32 Glucose 134.0 mg/dL (70-115) H 08/04/24 05:32 Ionized Calcium 1.2 mmol/L (1.1-1.4) 08/04/24 05:32 O2 Delivery Device Vent 08/04/24 05:32 O2 Liters/Min 60.0 % 07/31/24 02:29 FiO2 30.0 % 08/04/24 05:32 Tidal Volume 0.40 08/04/24 05:32 PEEP 5.0 cmH20 08/04/24 05:32 Renal Case Manager ID [id number] 08/04/24 05:32 Sodium 140 mmol/L (136-145) 08/04/24 04:33 Potassium 3.4 mmol/L (3.5-5.1) L 08/04/24 04:33 Chloride 102 mmol/L (98-107) 08/04/24 04:33 Carbon Dioxide 27 mmol/L (22-29) 08/04/24 04:33 Anion Gap 14.4 (5-19) 08/04/24 04:33 BUN 21 mg/dL (8-23) 08/04/24 04:33 Creatinine 1.2 mg/dL (0.5-0.9) H 08/04/24 04:33 GFR Calculation Not Reportable 08/04/24 04:33 Glucose 139 mg/dL (65-115) H 08/04/24 04:33 POC Glucose 119 mg/dL (70-110) H 08/04/24 17:59 Estimat Average Glucose 131 07/26/24 04:49 Hemoglobin A1c 6.2 % (4.0-6.0) H 07/26/24 04:49 Calculated Osmolality 295 mOsm/kg (285-295) 08/04/24 04:33 Calcium 8.3 mg/dL (8.5-10.5) L 08/04/24 04:33 Phosphorus 2.8 mg/dL (2.5-4.5) 08/04/24 04:33 Magnesium 2.3 mg/dL (1.7-2.3) 08/04/24 04:33 Iron 77 ug/dL (37-145) 07/25/24 09:30 TIBC 326 mcg/dl 07/25/24 09:30 % Saturation 23.6 % (20-50) 07/25/24 09:30 Unsat Iron Binding 249 ug/dL (112-347) 07/25/24 09:30 Total Bilirubin 0.6 mg/dL (0.15-1.2) 08/04/24 04:33 AST 102 U/L (0-32) H 08/04/24 04:33 ALT 47 U/L (0-33) H 08/04/24 04:33 Alkaline Phosphatase 199 U/L (35-105) H 08/04/24 04:33 Troponin T Baseline 20 ng/L (0-10) H 07/25/24 09:30 Troponin T 120 Minute 16.98 ng/L (0-10) H 07/25/24 12:31 Delta Troponin T -3.02 ABS# (0-10) L 07/25/24 12:31 Troponin T Hi Sens 6Hr 18.87 ng/L (0-10) H 07/25/24 15:21 Troponin T Hi Sens 6Hr Delta -1.13 ng/L (0-12) L 07/25/24 15:21 NT-Pro-B Natriuret Pep 5660 pg/mL (0-125) H 07/27/24 05:06 Total Protein 6.6 g/dL (6.6-8.7) 08/04/24 04:33 Albumin 2.9 g/dL (3.5-5.2) L 08/04/24 04:33 Globulin 3.7 g/dL (1.3-4.6) 08/04/24 04:33 Triglycerides 305 mg/dL (0-150) H 07/26/24 04:49 Cholesterol 151 mg/dL (0-200) 07/26/24 04:49 LDL Cholesterol, Calc 60 mg/dL (50-129) 07/26/24 04:49 HDL Cholesterol 30 mg/dL (60-100) L 07/26/24 04:49 LDL/HDL Ratio 2.00 RATIO (0.00-3.22) 07/26/24 04:49 Cholesterol/HDL Ratio 5.03 mg/dL (0.0-4.40) H 07/26/24 04:49 Vitamin B12 687 pg/mL (232-1245) 07/25/24 09:30 Folate 9.3 ng/mL (4.8-37.3) 07/26/24 04:49 Procalcitonin 0.05 ng/mL (0-0.5) 07/25/24 09:30 TSH 1.65 uIU/mL (0.27-4.20) 07/25/24 09:30 Urine Color Yellow (Yellow) 07/25/24 09:43 Urine Appearance Clear (CLEAR) 07/25/24 09:43 Urine pH 6 (5-7) 07/25/24 09:43 Ur Specific [place] 1.015 (1.005-1.030) 07/25/24 09:43 Urine Protein Neg (Negative) 07/25/24 09:43 Urine Glucose (UA) Norm (Normal) 07/25/24 09:43 Urine Ketones Negative (Negative) 07/25/24 09:43 Urine Blood Neg (Negative) 07/25/24 09:43 Urine Nitrate Negative (Negative) 07/25/24 09:43 Urine Bilirubin Neg (Negative) 07/25/24 09:43 Urine Urobilinogen Neg mg/dL (Negative) 07/25/24 09:43 Ur Leukocyte Esterase Negative (Negative) 07/25/24 09:43 Urine RBC 0-2 /hpf (0-2) 07/25/24 09:43 Urine WBC 0-5 /hpf (0-5) 07/25/24 09:43 Ur Squamous Epith Cells 0-5 /hpf (0-5) 07/25/24 09:43 Amorphous Sediment Not Reportable 07/25/24 09:43 Urine Bacteria None seen /hpf (NONE) 07/25/24 09:43 Hyaline Casts 0.81 /lpf 07/25/24 09:43 Urine Opiates Screen Negative ng/mL (Negative) 07/25/24 09:43 Ur Barbiturates Screen Negative ng/mL (Negative) 07/25/24 09:43 Ur Phencyclidine Scrn Negative ng/mL (Negative) 07/25/24 09:43 Ur Amphetamines Screen Negative ng/mL (Negative) 07/25/24 09:43 U Benzodiazepines Scrn Negative ng/mL (Negative) 07/25/24 09:43 Urine Cocaine Screen Negative ng/mL (Negative) 07/25/24 09:43 U Marijuana (THC) Screen Negative ng/mL (Negative) 07/25/24 09:43 A&P Assessment and plan (1) Abnormal cardiovascular stress test: Patient seems to have moderate to large areas of fixed defect with a small area of reversible defect suggesting extensive myocardial scarring with small area of ischemia. The implication of the test finding was discussed with the patient in detail. In order to better evaluate the coronary status, she requires a cardiac catheterization. The patient is not wanting to undergo any invasive or interventional procedures. She seems to understand the implications. I also talked to the patient's the power of residential mortgage manager-Katt San, who also concurred with the patient's decision. Will continue the current measures. Has no significant arrhythmias on the monitor (2) Hypotension: Blood pressure seems to be in the normal range. Qualifiers: Hypotension type: other hypotension type Qualified Code(s): I95.89 - Other hypotension (3) Atherosclerosis of coronary artery of [place] heart without angina pectoris: The details of her coronary status is not available at this time. The Myocardial perfusion imaging findings as mentioned above. Will continue on the medical management Qualifiers: Coronary Disease-Associated Artery/Lesion type: [place] artery Qualified Code(s): I25.10 - Atherosclerotic heart disease of [place] coronary artery without angina pectoris (4) Ischemic cardiomyopathy: Will consider Entresto after extubation (5) Pneumonia: Ventilation management as per the primary Qualifiers: Pneumonia type: aspiration pneumonia Aspiration pneumonia type: unspecified Laterality: unspecified laterality Lung location: lower lobe of lung Qualified Code(s): J69.0 - Pneumonitis due to inhalation of food and vomit (6) Type 2 diabetes mellitus: The blood sugar seems to be fairly under control. 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 (8) Acute left ICA ischemic stroke: Management as per the neurology service. Persistent right-sided weakness Plan Continue on the current measures. As mentioned above PDMP PDMP Reviewed: Not Reviewed Attestations Medical Necessity Statement*: Disposition as per the primary Coding Level of Care Code 95035 Diagnoses Abnormal cardiovascular stress test R94.39 Other specified hypotension I95.89 Hypotension type: other hypotension type Atherosclerosis of [place] coronary artery of [place] heart without angina pectoris I25.10 Coronary Disease-Associated Artery/Lesion type: [place] artery Ischemic cardiomyopathy I25.5 Aspiration pneumonia of lower lobe, unspecified aspiration pneumonia type, unspecified laterality J69.0 Pneumonia type: aspiration pneumonia Aspiration pneumonia type: unspecified Laterality: unspecified laterality Lung location: lower lobe of lung Type 2 diabetes mellitus with other circulatory complication, with long-term current use of insulin E11.59; Z79.4 Diabetes mellitus complication detail: with other circulatory complications Diabetes mellitus complication status: with circulatory complication Diabetes mellitus longterm insulin use: with longterm use Chronic kidney disease, stage 4 (severe) N18.4 Acute left ICA ischemic stroke I63.232
[2024-08-04 23:26] LABS: Glucose Point of Care 125 mg/dL (70-110)
[2024-08-05] VITALS (35 sets, daily range): BP systolic 118–148; BP diastolic 60–97; PULSE 70–84; RESP 14–15; TEMP 36.3–38.3; O2SAT 9–97; BMI 25.2
[2024-08-05] MEDS: guaiFENesin 100 mg/5 mL UDC 10 mL 400 MG PO ×6 (01:11→20:56)
[2024-08-05] MEDS: albuterol 2.5 mg/3 mL Neb INHALATION ×4 (02:28→20:35)
[2024-08-05 03:49] LABS: Basophils % 0.4 %; Eosinophils # 0.3 10^3/uL (0.0-0.8); Eosinophils % 3.8 %; Hematocrit 32.8 % (36-47); Lymphocytes # 1.3 10^3/uL (0.8-4.8); Lymphocytes % 17.7 %; Mean Corpuscular HGB Conc 31.7 g/dL (30-55); Mean Corpuscular Hemoglobin 29.5 pg (27-33); Mean Corpuscular Volume 93.2 fl (85-98); Mean Platelet Volume 11.1 fL (7.4-10.4); Monocytes # 0.7 10^3/uL (0.2-0.9); Monocytes % 10.3 %; Neutrophils # 4.48 10^3/uL (1.8-7.7); Neutrophils % 62.9 %; Nucleated Red Blood Cells % 0.4 %; Platelet Count 167 10^3/cmm (157-399); Red Blood Count 3.52 10^6/uL (3.85-5.65); Red Cell Distribution Width 14.5 % (12.1-15.1); White Blood Count 7.12 10^3/uL (3.29-11.43)
--- NOTE | 2024-08-05 04:00 | XRR_ITS ---
PROCEDURE INFORMATION: Exam: XR Chest Exam date and time: 08/05/2024 4:09 AM Age: 74 years old Clinical indication: Shortness of breath; Additional info: Respiratory failure TECHNIQUE: Imaging protocol: Radiologic exam of the chest. Views: 1 view. COMPARISON: CR XR chest 1V portable [id number] 08/04/2024 5:05 AM FINDINGS: Tubes, catheters and devices: Support devices remain in expected position. Lungs: Resolved right basilar airspace disease. Compressive atelectasis of the left lung base. Pleural spaces: Stable small left pleural effusion. Heart/Mediastinum: Unremarkable. No cardiomegaly. Bones/joints: Sternotomy XR/XR chest 1V portable [id number] IMPRESSION: 1. Resolved right basilar airspace disease. 2. Stable small left pleural effusion with compressive atelectasis.
[2024-08-05 04:09] LABS: Alanine Aminotransferase 40 U/L (0-33); Albumin Level 3.1 g/dL (3.5-5.2); Alkaline Phosphatase 176 U/L (35-105); Anion Gap 15.5 (5-19); Aspartate Amino Transferase 73 U/L (0-32); Blood Urea Nitrogen 22 mg/dL (8-23); Carbon Dioxide 29 mmol/L (22-29); Chloride 101 mmol/L (98-107); Creatinine Clr Calc Pharmacy 44.5034; Globulin 4.2 g/dL (1.3-4.6); Glucose 133 mg/dL (65-115); Magnesium 2.4 mg/dL (1.7-2.3); Osmolality Calculated 299 mOsm/kg (285-295); Phosphorus 2.6 mg/dL (2.5-4.5); Potassium 3.5 mmol/L (3.5-5.1); Sodium 142 mmol/L (136-145); Total Bilirubin 0.7 mg/dL (0.15-1.2); Total Protein 7.3 g/dL (6.6-8.7)
[2024-08-05 04:23] LABS: ABG PCO2 46.2 mmHg (35-45); ABG PH Result 7.47 (7.35-7.45); Arterial Blood Gas Hematocrit 34.3 % (37-47); Base Excess ABG 8.5 mmol/L (-2.0-2.0); Blood Gas Allen Test Pos; Blood Gas Operator Identificat ED; Blood Gas Sample Site Radial, right; Blood Gas Sample Type Arterial; Carboxyhemoglobin 1.5 %THgb (0.4-20.1); HCO3 ABG 33.3 mmol/L (22-26); HGB O2 Sat 89.3 % (95-100); Ionized Calcium Level - ABG 1.2 mmol/L (1.1-1.4); Methemoglobin 0.9 % (0.4-1.5); Oxygen Device VENT; Oxygen Saturation ABG 91.5; PO2 ABG 58.7 mmHg (80.0-100.0); PO2 FiO2 Ratio Arterial Blood 195; Potassium Level - ABG 3.4 mmol/L (3.5-5.0); Total Hemoglobin 11.2 g/dL (12-16)
[2024-08-05 05:55] LABS: Glucose Point of Care 135 mg/dL (70-110)
[2024-08-05] MEDS: fentaNYL 1,000 MCG/100 ML BAG 7.5 MCG IV ×2 (07:57→20:49)
--- NOTE | 2024-08-05 08:20 | P.PN_ITS ---
Subjective 2 Subjective: The patient is still remaining intubated. Apparently she could not tolerate the weaning yesterday. Awaiting a final decision from the power of mergers and acquisitions attorney regarding further management options. Medications: Medication Review Details: Current Medications Acetaminophen (Acetaminophen 325 Mg Tablet) 650 mg PO Q6H PRN PRN Reason: Mild/Mod Pain Or Temp >/= 101 Last Admin: 08/03/24 23:01 Dose: 650 mg Albuterol Sulfate (Albuterol 2.5 Mg/3 Ml Neb) 2.5 mg INHALATION Q6H.RESP JUSTIN Last Admin: 08/05/24 07:42 Dose: 2.5 mg Albuterol/Ipratropium (Ipratropium-Albuterol 3 Ml Neb) 3 ml INHALATION Q4H PRN PRN Reason: Shortness Of Breath Or Wheezing Last Admin: 08/03/24 02:30 Dose: 3 ml Aspirin (Aspirin 81 Mg Ec Tablet) 81 mg PO DAILY [facility] Last Admin: 08/04/24 09:37 Dose: 81 mg Atorvastatin Calcium (Atorvastatin 10 Mg Tablet) 20 mg PT BEDTIME [facility] Last Admin: 08/04/24 20:13 Dose: 20 mg Carvedilol (Carvedilol 6.25 Mg Tablet) 6.25 mg PO BID [facility] Last Admin: 07/30/24 18:30 Dose: Not Given Chlorhexidine Gluconate (Chlorhexidine Gluconate 4% Btl 118 Ml) 1 applic TOPICAL DAILY PRN PRN Reason: Daily bed bath/intubated pt. Last Admin: 08/02/24 22:50 Dose: 1 applic Furosemide (Furosemide 10 Mg/Ml Sdv 2ml) 20 mg IVP Q12H [facility] Last Admin: 08/04/24 20:48 Dose: 20 mg Glucagon (Glucagon 1 Mg/Ml Kit 1 Ml) 1 mg IM ONCE PRN; Protocol PRN Reason: Adult Acute Hypoglycemia Nursing Prot. Guaifenesin (Guaifenesin 100 Mg/5 Ml Udc 10 Ml) 400 mg PO Q4H [facility] Last Admin: 08/05/24 06:02 Dose: 400 mg Heparin Sodium (Porcine) (Heparin 5,000 Unit/Ml Inj 1 Ml) 5,000 unit SUBCUT Q12H [facility] Last Admin: 08/04/24 20:23 Dose: 5,000 unit Dextrose (D5w) 500 mls @ 0 mls/hr IV ONCE PRN; Protocol PRN Reason: Adult Acute Hypoglycemia Prot Dextrose (D10w) 125 mls @ 750 mls/hr IV PRN PRN; Protocol PRN Reason: Adult Acute Hypoglycemia Nursing Protocol Dextrose (D10w) 250 mls @ 1,000 mls/hr IV PRN PRN; Protocol PRN Reason: Adult Acute Hypoglycemia Nursing Protocol Piperacillin Sod/Tazobactam (Sod 3.375 gm/ Sodium Chloride) 50 mls @ 12.5 mls/hr IV Q8H JUSTIN; Protocol Last Infusion: 08/05/24 04:13 Dose: Infused Dexmedetomidine/Sodium Chloride (Precedex) 400 mcg in 100 mls @ 0 mls/hr IV .Q0M JUSTIN; Protocol Last Titration: 07/31/24 02:50 Dose: 0 mcg/kg/hr, 0 mls/hr Propofol (Diprivan) 1,000 mg in 100 mls @ 0 mls/hr IV .Q0M JUSTIN; Protocol Last Titration: 08/04/24 07:20 Dose: 0 mcg/kg/min, 0 mls/hr Fentanyl (Sublimaze) 1,000 mcg in 100 mls @ 0 mls/hr IV .Q0M JUSITN; Protocol Last Admin: 08/05/24 07:57 Dose: 75 mcg/hr, 7.5 mls/hr Norepinephrine Bitartrate (Levophed) 4 mg in 250 mls @ 0 mls/hr IV .Q0M JUSTIN; Protocol Last Titration: 08/02/24 07:24 Dose: Infused Insulin Human Lispro (Insulin Lispro 100 Unit/1 Ml) 0 unit SUBCUT Q6H JUSTIN; Protocol Last Admin: 08/05/24 06:06 Dose: Not Given Lactulose (Lactulose Oral Liq 20 Gm/30 Ml Udc) 10 gm PO DAILY PRN; Protocol PRN Reason: Constipation (see protocol) Magnesium Hydroxide (Magnesium Hydroxide 30 Ml Udc) 30 ml PO DAILY PRN; Protocol PRN Reason: Constipation (see protocol) Mirtazapine (Mirtazapine 15 Mg Tablet) 15 mg PEG-TUBE BEDTIME JUSTIN Last Admin: 08/04/24 20:13 Dose: 15 mg Ondansetron HCl (Ondansetron 2 Mg/Ml Sdv 2 Ml) 4 mg IVP Q6H PRN PRN Reason: vomiting, or N/V if npo Pantoprazole Sodium (Pantoprazole 40 Mg Sdv) 40 mg IVP Q24H [facility] Last Admin: 08/04/24 09:38 Dose: 40 mg Quetiapine Fumarate (Quetiapine Xr (24hr) 50 Mg Tablet) 200 mg PO BEDTIME [facility] Last Admin: 07/31/24 21:02 Dose: Not Given Senna (Sennosides 8.6 Mg Tablet) 17.2 mg PO BEDTIME [facility] Last Admin: 08/04/24 20:13 Dose: 17.2 mg Tamsulosin HCl (Tamsulosin 0.4 Mg Capsule) 0.4 mg PO BEDTIME [facility] Last Admin: 07/30/24 20:06 Dose: 0.4 mg Vitals/I&O/Wt Last Vital Signs Temp 97.4 F L 08/05/24 08:00 Pulse 77 08/05/24 08:00 Resp 15 08/05/24 07:50 BP 148/79 08/05/24 08:00 Pulse Ox 97 08/05/24 08:00 O2 Del Method Mechanical Ventilation 08/05/24 07:42 O2 Flow Rate 40 08/02/24 20:00 FiO2 30 08/05/24 08:00 08/04/24 08/05/24 08/05/24 22:59 06:59 14:59 Intake Total 50 / 213.021 87.708 / 300.729 62.292 / 62.292 Output Total 875 / 1875 Balance 50 / -786.979 -787.292 / -1574.271 62.292 / 62.292 Weight last 48 hrs Weight 166 lb 7.184 oz Weight 166 lb 7.184 oz Physical Exam 2 Narrative: GENERAL: Patient is intubated. No meaningful response to verbal commands HEENT: No significant pallor, icterus or lymphadenopathy.Oral cavity: There are no mucous membrane lesions. NECK: Trachea appears to be central. No masses noted. No JVD or thyromegaly appreciated. RESPIRATORY: Chest is symmetrical. No intercostals muscle retraction or any accessory muscle activation. There is no chest wall tenderness. Breath sounds are heard bilaterally. The breath sounds are diminished in the left base. Scattered coarse crackles on both sides. BREASTS: Deferred. HEART: The heart sounds are normal. No S3 or S4. Short systolic murmur in the lower sternal border. No diastolic murmurs.. No pericardial rub ABDOMEN: No vessel pulsations or distention. No tenderness. No organomegaly appreciated. Bowel sounds are normally heard. : Deferred. RECTAL: Deferred. LYMPHATIC: No lymphadenopathy noted in the neck or groin. EXTREMITIES: No edema or cyanosis. No clubbing. Peripheral pulses are palpated in fairly good volume and amplitude MUSCULOSKELETAL: No acute joint deformities or swelling SKIN: There are no significant scars or skin rash noted. NEUROPSYCHIATRIC: Intubated . As mentioned above Urinary Catheter Management: Graff: Cath Placed During This Visit: yes Reason for Continuing Indwelling Catheter: Accurate Measurement of Urinary Output in Critically Ill Patients Urinary Catheter Date of Insertion: 07/26/24 Urinary Catheter Time of Insertion: 19:54 Data 08/05/24 03:25 08/05/24 03:25 Other Labs: Laboratory Last Values WBC 7.12 10^3/uL (3.29-11.43) 08/05/24 03:25 RBC 3.52 10^6/uL (3.85-5.65) L 08/05/24 03:25 Hgb 10.40 g/dL (11.27-16.99) L 08/05/24 03:25 Hct 32.8 % (36-47) L 08/05/24 03:25 MCV 93.2 fl (85-98) 08/05/24 03:25 MCH 29.5 pg (27-33) 08/05/24 03:25 MCHC 31.7 g/dL (30-55) 08/05/24 03:25 RDW 14.5 % (12.1-15.1) 08/05/24 03:25 Plt Count 167 10^3/cmm (157-399) D 08/05/24 03:25 MPV 11.1 fL (7.4-10.4) H 08/05/24 03:25 Neut % (Auto) 62.9 % 08/05/24 03:25 Lymph % (Auto) 17.7 % 08/05/24 03:25 [place] % (Auto) 10.3 % 08/05/24 03:25 Eos % (Auto) 3.8 % 08/05/24 03:25 Baso % (Auto) 0.4 % 08/05/24 03:25 Neut # (Auto) 4.48 10^3/uL (1.8-7.7) 08/05/24 03:25 Lymph # (Auto) 1.3 10^3/uL (0.8-4.8) 08/05/24 03:25 [place] # (Auto) 0.7 10^3/uL (0.2-0.9) 08/05/24 03:25 Eos # (Auto) 0.3 10^3/uL (0.0-0.8) 08/05/24 03:25 Baso # (Auto) 0.0 10^3/uL (0.0-0.1) 08/05/24 03:25 Nucleated RBC % (auto) 0.4 % 08/05/24 03:25 Nucleated RBCs # 0.0 /100WBC 08/05/24 03:25 PT 13.50 SECONDS (12.1-14.9) 07/25/24 09:30 INR 0.96 (0.8-1.2) 07/25/24 09:30 APTT 26.0 SECONDS (23.9-36.7) 07/25/24 09:30 D-Dimer 2.04 ug/mLFEU (0-0.59) H 07/29/24 18:50 Specimen Type Arterial 08/05/24 04:12 Sample Site Radial, right 08/05/24 04:12 ABG pH 7.47 (7.35-7.45) H 08/05/24 04:12 ABG pCO2 46.2 mmHg (35-45) H 08/05/24 04:12 ABG pO2 58.7 mmHg (80.0-100.0) L 08/05/24 04:12 ABG PO2/FiO2 Ratio 195 08/05/24 04:12 ABG HCO3 33.3 mmol/L (22-26) H 08/05/24 04:12 ABG O2 Saturation 91.5 08/05/24 04:12 ABG Base Excess 8.5 mmol/L (-2.0-2.0) H 08/05/24 04:12 Joshua Test Pos 08/05/24 04:12 A-a O2 Gradient 13.0 mmHg (5-10) H 08/05/24 04:12 Hematocrit 34.3 % (37-47) L 08/05/24 04:12 Hgb O2 Saturation 89.3 % (95-100) L 08/05/24 04:12 Carboxyhemoglobin 1.5 %THgb (0.4-20.1) 08/05/24 04:12 Methemoglobin 0.9 % (0.4-1.5) 08/05/24 04:12 Total Hemoglobin 11.2 g/dL (12-16) L 08/05/24 04:12 Sodium 144.0 mmol/L (131-143) H 08/05/24 04:12 Potassium 3.4 mmol/L (3.5-5.0) L 08/05/24 04:12 Glucose 134.0 mg/dL (70-115) H 08/05/24 04:12 Ionized Calcium 1.2 mmol/L (1.1-1.4) 08/05/24 04:12 O2 Delivery Device Vent 08/05/24 04:12 O2 Liters/Min 60.0 % 07/31/24 02:29 FiO2 30.0 % 08/05/24 04:12 Tidal Volume 0.40 08/05/24 04:12 PEEP 5.0 cmH20 08/05/24 04:12 Peat Shredder Tender ID Ed 08/05/24 04:12 Sodium 142 mmol/L (136-145) 08/05/24 03:25 Potassium 3.5 mmol/L (3.5-5.1) 08/05/24 03:25 Chloride 101 mmol/L (98-107) 08/05/24 03:25 Carbon Dioxide 29 mmol/L (22-29) 08/05/24 03:25 Anion Gap 15.5 (5-19) 08/05/24 03:25 BUN 22 mg/dL (8-23) 08/05/24 03:25 Creatinine 1.2 mg/dL (0.5-0.9) H 08/05/24 03:25 GFR Calculation Not Reportable 08/05/24 03:25 Glucose 133 mg/dL (65-115) H 08/05/24 03:25 POC Glucose 135 mg/dL (70-110) H 08/05/24 05:53 Estimat Average Glucose 131 07/26/24 04:49 Hemoglobin A1c 6.2 % (4.0-6.0) H 07/26/24 04:49 Calculated Osmolality 299 mOsm/kg (285-295) H 08/05/24 03:25 Calcium 9.0 mg/dL (8.5-10.5) 08/05/24 03:25 Phosphorus 2.6 mg/dL (2.5-4.5) 08/05/24 03:25 Magnesium 2.4 mg/dL (1.7-2.3) H 08/05/24 03:25 Iron 77 ug/dL (37-145) 07/25/24 09:30 TIBC 326 mcg/dl 07/25/24 09:30 % Saturation 23.6 % (20-50) 07/25/24 09:30 Unsat Iron Binding 249 ug/dL (112-347) 07/25/24 09:30 Total Bilirubin 0.7 mg/dL (0.15-1.2) 08/05/24 03:25 AST 73 U/L (0-32) H 08/05/24 03:25 ALT 40 U/L (0-33) H 08/05/24 03:25 Alkaline Phosphatase 176 U/L (35-105) H 08/05/24 03:25 Troponin T Baseline 20 ng/L (0-10) H 07/25/24 09:30 Troponin T 120 Minute 16.98 ng/L (0-10) H 07/25/24 12:31 Delta Troponin T -3.02 ABS# (0-10) L 07/25/24 12:31 Troponin T Hi Sens 6Hr 18.87 ng/L (0-10) H 07/25/24 15:21 Troponin T Hi Sens 6Hr Delta -1.13 ng/L (0-12) L 07/25/24 15:21 NT-Pro-B Natriuret Pep 5660 pg/mL (0-125) H 07/27/24 05:06 Total Protein 7.3 g/dL (6.6-8.7) 08/05/24 03:25 Albumin 3.1 g/dL (3.5-5.2) L 08/05/24 03:25 Globulin 4.2 g/dL (1.3-4.6) 08/05/24 03:25 Triglycerides 305 mg/dL (0-150) H 07/26/24 04:49 Cholesterol 151 mg/dL (0-200) 07/26/24 04:49 LDL Cholesterol, Calc 60 mg/dL (50-129) 07/26/24 04:49 HDL Cholesterol 30 mg/dL (60-100) L 07/26/24 04:49 LDL/HDL Ratio 2.00 RATIO (0.00-3.22) 07/26/24 04:49 Cholesterol/HDL Ratio 5.03 mg/dL (0.0-4.40) H 07/26/24 04:49 Vitamin B12 687 pg/mL (232-1245) 07/25/24 09:30 Folate 9.3 ng/mL (4.8-37.3) 07/26/24 04:49 Procalcitonin 0.05 ng/mL (0-0.5) 07/25/24 09:30 TSH 1.65 uIU/mL (0.27-4.20) 07/25/24 09:30 Urine Color Yellow (Yellow) 07/25/24 09:43 Urine Appearance Clear (CLEAR) 07/25/24 09:43 Urine pH 6 (5-7) 07/25/24 09:43 Ur Specific [place] 1.015 (1.005-1.030) 07/25/24 09:43 Urine Protein Neg (Negative) 07/25/24 09:43 Urine Glucose (UA) Norm (Normal) 07/25/24 09:43 Urine Ketones Negative (Negative) 07/25/24 09:43 Urine Blood Neg (Negative) 07/25/24 09:43 Urine Nitrate Negative (Negative) 07/25/24 09:43 Urine Bilirubin Neg (Negative) 07/25/24 09:43 Urine Urobilinogen Neg mg/dL (Negative) 07/25/24 09:43 Ur Leukocyte Esterase Negative (Negative) 07/25/24 09:43 Urine RBC 0-2 /hpf (0-2) 07/25/24 09:43 Urine WBC 0-5 /hpf (0-5) 07/25/24 09:43 Ur Squamous Epith Cells 0-5 /hpf (0-5) 07/25/24 09:43 Amorphous Sediment Not Reportable 07/25/24 09:43 Urine Bacteria None seen /hpf (NONE) 07/25/24 09:43 Hyaline Casts 0.81 /lpf 07/25/24 09:43 Urine Opiates Screen Negative ng/mL (Negative) 07/25/24 09:43 Ur Barbiturates Screen Negative ng/mL (Negative) 07/25/24 09:43 Ur Phencyclidine Scrn Negative ng/mL (Negative) 07/25/24 09:43 Ur Amphetamines Screen Negative ng/mL (Negative) 07/25/24 09:43 U Benzodiazepines Scrn Negative ng/mL (Negative) 07/25/24 09:43 Urine Cocaine Screen Negative ng/mL (Negative) 07/25/24 09:43 U Marijuana (THC) Screen Negative ng/mL (Negative) 07/25/24 09:43 A&P Assessment and plan (1) Abnormal cardiovascular stress test: Patient seems to have moderate to large areas of fixed defect with a small area of reversible defect suggesting extensive myocardial scarring with small area of ischemia. The implication of the test finding was discussed with the patient in detail. In order to better evaluate the coronary status, she requires a cardiac catheterization. The patient is not wanting to undergo any invasive or interventional procedures. She seems to understand the implications. I also talked to the patient's the power of mergers and acquisitions attorney-Katt San, who also concurred with the patient's decision. Will continue the current measures. Has no significant arrhythmias on the monitor (2) Hypotension: Blood pressure seems to be in the normal range. Qualifiers: Hypotension type: other hypotension type Qualified Code(s): I95.89 - Other hypotension (3) Atherosclerosis of coronary artery of [place] heart without angina pectoris: The details of her coronary status is not available at this time. The Myocardial perfusion imaging findings as mentioned above. Will continue on the medical management Qualifiers: Coronary Disease-Associated Artery/Lesion type: [place] artery Qualified Code(s): I25.10 - Atherosclerotic heart disease of [place] coronary artery without angina pectoris (4) Ischemic cardiomyopathy: Will consider Entresto after extubation (5) Pneumonia: Ventilation management as per the primary Qualifiers: Aspiration pneumonia type: unspecified Laterality: unspecified laterality Lung location: lower lobe of lung Pneumonia type: aspiration pneumonia Qualified Code(s): J69.0 - Pneumonitis due to inhalation of food and vomit (6) Type 2 diabetes mellitus: The blood sugar seems to be fairly under control. Qualifiers: Diabetes mellitus complication detail: with other circulatory complications Diabetes mellitus complication status: with circulatory complication Diabetes mellitus exterminator insulin use: with group home use Q ualified Code(s): E11.59 - Type 2 diabetes mellitus with other circulatory complications; Z79.4 - long term care pharmacist (current) use of insulin (7) Chronic kidney disease, stage 4 (severe): The kidney function seems to be stable. (8) Acute left ICA ischemic stroke: Management as per the neurology service. Persistent right-sided weakness Plan Continue on the current measures. As mentioned above Awaiting the power of mergers and acquisitions attorney's decision regarding further management options. PDMP PDMP Reviewed: Not Reviewed Attestations 2 Medical Necessity Statement*: Deferred to the primary Coding Level of Care Code 95186 Diagnoses Abnormal cardiovascular stress test R94.39 Other specified hypotension I95.89 Hypotension type: other hypotension type Atherosclerosis of [place] coronary artery of [place] heart without angina pectoris I25.10 Coronary Disease-Associated Artery/Lesion type: [place] artery Ischemic cardiomyopathy I25.5 Aspiration pneumonia of lower lobe, unspecified aspiration pneumonia type, unspecified laterality J69.0 Aspiration pneumonia type: unspecified Laterality: unspecified laterality Lung location: lower lobe of lung Pneumonia type: aspiration pneumonia Type 2 diabetes mellitus with other circulatory complication, with long-term current use of insulin E11.59; Z79.4 Diabetes mellitus complication detail: with other circulatory complications Diabetes mellitus complication status: with circulatory complication Diabetes mellitus exterminator insulin use: with group home use Chronic kidney disease, stage 4 (severe) N18.4 Acute left ICA ischemic stroke I63.232
[2024-08-05] MEDS: piperacillin-tazobactam 3.375 GM in sodium chloride 0.9% (plus) 50 ML IV ×2 (08:33→16:53)
[2024-08-05] MEDS: aspirin 81 mg EC Tablet PO (09:45)
[2024-08-05] MEDS: FUROsemide 10 mg/mL SDV 2mL 20 MG IVP ×2 (09:46→20:57)
[2024-08-05] MEDS: pantoprazole 40 mg SDV IVP (09:46)
[2024-08-05] MEDS: heparin 5,000 unit/mL INJ 1 mL 5000 UNIT SUBCUT ×2 (09:46→20:57)
[2024-08-05 11:33] LABS: Glucose Point of Care 139 mg/dL (70-110)
--- NOTE | 2024-08-05 13:22 | PC.OT ---
OT TREATMENT HELD DUE TO PATIENT ON VENT AND UNABLE TO ACTIVELY PARTICIPATE IN SKILLED OT AT THIS TIME.
--- NOTE | 2024-08-05 14:49 | PM.PN ---
Subjective Subjective: Seen her at bedside this morning. Patient remains intubated. Sedation has been held. She is awake but does not follow verbal commands. RT at bedside, gave short SBT trial. Patient still has chyne Ernandez breathing. Since she does not follow commands, airway protection cannot be guaranteed. Safest option as discussed with legal guardian yesterday was tracheostomy and feeding tube. Spoke with Katt Riveranett, legal guardian, who in turn spoke with senior care administration and reported that option for tracheostomy and feeding tube would not be consistent with patient's prior stated wishes. Ms. San and senior care administrators want to be at bedside during extubation in a.m. Medications: Reviewed: Yes Vitals/I&O/Wt Last Vital Signs Temp 98.0 F 08/05/24 12:00 Pulse 80 08/05/24 14:26 Resp 15 08/05/24 13:32 BP 124/67 08/05/24 14:26 Pulse Ox 92 08/05/24 14:26 O2 Del Method Mechanical Ventilation 08/05/24 13:22 O2 Flow Rate 40 08/02/24 20:00 FiO2 30 08/05/24 13:32 08/04/24 08/05/24 08/05/24 22:59 06:59 14:59 Intake Total 50 / 213.021 87.708 / 300.729 112.292 / 112.292 Output Total 875 / 1875 200 / 200 Balance 50 / -786.979 -787.292 / -1574.271 -87.708 / -87.708 Weight last 48 hrs Weight 75.5 kg Weight 75.5 kg Physical Exam Narrative: General: Patient is intubated. Off sedation. Head: Normocephalic. Eyes open. Neck: No JVD. Cardiovascular: RRR. No gallops. No murmurs. Lungs: Breath sounds are still course but improved from yesterdays exam. Improved bibasilar rhonchi. Intubated on ventilator. Skin: No jaundice. No rashes. Abdomen: Hypoactive bowel sounds, abdomen soft. Extremities: No cyanosis or clubbing. Neurological: No myoclonus. Does not follow commands. Urinary Catheter Management: Graff: Cath Placed During This Visit: yes Reason for Continuing Indwelling Catheter: Accurate Measurement of Urinary Output in Critically Ill Patients Urinary Catheter Date of Insertion: 07/26/24 Urinary Catheter Time of Insertion: 19:54 Data 08/05/24 03:25 08/05/24 03:25 A&P Assessment and plan (1) Respiratory failure: Acute hypoxic respiratory failure Intubated 07/31 Fentanyl/propofol for analgesia/sedation - held for possible extubation Tube feeds held 0400 for possible extubation Shock has resolved, off Levophed PPI and DVT prophylaxis; bowel regiment Continue low dose Lasix for volume control Patient not demonstrating airway protection; significant Kody-Ernandez on ventilator despite minimal vent setting Discussing goals of care with guardian as above (2) Pneumonia: Continue Zosyn Respiratory support as above Qualifiers: Pneumonia type: aspiration pneumonia Aspiration pneumonia type: unspecified Laterality: unspecified laterality Lung location: lower lobe of lung Qualified Code(s): J69.0 - Pneumonitis due to inhalation of food and vomit (3) Acute left ICA ischemic stroke: Acute left ICA ischemic stroke resulting in flaccid right-sided extremities Aspiration pneumonia 2/2 stroke Continue statin Continue aspirin (4) Ischemic cardiomyopathy: Continue medical treatment with statin, aspirin, beta-joseluis Holding Entresto and beta-joseluis due to hemodynamics (5) Type 2 diabetes mellitus without complications: Sliding-scale insulin correction (6) Essential (primary) hypertension: Hold antihypertensives (7) CAD (coronary artery disease): As above (8) Congestive heart failure due to cardiomyopathy: Daily assessments of volume (9) Common carotid artery stenosis: Plan Dysphagia: Will need repeat speech therapy evaluation if extubated. Urinary retention: Graff catheter Smoking addiction: Would benefit from cessation Thrombocytopenia: Chronic. Monitor for bleeding. Continue other chronic medical history including DuoNeb as needed, mirtazapine nightly. Seroquel and Flomax held. CODE STATUS: Full code. Guarded information in chart. DVT prophylaxis: Heparin 08/05/24 Chyne ernandez respiration and difficulty to support spontaneous breathing, could be likely secondary to worsening stroke. As per the legal guardian patient would not have wished for tracheostomy and feeding tube. Hence okay to go ahead with extubation in a.m. with senior care administrators and San, legal guardian at bedside. Hence Ms. San is being okay with patient being DNR/DNI during extubation. Cardiology follow-up appreciated. PDMP PDMP Reviewed: Not Reviewed Attestations Medical Necessity Statement*: Requires ongoing hospitalization for vent support and IV antibiotics Time Spent in Patient Care: 25 minutes Coding Level of Care Code Acute Code for Chg Fwd Diagnoses Respiratory failure J96.90 Aspiration pneumonia of lower lobe, unspecified aspiration pneumonia type, unspecified laterality J69.0 Pneumonia type: aspiration pneumonia Aspiration pneumonia type: unspecified Laterality: unspecified laterality Lung location: lower lobe of lung Acute left ICA ischemic stroke I63.232 Ischemic cardiomyopathy I25.5 Type 2 diabetes mellitus without complications E11.9 Essential (primary) hypertension I10 CAD (coronary artery disease) I25.10 Congestive heart failure due to cardiomyopathy I50.9; I42.9 Common carotid artery stenosis I65.29 Time Spent (min) 25
[2024-08-05 18:02] LABS: Glucose Point of Care 128 mg/dL (70-110)
[2024-08-05] MEDS: ATORVASTATIN 10 MG TABLET 20 MG PT (20:56)
[2024-08-05] MEDS: mirtazapine 15 mg Tablet PEG-TUBE (20:56)
[2024-08-05] MEDS: sennosides 8.6 mg Tablet 17.2 MG PO (20:56)
[2024-08-05] MEDS: acetaminophen 325 mg Tablet 650 MG PO (21:23)
[2024-08-05 23:09] LABS: Glucose Point of Care 144 mg/dL (70-110)
[2024-08-05] MEDS: insulin lispro 100 unit/1 mL SUBCUT (23:12)
[2024-08-06] VITALS (20 sets, daily range): BP systolic 115–153; BP diastolic 62–85; PULSE 74–101; RESP 14–28; TEMP 36.3–37.6; O2SAT 90–98; BMI 26.3
[2024-08-06] MEDS: piperacillin-tazobactam 3.375 GM in sodium chloride 0.9% (plus) 50 ML IV ×2 (00:18→08:38)
[2024-08-06] MEDS: guaiFENesin 100 mg/5 mL UDC 10 mL 400 MG PO ×3 (00:19→08:40)
[2024-08-06 00:36] LABS: Glucose Point of Care 150 mg/dL (70-110)
[2024-08-06] MEDS: ipratropium-albuterol 3 mL Neb INHALATION (02:45)
[2024-08-06] MEDS: albuterol 2.5 mg/3 mL Neb INHALATION ×3 (02:57→13:37)
[2024-08-06] MEDS: chlorhexidine gluconate 4% Btl 118 mL 1 APPLIC TOPICAL (04:52)
[2024-08-06 05:48] LABS: Glucose Point of Care 146 mg/dL (70-110)
[2024-08-06] MEDS: insulin lispro 100 unit/1 mL SUBCUT (05:48)
--- NOTE | 2024-08-06 08:30 | PC.NURSE ---
[facility] notified of change in patients condition and plan of care with code status update upon extubation.
[2024-08-06] MEDS: aspirin 81 mg EC Tablet PO (08:40)
[2024-08-06] MEDS: heparin 5,000 unit/mL INJ 1 mL 5000 UNIT SUBCUT (08:40)
[2024-08-06] MEDS: pantoprazole 40 mg SDV IVP (08:40)
[2024-08-06] MEDS: FUROsemide 10 mg/mL SDV 2mL 20 MG IVP (08:41)
[2024-08-06] MEDS: fentaNYL 1,000 MCG/100 ML BAG 7.5 MCG IV (09:33)
--- NOTE | 2024-08-06 09:46 | PC.NURSE ---
Dr. Pereira gave verbal orders to discontinue Precedex order. Order stopped.
[2024-08-06 11:22] LABS: Glucose Point of Care 138 mg/dL (70-110)
--- NOTE | 2024-08-06 11:41 | PC.OT ---
OT TREATMENT HELD TODAY PATIENT IS STILL INTUBATED AND UNABLE TO PARTICIPATE IN SKILLED OT TREATMENT.
--- NOTE | 2024-08-06 12:36 | P.PN_ITS ---
Subjective 2 Subjective: Seen her at bedside this morning. She has been sedated with fentanyl. Medications: Reviewed: Yes Vitals/I&O/Wt Last Vital Signs Temp 98.2 F 08/06/24 12:04 Pulse 78 08/06/24 12:04 Resp 24 H 08/06/24 11:21 BP 135/76 08/06/24 12:04 Pulse Ox 96 08/06/24 12:04 O2 Del Method Mechanical Ventilation 08/06/24 08:00 O2 Flow Rate 40 08/02/24 20:00 FiO2 40 08/06/24 11:21 08/05/24 08/06/24 08/06/24 22:59 06:59 14:59 Intake Total 96.5 / 208.792 100 / 308.792 100 / 100 Output Total 450 / 650 150 / 150 Balance 96.5 / 8.792 -350 / -341.208 -50 / -50 Weight last 48 hrs Weight 78.5 kg Weight 75.5 kg Physical Exam 2 Narrative: General: Patient is intubated. sedated. Head: Normocephalic. Eyes open. Neck: No JVD. Cardiovascular: RRR. No gallops. No murmurs. Lungs: Breath sounds are still course but improved from yesterdays exam. Improved bibasilar rhonchi. Intubated on ventilator. Skin: No jaundice. No rashes. Abdomen: Hypoactive bowel sounds, abdomen soft. Extremities: No cyanosis or clubbing. Neurological: No myoclonus. Does not follow commands. Urinary Catheter Management: Graff: Cath Placed During This Visit: yes Reason for Continuing Indwelling Catheter: Accurate Measurement of Urinary Output in Critically Ill Patients Urinary Catheter Date of Insertion: 07/26/24 Urinary Catheter Time of Insertion: 19:54 Data 08/05/24 03:25 08/05/24 03:25 A&P Assessment and plan (1) Respiratory failure: Acute hypoxic respiratory failure Intubated 07/31 Fentanyl/propofol for analgesia/sedation - held for possible extubation Tube feeds held 0400 for possible extubation Shock has resolved, off Levophed PPI and DVT prophylaxis; bowel regiment Continue low dose Lasix for volume control Patient not demonstrating airway protection; significant Kody-Suazo on ventilator despite minimal vent setting Discussing goals of care with guardian as above (2) Pneumonia: Continue Zosyn Respiratory support as above Qualifiers: Pneumonia type: aspiration pneumonia Aspiration pneumonia type: u nspecified Laterality: unspecified laterality Lung location: lower lobe of lung Qualified Code(s): J69.0 - Pneumonitis due to inhalation of food and vomit (3) Acute left ICA ischemic stroke: Acute left ICA ischemic stroke resulting in flaccid right-sided extremities Aspiration pneumonia 2/2 stroke Continue statin Continue aspirin (4) Ischemic cardiomyopathy: Continue medical treatment with statin, aspirin, beta-joseluis Holding Entresto and beta-joseluis due to hemodynamics (5) Type 2 diabetes mellitus without complications: Sliding-scale insulin correction (6) Essential (primary) hypertension: Hold antihypertensives (7) CAD (coronary artery disease): As above (8) Congestive heart failure due to cardiomyopathy: Daily assessments of volume (9) Common carotid artery stenosis: Plan Dysphagia: Will need repeat speech therapy evaluation if extubated. Urinary retention: Graff catheter Smoking addiction: Would benefit from cessation Thrombocytopenia: Chronic. Monitor for bleeding. Continue other chronic medical history including DuoNeb as needed, mirtazapine nightly. Seroquel and Flomax held. CODE STATUS: Full code. Guarded information in chart. DVT prophylaxis: Heparin 08/05/24 Chyne suazo respiration and difficulty to support spontaneous breathing, could be likely secondary to worsening stroke. As per the legal guardian patient would not have wished for tracheostomy and feeding tube. Hence okay to go ahead with extubation in a.m. with residential administrators and Ms. San, legal guardian at bedside. Hence Ms. San is being okay with patient being DNR/DNI during extubation. Cardiology follow-up appreciated. 08/06/24 Examination unchanged since 08/05. She is intubated and sedated. Awaiting legal guardian and residential administrators to be at bedside during extubation. Continue current management. CXR from 08/05 showed resolved right basilar airspace opacity. PDMP PDMP Reviewed: Not Reviewed Attestations 2 Medical Necessity Statement*: Requires ongoing hospitalization for vent support and IV antibiotics. Time Spent in Patient Care: 25 minutes Coding Level of Care Code Acute Code for Chg Fwd Diagnoses Respiratory failure J96.90 Aspiration pneumonia of lower lobe, unspecified aspiration pneumonia type, unspecified laterality J69.0 Pneumonia type: aspiration pneumonia Aspiration pneumonia type: unspecified Laterality: unspecified laterality Lung location: lower lobe of lung Acute left ICA ischemic stroke I63.232 Ischemic cardiomyopathy I25.5 Type 2 diabetes mellitus without complications E11.9 Essential (primary) hypertension I10 CAD (coronary artery disease) I25.10 Congestive heart failure due to cardiomyopathy I50.9; I42.9 Common carotid artery stenosis I65.29 Time Spent (min) 25
--- NOTE | 2024-08-06 13:42 | PC.SOCIAL ---
IMM updated IMM dated and initialed, copy placed in chart and copy given to patient
--- NOTE | 2024-08-06 14:49 | PC.NURSE ---
Time of extubation 1433. Provider, RT, Guardian, and detention staff at bedside. Provider clarified extubation plans with Guardian. RT proceeded with extubation. Patient placed on nasal canula after extuabtion. Guardian and detention staff remain at bedside.
--- NOTE | 2024-08-06 17:39 | PC.NURSE ---
Guardian stated she would like patient transitioned to comfort care and change code status.
--- NOTE | 2024-08-06 21:00 | PC.NURSE ---
Patients's patricio catheter was placed prior to arriving on [facility] floor.
--- NOTE | 2024-08-06 21:04 | PC.NURSE ---
Addendum entered by Shine Garrido RN 08/06/24 21:15: Waste witnessed by this nurse Original Note: Propofol discontinued on a previous shift. Propofol wasted by this nurse and Hu Garrido RN.
--- NOTE | 2024-08-06 21:12 | PC.NURSE ---
Addendum entered by Shine Garrido RN 08/06/24 21:15: Waste witnessed by this nurse Original Note: Fentanyl wasted by this nurse and Hu Garrido RN.
[2024-08-06] MEDS: morphine 4 mg/mL SDV 1 mL IVP (21:42)
[2024-08-06] MEDS: LORazepam 2 mg/mL INJ 1 mL IVP (21:43)
[2024-08-07 03:44] VITALS: RESP 28
[2024-08-07] MEDS: morphine 4 mg/mL SDV 1 mL IVP (03:44)
--- NOTE | 2024-08-07 10:45 | PC.NURSE ---
respiratory coordinator rounds @ 1015- patient extubated and transferred to [facility], patient was able to say yes and answer questions but didn't seem able to converse as before, patient was able to gently squeeze my hand with her left hand. 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
--- NOTE | 2024-08-07 12:20 | PM.PN ---
Subjective Subjective: Seen her at bedside this morning. She was able to follow verbal commands, smiling, able to answer questions appropriately. Spoke with Ms. San, legal guardian over the phone and informed her about Ms. Nunez improved status. Medications: Reviewed: Yes Vitals/I&O/Wt Last Vital Signs Temp 98.2 F 08/06/24 16:17 Pulse 101 H 08/06/24 16:17 Resp 28 H 08/07/24 03:44 BP 153/85 08/06/24 16:17 Pulse Ox 94 08/06/24 16:17 O2 Del Method Nasal Cannula 08/06/24 16:17 O2 Flow Rate 2 08/06/24 16:17 FiO2 40 08/06/24 13:39 08/06/24 08/07/24 08/07/24 22:59 06:59 14:59 Intake Total 0 / 180.291 0 / 180.291 Output Total 450 / 600 Balance 0 / 30.291 -450 / -419.709 Weight last 48 hrs Weight 78.5 kg Physical Exam Narrative: General: Patient is awake, alert and oriented x 1 Head: Normocephalic. Eyes open. Neck: No JVD. Cardiovascular: RRR. No gallops. No murmurs. Lungs: Breath sounds are still course but improved from yesterdays exam. Improved bibasilar rhonchi. Intubated on ventilator. Skin: No jaundice. No rashes. Abdomen: normal bowel sounds, abdomen soft. Extremities: No cyanosis or clubbing. Neurological: No myoclonus. Was able to follow verbal commands. Urinary Catheter Management: Graff: Cath Placed During This Visit: yes Reason for Continuing Indwelling Catheter: Other Urinary Catheter Date of Insertion: 08/06/24 Urinary Catheter Time of Insertion: 19:54 Data 08/05/24 03:25 08/05/24 03:25 A&P Assessment and plan (1) Respiratory failure: Acute hypoxic respiratory failure Intubated 07/31 Fentanyl/propofol for analgesia/sedation - held for possible extubation Tube feeds held 0400 for possible extubation Shock has resolved, off Levophed PPI and DVT prophylaxis; bowel regiment Continue low dose Lasix for volume control Patient not demonstrating airway protection; significant Kody-Ernandez on ventilator despite minimal vent setting Discussing goals of care with guardian as above (2) Pneumonia: Continue Zosyn Respiratory support as above Qualifiers: Pneumonia type: aspiration pneumonia Aspiration pneumonia type: unspecified Laterality: unspecified laterality Lung location: lower lobe of lung Qualified Code(s): J69.0 - Pneumonitis due to inhalation of food and vomit (3) Acute left ICA ischemic stroke: Acute left ICA ischemic stroke resulting in flaccid right-sided extremities Aspiration pneumonia 2/2 stroke Continue statin Continue aspirin (4) Ischemic cardiomyopathy: Continue medical treatment with statin, aspirin, beta-joseluis Holding Entresto and beta-joseluis due to hemodynamics (5) Type 2 diabetes mellitus without complications: Sliding-scale insulin correction (6) Essential (primary) hypertension: Hold antihypertensives (7) CAD (coronary artery disease): As above (8) Congestive heart failure due to cardiomyopathy: Daily assessments of volume (9) Common carotid artery stenosis: Plan Dysphagia: Will need repeat speech therapy evaluation if extubated. Urinary retention: Graff catheter Smoking addiction: Would benefit from cessation Thrombocytopenia: Chronic. Monitor for bleeding. Continue other chronic medical history including DuoNeb as needed, mirtazapine nightly. Seroquel and Flomax held. CODE STATUS: Full code. Guarded information in chart. DVT prophylaxis: Heparin 08/05/24 Chyne ernandez respiration and difficulty to support spontaneous breathing, could be likely secondary to worsening stroke. As per the legal guardian patient would not have wished for tracheostomy and feeding tube. Hence okay to go ahead with extubation in a.m. with senior care administrators and Ms. San, legal guardian at bedside. Hence Ms. San is being okay with patient being DNR/DNI during extubation. Cardiology follow-up appreciated. 08/06/24 Examination unchanged since 08/05. She is intubated and sedated. Awaiting legal guardian and senior care administrators to be at bedside during extubation. Continue current management. CXR from 08/05 showed resolved right basilar airspace opacity. 08/07/24 She is alert awake and oriented x 1. Did not seem to be in acute respiratory distress. doing well today. Her mental status has improved after extubation. Neurological exam unchanged. She is on comfort care management. Legal guardian Ms. San informed. Will follow-up case management for discharge planning. Speech and swallow eval. PDMP PDMP Reviewed: Not Reviewed Attestations Medical Necessity Statement*: Anticipating discharge in 24 to 48 hours Time Spent in Patient Care: 20 minutes Coding Level of Care Code Acute Code for Chg Fwd Diagnoses Respiratory failure J96.90 Aspiration pneumonia of lower lobe, unspecified aspiration pneumonia type, unspecified laterality J69.0 Pneumonia type: aspiration pneumonia Aspiration pneumonia type: unspecified Laterality: unspecified laterality Lung location: lower lobe of lung Acute left ICA ischemic stroke I63.232 Ischemic cardiomyopathy I25.5 Type 2 diabetes mellitus without complications E11.9 Essential (primary) hypertension I10 CAD (coronary artery disease) I25.10 Congestive heart failure due to cardiomyopathy I50.9; I42.9 Common carotid artery stenosis I65.29 Time Spent (min) 20
--- NOTE | 2024-08-07 13:48 | P.DS_ITS ---
Discharge Providers Date of Admission: 07/27/24 20:25 Date of Discharge: August 07, 2024 Attending Provider at Admission: Young Knowles MD Attending Provider at Discharge: Marquita Pereira MD Primary Care Provider: Rigoberto Gibson MD Diagnoses at Discharge Discharge Diagnosis (1) Respiratory failure: Status: Acute (2) Pneumonia: Status: Acute Qualifiers: Pneumonia type: aspiration pneumonia Aspiration pneumonia type: unspecified Laterality: unspecified laterality Lung location: lower lobe of lung Qualified Code(s): J69.0 - Pneumonitis due to inhalation of food and vomit (3) Acute left ICA ischemic stroke: Status: Acute (4) Ischemic cardiomyopathy: Status: Acute (5) Type 2 diabetes mellitus without complications: Status: Acute (6) Essential (primary) hypertension: Status: Acute (7) CAD (coronary artery disease): Status: Acute (8) Congestive heart failure due to cardiomyopathy: Status: Acute (9) Common carotid artery stenosis: Status: Acute Reason for Visit Reason for Visit: stroke like symptoms Brief History: Samantha Nunez is a 74 year old female with past medical history of type 2 diabetes mellitus, [facility] resident, COPD, CKD with baseline creatinine of around 1.3, hypertension presents to the ER today because of right-sided weakness which she noticed when she woke up early in the morning. Patient was at baseline health last night when she went to bed. Patient was seen by neurologist on admission and she was deemed not a candidate for thrombolytics. When seen on [facility] floor patient was awake and alert, able to have complete conversation, states her biggest concern is that she is not able to lift her right leg though she is able to move her right now slightly more than before. Hospital Course Hospital Course (1) Acute left ICA ischemic stroke: Seen by neurology in ER. Deemed not a candidate for IV thrombolytics. Appreciate CT head. Check CTA head and neck. Check echocardiogram, A1c and lipid panel. Continue with aspirin, statin. Permissible hypertension. Hold off on antihypertensive. Treat for a systolic of more than 210 mmHg. PT/OT/speech evaluation. Start diet as per dysphagia screen. (2) Type 2 diabetes mellitus without complications: Check A1c. She is on medication list. Depending on A1c will plan for insulin sliding scale. (3) Essential (primary) hypertension: Take multiple antihypertensives at home including Coreg 6.25 mg every 12 hourly, losartan 100 mg oral daily. Hold off for now given permissible hypertension. (4) Chronic kidney disease, stage 4 (severe): Monitor BMP daily. Echocardiogram done shows an EF of 43% with global LV hypokinesia with regional wall motion abnormality of anterior and apical akinesia, grade 2 diastolic dysfunction. Severe MR Respiratory failure: Acute hypoxic respiratory failure On HHNC @ 90%; 60 Liters Continue NPO status High risk for intubation Patient was getting hypoxic on 100% FiO2 60 L heated high flow, she was refusing and fighting the BiPAP, guarding was tried to reach out, it went to voicemail, around 3 AM patient was getting hypoxic O2 saturation 85% on 100% FiO2 ABG was done which showed significant hypoxia PO2 40% Decision was made to intubate the patient Started on Fentanyl for analgesia Levophed for MAP of >65 mmHg 08/04-Patient remains intubated. Sedation has been held. Tube feeds been held since 4 AM this morning anticipation of extubation this morning. Vent settings are minimal. She is awake. Does not track. Does not follow commands. Patient discussed with RT later this morning after spontaneous breathing trial. She she does trigger the vent but with significant change stroke breathing. She does not follow commands and confirmation of airway protection cannot be guaranteed. Extubating in the setting of be high risk for reneeding intubation. Safest option for airway protection is to proceed with tracheostomy and feeding tube. From prior conversations Samantha, I do not think this would be consistent with her wishes. Will call and speak with her guardian. Called and spoke with Katt San. Discussed her current clinical course and current clinical decision being considered. Questions whether or not proceed with a high risk extubation versus consideration of tracheostomy/feeding tube. I did note that I did not think this was consistent with the patient's prior stated wishes. She would like to think about it and review the case. I will forward this note onto her for more information. If we proceed with extubation, would recommend DNR/DNI status as reintubation would be for the purpose of tracheostomy. Overall, I am concerned her stroke is progressed; her worsening aspiration which landed her intubated as well as her worsening neurological status is consistent with progression of stroke. Awaiting a final decision from the power of employee benefits attorney regarding further management options. 08/05- Patient remains intubated. Sedation has been held. She is awake but does not follow verbal commands. RT at bedside, gave short SBT trial. Patient still has chyne Suazo breathing. Since she does not follow commands, airway protection cannot be guaranteed. Safest option as discussed with legal guardian yesterday was tracheostomy and feeding tube. Spoke with Katt San legal guardian, who in turn spoke with fdc administration and reported that option for tracheostomy and feeding tube would not be consistent with patient's prior stated wishes. Ms. San and fdc administrators want to be at bedside during extubation in a.m. 08/06- Legal guardian Ms. San and occupational health nursing director at bedside. Patient reassessed, CODE STATUS confirmed at the time was DNR/DNI. She was extubated and switched to nasal cannula. Legal guardian Ms. San wishes to continue her on comfort care measures only. Comfort care orders in place. 08/07- She was able to follow verbal commands, smiling, able to answer questions appropriately. Spoke with Ms. San legal guardikelli over the phone and informed her about Ms. Nunez improved mental and respiratory status. Will discharge her back to SNF for further care. will hold off [facility] medications until speech and swallow eval. Physical Exam Narrative: General: Patient is awake, alert and oriented x 1 Head: Normocephalic. Eyes open. Neck: No JVD. Cardiovascular: RRR. No gallops. No murmurs. Lungs: Breath sounds are normal, s/p extubation Skin: No jaundice. No rashes. Abdomen: normal bowel sounds, abdomen soft. Extremities: No cyanosis or clubbing. Neurological: No myoclonus. Was able to follow verbal commands. Urinary Catheter Management: Graff: Cath Placed During This Visit: yes Reason for Continuing Indwelling Catheter: Other Urinary Catheter Date of Insertion: 08/06/24 Urinary Catheter Time of Insertion: 19:54 Discharge Data Studies Completed and Pending Completed Studies During Hospitalization Category Date Time Status CT angio chest PE protcl [id number] Routine Cat Scan 07/31/24 09:[address] angio headneck* [id number] Routine Cat Scan 07/26/24 06:[address] head thrombolytic [id number] Stat Cat Scan 07/25/24 09:31 Completed CXRP [XR chest 1V portable [id number]] Routine Exams 07/29/24 08:55 Completed Sestamibi Stress Test Request Routine Exams 07/26/24 14:34 Completed XR abdomen 3V [id number] Routine Exams 07/27/24 14:02 Completed XR chest 1V portable [id number] Routine Exams 08/01/24 04:00 Completed XR chest 1V portable [id number] Routine Exams 08/02/24 04:00 Completed XR chest 1V portable [id number] Routine Exams 08/03/24 04:00 Completed XR chest 1V portable [id number] Routine Exams 08/04/24 04:00 Completed XR chest 1V portable [id number] Routine Exams 08/05/24 04:00 Completed XR chest 1V portable [id number] Stat Exams 07/27/24 04:02 Completed XR chest 1V portable [id number] Stat Exams 07/31/24 03:06 Completed NM gabriele perf SPECT r/s* [id number] Routine Nuc Med 07/28/24 14:34 Completed CV. echo complete* [id number] Routine Ultrasound 07/25/24 13:16 Completed US arterial duplex lower extremity LT [CV arterial Ultrasound 07/29/24 18:14 [place] [id number]] Routine Radiology Impressions Head CT 07/25/24 09:31 IMPRESSION: 1. No acute intracranial hemorrhage or edema. 2. Moderate volume loss and small vessel disease. 3. Numerous prior infarcts. Infarcts within the LEFT parietal and occipital lobes and cerebellum. Notified Jim Boone DO at 07/25/2024 9:40 AM. Head/Neck CTA 07/26/24 06:00 IMPRESSION: 1. No acute intracranial pathology detected. 2. No hemodynamically significant stenosis nor vascular occlusion. 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 Reconstitution at bifurcation. REFERENCES: NASCET CRITERIA. The degree of stenosis in the cervical segment of the internal carotid artery is based on NASCET criteria. Normal is no stenosis. Mild is less than 50% stenosis. Moderate is 50-69% stenosis. Severe is 70% to 99% stenosis. Total occlusion is no detectable patent lumen. ADDENDUM: 07/26/24 1372 ADDENDUM: This report contains critical findings. The findings were verbally communicated via telephone conference at 8:46 AM CDT on 07/26/2024 with YOUNG KNOWLES. The findings were acknowledged and understood. Abdomen X-Ray 07/27/24 14:02 IMPRESSION: 1. No acute findings. 2. Suspected calcified abdominal aorta which may be tortuous and/or ectatic. Chest CTA 07/31/24 09:45 IMPRESSION: 1. No evidence of pulmonary embolus. 2. Consolidation in the lung bases. 3. Volume loss LEFT lung with consolidation LEFT lower lobe. Groundglass infiltrates throughout the remainder of the poorly aerated LEFT lung. Chest X-Ray 08/05/24 04:00 IMPRESSION: 1. Resolved right basilar airspace disease. 2. Stable small left pleural effusion with compressive atelectasis. Laboratory Results WBC 7.12 10^3/uL (3.29-11.43) 08/05/24 03:25 RBC 3.52 10^6/uL (3.85-5.65) L 08/05/24 03:25 Hgb 10.40 g/dL (11.27-16.99) L 08/05/24 03:25 Hct 32.8 % (36-47) L 08/05/24 03:25 MCV 93.2 fl (85-98) 08/05/24 03:25 MCH 29.5 pg (27-33) 08/05/24 03:25 MCHC 31.7 g/dL (30-55) 08/05/24 03:25 RDW 14.5 % (12.1-15.1) 08/05/24 03:25 Plt Count 167 10^3/cmm (157-399) D 08/05/24 03:25 MPV 11.1 fL (7.4-10.4) H 08/05/24 03:25 Neut % (Auto) 62.9 % 08/05/24 03:25 Lymph % (Auto) 17.7 % 08/05/24 03:25 [place] % (Auto) 10.3 % 08/05/24 03:25 Eos % (Auto) 3.8 % 08/05/24 03:25 Baso % (Auto) 0.4 % 08/05/24 03:25 Neut # (Auto) 4.48 10^3/uL (1.8-7.7) 08/05/24 03:25 Lymph # (Auto) 1.3 10^3/uL (0.8-4.8) 08/05/24 03:25 [place] # (Auto) 0.7 10^3/uL (0.2-0.9) 08/05/24 03:25 Eos # (Auto) 0.3 10^3/uL (0.0-0.8) 08/05/24 03:25 Baso # (Auto) 0.0 10^3/uL (0.0-0.1) 08/05/24 03:25 Nucleated RBC % (auto) 0.4 % 08/05/24 03:25 Nucleated RBCs # 0.0 /100WBC 08/05/24 03:25 PT 13.50 SECONDS (12.1-14.9) 07/25/24 09:30 INR 0.96 (0.8-1.2) 07/25/24 09:30 APTT 26.0 SECONDS (23.9-36.7) 07/25/24 09:30 D-Dimer 2.04 ug/mLFEU (0-0.59) H 07/29/24 18:50 Specimen Type Arterial 08/05/24 04:12 Sample Site Radial, right 08/05/24 04:12 ABG pH 7.47 (7.35-7.45) H 08/05/24 04:12 ABG pCO2 46.2 mmHg (35-45) H 08/05/24 04:12 ABG pO2 58.7 mmHg (80.0-100.0) L 08/05/24 04:12 ABG PO2/FiO2 Ratio 195 08/05/24 04:12 ABG HCO3 33.3 mmol/L (22-26) H 08/05/24 04:12 ABG O2 Saturation 91.5 08/05/24 04:12 ABG Base Excess 8.5 mmol/L (-2.0-2.0) H 08/05/24 04:12 Joshua Test Pos 08/05/24 04:12 A-a O2 Gradient 13.0 mmHg (5-10) H 08/05/24 04:12 Hematocrit 34.3 % (37-47) L 08/05/24 04:12 Hgb O2 Saturation 89.3 % (95-100) L 08/05/24 04:12 Carboxyhemoglobin 1.5 %THgb (0.4-20.1) 08/05/24 04:12 Methemoglobin 0.9 % (0.4-1.5) 08/05/24 04:12 Total Hemoglobin 11.2 g/dL (12-16) L 08/05/24 04:12 Sodium 144.0 mmol/L (131-143) H 08/05/24 04:12 Potassium 3.4 mmol/L (3.5-5.0) L 08/05/24 04:12 Glucose 134.0 mg/dL (70-115) H 08/05/24 04:12 Ionized Calcium 1.2 mmol/L (1.1-1.4) 08/05/24 04:12 O2 Delivery Device Vent 08/05/24 04:12 O2 Liters/Min 60.0 % 07/31/24 02:29 FiO2 30.0 % 08/05/24 04:12 Tidal Volume 0.40 08/05/24 04:12 PEEP 5.0 cmH20 08/05/24 04:12 Fox[place] Closer ID Ed 08/05/24 04:12 Sodium 142 mmol/L (136-145) 08/05/24 03:25 Potassium 3.5 mmol/L (3.5-5.1) 08/05/24 03:25 Chloride 101 mmol/L (98-107) 08/05/24 03:25 Carbon Dioxide 29 mmol/L (22-29) 08/05/24 03:25 Anion Gap 15.5 (5-19) 08/05/24 03:25 BUN 22 mg/dL (8-23) 08/05/24 03:25 Creatinine 1.2 mg/dL (0.5-0.9) H 08/05/24 03:25 GFR Calculation Not Reportable 08/05/24 03:25 Glucose 133 mg/dL (65-115) H 08/05/24 03:25 POC Glucose 138 mg/dL (70-110) H 08/06/24 11:20 Estimat Average Glucose 131 07/26/24 04:49 Hemoglobin A1c 6.2 % (4.0-6.0) H 07/26/24 04:49 Calculated Osmolality 299 mOsm/kg (285-295) H 08/05/24 03:25 Calcium 9.0 mg/dL (8.5-10.5) 08/05/24 03:25 Phosphorus 2.6 mg/dL (2.5-4.5) 08/05/24 03:25 Magnesium 2.4 mg/dL (1.7-2.3) H 08/05/24 03:25 Iron 77 ug/dL (37-145) 07/25/24 09:30 TIBC 326 mcg/dl 07/25/24 09:30 % Saturation 23.6 % (20-50) 07/25/24 09:30 Unsat Iron Binding 249 ug/dL (112-347) 07/25/24 09:30 Total Bilirubin 0.7 mg/dL (0.15-1.2) 08/05/24 03:25 AST 73 U/L (0-32) H 08/05/24 03:25 ALT 40 U/L (0-33) H 08/05/24 03:25 Alkaline Phosphatase 176 U/L (35-105) H 08/05/24 03:25 Troponin T Baseline 20 ng/L (0-10) H 07/25/24 09:30 Troponin T 120 Minute 16.98 ng/L (0-10) H 07/25/24 12:31 Delta Troponin T -3.02 ABS# (0-10) L 07/25/24 12:31 Troponin T Hi Sens 6Hr 18.87 ng/L (0-10) H 07/25/24 15:21 Troponin T Hi Sens 6Hr Delta -1.13 ng/L (0-12) L 07/25/24 15:21 NT-Pro-B Natriuret Pep 5660 pg/mL (0-125) H 07/27/24 05:06 Total Protein 7.3 g/dL (6.6-8.7) 08/05/24 03:25 Albumin 3.1 g/dL (3.5-5.2) L 08/05/24 03:25 Globulin 4.2 g/dL (1.3-4.6) 08/05/24 03:25 Triglycerides 305 mg/dL (0-150) H 07/26/24 04:49 Cholesterol 151 mg/dL (0-200) 07/26/24 04:49 LDL Cholesterol, Calc 60 mg/dL (50-129) 07/26/24 04:49 HDL Cholesterol 30 mg/dL (60-100) L 07/26/24 04:49 LDL/HDL Ratio 2.00 RATIO (0.00-3.22) 07/26/24 04:49 Cholesterol/HDL Ratio 5.03 mg/dL (0.0-4.40) H 07/26/24 04:49 Vitamin B12 687 pg/mL (232-1245) 07/25/24 09:30 Folate 9.3 ng/mL (4.8-37.3) 07/26/24 04:49 Procalcitonin 0.05 ng/mL (0-0.5) 07/25/24 09:30 TSH 1.65 uIU/mL (0.27-4.20) 07/25/24 09:30 Urine Color Yellow (Yellow) 07/25/24 09:43 Urine Appearance Clear (CLEAR) 07/25/24 09:43 Urine pH 6 (5-7) 07/25/24 09:43 Ur Specific [place] 1.015 (1.005-1.030) 07/25/24 09:43 Urine Protein Neg (Negative) 07/25/24 09:43 Urine Glucose (UA) Norm (Normal) 07/25/24 09:43 Urine Ketones Negative (Negative) 07/25/24 09:43 Urine Blood Neg (Negative) 07/25/24 09:43 Urine Nitrate Negative (Negative) 07/25/24 09:43 Urine Bilirubin Neg (Negative) 07/25/24 09:43 Urine Urobilinogen Neg mg/dL (Negative) 07/25/24 09:43 Ur Leukocyte Esterase Negative (Negative) 07/25/24 09:43 Urine RBC 0-2 /hpf (0-2) 07/25/24 09:43 Urine WBC 0-5 /hpf (0-5) 07/25/24 09:43 Ur Squamous Epith Cells 0-5 /hpf (0-5) 07/25/24 09:43 Amorphous Sediment Not Reportable 07/25/24 09:43 Urine Bacteria None seen /hpf (NONE) 07/25/24 09:43 Hyaline Casts 0.81 /lpf 07/25/24 09:43 Urine Opiates Screen Negative ng/mL (Negative) 07/25/24 09:43 Ur Barbiturates Screen Negative ng/mL (Negative) 07/25/24 09:43 Ur Phencyclidine Scrn Negative ng/mL (Negative) 07/25/24 09:43 Ur Amphetamines Screen Negative ng/mL (Negative) 07/25/24 09:43 U Benzodiazepines Scrn Negative ng/mL (Negative) 07/25/24 09:43 Urine Cocaine Screen Negative ng/mL (Negative) 07/25/24 09:43 U Marijuana (THC) Screen Negative ng/mL (Negative) 07/25/24 09:43 Vitals Last Vital Signs Temp 98.2 F 08/06/24 16:17 Pulse 101 H 08/06/24 16:17 Resp 28 H 08/07/24 03:44 BP 153/85 08/06/24 16:17 Pulse Ox 94 08/06/24 16:17 O2 Del Method Nasal Cannula 08/06/24 16:17 O2 Flow Rate 2 08/06/24 16:17 FiO2 40 08/06/24 13:39 Discharge Plan Discharge Patient Disposition: Xfer SNF Condition: Fair Prescriptions: Discontinued potassium chloride 10 mEq capsule, extended release 10 meq PO DAILY aspirin [Adult Aspirin Regimen] 81 mg tablet,delayed release (DR/EC) 81 mg PO DAILY carvedilol 6.25 mg tablet 6.25 mg PO Q12H tamsulosin 0.4 mg capsule 0.4 mg PO BEDTIME mirtazapine 15 mg tablet 15 mg PO BEDTIME [place] 0.01 % drops 1 drop ophthalmic (eye) BEDTIME atorvastatin [Lipitor] 20 mg tablet 20 mg PO BEDTIME acetaminophen [Tylenol] 325 mg tablet 325 mg PO QID PRN (Reason: Pain) bisacodyl 10 mg suppository 10 mg TN DAILY PRN (Reason: Constipation) Biofreeze (menthol) 4 % gel 1 applic topical TID PRN (Reason: Pain) bumetanide 2 mg tablet 2 mg PO DAILY B1,B2,B3,B6,A15-oxnnnh-[id number]-upmz 0.5-0.6-7-0.7 mg elixir See Rx Instructions .ROUTE .COMPLEX Rx Instructions: Take 15 ml by mouth 3 times daily. polyethylene glycol 3350 [Miralax] 17 gram/dose powder 17 g PO DAILY PRN (Reason: Constipation) quetiapine [Seroquel] 200 mg tablet 200 mg PO BEDTIME fluticasone furoate-vilanterol [Breo Ellipta] 200-25 mcg/dose blister with device 1 inh INHALATION DAILY ipratropium-albuterol 0.5 mg-3 mg(2.5 mg base)/3 mL solution for nebulization 3 ml INHALATION Q4H PRN (Reason: Shortness Of Breath Or Wheezing) guaifenesin 100 mg/5 mL Liquid 300 mg PO Q4H PRN (Reason: Cough) losartan 100 mg tablet 100 mg PO DAILY escitalopram oxalate 10 mg tablet 10 mg PO DAILY guaifenesin [Mucinex] 600 mg Tablet Extended Release 12hr 600 mg PO Q12H PRN (Reason: Congestion) omeprazole 20 mg capsule,delayed release(DR/EC) 20 mg PO DAILY albuterol sulfate 90 mcg/actuation HFA aerosol inhaler 1 - 2 puff INHALATION Q4H PRN (Reason: Shortness Of Breath) Discharge Orders: Discharge Order (Routine); Ordered 08/07/24 Ordered By: Marquita Pereira Referrals: [facility] [Outside] Rigoberto Gibson MD [Primary Care Provider] - Discharge Diet: Cardiac Discharge Activity: As per PT/OT instructions Patient Instructions: Opioid Safety Discharge Attestations Time Spent in Discharge Care*: less than 30 min Quality Metrics Clinical Quality Measures [ No reported AMI, CVA or VTE this stay] Coding Level of Care Code Acute Code for Chg Fwd Diagnoses Respiratory failure J96.90 Aspiration pneumonia of lower lobe, unspecified aspiration pneumonia type, unspecified laterality J69.0 Pneumonia type: aspiration pneumonia Aspiration pneumonia type: unspecified Laterality: unspecified laterality Lung location: lower lobe of lung Acute left ICA ischemic stroke I63.232 Ischemic cardiomyopathy I25.5 Type 2 diabetes mellitus without complications E11.9 Essential (primary) hypertension I10 CAD (coronary artery disease) I25.10 Congestive heart failure due to cardiomyopathy I50.9; I42.9 Common carotid artery stenosis I65.29 Time Spent (min) 25
== END 2024-08-07 15:24 | disposition skilled nursing facility (03) | DRG 207 ==
LOC: ER 09:50 → MEDSURG 10:55 → ICU 07-29 18:00 → MEDSURG 08-06 20:28
PROVIDERS: Internal Medicine; Admitting Provider Student in an Organized Health Care Education/Training Program; Emergency Provider Family Medicine; PCP Internal Medicine; Visit Provider Internal Medicine
DX: J69.0 Pneumonitis due to inhalation of food and vomit (principal); I63.232 Cerebral infarction due to unspecified occlusion or stenosis of left carotid arteries; J96.01 Acute respiratory failure with hypoxia; G81.91 Hemiplegia, unspecified affecting right dominant side; I13.0 Hypertensive heart and chronic kidney disease with heart failure and stage 1 through stage 4 chronic kidney disease, or unspecified chronic kidney disease; I50.22 Chronic systolic (congestive) heart failure; N18.4 Chronic kidney disease, stage 4 (severe); F03.918 Unspecified dementia, unspecified severity, with other behavioral disturbance; F33.9 Major depressive disorder, recurrent, unspecified; I25.5 Ischemic cardiomyopathy; E11.51 Type 2 diabetes mellitus with diabetic peripheral angiopathy without gangrene; E11.22 Type 2 diabetes mellitus with diabetic chronic kidney disease; I25.10 Atherosclerotic heart disease of native coronary artery without angina pectoris; Z95.1 Presence of aortocoronary bypass graft; J44.9 Chronic obstructive pulmonary disease, unspecified; I34.0 Nonrheumatic mitral (valve) insufficiency; Z66 Do not resuscitate; Z51.5 Encounter for palliative care; Z79.82 Long term (current) use of aspirin; Z79.02 Long term (current) use of antithrombotics/antiplatelets; F17.210 Nicotine dependence, cigarettes, uncomplicated; F41.9 Anxiety disorder, unspecified; R33.9 Retention of urine, unspecified; I95.9 Hypotension, unspecified
CPT/HCPCS: 36415; 36416; 36592; 36600; 51702; 51798; 70450; 70496; 70498; 71045; 71275; 74021; 78452; 80048; 80051; 80053; 80061; 80069; 80306; 81003; 82330; 82607; 82746; 82805; 82962; 83036; 83540; 83550; 83735; 83880; 84100; 84145; 84443; 84484; 85025; 85378; 85610; 85730; 87070; 87205; 92507; 92523; 92526; 92610; 93005; 93017; 93306; 93926; 94002; 94003; 94640; 94660; 94664; 94762; 94799; 96372; 96374; 96375; 96376; 97110; 97161; 97165; 97530; 97535; 99285; A9500; G0378; J0280; J0696; J1644; J1815; J1940; J2060; J2270; J2470; J2543; J2704; J2785; J3010; J3480; J3490; J7030; J7608; J7613; J9999